=== PATIENT | male | born 1935 | race Caucasian/White ===

== ENCOUNTER 2018-06-12 12:19 | Inpatient (IN) | payer OTHER ==
--- NOTE | 2018-06-12 12:50 | PDOC ---
History of Present Illness - General Chief Complaint: Shortness of Breath Stated Complaint: SOB Time Seen by Provider: 06/12/18 12:35 History Source: Patient, Family Exam Limitations: Dementia - History of Present Illness Initial Comments: 06/12/18 14:09 Patient is a 83-year-old man with a history of COPD on 2L home O2, pulmonary HTN , right sided CHF, HTN, hyperlipidemia, hypothyroidism, dementia, depression, atrial flutter, and MICHAEL, presenting with 1 week of progressively worsening productive white cough and shortness of breath with minimal exertion. He states he has not been taking his torsemide 20mg x 2 days because he forgot. since then, also RLE swelling and pain. Notable for dementia, poor historian Allergies: NKA Past Medical History: COPD on 2L home O2, pulmonary HTN, right sided CHF, HTN, hyperlipidemia, hypothyroidism, dementia, depression, atrial flutter, and MICHAEL Social history: Lives with family. +current heavy smoker, No alcohol. No illicit drugs. Surgical history: noncontributory PMD: Dr Sandoval Cards: Dr Mallory Jacobs: Dr Olivo Review of systems Constitutional: no fevers or chills. HEENT: no headache or dizziness. No congestion. No visual/hearing disturbances. CVS: no cp or syncope. No palpitations. +peripheral edema Resp: +SOB, cough, wheezing. Gastrointestinal: no abdominal pain, nausea or vomiting. Genitourinary: no urinary sx, hematuria. MUSCULOSKELETAL: No joint pain and swelling. No neck or back pain. +leg swelling and pain. SKIN: no redness or skin changes, no discharge, no rash. No wounds. +cyanosis Hematologic: no easy bruising/bleeding. NEUROLOGIC: No headache, dizziness, LOC or altered mental status. No weakness, numbness or tingling. Allergic/Immunologic: no allergies All other systems reviewed and negative, or as documented in HPI. Physical exam: General: mild respiratory distress 2/2 tachypnea, increased WOB, speaking full short sentences. HEENT: NCAT, PERRL, EOMI, clear conjunctiva, anicteric, dry mucus membranes, clear oropharynx, no oral lesions.. Neck: neck supple, FROM Resp: Moderate respiratory distress, tachypneic, on 2L supp O2 via NC, + bilateral faint expiratory wheezing and diminished breath sounds/poor air movement with inspiration and expiration. +lip pursing, faint lip cyanosis on arrival CVS: RRR, no murmurs, 2+ peripheral pulses throughout, +RLE peripheral edema, 1 + PT pulses bilaterally Abdomen: soft, NTND, no peritoneal signs. Back: nontender, normal inspection and ROM MSK: +RLE 4+ pitting edema in ankle and pretibial region. MURPHY x4, ROM intact. No clubbing or cyanosis. normal bulk and tone. Neuro: alert, no focal neuro deficits. wiggles toes, sensation grossly intact to light touch in all extremities including BLE Skin: warm and well perfused, cap refill <2 sec 06/12/18 14:12 06/12/18 14:55 06/12/18 14:56 06/12/18 16:07 06/12/18 21:19 Past History - Past Medical History Allergies/Adverse Reactions: Allergies Allergy/AdvReac Type Severity Reaction Status Date / Time No Known Drug Allergies Allergy Verified 06/12/18 12:19 Home Medications: Ambulatory Orders RX: Ziprasidone [Geodon -] 80 mg PO HS 10/28/11 RX: Levalbuterol HCl [Xopenex] 1.25 mg IH Q4H PRN 02/14/15 RX: Potassium Chloride 20 meq PO DAILY tablet 08/30/15 RX: Metoprolol Succinate 25 mg PO 1 and 1/2 DAILY 11/30/15 RX: Torsemide 20 mg PO DAILY tablet 02/29/16 Ascorbic Acid [Vitamin C] 500 mg PO DAILY capsule 06/05/16 Cholecalciferol (Vitamin D3) [Vitamin D3] 2,000 unit PO DAILY capsule 06/05/16 RX: Carbamazepine 200 mg PO HS 06/12/18 Anemia: No Asthma: No Cancer: No 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) CVA: No COPD: Yes CHF: No Dementia: No Diabetes: No GI Disorders: No Disorders: Yes (BLADDER TUMOR) HTN: Yes Hypercholesterolemia: Yes Liver Disease: No Seizures: No Thyroid Disease: Yes - Surgical History Abdominal Surgery: No Appendectomy: No Cardiac Surgery: No Cholecystectomy: No Lung Surgery: No Neurologic Surgery: No Orthopedic Surgery: Yes (REPAIR RIGHT ANKLE FX 1999) - Suicide/Smoking/Psychosocial Hx Smoking History: Current every day smoker Have you smoked in the past 12 months: Yes Number of Cigarettes Smoked Daily: 8 'Breaking Loose' booklet given: 05/14/15 Hx Alcohol Use: Yes Drug/Substance Use Hx: No Substance Use Type: Alcohol Hx Substance Use Treatment: No Heart Score/ECG Review #1 ECG reviewed & interpreted by me at: 13:15 General ECG Interpretation: Sinus Rhythm, Normal Rate, Normal Intervals Compared to previous ECG there are: No significant change 06/12/18 14:12 EKG normal sinus rhythm at 95 bpm, no interval abnormalities, narrow QRS, ST and T wave segments and morphology normal. Nonspecific T wave abnormalities similar to prior EKGs ED Treatment Course - LABORATORY CBC & Chemistry Diagram: 06/12/18 13:20 06/12/18 13:20 - RADIOLOGY Radiology Studies Ordered: Category Date Time Status CHEST X-RAY PORTABLE* [RAD] Stat Radiology 06/12/18 12:49 Ordered Chest X-Ray Result: CHF Medical Decision Making - Critical Care Time Total Critical Care Time (minutes): 60 (acute respiratory failure, COPD and CHF exacerbation) Critical Care Statement: The care of this patient involved high complexity decision making to prevent further life threatening deterioration of the patient 's condition and/or to evaluate & treat vital organ system(s) failure or risk of failure. - Medical Decision Making 06/12/18 14:09 See HPI for details DDx SOB: ACS, PE, PTX, CHF, COPD exac, pulmonary edema, pleurisy, pneumonia, viral syndrome. effusion. anemia, electrolyte/metabolic derangements. Vital signs reviewed, +borderline hypoxia with COPD at baseline, on 2L NC O2 supplementally, 93% appropriate. mild tachypnea, normotensive. afebrile, Prior notes reviewed, including admissions, discharges and consultations. laboratory results and imaging reviewed, basic labs and lytes wnl, notable for baseline Cr 1.4, mild K elevation to 5.5, w/o EKG abnormalities such as interval derangements, QRS widening, T wave tenting. ABG_acute respiratory acidosis/hypercarbic and hypoxemic. CXR_cardiomegaly, increased bibasilar interstitial markings, no effusion or focal infiltrate. Cardiac panel_neg trop, reassuring, less likely cardiac bnp_elevated, similar to prior results as a result of his known CHF. EKG normal sinus rhythm at 95 bpm, no interval abnormalities, narrow QRS, ST and T wave segments and morphology normal. Nonspecific T wave abnormalities similar to prior EKGs ED course - duonebs x3, IV solumedrol, Mg given severe COPD exacerbation - diuresis with lasix, missed several days of torsemide, so also likely CHF flare. -remains hypoxic here, allowed for 88-92% given COPD history. did have to uptitrate his O2 to maintain sats >88%. wheezing improved, still working to breathe and purse lips on expiration; uptitrated his O2 to 4L O2 via nasal cannula, now sats on multiple reassessments >90% which is appropriate in setting of COPD. however continues to have WOB, ABG with acute respiratory hypercarbic/hypoxemic acidosis, put on bipap, arranging with respiratory to [facility]. comfortable on bipap, maintain to blow off Co2, recheck blood gas after several hours. bipap initiated ~7pm - abx for coverage, as he is high risk with his comorbities and respiratory complications. cef/doxy appropriate coverage for CAP. - blood cultures pending. - flu swab negative - duplex neg for DVT, however, +rt popliteal artery aneurysm with thrombus. NVI , with 1+ PT pulses bilaterally, no pain, only 4+ peripheral edema in RLE. not acute ischemic limb, likely chronic in nature - Vascular cs, spoke with Dr Diaz application tester, discussed the case and will need medical optimization prior to operative management. - ICU cs, accepted for higher level of care given his acute hypoxic respiratory failure requiring closer monitoring. - cards cs with Dr Abdi, for his right CHF exacerbation, diuresed and close monitoring of I/Os, urinal at bedside. admit ICU [facility] for acute respiratory failure 2/2 COPD/CHF exacerbation at time of admission order. incidentally found to have rt popliteal artery aneurysm, with thrombus. s/o to hospitalist team as well, admitting under Dr Mei. had discussed care several times via phone regarding status and bed placement. 440pm - no ICU bed, changed to tele. on reexam, pt has improved oxygenation status. remains on supp O2 via NC at 4L, stable. updated to telemetry bed at [facility] 06/12/18 17:31 06/12/18 19:53 06/12/18 21:21 06/12/18 21:21 *DC/Admit/Observation/Transfer Diagnosis at time of Disposition: COPD with acute exacerbation, Leg edema, right, Aneurysm of right popliteal artery, Right ventricular systolic dysfunction, Acute respiratory failure with hypoxia and hypercarbia CHF exacerbation Qualifiers: Heart failure type: right-sided Qualified Code(s): I50.813 - Acute on chronic right heart failure - Discharge Dispostion Condition at time of disposition: Guarded Decision to Admit order: Yes Decision to Admit order Date/Time: 06/12/18 15:02 Decision to Admit Order Category Date Time Status Decision to Admit to Hospital Routine Admission 06/12/18 15:01 Ordered - Referrals - Patient Instructions - Post Discharge Activity
[2018-06-12] MEDS ORDERED: MAGNESIUM SULF 50% (8.12 MEQ/2 ML-1 GM VIAL) IVPB ONE (12:58)
[2018-06-12] MEDS ORDERED: FUROSEMIDE 40 MG/4 ML INJECTABLE VIAL IVPUSH ONE (12:58)
[2018-06-12] MEDS ORDERED: methylPREDNISolone NA SUCC 125 MG/2 ML VIAL IVPB ONE (12:58)
[2018-06-12] MEDS ORDERED: FUROSEMIDE 40 MG/4 ML INJECTABLE VIAL ONE (13:25)
[2018-06-12] MEDS ORDERED: methylPREDNISolone NA SUCC 125 MG/2 ML VIAL ONE (13:25)
[2018-06-12] MEDS ORDERED: MAGNESIUM SULF 50% (8.12 MEQ/2 ML-1 GM VIAL) ONE (13:25)
[2018-06-12] MEDS ORDERED: ALBUTEROL SO4 0.083% IH SOL 2.5 MG/3 ML VIAL.NEB. NEB ONE (13:25)
[2018-06-12] MEDS: ALBUTEROL SO4 0.083% IH SOL 2.5 MG/3 ML VIAL.NEB. NEB SCH ×2 (13:39→13:59)
[2018-06-12 13:44] LABS: BASO % 3.4 % (0-2.0); EOS % 0.5 % (0-4.5); HEMATOCRIT 48.2 % (35.4-49); HEMOGLOBIN 15.2 GM/dl (11.7-16.9); LYMPH % 8.3 % (8-40); MCH 33.6 pg (25.7-33.7); MCHC 31.6 g/dl (32.0-35.9); MEAN CELL VOLUME 106.3 fl (80-96); MEAN PLT VOLUME 7.5 fl (7.5-11.1); MONO % 7.9 % (3.8-10.2); NEUT % 79.9 % (42.8-82.8); PLATELET COUNT 119 K/MM3 (134-434); RBC 4.53 M/mm3 (4.00-5.60)
[2018-06-12 13:55] LABS: ALBUMIN 3.2 g/dl (3.4-5.0); ALK PHOS 58 U/L (45-117); ANION GAP 6 MMOL/L (8-16); BILIRUBIN,TOTAL 1.3 mg/dl (0.2-1); BLOOD UREA NITROGEN 30 mg/dl (7-18); CHLORIDE 100 mmol/L (98-107); CO2 31 mmol/L (21-32); CREATININE 1.4 mg/dl (0.55-1.3); GLUCOSE,RANDOM 177 mg/dl (74-106); POTASSIUM 5.5 mmol/L (3.5-5.1); SGOT/AST 21 U/L (15-37); SGPT/ALT 10 U/L (13-61); SODIUM 137 mmol/L (136-145); TOT PROT 6.4 g/dl (6.4-8.2)
[2018-06-12 13:56] LABS: INR 1.28 (0.82-1.09); PROTHROMBIN TIME (PATIENT) 14.3 SEC (10.2-13.0)
[2018-06-12] MEDS ORDERED: CEFTRIAXONE 1,000 MG in DEXTROSE 5%-WATER - 50 ML IVPB ONE (14:58)
[2018-06-12] MEDS ORDERED: DOXYCYCLINE INJECTION 100 MG in DEXTROSE 5%-WATER - 100 ML IVPB ONE (14:58)
[2018-06-12] MEDS ORDERED: DOXYCYCLINE HYCLATE 100 MG VIAL ONE (15:53)
[2018-06-12] MEDS ORDERED: cefTRIAXone SODIUM 1 GM VIAL ONE (15:53)
[2018-06-12 16:52] LABS: ARTERIAL BLD GAS O2 SATURATION 57.7 % (95-98); ARTERIAL BLOOD GAS BASE EXCESS 4.5 meq/l (-2-2)
[2018-06-12 17:07] LABS: ARTERIAL BLOOD GAS PCO2 71.3 mmHg (35-45)
[2018-06-12 19:04] LABS: CARBOXYHEMOGLOBIN 1.9 % (0-2)
--- NOTE | 2018-06-12 21:39 | HP ---
Admitting History and Physical - Primary Care Physician PCP: Reji Sandoval - Admission Chief Complaint: SOB, Leg Swelling History of Present Illness: This is a 83 y/o man with a PMHx of: COPD 2LNC, Pulm HTN, HLD, Right Sided CHF, Atrial Flutter (on Eliquis) Hypothyroidism, Dementia, Depression, MICHAEL. Who presents to the ED with worsening SOB, productive cough- white phlegm x 1 week. Per ED records patient has been non-complaint with taking his Torsemide x 2 days. Patient reports pain and swelling to his RLE. Patient reports quitting smoking 5 days ago. Patient denies fever, chills, dizziness, CP, palpitations, AP, N/V/D, constipation, dysuria History Source: Patient Limitations to Obtaining History: Dementia, Poor Historian - Past Medical History TRAINING MANAGER: Yes: Dementia Cardiovascular: Yes: AFIB, Aneurysm (thoracic), HTN, Hyperlipdemia, Pulmonary Hypertension Pulmonary: Yes: COPD, O2 Dependent, Sleep Apnea Psych: Yes: Depression Endocrine: Yes: Hypothyroidism - Past Surgical History Past Surgical History: Yes: Cataract Removal (bilateral) - Smoking History Smoking history: Current every day smoker Have you smoked in the past 12 months: Yes Aproximately how many cigarettes per day: 8 (hx 1 PPD x 50+ yrs) If you are a former smoker, when did you quit?: 5 DAYS AGO - Alcohol/Substance Use Hx Alcohol Use: Yes History of Substance Use: reports: None - Social History ADL: Independent History of Recent Travel: No Home Medications - Allergies Allergies/Adverse Reactions: Allergies Allergy/AdvReac Type Severity Reaction Status Date / Time No Known Drug Allergies Allergy Verified 06/12/18 12:19 - Home Medications Home Medications: Ambulatory Orders Ziprasidone [Geodon -] 80 mg PO HS 10/28/11 Levalbuterol HCl [Xopenex] 1.25 mg IH Q4H PRN 02/14/15 Potassium Chloride 20 meq PO DAILY tablet 08/30/15 Metoprolol Succinate 25 mg PO 1 and 1/2 DAILY 11/30/15 Torsemide 20 mg PO DAILY tablet 02/29/16 Ascorbic Acid [Vitamin C] 500 mg PO DAILY capsule 06/05/16 Cholecalciferol (Vitamin D3) [Vitamin D3] 2,000 unit PO DAILY capsule 06/05/16 Carbamazepine 200 mg PO HS 06/12/18 Family Disease History - Family Disease History Family History: Unable to Obtain Review of Systems - Review of Systems Constitutional: reports: No Symptoms Eyes: reports: No Symptoms HENT: reports: No Symptoms Neck: reports: No Symptoms Cardiovascular: reports: Shortness of Breath Respiratory: reports: Cough, SOB, SOB on Exertion Gastrointestinal: reports: No Symptoms Genitourinary: reports: No Symptoms Breasts: reports: No Symptoms Reported Musculoskeletal: reports: Extremity Pain, Joint Swelling Integumentary: reports: No Symptoms Neurological: reports: No Symptoms Endocrine: reports: No Symptoms Hematology/Lymphatic: reports: No Symptoms Psychiatric: reports: No Symptoms Physical Examination Vital Signs: Vital Signs Temperature 98 F 06/12/18 18:41 Pulse Rate 62 06/12/18 19:23 Respiratory Rate 18 06/12/18 19:23 Blood Pressure 122/75 06/12/18 19:23 O2 Sat by Pulse Oximetry (%) 93 L 06/12/18 21:15 Constitutional: Yes: Mild Distress Eyes: Yes: Conjunctiva Clear, EOM Intact, PERRL HENT: Yes: WNL, Atraumatic, Normocephalic Neck: Yes: WNL, Supple, Trachea Midline Cardiovascular: Yes: Pulse Irregular, S1, S2 Respiratory: Yes: Diminished, On BiPap, Rhonchi, SOB, SOB on Exertion, Tachypnea , Wheezes Gastrointestinal: Yes: Normal Bowel Sounds, Soft Edema: Yes Edema: LLE: Trace, RLE: 2+ Peripheral Pulses WNL: Yes Neurological: Yes: Alert, Confusion, Cran Nerves II-XII Intact ...Motor Strength: WNL Psychiatric: Yes: Alert Labs: CBC, BMP 06/12/18 13:20 06/12/18 13:20 Imaging - Results Chest X-ray: Report Reviewed Ultrasound: Report Reviewed, Image Reviewed EKG: Image Reviewed Problem List - Problems (1) Acute respiratory failure with hypoxia and hypercarbia Code(s): J96.01 - ACUTE RESPIRATORY FAILURE WITH HYPOXIA; J96.02 - ACUTE RESPIRATORY FAILURE WITH HYPERCAPNIA (2) COPD with acute exacerbation Code(s): J44.1 - CHRONIC OBSTRUCTIVE PULMONARY DISEASE W (ACUTE) EXACERBATION (3) CHF exacerbation Code(s): I50.9 - HEART FAILURE, UNSPECIFIED Qualifiers: Heart failure type: right-sided Qualified Code(s): I50.813 - Acute on chronic right heart failure (4) Aneurysm of right popliteal artery Code(s): I72.4 - ANEURYSM OF ARTERY OF LOWER EXTREMITY (5) Leg edema, right Code(s): R60.0 - LOCALIZED EDEMA (6) Hyperlipidemia Code(s): E78.5 - HYPERLIPIDEMIA, UNSPECIFIED Qualifiers: Hyperlipidemia type: unspecified Qualified Code(s): E78.5 - Hyperlipidemia , unspecified (7) Hypertension Code(s): I10 - ESSENTIAL (PRIMARY) HYPERTENSION Qualifiers: Hypertension type: essential hypertension Qualified Code(s): I10 - Essential (primary) hypertension (8) Pulmonary hypertension Code(s): I27.2 - OTHER SECONDARY PULMONARY HYPERTENSION * DO NOT USE * (9) Obstructive sleep apnea Code(s): G47.33 - OBSTRUCTIVE SLEEP APNEA (ADULT) (PEDIATRIC) (10) Hypothyroidism Code(s): E03.9 - HYPOTHYROIDISM, UNSPECIFIED Qualifiers: Hypothyroidism type: unspecified Qualified Code(s): E03.9 - Hypothyroidism , unspecified (11) Dementia Code(s): F03.90 - UNSPECIFIED DEMENTIA WITHOUT BEHAVIORAL DISTURBANCE Qualifiers: Dementia type: unspecified type Dementia behavioral disturbance: without behavioral disturbance Qualified Code(s): F03.90 - Unspecified dementia without behavioral disturbance (12) Depression Code(s): F32.9 - MAJOR DEPRESSIVE DISORDER, SINGLE EPISODE, UNSPECIFIED Qualifiers: Depression Type: unspecified Qualified Code(s): F32.9 - Major depressive disorder, single episode, unspecified Assessment/Plan This is a 83 y/o man with a PMHx of: COPD (2LNC), Pulm HTN, Dementia, HLD, R- sided CHF, Aflutter (on Eliquis), Hypothyroid, Depression, MICHAEL. Admitted to Telemetry for Acute Respiratory Failure with Hypoxia and Hypercapnia, Acute COPD Exacerbation, Pneumonia for further evaluation of their emergent condition. Plan: 1. Pulm: Acute Respiratory Failure with Hypoxia and Hypercapnia Likely secondary to COPD flare vs CHF vs PNA Continue cardiac monitoring Chest Xray report- ?RLL infiltrate, increased bibasilar markings [id number] Ceftriaxone, and Doxycycline given in ED, will continue ABG- 7.31/71/35/33/57 BIPAP settings: 40/16/12/5 Repeat ABG, titrate BIPAP accordingly Appreciate Pulm Consult Continue home meds Monitor CBC, BMP 2. Cardiovascular: HTN CHF Aflutter R- Popliteal Artery Aneurysm EKG- SR with PVCs, ST & T wave abnormality Duplex LE- no DVT, +right popliteal artery aneurysm measuring 4.0cm x 2.3cm Lasix, Solumederol, Magnesium Sulfate given in ED Appreciate Cardiology consult Appreciate Vascular consult Neurovascular checks Continue home meds Continue Lasix, Solumederol with taper Daily weights Strict INOs 3. Endocrinology: Hypothyroid Continue Levothyroxine 4. Psych: Dementia Depression Continue home meds FEN Fluid Restriction 1L Replete lytes prn Low Na Diet DVT ppx OOB SCD- L- leg Continue Eliquis Dispo: Requires Inpatient Care Visit type - Emergency Visit Emergency Visit: Yes ED Registration Date: 06/12/18 Care time: The patient presented to the Emergency Department on the above date and was hospitalized for further evaluation of their emergent condition. - New Patient This patient is new to me today: Yes Date on this admission: 06/12/18 - Critical Care Critical Care patient: No
[2018-06-12] MEDS ORDERED: HEPARIN NA (PORCINE) 5,000 UNITS/ML 1ML VIAL SQ SCH (22:00)
[2018-06-13 00:23] LABS: ARTERIAL BLD GAS O2 SATURATION 94.9 % (95-98); ARTERIAL BLOOD GAS BASE EXCESS 5.4 meq/l (-2-2); ARTERIAL BLOOD GAS PCO2 55.7 mmHg (35-45); ARTERIAL BLOOD GAS PO2 77.4 mmHg (80-105); ARTERIAL BLOOD GAS pH 7.37 (7.35-7.45)
[2018-06-13 00:24] LABS: ALLENS TEST POSITIVE
[2018-06-13] MEDS: LEVOTHYROXINE NA 50 MCG TABLET (FP) PO SCH (06:04)
[2018-06-13] MEDS ORDERED: PATIENT'S OWN MEDICATION (NON-FORMULARY) (Memantine Hcl [Namenda Xr] 14 MG) PO SCH (07:00)
[2018-06-13 07:14] LABS: ARTERIAL BLD GAS O2 SATURATION 92.4 % (95-98); ARTERIAL BLOOD GAS BASE EXCESS 5.6 meq/l (-2-2); ARTERIAL BLOOD GAS PCO2 56.8 mmHg (35-45); ARTERIAL BLOOD GAS PO2 65.9 mmHg (80-105); ARTERIAL BLOOD GAS pH 7.37 (7.35-7.45)
[2018-06-13 07:23] LABS: ALLENS TEST POSITIVE
[2018-06-13 07:46] LABS: BASO % 0.2 % (0-2.0); EOS % 0.2 % (0-4.5); HEMATOCRIT 45.1 % (35.4-49); HEMOGLOBIN 14.4 GM/dL (11.7-16.9); LYMPH % 10.5 % (8-40); MCH 33.5 pg (25.7-33.7); MEAN CELL VOLUME 104.8 fl (80-96); MEAN PLT VOLUME 7.8 fl (7.5-11.1); MONO % 7.8 % (3.8-10.2); NEUT % 81.3 % (42.8-82.8); PLATELET COUNT 94 K/MM3 (134-434); RBC 4.31 M/mm3 (4.00-5.60); WHITE BLOOD COUNT 4.1 K/mm3 (4.0-10.0)
[2018-06-13 08:36] LABS: ANION GAP 4 MMOL/L (8-16); BLOOD UREA NITROGEN 26 mg/dL (7-18); CALCIUM 7.8 mg/dL (8.5-10.1); CHLORIDE 102 mmol/L (98-107); CHOLESTEROL 112 mg/dL (50-200); CO2 31 mmol/L (21-32); CREATININE 1.3 mg/dL (0.55-1.3); GLUCOSE,RANDOM 78 mg/dL (74-106); HDL CHOLESTEROL 53 mg/dL (40-60); POTASSIUM 4.5 mmol/L (3.5-5.1); SODIUM 136 mmol/L (136-145); TRIGLYCERIDES 55 mg/dL (0-150)
[2018-06-13] MEDS ORDERED: PT OWN MED DRAWER 7, Y5N ONE (09:52)
[2018-06-13] MEDS ORDERED: methylPREDNISolone NA SUCC 40 MG/1 ML VIAL IVPUSH SCH (10:00)
[2018-06-13] MEDS ORDERED: CEFTRIAXONE 0.5 GM in DEXTROSE 5%-WATER - 50 ML IVPB SCH (10:00)
[2018-06-13] MEDS ORDERED: FUROSEMIDE 40 MG/4 ML INJECTABLE VIAL IVPUSH SCH (10:00)
--- NOTE | 2018-06-13 10:58 | PN ---
Progress Note, Physician - Current Medication List Current Medications: Active Medications Albuterol Sulfate (Ventolin 0.083% Nebulizer Soln -) 1 amp NEB Q6H PRN PRN Reason: SHORT OF BREATH/WHEEZING Apixaban (Eliquis -) 5 mg PO BID [facility] Ascorbic Acid (Vitamin C -) 500 mg PO DAILY [facility] Atorvastatin Calcium (Lipitor -) 10 mg PO HS [facility] Carbamazepine (Tegretol -) 200 mg PO HS [facility] Digoxin (Lanoxin -) 0.125 mg PO DAILY [facility] Donepezil HCl (Aricept -) 10 mg PO HS [facility] Furosemide (Lasix Injection -) 40 mg IVPUSH DAILY [facility] Doxycycline Hyclate 100 mg/ (Dextrose) 100 mls @ 50 mls/hr IVPB BID [facility] Ceftriaxone Sodium 0.5 gm/ (Dextrose) 50 mls @ 100 mls/hr IVPB DAILY [facility]; Protocol Levothyroxine Sodium (Synthroid -) 50 mcg PO DAILY@0700 [facility] Last Admin: 06/13/18 06:04 Dose: 50 mcg Methylprednisolone Sodium Succinate (Solu-Medrol -) 40 mg IVPUSH Q8H-IV RAMANA Non-Formulary Medication (Memantine Hcl [Namenda Xr]) 14 mg PO AM RAMANA [id number] Ethyl Esters (Lovaza -) 1 gm PO BID [facility] - Objective Vital Signs: Vital Signs Temperature 97.4 F L 06/13/18 06:00 Pulse Rate 53 L 06/13/18 06:00 Respiratory Rate 20 06/13/18 06:00 Blood Pressure 138/80 06/13/18 06:00 O2 Sat by Pulse Oximetry (%) 93 L 06/12/18 21:15 Constitutional: Yes: Well Nourished, No Distress, Calm Eyes: Yes: WNL, Conjunctiva Clear, EOM Intact HENT: Yes: WNL, Atraumatic, Normocephalic Neck: Yes: WNL, Supple, Trachea Midline Cardiovascular: Yes: WNL, Pulse Irregular, S1, S2 Respiratory: Yes: WNL, Regular, On BiPap, Rales, Rhonchi, SOB, SOB on Exertion Gastrointestinal: Yes: WNL, Normal Bowel Sounds, Soft Musculoskeletal: Yes: WNL Extremities: Yes: WNL Edema: Yes Edema: LLE: 3+, RLE: 2+ Peripheral Pulses WNL: Yes Integumentary: Yes: WNL Neurological: Yes: WNL, Alert, Oriented ...Motor Strength: WNL Psychiatric: Yes: WNL, Alert, Oriented Labs: CBC, BMP 06/13/18 07:00 06/13/18 07:00 INR, PTT INR 1.28 (0.82-1.09) H D 06/12/18 13:20 Problem List - Problems (1) Acute respiratory failure with hypoxia and hypercarbia Assessment/Plan: 2/2 elly COPD exacerbation patient is responding to BiPAP his CO2 level has decreased c/w BiPAP trend the ABG pulmonary evaluation Code(s): J96.01 - ACUTE RESPIRATORY FAILURE WITH HYPOXIA; J96.02 - ACUTE RESPIRATORY FAILURE WITH HYPERCAPNIA (2) Aneurysm of right popliteal artery Assessment/Plan: seen on US of the lower ext vascular surgery is following up on the patient Code(s): I72.4 - ANEURYSM OF ARTERY OF LOWER EXTREMITY (3) CHF exacerbation Assessment/Plan: HFrEF obtain echocardiogram cardiology consultation admit to tele monitor IV 80mg furosemide twice a day then switch to 40mg IV x twice day from tmorrow Code(s): I50.9 - HEART FAILURE, UNSPECIFIED Qualifiers: Heart failure type: right-sided Qualified Code(s): I50.813 - Acute on chronic right heart failure (4) COPD with acute exacerbation Assessment/Plan: c/w nebulizing treatment PO prednisone 40mg daily pulmonary evaluation Code(s): J44.1 - CHRONIC OBSTRUCTIVE PULMONARY DISEASE W (ACUTE) EXACERBATION (5) Atrial flutter Assessment/Plan: possible 2/2 to the pulmonary HTN and COPD stable c/w digoxin c/w tele monitor Cardiology evaluation c/w apixiban 5mg twice a day - based on weight and kidney function Code(s): I48.92 - UNSPECIFIED ATRIAL FLUTTER Qualifiers: Atrial flutter type: unspecified Qualified Code(s): I48.92 - Unspecified atrial flutter (6) Chronic cor pulmonale Assessment/Plan: stable c/w nebs pulmonary consultation Code(s): I27.81 - COR PULMONALE (CHRONIC) (7) Hyperlipidemia Assessment/Plan: c/w atrovastatin Code(s): E78.5 - HYPERLIPIDEMIA, UNSPECIFIED Qualifiers: Hyperlipidemia type: unspecified Qualified Code(s): E78.5 - Hyperlipidemia , unspecified (8) Hypertension Assessment/Plan: stable c/w home medication Code(s): I10 - ESSENTIAL (PRIMARY) HYPERTENSION Qualifiers: Hypertension type: essential hypertension Qualified Code(s): I10 - Essential (primary) hypertension (9) Hypothyroidism Assessment/Plan: stable c/w levothyroxine Code(s): E03.9 - HYPOTHYROIDISM, UNSPECIFIED Qualifiers: Hypothyroidism type: unspecified Qualified Code(s): E03.9 - Hypothyroidism , unspecified (10) Acute respiratory acidosis Assessment/Plan: acute on chronic CO2 retention 2/2 to chronic COPD exacacerbation respondinf to BiPAP Code(s): E87.2 - ACIDOSIS (11) Chronic respiratory acidosis Assessment/Plan: 2/2 to chronic COPD and CO2 retention Code(s): E87.2 - ACIDOSIS
[2018-06-13] MEDS: APIXABAN 5 MG TABLET PO SCH ×2 (10:59→21:09)
[2018-06-13] MEDS: DIGOXIN 0.125 MG TABLET (FP) PO SCH (11:00)
[2018-06-13] MEDS: OMEGA-3 ACID ETHYL ESTERS (FATTY-ACIDS) 1 GM CAPSULE (FP) PO SCH ×2 (11:01→21:09)
[2018-06-13] MEDS: ASCORBIC ACID 500 MG TABLET (FP) PO SCH (11:03)
[2018-06-13] MEDS: DOXYCYCLINE INJECTION 100 MG in DEXTROSE 5%-WATER - 100 ML IVPB SCH ×2 (11:14→21:13)
--- NOTE | 2018-06-13 12:06 | PN ---
Progress Note (short form) - Note Progress Note: Vascular Surgery Vascular Study reviewed. Right popliteal artery with 2.3cm aneurysm. Reccommend CTA of Aorta and bl lower extremities runoff. With a popliteal artery aneurysm there is a 20-30 percent chance that the pt might have a abdominal aortic aneurysm. PLease order CTA when pt is stable. Devon Diaz DO
--- NOTE | 2018-06-13 12:48 | CON.PULM ---
Consult Consult Specialty:: PULM/CCM Referred by:: MARCO ANTONIO Reason for Consultation:: SOB - History of Present Illness Chief Complaint: SOB History of Present Illness: 83 M, home O2 dependent COPD, Pulmonary HTN, HLD, Diastolic CHF, Atrial Flutter on Eliquis, Hypothyroidism, Dementia, Depression, and Moderate MICHAEL (RDI: 16.3) titrated to CPAP @ 12 cm H2O (not using). Admitted via the ER due to progressive SOB and cough with white phlegm x 1 week. He was noted to be in acute on chronic hypercpaneic respiratory failure requiring NIPPV support. No travel history or sick contacts. No hemoptysis or night sweats. Apparently he has been noncompliant with his Torsemide. 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 No: Previously Intubated, Pulmonary Embolus, Pulmonary Fibrosis Psych: Yes: Depression Endocrine: Yes: Hypothyroidism - Past Surgical History Past Surgical History: Yes: Cataract Removal (bilateral) - Alcohol/Substance Use Hx Alcohol Use: Yes History of Substance Use: reports: None - Smoking History Smoking history: Current every day smoker Have you smoked in the past 12 months: Yes Aproximately how many cigarettes per day: 8 (hx 1 PPD x 50+ yrs) If you are a former smoker, when did you quit?: 5 DAYS AGO - Social History ADL: Independent History of Recent Travel: No Home Medications - Allergies Allergies/Adverse Reactions: Allergies Allergy/AdvReac Type Severity Reaction Status Date / Time No Known Drug Allergies Allergy Verified 06/12/18 12:19 - Home Medications Home Medications: Ambulatory Orders Ziprasidone [Geodon -] 80 mg PO HS 10/28/11 Levalbuterol HCl [Xopenex] 1.25 mg IH Q4H PRN 02/14/15 Potassium Chloride 20 meq PO DAILY tablet 08/30/15 Metoprolol Succinate 25 mg PO 1 and 1/2 DAILY 11/30/15 Torsemide 20 mg PO DAILY tablet 02/29/16 Ascorbic Acid [Vitamin C] 500 mg PO DAILY capsule 06/05/16 Cholecalciferol (Vitamin D3) [Vitamin D3] 2,000 unit PO DAILY capsule 06/05/16 Carbamazepine 200 mg PO HS 06/12/18 Review of Systems - Review of Systems Constitutional: reports: Malaise, Weakness. denies: Chills, Diaphoresis, Lethargy, Night Sweats, Unintentional Wgt. Loss Eyes: reports: No Symptoms HENT: reports: No Symptoms Neck: reports: No Symptoms Cardiovascular: reports: Edema, Shortness of Breath. denies: Chest Pain, Palpitations Respiratory: reports: Cough, Snoring, SOB, SOB on Exertion, Wheezing. denies: Hemoptysis Gastrointestinal: reports: No Symptoms Genitourinary: reports: No Symptoms Breasts: reports: No Symptoms Reported Musculoskeletal: reports: No Symptoms Integumentary: reports: No Symptoms Neurological: reports: No Symptoms Endocrine: reports: No Symptoms Hematology/Lymphatic: reports: No Symptoms Psychiatric: reports: No Symptoms Physical Exam Vital Sings: Vital Signs Temperature 97.4 F L 06/13/18 06:00 Pulse Rate 69 06/13/18 11:00 Respiratory Rate 20 06/13/18 06:00 Blood Pressure 138/80 06/13/18 06:00 O2 Sat by Pulse Oximetry (%) 93 L 06/12/18 21:15 Constitutional: Yes: Mild Distress Eyes: Yes: Conjunctiva Clear, EOM Intact HENT: Yes: Atraumatic, Normocephalic Neck: Yes: Supple, Trachea Midline Cardiovascular: Yes: Pulse Irregular Respiratory: Yes: Cough, Diminished, Rhonchi, SOB, SOB on Exertion, Tachypnea, Wheezes. No: Accessory Muscle Use, Stridor ...Inspection: Yes: WNL ...Clubbing: No Gastrointestinal: Yes: Normal Bowel Sounds, Soft Renal/: Yes: WNL Musculoskeletal: Yes: WNL Extremities: Yes: WNL Edema: Yes Peripheral Pulses WNL: Yes Integumentary: Yes: WNL Neurological: Yes: WNL, Alert, Oriented ...Motor Strength: WNL Psychiatric: Yes: WNL, Alert, Oriented Labs: CBC, BMP 06/13/18 07:00 06/13/18 07:00 ABG Results ABG pH 7.37 (7.35-7.45) 06/13/18 07:00 ABG pCO2 at Pt Temp 56.8 mmHg (35-45) H 06/13/18 07:00 ABG pO2 at Pt Temp 65.9 mmHg (80-105) L 06/13/18 07:00 ABG HCO3 32.2 mmol/L (22-27) H 06/13/18 07:00 ABG O2 Sat (Measured) 92.4 % (95-98) L 06/13/18 07:00 ABG O2 Content 18.3 % vol (15-22) 06/13/18 07:00 ABG Base Excess 5.6 meq/l (-2-2) H 06/13/18 07:00 Imaging - Results Chest X-ray: Report Reviewed, Image Reviewed Problem List - Problems (1) Community acquired pneumonia Code(s): J18.9 - PNEUMONIA, UNSPECIFIED ORGANISM (2) Acute respiratory acidosis Code(s): E87.2 - ACIDOSIS (3) Acute respiratory failure with hypoxia and hypercarbia Code(s): J96.01 - ACUTE RESPIRATORY FAILURE WITH HYPOXIA; J96.02 - ACUTE RESPIRATORY FAILURE WITH HYPERCAPNIA (4) Aneurysm of right popliteal artery Code(s): I72.4 - ANEURYSM OF ARTERY OF LOWER EXTREMITY (5) COPD with acute exacerbation Code(s): J44.1 - CHRONIC OBSTRUCTIVE PULMONARY DISEASE W (ACUTE) EXACERBATION (6) Chronic respiratory acidosis Code(s): E87.2 - ACIDOSIS (7) Leg edema, right Code(s): R60.0 - LOCALIZED EDEMA (8) Right ventricular systolic dysfunction Code(s): I51.9 - HEART DISEASE, UNSPECIFIED (9) Atrial flutter Code(s): I48.92 - UNSPECIFIED ATRIAL FLUTTER Qualifiers: Atrial flutter type: unspecified Qualified Code(s): I48.92 - Unspecified atrial flutter (10) COPD (chronic obstructive pulmonary disease) Code(s): J44.9 - CHRONIC OBSTRUCTIVE PULMONARY DISEASE, UNSPECIFIED Qualifiers: COPD type: COPD with acute exacerbation Qualified Code(s): J44.1 - Chronic obstructive pulmonary disease with (acute) exacerbation (11) Chronic cor pulmonale Code(s): I27.81 - COR PULMONALE (CHRONIC) (12) Dementia Code(s): F03.90 - UNSPECIFIED DEMENTIA WITHOUT BEHAVIORAL DISTURBANCE Qualifiers: Dementia type: unspecified type Dementia behavioral disturbance: without behavioral disturbance Qualified Code(s): F03.90 - Unspecified dementia without behavioral disturbance (13) Hyperlipidemia Code(s): E78.5 - HYPERLIPIDEMIA, UNSPECIFIED Qualifiers: Hyperlipidemia type: unspecified Qualified Code(s): E78.5 - Hyperlipidemia , unspecified (14) Hypertension Code(s): I10 - ESSENTIAL (PRIMARY) HYPERTENSION Qualifiers: Hypertension type: essential hypertension Qualified Code(s): I10 - Essential (primary) hypertension (15) Hypothyroidism Code(s): E03.9 - HYPOTHYROIDISM, UNSPECIFIED Qualifiers: Hypothyroidism type: unspecified Qualified Code(s): E03.9 - Hypothyroidism , unspecified (16) Obstructive sleep apnea Code(s): G47.33 - OBSTRUCTIVE SLEEP APNEA (ADULT) (PEDIATRIC) (17) Pulmonary hypertension Code(s): I27.2 - OTHER SECONDARY PULMONARY HYPERTENSION * DO NOT USE * Assessment/Plan Agree with ABX coverage Check urine antigen Check sputum NC O2 as tolerated NIPPV QHS and PRN Repeat CT chest for follow up of mass No smoking discussed AC BD TX standing and PRN Continuous oxymetry monitoring Will follow Thank you. Dr Cortes
--- NOTE | 2018-06-13 13:36 | CON.CARD ---
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 Cough for 1 week, also dyspnea. Has been noncompliant with torsemide for the last two days, pain and swelling of RLE noted. Hx smoking, says he quit 5 days ago. On nebs, steroids here, received IV lasix. Has had some abd distension which he had in the past with volume overload. Sees Dr. Tejada for cardio. Allergies Allergy/AdvReac Type Severity Reaction Status Date / Time No Known Drug Allergies Allergy Verified 06/12/18 12:19 PMHx: Per HPI. Hypothyroid. PSH: Cataract Social: Current smoker, rare Alcohol use. Family: No family history of heart disease. ROS: Per HPI Ambulatory Orders Ziprasidone [Geodon -] 80 mg PO HS 10/28/11 Levalbuterol HCl [Xopenex] 1.25 mg IH Q4H PRN 02/14/15 Potassium Chloride 20 meq PO DAILY tablet 08/30/15 Metoprolol Succinate 25 mg PO 1 and 1/2 DAILY 11/30/15 Torsemide 20 mg PO DAILY tablet 02/29/16 Ascorbic Acid [Vitamin C] 500 mg PO DAILY capsule 06/05/16 Cholecalciferol (Vitamin D3) [Vitamin D3] 2,000 unit PO DAILY capsule 06/05/16 Carbamazepine 200 mg PO HS 06/12/18 PE: Vital Signs Period Temp Pulse Resp BP Sys/Raya Pulse Ox Last 24 Hr 97.2 F-98 F 53-93 18-22 108-155/63-87 86-96 NAD, JVD elevated to mandible, -hepatojugular reflux Irregular rate and rhythm. Nl S1, S2. 2/6 murmur at LSB Good respiratory effort. Prolonged exp phase with exp wheezes bilaterally aaox 3 RLE 3+ pitting edema to knee +BS, soft, NT, distended. Pos dp/PT No jaundice, diaphoresis. Laboratory Last Values WBC 4.1 K/mm3 (4.0-10.0) 06/13/18 07:00 RBC 4.31 M/mm3 (4.00-5.60) 06/13/18 07:00 Hgb 14.4 GM/dL (11.7-16.9) 06/13/18 07:00 Hct 45.1 % (35.4-49) 06/13/18 07:00 MCV 104.8 fl (80-96) H 06/13/18 07:00 MCH 33.5 pg (25.7-33.7) 06/13/18 07:00 MCHC 32.0 g/dl (32.0-35.9) 06/13/18 07:00 RDW 17.0 % (11.9-15.9) H 06/13/18 07:00 Plt Count 94 K/MM3 (134-434) L D 06/13/18 07:00 MPV 7.8 fl (7.5-11.1) D 06/13/18 07:00 Absolute Neuts (auto) 3.3 K/mm3 (1.5-8.0) 06/13/18 07:00 Neutrophils % 81.3 % (42.8-82.8) 06/13/18 07:00 Lymphocytes % 10.5 % (8-40) D 06/13/18 07:00 Monocytes % 7.8 % (3.8-10.2) D 06/13/18 07:00 Eosinophils % 0.2 % (0-4.5) D 06/13/18 07:00 Basophils % 0.2 % (0-2.0) 06/13/18 07:00 Nucleated RBC % 0 % (0-0) 06/13/18 07:00 PT with INR 14.3 SEC (10.2-13.0) H 06/12/18 13:20 INR 1.28 (0.82-1.09) H D 06/12/18 13:20 Anticoagulation Therapy No Result Required. 06/13/18 07:00 Puncture Site Right brachial 06/13/18 07:00 ABG pH 7.37 (7.35-7.45) 06/13/18 07:00 ABG pCO2 at Pt Temp 56.8 mmHg (35-45) H 06/13/18 07:00 ABG pO2 at Pt Temp 65.9 mmHg (80-105) L 06/13/18 07:00 ABG HCO3 32.2 mmol/L (22-27) H 06/13/18 07:00 ABG O2 Sat (Measured) 92.4 % (95-98) L 06/13/18 07:00 ABG O2 Content 18.3 % vol (15-22) 06/13/18 07:00 ABG Base Excess 5.6 meq/l (-2-2) H 06/13/18 07:00 Surya Test Positive 06/13/18 07:00 Carboxyhemoglobin 1.9 % (0-2) 06/12/18 14:48 Methemoglobin 0.2 % (0-2) 06/12/18 14:48 O2 Delivery Device Nasal 06/13/18 07:00 Oxygen Flow Rate 3l 06/13/18 07:00 Vent Mode No Result Required. 06/13/18 07:00 Vent Rate No Result Required. 06/13/18 07:00 Mechanical Rate No Result Required. 06/13/18 07:00 PEEP 0.0 cmH2O 06/13/18 00:10 Pressure Support Vent No Result Required. 06/13/18 07:00 Sodium 136 mmol/L (136-145) 06/13/18 07:00 Potassium 4.5 mmol/L (3.5-5.1) 06/13/18 07:00 Chloride 102 mmol/L (98-107) 06/13/18 07:00 Carbon Dioxide 31 mmol/L (21-32) 06/13/18 07:00 Anion Gap 4 MMOL/L (8-16) L 06/13/18 07:00 BUN 26 mg/dL (7-18) H 06/13/18 07:00 Creatinine 1.3 mg/dL (0.55-1.3) 06/13/18 07:00 Creat Clearance w eGFR 52.72 (>60) 06/13/18 07:00 Random Glucose 78 mg/dL (74-106) 06/13/18 07:00 Hemoglobin A1c % 5.8 % (4.2-6.3) 06/13/18 07:00 Calcium 7.8 mg/dL (8.5-10.1) L 06/13/18 07:00 Magnesium 2.0 mg/dL (1.8-2.4) 06/12/18 13:20 Total Bilirubin 1.3 mg/dl (0.2-1) H 06/12/18 13:20 AST 21 U/L (15-37) 06/12/18 13:20 ALT 10 U/L (13-61) L 06/12/18 13:20 Alkaline Phosphatase 58 U/L (45-117) 06/12/18 13:20 Troponin I 0.03 ng/ml (0.00-0.05) 06/13/18 07:00 B-Natriuretic Peptide 18225.0 pg/ml (5-450) H 06/12/18 13:20 Total Protein 6.4 g/dl (6.4-8.2) 06/12/18 13:20 Albumin 3.2 g/dl (3.4-5.0) L 06/12/18 13:20 Triglycerides 55 mg/dL (0-150) 06/13/18 07:00 Cholesterol 112 mg/dL (50-200) 06/13/18 07:00 Total LDL Cholesterol 57 mg/dL (5-100) 06/13/18 07:00 HDL Cholesterol 53 mg/dL (40-60) 06/13/18 07:00 Urine Color Rubi 06/12/18 14:18 Urine Appearance Clear 06/12/18 14:18 Urine pH 6.0 (4.5-8) 06/12/18 14:18 Urine Protein 2+ (NEGATIVE) H 06/12/18 14:18 Urine Glucose (UA) Negative (NEGATIVE) 06/12/18 14:18 Urine Ketones Negative (NEGATIVE) 06/12/18 14:18 Urine Blood Negative (NEGATIVE) 06/12/18 14:18 Urine Nitrite Negative (NEGATIVE) 06/12/18 14:18 Urine Bilirubin Negative (NEGATIVE) 06/12/18 14:18 Urine Urobilinogen 2.0 (0.2-1.0) 06/12/18 14:18 Ur Leukocyte Esterase Negative (NEGATIVE) 06/12/18 14:18 Urine WBC 0-2 (NEGATIVE) 06/12/18 14:18 Digoxin 0.43 ng/ml (0.8-2.0) L 06/13/18 07:00 Influenza A (Rapid) Negative 06/12/18 15:00 Influenza B (Rapid) Negative 06/12/18 15:00 Echo 05/03/15: Nl LV. RV mild-mod dilation with mild-mod systolic dysfunction. Severe pHTN (RVSP 62), mild TR. Mild Ao dilation. Pharm nuc stress 05/03/15: Afib with RVR. Asx. No ischemic changes. Nl perf. Nl EF. 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 SOB, cough, COPD - CT with significant findings for COPD, receiving nebs and steroids per primary - also received IV lasix for CHF, missed torsemide doses hx R heart failure, pulm HTN - BNP >11,000 - echo pending - received lasix 40 mg IV x 1, now on 80 mg IV BID - has abd distension, which he has had in the past with volume overload - cont IV lasix, monitor Cr,lytes, daily standing weights Atrial fibrillation. - cont eliquis, digoxin popliteal artery aneurysm - vascular consulted, Dr. Diaz HL: - cont statin
[2018-06-13] MEDS: FUROSEMIDE 40 MG/4 ML INJECTABLE VIAL IVPUSH SCH (14:50)
[2018-06-13] MEDS: CEFTRIAXONE 0.5 GM in DEXTROSE 5%-WATER - 50 ML IVPB SCH (16:24)
[2018-06-13] MEDS: ALBUTEROL SO4 2.5/IPRATROPIUM 0.5 INH SOL 3 ML VIAL.NEB. NEB SCH ×2 (17:36→20:22)
[2018-06-13] MEDS: ATORVASTATIN CA 10 MG TABLET (FP) PO SCH (21:08)
[2018-06-13] MEDS: carBAMazepine 200 MG TABLET PO SCH (21:08)
[2018-06-13] MEDS: DONEPEZIL HCL 10 MG TABLET (FP) PO SCH (21:09)
[2018-06-14] MEDS: LEVOTHYROXINE NA 50 MCG TABLET (FP) PO SCH (06:11)
[2018-06-14] MEDS: FUROSEMIDE 40 MG/4 ML INJECTABLE VIAL IVPUSH SCH ×2 (06:11→15:19)
[2018-06-14] MEDS: ALBUTEROL SO4 2.5/IPRATROPIUM 0.5 INH SOL 3 ML VIAL.NEB. NEB SCH ×4 (07:36→20:10)
[2018-06-14 09:55] LABS: ARTERIAL BLOOD GAS BASE EXCESS 10.5 meq/l (-2-2); ARTERIAL BLOOD GAS PCO2 60.1 mmHg (35-45); ARTERIAL BLOOD GAS PO2 57.5 mmHg (80-105); ARTERIAL BLOOD GAS pH 7.41 (7.35-7.45)
[2018-06-14 09:57] LABS: ALLENS TEST POSITIVE
[2018-06-14] MEDS: DIGOXIN 0.125 MG TABLET (FP) PO SCH (11:17)
[2018-06-14] MEDS: ASCORBIC ACID 500 MG TABLET (FP) PO SCH (11:17)
[2018-06-14] MEDS: OMEGA-3 ACID ETHYL ESTERS (FATTY-ACIDS) 1 GM CAPSULE (FP) PO SCH ×2 (11:17→21:41)
[2018-06-14] MEDS: predniSONE 20 MG TABLET (UD) PO SCH (11:17)
[2018-06-14] MEDS: APIXABAN 5 MG TABLET PO SCH ×2 (11:17→21:41)
[2018-06-14] MEDS: CEFTRIAXONE 0.5 GM in DEXTROSE 5%-WATER - 50 ML IVPB SCH (11:20)
[2018-06-14] MEDS: DOXYCYCLINE INJECTION 100 MG in DEXTROSE 5%-WATER - 100 ML IVPB SCH ×2 (11:21→22:39)
--- NOTE | 2018-06-14 11:25 | EKG ---
Test Reason : Blood Pressure : / mmHG Vent. Rate : 095 BPM Atrial Rate : 095 BPM P-R Int : 156 ms QRS Dur : 080 ms QT Int : 338 ms P-R-T Axes : 000 102 -82 degrees QTc Int : 424 ms UNDETERMINE RHYTHM, ?ATRIAL FIBRILLATION POSSIBLE RIGHT VENTRICULAR HYPERTROPHY ABNORMAL ECG WHEN COMPARED WITH ECG OF 16-MAY-2015 19:51, PROBABLY UNCHANGED Confirmed by DEANDRE PATEL MD ([id number]) on 06/14/2018 11:25:04 AM Referred By: ANDIE Confirmed By:DEANDRE PATEL MD
--- NOTE | 2018-06-14 12:46 | PN ---
Progress Note (short form) - Note Progress Note: Feels better today. Less cough and SOB. CT chest: significant resolution of left lingular consolidation/mass with some minimal fibrotic changes. New RLL consolidation / effusion Intake & Output 06/11/18 06/12/18 06/13/18 06/14/18 23:59 23:59 23:59 23:59 Intake Total 20 1650 60 Output Total 1275 4750 3120 Balance -1255 -1040 -3060 Weight 177 lb 6.4 oz 177 lb 3.2 oz 164 lb 12.8 oz Last Vital Signs Temp Pulse Resp BP Pulse Ox 98 F 70 20 120/76 90 L 06/14/18 09:00 06/14/18 11:17 06/14/18 09:00 06/14/18 09:00 06/14/18 07:35 Active Medications Albuterol Sulfate (Ventolin 0.083% Nebulizer Soln -) 1 amp NEB Q6H PRN PRN Reason: SHORT OF BREATH/WHEEZING Albuterol/Ipratropium (Duoneb -) 1 amp NEB RQID [facility] Last Admin: 06/14/18 11:19 Dose: 1 amp Apixaban (Eliquis -) 5 mg PO BID [facility] Last Admin: 06/14/18 11:17 Dose: 5 mg Ascorbic Acid (Vitamin C -) 500 mg PO DAILY [facility] Last Admin: 06/14/18 11:17 Dose: 500 mg Atorvastatin Calcium (Lipitor -) 10 mg PO HS [facility] Last Admin: 06/13/18 21:08 Dose: 10 mg Carbamazepine (Tegretol -) 200 mg PO HS [facility] Last Admin: 06/13/18 21:08 Dose: 200 mg Digoxin (Lanoxin -) 0.125 mg PO DAILY [facility] Last Admin: 06/14/18 11:17 Dose: 0.125 mg Donepezil HCl (Aricept -) 10 mg PO HS [facility] Last Admin: 06/13/18 21:09 Dose: 10 mg Furosemide (Lasix Injection -) 80 mg IVPUSH BIDLASIX [facility] Last Admin: 06/14/18 06:11 Dose: 80 mg Doxycycline Hyclate 100 mg/ (Dextrose) 100 mls @ 50 mls/hr IVPB BID [facility] Last Admin: 06/14/18 11:21 Dose: 50 mls/hr Ceftriaxone Sodium 0.5 gm/ (Dextrose) 50 mls @ 100 mls/hr IVPB DAILY [facility]; Protocol Last Admin: 06/14/18 11:20 Dose: 100 mls/hr Levothyroxine Sodium (Synthroid -) 50 mcg PO DAILY@0700 [facility] Last Admin: 06/14/18 06:11 Dose: 50 mcg Non-Formulary Medication (Memantine Hcl [Namenda Xr]) 14 mg PO AM [facility] Khusb-3-Wusr Ethyl Esters (Lovaza -) 1 gm PO BID [facility] Last Admin: 06/14/18 11:17 Dose: 1 gm Prednisone (Deltasone -) 40 mg PO DAILY [facility] Last Admin: 06/14/18 11:17 Dose: 40 mg Constitutional: Yes: NAD Eyes: Yes: Conjunctiva Clear, EOM Intact HENT: Yes: Atraumatic, Normocephalic Neck: Yes: Supple, Trachea Midline Cardiovascular: Yes: Pulse Irregular Respiratory: Yes: Cough, Diminished, Rhonchi, SOB, SOB on Exertion, Tachypnea, Wheezes. No: Accessory Muscle Use, Stridor ...Inspection: Yes: WNL ...Clubbing: No Gastrointestinal: Yes: Normal Bowel Sounds, Soft Renal/: Yes: WNL Musculoskeletal: Yes: WNL Extremities: Yes: WNL Edema: Yes Peripheral Pulses WNL: Yes Integumentary: Yes: WNL Neurological: Yes: WNL, Alert, Oriented ...Motor Strength: WNL Psychiatric: Yes: WNL, Alert, Oriented Labs: Laboratory Results - last 24 hr 06/14/18 09:28 Anticoagulation Therapy No Result Required. Puncture Site Right radial ABG pH 7.41 ABG pCO2 at Pt Temp 60.1 H ABG pO2 at Pt Temp 57.5 L ABG HCO3 37.6 H ABG O2 Sat (Measured) 89.0 L ABG O2 Content 19.1 ABG Base Excess 10.5 H Surya Test Positive O2 Delivery Device No Result Required. Oxygen Flow Rate 3l Vent Mode No Result Required. Vent Rate No Result Required. Mechanical Rate No Result Required. Pressure Support Vent No Result Required. Problem List - Problems (1) Community acquired pneumonia Code(s): J18.9 - PNEUMONIA, UNSPECIFIED ORGANISM (2) Acute respiratory acidosis Code(s): E87.2 - ACIDOSIS (3) Acute respiratory failure with hypoxia and hypercarbia Code(s): J96.01 - ACUTE RESPIRATORY FAILURE WITH HYPOXIA; J96.02 - ACUTE RESPIRATORY FAILURE WITH HYPERCAPNIA (4) Aneurysm of right popliteal artery Code(s): I72.4 - ANEURYSM OF ARTERY OF LOWER EXTREMITY (5) COPD with acute exacerbation Code(s): J44.1 - CHRONIC OBSTRUCTIVE PULMONARY DISEASE W (ACUTE) EXACERBATION (6) Chronic respiratory acidosis Code(s): E87.2 - ACIDOSIS (7) Leg edema, right Code(s): R60.0 - LOCALIZED EDEMA (8) Right ventricular systolic dysfunction Code(s): I51.9 - HEART DISEASE, UNSPECIFIED (9) Atrial flutter Code(s): I48.92 - UNSPECIFIED ATRIAL FLUTTER Qualifiers: Atrial flutter type: unspecified Qualified Code(s): I48.92 - Unspecified atrial flutter (10) COPD (chronic obstructive pulmonary disease) Code(s): J44.9 - CHRONIC OBSTRUCTIVE PULMONARY DISEASE, UNSPECIFIED Qualifiers: COPD type: COPD with acute exacerbation Qualified Code(s): J44.1 - Chronic obstructive pulmonary disease with (acute) exacerbation (11) Chronic cor pulmonale Code(s): I27.81 - COR PULMONALE (CHRONIC) (12) Dementia Code(s): F03.90 - UNSPECIFIED DEMENTIA WITHOUT BEHAVIORAL DISTURBANCE Qualifiers: Dementia type: unspecified type Dementia behavioral disturbance: without behavioral disturbance Qualified Code(s): F03.90 - Unspecified dementia without behavioral disturbance (13) Hyperlipidemia Code(s): E78.5 - HYPERLIPIDEMIA, UNSPECIFIED Qualifiers: Hyperlipidemia type: unspecified Qualified Code(s): E78.5 - Hyperlipidemia , unspecified (14) Hypertension Code(s): I10 - ESSENTIAL (PRIMARY) HYPERTENSION Qualifiers: Hypertension type: essential hypertension Qualified Code(s): I10 - Essential (primary) hypertension (15) Hypothyroidism Code(s): E03.9 - HYPOTHYROIDISM, UNSPECIFIED Qualifiers: Hypothyroidism type: unspecified Qualified Code(s): E03.9 - Hypothyroidism , unspecified (16) Obstructive sleep apnea Code(s): G47.33 - OBSTRUCTIVE SLEEP APNEA (ADULT) (PEDIATRIC) (17) Pulmonary hypertension Code(s): I27.2 - OTHER SECONDARY PULMONARY HYPERTENSION * DO NOT USE * Assessment/Plan RLL PNA Continue ABX Check sputum NC O2 as tolerated NIPPV QHS and PRN No smoking discussed AC BD TX standing and PRN Continuous oxymetry monitoring Dr Cortes Problem List - Problems (1) Community acquired pneumonia Code(s): J18.9 - PNEUMONIA, UNSPECIFIED ORGANISM (2) Acute respiratory acidosis Code(s): E87.2 - ACIDOSIS (3) Acute respiratory failure with hypoxia and hypercarbia Code(s): J96.01 - ACUTE RESPIRATORY FAILURE WITH HYPOXIA; J96.02 - ACUTE RESPIRATORY FAILURE WITH HYPERCAPNIA (4) Aneurysm of right popliteal artery Code(s): I72.4 - ANEURYSM OF ARTERY OF LOWER EXTREMITY (5) COPD with acute exacerbation Code(s): J44.1 - CHRONIC OBSTRUCTIVE PULMONARY DISEASE W (ACUTE) EXACERBATION (6) Chronic respiratory acidosis Code(s): E87.2 - ACIDOSIS (7) Leg edema, right Code(s): R60.0 - LOCALIZED EDEMA (8) Right ventricular systolic dysfunction Code(s): I51.9 - HEART DISEASE, UNSPECIFIED (9) Atrial flutter Code(s): I48.92 - UNSPECIFIED ATRIAL FLUTTER Qualifiers: Atrial flutter type: unspecified Qualified Code(s): I48.92 - Unspecified atrial flutter (10) COPD (chronic obstructive pulmonary disease) Code(s): J44.9 - CHRONIC OBSTRUCTIVE PULMONARY DISEASE, UNSPECIFIED Qualifiers: COPD type: COPD with acute exacerbation Qualified Code(s): J44.1 - Chronic obstructive pulmonary disease with (acute) exacerbation (11) Chronic cor pulmonale Code(s): I27.81 - COR PULMONALE (CHRONIC) (12) Dementia Code(s): F03.90 - UNSPECIFIED DEMENTIA WITHOUT BEHAVIORAL DISTURBANCE Qualifiers: Dementia type: unspecified type Dementia behavioral disturbance: without behavioral disturbance Qualified Code(s): F03.90 - Unspecified dementia without behavioral disturbance (13) Hyperlipidemia Code(s): E78.5 - HYPERLIPIDEMIA, UNSPECIFIED Qualifiers: Hyperlipidemia type: unspecified Qualified Code(s): E78.5 - Hyperlipidemia , unspecified (14) Hypertension Code(s): I10 - ESSENTIAL (PRIMARY) HYPERTENSION Qualifiers: Hypertension type: essential hypertension Qualified Code(s): I10 - Essential (primary) hypertension (15) Hypothyroidism Code(s): E03.9 - HYPOTHYROIDISM, UNSPECIFIED Qualifiers: Hypothyroidism type: unspecified Qualified Code(s): E03.9 - Hypothyroidism , unspecified (16) Obstructive sleep apnea Code(s): G47.33 - OBSTRUCTIVE SLEEP APNEA (ADULT) (PEDIATRIC) (17) Pulmonary hypertension Code(s): I27.2 - OTHER SECONDARY PULMONARY HYPERTENSION * DO NOT USE *
--- NOTE | 2018-06-14 15:26 | ECHO ---
Name: JOSE GUADALUPE MEI Exam:Adult Echocardiogram Study Date: 06/14/2018 02:12 PM Age: 83 yrs Reason For Study: CHF Height: 70 in Weight: 177 lb BSA: 2.0 m2 MMode/2D Measurements & Calculations IVSd: 0.81 cm Ao root diam: 3.9 cm LVIDd: 4.9 cm LA dimension: 3.2 cm LVIDs: 3.6 cm LVPWd: 0.76 cm EDV(Teich): 112.7 ml LVOT diam: 2.2 cm ESV(Teich): 53.6 ml Doppler Measurements & Calculations MV E max ernesto: 70.6 cm/sec Ao V2 max: 107.2 cm/sec MV A max ernesto: 51.8 cm/sec Ao max P.6 mmHg MV E/A: 1.4 Ao V2 mean: 74.5 cm/sec MV dec time: 0.16 sec Ao mean P.5 mmHg Ao V2 VTI: 20.2 cm TERESA(I,D): 2.6 cm2 AI P1/2t: 469.1 msec TERESA(V,D): 2.8 cm2 AI max ernesto: 423.5 cm/sec LV V1 max P.2 mmHg AI max P.8 mmHg LV V1 mean P.2 mmHg AI dec slope: 264.4 cm/sec2 LV V1 max: 74.4 cm/sec LV V1 mean: 48.7 cm/sec LV V1 VTI: 13.2 cm SV(LVOT): 52.5 ml TR max ernesto: 365.9 cm/sec TR max P.6 mmHg Med Peak E' Ernesto: 6.4 cm/sec Med E/e': 11.0 Lat Peak E' Ernesto: 8.5 cm/sec Lat E/e': 8.3 Procedure A complete two-dimensional transthoracic echocardiogram was performed (2D, M-mode, Doppler and color flow Doppler). Left Ventricle The left ventricle is normal in size. Left ventricular systolic function is low normal. Ejection Frac tion = 50-55%. No regional wall motion abnormalities noted. Right Ventricle The right ventricle is normal size. The right ventricular systolic function is mildly reduced. RV sys tolic TDI is 8 cm/s. Atria The left atrial size is normal. The right atrium is mildly dilated. Mitral Valve There is mild mitral annular calcification. There is no mitral regurgitation noted. Tricuspid Valve The tricuspid valve is normal in structure and function. There is moderate tricuspid regurgitation. P ulmonary artery systolic pressure is at least 70 mmHg assuming RA pressure of 8 mmHg (dilated IVC with >50% co llapse). Aortic Valve There is mild aortic sclerosis.;. Mild aortic regurgitation. Pulmonic Valve The pulmonic valve is not well visualized. Great Vessels Borderline aortic root dilatation. Pericardium/Pleura There is no pericardial effusion. Interpretation Summary The left ventricle is normal in size. Left ventricular systolic function is low normal. No regional wall motion abnormalities noted. Ejection Fraction = 50-55%. The right ventricular systolic function is mildly reduced. The left atrial size is normal. The right atrium is mildly dilated. There is mild mitral annular calcification. There is moderate tricuspid regurgitation. Pulmonary artery systolic pressure is at least 70 mmHg assuming RA pressure of 8 mmHg (dilated IVC wi th >50% collapse) There is mild aortic sclerosis.; Mild aortic regurgitation. Borderline aortic root dilatation. There is no pericardial effusion. Previous study is not available for comparison Guy Espinal MD 06/14/2018 03:25 PM
--- NOTE | 2018-06-14 15:51 | PN ---
Progress Note (short form) - Note Progress Note: s: no chest pain, palps. stable sob, edema of RLE Current Medications Albuterol Sulfate (Ventolin 0.083% Nebulizer Soln -) 1 amp NEB Q6H PRN PRN Reason: SHORT OF BREATH/WHEEZING Albuterol/Ipratropium (Duoneb -) 1 amp NEB RQID [facility] Last Admin: 06/14/18 11:19 Dose: 1 amp Apixaban (Eliquis -) 5 mg PO BID [facility] Last Admin: 06/14/18 11:17 Dose: 5 mg Ascorbic Acid (Vitamin C -) 500 mg PO DAILY [facility] Last Admin: 06/14/18 11:17 Dose: 500 mg Atorvastatin Calcium (Lipitor -) 10 mg PO HS [facility] Last Admin: 06/13/18 21:08 Dose: 10 mg Carbamazepine (Tegretol -) 200 mg PO HS [facility] Last Admin: 06/13/18 21:08 Dose: 200 mg Digoxin (Lanoxin -) 0.125 mg PO DAILY [facility] Last Admin: 06/14/18 11:17 Dose: 0.125 mg Donepezil HCl (Aricept -) 10 mg PO HS [facility] Last Admin: 06/13/18 21:09 Dose: 10 mg Furosemide (Lasix Injection -) 80 mg IVPUSH BIDLASIX [facility] Last Admin: 06/14/18 15:19 Dose: 80 mg Doxycycline Hyclate 100 mg/ (Dextrose) 100 mls @ 50 mls/hr IVPB BID [facility] Last Admin: 06/14/18 11:21 Dose: 50 mls/hr Ceftriaxone Sodium 0.5 gm/ (Dextrose) 50 mls @ 100 mls/hr IVPB DAILY [facility]; Protocol Last Admin: 06/14/18 11:20 Dose: 100 mls/hr Levothyroxine Sodium (Synthroid -) 50 mcg PO DAILY@0700 [facility] Last Admin: 06/14/18 06:11 Dose: 50 mcg Non-Formulary Medication (Memantine Hcl [Namenda Xr]) 14 mg PO AM [facility] Dvpvl-0-Roai Ethyl Esters (Lovaza -) 1 gm PO BID [facility] Last Admin: 06/14/18 11:17 Dose: 1 gm Prednisone (Deltasone -) 40 mg PO DAILY [facility] Last Admin: 06/14/18 11:17 Dose: 40 mg PE: Vital Signs Period Temp Pulse Resp BP Sys/Raya Pulse Ox Last 24 Hr 97 F-98 F 53-87 20-23 120-149/73-86 90-97 NAD, +JVD Irregular rate and rhythm. Nl S1, S2. 2/6 murmur at LSB exp wheezes scattered aaox 3 RLE 3+ pitting edema to knee +BS, soft, NT, distended. Pos dp/PT No jaundice, diaphoresis. Echo 05/03/15: Nl LV. RV mild-mod dilation with mild-mod systolic dysfunction. Severe pHTN (RVSP 62), mild TR. Mild Ao dilation. Pharm nuc stress 05/03/15: Afib with RVR. Asx. No ischemic changes. Nl perf. Nl EF. 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 SOB, cough, COPD - CT with significant findings for COPD, receiving nebs and steroids per primary - also received IV lasix for CHF, missed torsemide doses hx R heart failure, pulm HTN - BNP >11,000 - echo shows severe pulm HTN, low normal RV function - received lasix 40 mg IV x 1, now on 80 mg IV BID - has abd distension, which he has had in the past with volume overload - weight downtrending - cont IV lasix, monitor Cr, lytes, daily standing weights Atrial fibrillation. - cont eliquis, digoxin popliteal artery aneurysm - vascular consulted, Dr. Diaz HL: - cont statin
--- NOTE | 2018-06-14 18:02 | PN ---
Physical Exam: SUBJECTIVE: Patient seen and examined 24HR events: -pt remains hypoxic on routine ABG but reports improved dyspnea -CTA aorta with b/l LE runoff ordered for today -Chest CT with resolution of left lingular mass OBJECTIVE: Vital Signs Period Temp Pulse Resp BP Sys/Raya Pulse Ox Last 24 Hr 97 F-98 F 53-87 20-23 120-149/73-86 90-97 GENERAL: The patient is awake, alert, and fully oriented, in no acute distress. HEAD: Normal with no signs of trauma. EYES: PERRL, sclera anicteric, conjunctiva clear. ENT: Ears normal, nares patent, oropharynx clear without exudates, moist mucous membranes. NECK: Trachea midline, full range of motion, supple. LUNGS: coarse BS diminished at the bases. no accessory muscle use. HEART: Regular rate and rhythm, S1, S2 ABDOMEN: Soft, nontender, nondistended, normoactive bowel sounds, no guarding, no rebound, no hepatosplenomegaly, no masses. EXTREMITIES: 2+ pulses, warm, well-perfused, RLE calf edema, venous stasis changes NEUROLOGICAL: AAOX3 Normal speech, gait not observed. PSYCH: Normal mood, normal affect. SKIN: Warm, dry, normal turgor, no rashes or lesions noted Laboratory Results - last 24 hr 06/14/18 09:28 Anticoagulation Therapy No Result Required. Puncture Site Right radial ABG pH 7.41 ABG pCO2 at Pt Temp 60.1 H ABG pO2 at Pt Temp 57.5 L ABG HCO3 37.6 H ABG O2 Sat (Measured) 89.0 L ABG O2 Content 19.1 ABG Base Excess 10.5 H Surya Test Positive O2 Delivery Device No Result Required. Oxygen Flow Rate 3l Vent Mode No Result Required. Vent Rate No Result Required. Mechanical Rate No Result Required. Pressure Support Vent No Result Required. Active Medications Generic Name Dose Route Start Last Admin Trade Name Freq PRN Reason Stop Dose Admin Albuterol Sulfate 1 amp 06/13/18 03:41 Ventolin 0.083% Nebulizer Soln - NEB Q6H PRN SHORT OF BREATH/WHEEZING Albuterol/Ipratropium 1 amp 06/13/18 16:00 06/14/18 15:50 Duoneb - NEB 1 amp RQID [facility] Administration Apixaban 5 mg 06/13/18 10:00 06/14/18 11:17 Eliquis - PO 5 mg BID [facility] Administration Ascorbic Acid 500 mg 06/13/18 10:00 06/14/18 11:17 Vitamin C - PO 500 mg DAILY [facility] Administration Atorvastatin Calcium 10 mg 06/13/18 22:00 06/13/18 21:08 Lipitor - PO 10 mg HS [facility] Administration Carbamazepine 200 mg 06/13/18 22:00 06/13/18 21:08 Tegretol - PO 200 mg HS [facility] Administration Digoxin 0.125 mg 06/13/18 10:00 06/14/18 11:17 Lanoxin - PO 0.125 mg DAILY [facility] Administration Donepezil HCl 10 mg 06/13/18 22:00 06/13/18 21:09 Aricept - PO 10 mg HS [facility] Administration Furosemide 80 mg 06/13/18 14:00 06/14/18 15:19 Lasix Injection - IVPUSH 80 mg BIDLASIX [facility] Administration Doxycycline Hyclate 100 mg/ 100 mls @ 50 mls/hr 06/13/18 10:00 06/14/18 11:21 Dextrose IVPB 50 mls/hr BID [facility] Administration Ceftriaxone Sodium 0.5 gm/ 50 mls @ 100 mls/hr 06/13/18 16:00 06/14/18 11:20 Dextrose IVPB 100 mls/hr DAILY [facility] Administration Protocol Levothyroxine Sodium 50 mcg 06/13/18 07:00 06/14/18 06:11 Synthroid - PO 50 mcg DAILY@0700 [facility] Administration Non-Formulary Medication 14 mg 06/13/18 07:00 Memantine Hcl [Namenda Xr] PO AM [facility] Osflq-4-Lfwn Ethyl Esters 1 gm 06/13/18 10:00 06/14/18 11:17 Lovaza - PO 1 gm BID [facility] Administration Prednisone 40 mg 06/14/18 10:00 06/14/18 11:17 Deltasone - PO 40 mg DAILY [facility] Administration ASSESSMENT/PLAN: COPD -c/w BiPAP -trend the ABG -pulmonary following, recs appreciated -PRN nebs -Prednisone 40mg daily Aneurysm of right popliteal artery -vasc surg following, CTA aorta with runoff pending CHF -lasix 80mg IVP BID -Echo done 06/14: mod TR, EF 50-55%, no pericardial effusion Afib -digoxin 0.125mg daily -eliquis BID HLD -lipitor 10mg qhs Dementia -aricept 10mg qhs Hypothyroidism -synthroid 50mcg daily Problem List - Problems (1) Aneurysm of right popliteal artery Code(s): I72.4 - ANEURYSM OF ARTERY OF LOWER EXTREMITY (2) COPD with acute exacerbation Code(s): J44.1 - CHRONIC OBSTRUCTIVE PULMONARY DISEASE W (ACUTE) EXACERBATION (3) Dementia Code(s): F03.90 - UNSPECIFIED DEMENTIA WITHOUT BEHAVIORAL DISTURBANCE Qualifiers: Dementia type: unspecified type Dementia behavioral disturbance: without behavioral disturbance Qualified Code(s): F03.90 - Unspecified dementia without behavioral disturbance (4) Hyperlipidemia Code(s): E78.5 - HYPERLIPIDEMIA, UNSPECIFIED Qualifiers: Hyperlipidemia type: unspecified Qualified Code(s): E78.5 - Hyperlipidemia , unspecified (5) Hypertension Code(s): I10 - ESSENTIAL (PRIMARY) HYPERTENSION Qualifiers: Hypertension type: essential hypertension Qualified Code(s): I10 - Essential (primary) hypertension (6) Hypothyroidism Code(s): E03.9 - HYPOTHYROIDISM, UNSPECIFIED Qualifiers: Hypothyroidism type: unspecified Qualified Code(s): E03.9 - Hypothyroidism , unspecified (7) Obstructive sleep apnea Code(s): G47.33 - OBSTRUCTIVE SLEEP APNEA (ADULT) (PEDIATRIC) Visit type - Emergency Visit Emergency Visit: Yes ED Registration Date: 06/12/18 Care time: The patient presented to the Emergency Department on the above date and was hospitalized for further evaluation of their emergent condition. - New Patient This patient is new to me today: Yes Date on this admission: 06/14/18 - Critical Care Critical Care patient: No - Discharge Referral Referred to [facility] Med P.C.: No
[2018-06-14] MEDS ORDERED: DOCUSATE SODIUM 100 MG CAPSULE (FP) PO PRN (19:55)
[2018-06-14] MEDS ORDERED: PT OWN MED DRAWER 7, Y5N ONE (21:28)
[2018-06-14] MEDS: ATORVASTATIN CA 10 MG TABLET (FP) PO SCH (21:41)
[2018-06-14] MEDS: DONEPEZIL HCL 10 MG TABLET (FP) PO SCH (21:42)
[2018-06-14] MEDS: carBAMazepine 200 MG TABLET PO SCH (22:39)
[2018-06-15] MEDS: LEVOTHYROXINE NA 50 MCG TABLET (FP) PO SCH (06:53)
[2018-06-15] MEDS: FUROSEMIDE 40 MG/4 ML INJECTABLE VIAL IVPUSH SCH ×2 (06:53→14:09)
[2018-06-15 06:55] LABS: HEMATOCRIT 45.4 % (35.4-49); MCH 33.6 pg (25.7-33.7); MCHC 32.9 g/dl (32.0-35.9); MEAN CELL VOLUME 102.1 fl (80-96); MEAN PLT VOLUME 7.3 fl (7.5-11.1); PLATELET COUNT 118 K/MM3 (134-434); RBC 4.45 M/mm3 (4.00-5.60); RDW 16.1 % (11.9-15.9); WHITE BLOOD COUNT 5.7 K/mm3 (4.0-10.0)
--- NOTE | 2018-06-15 07:01 | PN ---
Progress Note (short form) - Note Progress Note: 83 yo male with right popliteal artery aneurysm (2.3 cm) There is a 20-30% chance that there could be an associated AAA Patient had CTA Aortogram w/ amisha LE runoff but hasn't been read yet. Vascular Surgery to cont following.
[2018-06-15 07:35] LABS: ALK PHOS 59 U/L (45-117); ANION GAP 7 MMOL/L (8-16); BILIRUBIN,TOTAL 0.7 mg/dL (0.2-1); BLOOD UREA NITROGEN 29 mg/dL (7-18); CALCIUM 8.3 mg/dL (8.5-10.1); CHLORIDE 91 mmol/L (98-107); CO2 38 mmol/L (21-32); CREATININE 1.4 mg/dL (0.55-1.3); GLUCOSE,RANDOM 75 mg/dL (74-106); POTASSIUM 3.4 mmol/L (3.5-5.1); SGOT/AST 17 U/L (15-37); SGPT/ALT 12 U/L (13-61); SODIUM 135 mmol/L (136-145); TOT PROT 6.6 g/dl (6.4-8.2)
[2018-06-15] MEDS ORDERED: POTASSIUM CHLORIDE TABS 10 MEQ TABLET.ER (FP) PO ONE (09:15)
[2018-06-15] MEDS: ALBUTEROL SO4 2.5/IPRATROPIUM 0.5 INH SOL 3 ML VIAL.NEB. NEB SCH ×4 (09:21→20:00)
--- NOTE | 2018-06-15 09:47 | PN ---
Progress Note (short form) - Note Progress Note: s: no chest pain, palps. sob and edema of RLE stable Current Medications Albuterol Sulfate (Ventolin 0.083% Nebulizer Soln -) 1 amp NEB Q6H PRN PRN Reason: SHORT OF BREATH/WHEEZING Albuterol/Ipratropium (Duoneb -) 1 amp NEB RQID [facility] Last Admin: 06/15/18 09:21 Dose: 1 amp Apixaban (Eliquis -) 5 mg PO BID [facility] Last Admin: 06/14/18 21:41 Dose: 5 mg Ascorbic Acid (Vitamin C -) 500 mg PO DAILY [facility] Last Admin: 06/14/18 11:17 Dose: 500 mg Atorvastatin Calcium (Lipitor -) 10 mg PO HS [facility] Last Admin: 06/14/18 21:41 Dose: 10 mg Carbamazepine (Tegretol -) 200 mg PO HS [facility] Last Admin: 06/14/18 22:39 Dose: 200 mg Digoxin (Lanoxin -) 0.125 mg PO DAILY [facility] Last Admin: 06/14/18 11:17 Dose: 0.125 mg Docusate Sodium (Colace -) 100 mg PO Q12H PRN PRN Reason: CONSTIPATION Donepezil HCl (Aricept -) 10 mg PO HS [facility] Last Admin: 06/14/18 21:42 Dose: 10 mg Furosemide (Lasix Injection -) 80 mg IVPUSH BIDLASIX [facility] Last Admin: 06/15/18 06:53 Dose: 80 mg Doxycycline Hyclate 100 mg/ (Dextrose) 100 mls @ 50 mls/hr IVPB BID [facility] Last Admin: 06/14/18 22:39 Dose: 50 mls/hr Ceftriaxone Sodium 0.5 gm/ (Dextrose) 50 mls @ 100 mls/hr IVPB DAILY [facility]; Protocol Last Admin: 06/14/18 11:20 Dose: 100 mls/hr Levothyroxine Sodium (Synthroid -) 50 mcg PO DAILY@0700 [facility] Last Admin: 06/15/18 06:53 Dose: 50 mcg Non-Formulary Medication (Memantine Hcl [Namenda Xr]) 14 mg PO AM [facility] Dfdrd-7-Ekhv Ethyl Esters (Lovaza -) 1 gm PO BID [facility] Last Admin: 06/14/18 21:41 Dose: 1 gm Potassium Chloride (K-Dur -) 20 meq PO ONCE ONE Stop: 06/15/18 13:59 Prednisone (Deltasone -) 40 mg PO DAILY [facility] Last Admin: 06/14/18 11:17 Dose: 40 mg Senna (Senna -) 2 tab PO HS PRN PRN Reason: CONSTIPATION PE: Vital Signs Period Temp Pulse Resp BP Sys/Raya Pulse Ox Last 24 Hr 97.6 F-98.0 F 70-107 18-20 104-149/58-97 89-94 NAD, +JVD Irregular rate and rhythm. Nl S1, S2. 2/6 murmur at LSB exp wheezes scattered aaox 3 RLE 3+ pitting edema to knee +BS, soft, NT, distended. Pos dp/PT No jaundice, diaphoresis. Echo 05/03/15: Nl LV. RV mild-mod dilation with mild-mod systolic dysfunction. Severe pHTN (RVSP 62), mild TR. Mild Ao dilation. Pharm nuc stress 05/03/15: Afib with RVR. Asx. No ischemic changes. Nl perf. Nl EF. 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 SOB, cough, COPD - CT with significant findings for COPD, receiving nebs and steroids per primary , pulm - also received IV lasix for CHF, missed torsemide doses hx R heart failure, pulm HTN - BNP >11,000 - echo shows severe pulm HTN, low normal RV function - received lasix 40 mg IV x 1, now on 80 mg IV BID - has abd distension, which he has had in the past with volume overload - weight downtrending - cont IV lasix, monitor Cr, lytes, daily standing weights Atrial fibrillation. - cont eliquis, digoxin popliteal artery aneurysm - vascular consulted, Dr. Diaz - planned endovascular covered stent placement of R popliteal artery aneurysm, will optimize volume status prior HL: - cont statin
--- NOTE | 2018-06-15 09:58 | PN ---
Progress Note, Physician History of Present Illness: pulmonary alert,on vm,dyspneic,mildly tachypneic - Current Medication List Current Medications: Active Medications Albuterol Sulfate (Ventolin 0.083% Nebulizer Soln -) 1 amp NEB Q6H PRN PRN Reason: SHORT OF BREATH/WHEEZING Albuterol/Ipratropium (Duoneb -) 1 amp NEB RQID [facility] Last Admin: 06/15/18 09:21 Dose: 1 amp Apixaban (Eliquis -) 5 mg PO BID [facility] Last Admin: 06/14/18 21:41 Dose: 5 mg Ascorbic Acid (Vitamin C -) 500 mg PO DAILY [facility] Last Admin: 06/14/18 11:17 Dose: 500 mg Atorvastatin Calcium (Lipitor -) 10 mg PO HS [facility] Last Admin: 06/14/18 21:41 Dose: 10 mg Carbamazepine (Tegretol -) 200 mg PO HS [facility] Last Admin: 06/14/18 22:39 Dose: 200 mg Digoxin (Lanoxin -) 0.125 mg PO DAILY [facility] Last Admin: 06/14/18 11:17 Dose: 0.125 mg Docusate Sodium (Colace -) 100 mg PO Q12H PRN PRN Reason: CONSTIPATION Donepezil HCl (Aricept -) 10 mg PO HS [facility] Last Admin: 06/14/18 21:42 Dose: 10 mg Furosemide (Lasix Injection -) 80 mg IVPUSH BIDLASIX [facility] Last Admin: 06/15/18 06:53 Dose: 80 mg Doxycycline Hyclate 100 mg/ (Dextrose) 100 mls @ 50 mls/hr IVPB BID [facility] Last Admin: 06/14/18 22:39 Dose: 50 mls/hr Ceftriaxone Sodium 0.5 gm/ (Dextrose) 50 mls @ 100 mls/hr IVPB DAILY [facility]; Protocol Last Admin: 06/14/18 11:20 Dose: 100 mls/hr Levothyroxine Sodium (Synthroid -) 50 mcg PO DAILY@0700 [facility] Last Admin: 06/15/18 06:53 Dose: 50 mcg Non-Formulary Medication (Memantine Hcl [Namenda Xr]) 14 mg PO AM [facility] Ohluj-0-Ysga Ethyl Esters (Lovaza -) 1 gm PO BID [facility] Last Admin: 06/14/18 21:41 Dose: 1 gm Potassium Chloride (K-Dur -) 20 meq PO ONCE ONE Stop: 06/15/18 13:59 Prednisone (Deltasone -) 40 mg PO DAILY [facility] Last Admin: 06/14/18 11:17 Dose: 40 mg Senna (Senna -) 2 tab PO HS PRN PRN Reason: CONSTIPATION - Objective Vital Signs: Vital Signs Temperature 97.8 F 06/15/18 08:51 Pulse Rate 98 H 06/15/18 08:51 Respiratory Rate 18 06/15/18 08:51 Blood Pressure 104/58 L 06/15/18 08:51 O2 Sat by Pulse Oximetry (%) 89 L 06/15/18 09:20 Constitutional: Yes: Well Nourished, Mild Distress Eyes: Yes: WNL HENT: Yes: WNL Neck: Yes: WNL Cardiovascular: Yes: Pulse Irregular, S1, S2 Respiratory: Yes: Rhonchi (scattered leonidas rhonchi) Gastrointestinal: Yes: Normal Bowel Sounds, Soft Extremities: Yes: WNL Edema: No Labs: CBC, BMP 06/15/18 05:30 06/15/18 05:30 INR, PTT INR 1.28 (0.82-1.09) H D 06/12/18 13:20 Assessment/Plan Problem List - Problems (1) Community acquired pneumonia Code(s): J18.9 - PNEUMONIA, UNSPECIFIED ORGANISM (2) Acute respiratory acidosis Code(s): E87.2 - ACIDOSIS (3) Acute respiratory failure with hypoxia and hypercarbia Code(s): J96.01 - ACUTE RESPIRATORY FAILURE WITH HYPOXIA; J96.02 - ACUTE RESPIRATORY FAILURE WITH HYPERCAPNIA (4) Aneurysm of right popliteal artery Code(s): I72.4 - ANEURYSM OF ARTERY OF LOWER EXTREMITY (5) COPD with acute exacerbation Code(s): J44.1 - CHRONIC OBSTRUCTIVE PULMONARY DISEASE W (ACUTE) EXACERBATION (6) Chronic respiratory acidosis Code(s): E87.2 - ACIDOSIS (7) Leg edema, right Code(s): R60.0 - LOCALIZED EDEMA (8) Right ventricular systolic dysfunction Code(s): I51.9 - HEART DISEASE, UNSPECIFIED (9) Atrial flutter Code(s): I48.92 - UNSPECIFIED ATRIAL FLUTTER Qualifiers: Atrial flutter type: unspecified Qualified Code(s): I48.92 - Unspecified atrial flutter (10) COPD (chronic obstructive pulmonary disease) Code(s): J44.9 - CHRONIC OBSTRUCTIVE PULMONARY DISEASE, UNSPECIFIED Qualifiers: COPD type: COPD with acute exacerbation Qualified Code(s): J44.1 - Chronic obstructive pulmonary disease with (acute) exacerbation (11) Chronic cor pulmonale Code(s): I27.81 - COR PULMONALE (CHRONIC) (12) Dementia Code(s): F03.90 - UNSPECIFIED DEMENTIA WITHOUT BEHAVIORAL DISTURBANCE Qualifiers: Dementia type: unspecified type Dementia behavioral disturbance: without behavioral disturbance Qualified Code(s): F03.90 - Unspecified dementia without behavioral disturbance (13) Hyperlipidemia Code(s): E78.5 - HYPERLIPIDEMIA, UNSPECIFIED Qualifiers: Hyperlipidemia type: unspecified Qualified Code(s): E78.5 - Hyperlipidemia , unspecified (14) Hypertension Code(s): I10 - ESSENTIAL (PRIMARY) HYPERTENSION Qualifiers: Hypertension type: essential hypertension Qualified Code(s): I10 - Essential (primary) hypertension (15) Hypothyroidism Code(s): E03.9 - HYPOTHYROIDISM, UNSPECIFIED Qualifiers: Hypothyroidism type: unspecified Qualified Code(s): E03.9 - Hypothyroidism , unspecified (16) Obstructive sleep apnea Code(s): G47.33 - OBSTRUCTIVE SLEEP APNEA (ADULT) (PEDIATRIC) (17) Pulmonary hypertension Code(s): I27.2 - OTHER SECONDARY PULMONARY HYPERTENSION * DO NOT USE * Assessment/Plan RLL PNA SEVERE PULMONARY HTN AFIB COPD CHRONIC HYPOXEMIC RESPIRATORY FAILURE OSAS ABX Steroids NC O2 as tolerated NIPPV QHS and PRN No smoking discussed AC BD TX standing and PRN oximetry monitoring DR SOLO Problem List - Problems (1) Community acquired pneumonia Code(s): J18.9 - PNEUMONIA, UNSPECIFIED ORGANISM (2) Acute respiratory acidosis Code(s): E87.2 - ACIDOSIS (3) Acute respiratory failure with hypoxia and hypercarbia Code(s): J96.01 - ACUTE RESPIRATORY FAILURE WITH HYPOXIA; J96.02 - ACUTE RESPIRATORY FAILURE WITH HYPERCAPNIA (4) Aneurysm of right popliteal artery Code(s): I72.4 - ANEURYSM OF ARTERY OF LOWER EXTREMITY (5) COPD with acute exacerbation Code(s): J44.1 - CHRONIC OBSTRUCTIVE PULMONARY DISEASE W (ACUTE) EXACERBATION (6) Chronic respiratory acidosis Code(s): E87.2 - ACIDOSIS (7) Leg edema, right Code(s): R60.0 - LOCALIZED EDEMA (8) Right ventricular systolic dysfunction Code(s): I51.9 - HEART DISEASE, UNSPECIFIED (9) Atrial flutter Code(s): I48.92 - UNSPECIFIED ATRIAL FLUTTER Qualifiers: Atrial flutter type: unspecified Qualified Code(s): I48.92 - Unspecified atrial flutter (10) COPD (chronic obstructive pulmonary disease) Code(s): J44.9 - CHRONIC OBSTRUCTIVE PULMONARY DISEASE, UNSPECIFIED Qualifiers: COPD type: COPD with acute exacerbation Qualified Code(s): J44.1 - Chronic obstructive pulmonary disease with (acute) exacerbation (11) Chronic cor pulmonale Code(s): I27.81 - COR PULMONALE (CHRONIC) (12) Dementia Code(s): F03.90 - UNSPECIFIED DEMENTIA WITHOUT BEHAVIORAL DISTURBANCE Qualifiers: Dementia type: unspecified type Dementia behavioral disturbance: without behavioral disturbance Qualified Code(s): F03.90 - Unspecified dementia without behavioral disturbance (13) Hyperlipidemia Code(s): E78.5 - HYPERLIPIDEMIA, UNSPECIFIED Qualifiers: Hyperlipidemia type: unspecified Qualified Code(s): E78.5 - Hyperlipidemia , unspecified (14) Hypertension Code(s): I10 - ESSENTIAL (PRIMARY) HYPERTENSION Qualifiers: Hypertension type: essential hypertension Qualified Code(s): I10 - Essential (primary) hypertension (15) Hypothyroidism Code(s): E03.9 - HYPOTHYROIDISM, UNSPECIFIED Qualifiers: Hypothyroidism type: unspecified Qualified Code(s): E03.9 - Hypothyroidism , unspecified (16) Obstructive sleep apnea Code(s): G47.33 - OBSTRUCTIVE SLEEP APNEA (ADULT) (PEDIATRIC) (17) Pulmonary hypertension Code(s): I27.2 - OTHER SECONDARY PULMONARY HYPERTENSION * DO NOT USE *
[2018-06-15] MEDS: DOXYCYCLINE INJECTION 100 MG in DEXTROSE 5%-WATER - 100 ML IVPB SCH ×2 (10:08→23:17)
[2018-06-15] MEDS: CEFTRIAXONE 0.5 GM in DEXTROSE 5%-WATER - 50 ML IVPB SCH (10:08)
[2018-06-15] MEDS: predniSONE 20 MG TABLET (UD) PO SCH (10:09)
[2018-06-15] MEDS: APIXABAN 5 MG TABLET PO SCH ×2 (10:09→23:17)
[2018-06-15] MEDS: OMEGA-3 ACID ETHYL ESTERS (FATTY-ACIDS) 1 GM CAPSULE (FP) PO SCH ×2 (10:10→23:17)
[2018-06-15] MEDS: DIGOXIN 0.125 MG TABLET (FP) PO SCH (10:10)
[2018-06-15] MEDS: ASCORBIC ACID 500 MG TABLET (FP) PO SCH (10:10)
--- NOTE | 2018-06-15 10:38 | PN ---
Progress Note (short form) - Note Progress Note: Vascular Surgery CTA reviewed. Pt with 3cm right popliteal artery aneurysm. Left poplteal artery aneurysm is 1.5cm. Pt will need endovascular covered stent placement of right popliteal artery aneurysm. Once cleared from a pulmonary and cardiology perspective, will proceed. Devon Diaz DO
[2018-06-15] MEDS ORDERED: POTASSIUM CHLORIDE TABS 20 MEQ TABLET.ER (FP) PO ONE (13:58)
--- NOTE | 2018-06-15 17:49 | PN ---
Physical Exam: SUBJECTIVE: Patient seen and examined -CTA completed: 3cm right popliteal artery aneurysm and Left poplteal artery aneurysm is 1.5cm. -Planned covered stent of right popliteal artery aneurysm -pulm status stabilized OBJECTIVE: Vital Signs Period Temp Pulse Resp BP Sys/Raya Pulse Ox Last 24 Hr 97.6 F-98.0 F 75-107 18-20 104-149/58-97 89-94 GENERAL: The patient is awake, alert, in no acute distress. HEAD: Normal with no signs of trauma. EYES: PERRL, sclera anicteric, conjunctiva clear. ORAL: large dry tongue, dry mucous membranes ENT: nares patent NECK: Trachea midline, no JVD LUNGS: coarse BS diminished at the bases. no accessory muscle use. HEART: Regular rate and rhythm, S1, S2 ABDOMEN: Soft, nontender, nondistended, normoactive bowel sounds, no guarding EXTREMITIES: 2+ pulses, warm, well-perfused, RLE calf edema, venous stasis changes NEUROLOGICAL: AAOX2 Normal speech PSYCH: Normal mood, normal affect. SKIN: Warm, dry, normal turgor Laboratory Results - last 24 hr 06/15/18 06/15/18 05:30 05:30 WBC 5.7 RBC 4.45 Hgb 15.0 Hct 45.4 MCV 102.1 H MCH 33.6 MCHC 32.9 RDW 16.1 H Plt Count 118 L D MPV 7.3 L Sodium 135 L Potassium 3.4 L Chloride 91 L Carbon Dioxide 38 H Anion Gap 7 L BUN 29 H Creatinine 1.4 H Creat Clearance w eGFR 48.40 Random Glucose 75 Calcium 8.3 L Total Bilirubin 0.7 AST 17 ALT 12 L Alkaline Phosphatase 59 Total Protein 6.6 Albumin 3.0 L Active Medications Generic Name Dose Route Start Last Admin Trade Name Freq PRN Reason Stop Dose Admin Albuterol Sulfate 1 amp 06/13/18 03:41 Ventolin 0.083% Nebulizer Soln - NEB Q6H PRN SHORT OF BREATH/WHEEZING Albuterol/Ipratropium 1 amp 06/13/18 16:00 06/15/18 15:57 Duoneb - NEB 1 amp RQID RAMANA Administration Apixaban 5 mg 06/13/18 10:00 06/15/18 10:09 Eliquis - PO 5 mg BID RAMANA Administration Ascorbic Acid 500 mg 06/13/18 10:00 06/15/18 10:10 Vitamin C - PO 500 mg DAILY RAMANA Administration Atorvastatin Calcium 10 mg 06/13/18 22:00 06/14/18 21:41 Lipitor - PO 10 mg HS RAMANA Administration Carbamazepine 200 mg 06/13/18 22:00 06/14/18 22:39 Tegretol - PO 200 mg HS RAMANA Administration Digoxin 0.125 mg 06/13/18 10:00 06/15/18 10:10 Lanoxin - PO 0.125 mg DAILY RAMANA Administration Docusate Sodium 100 mg 06/14/18 19:55 Colace - PO Q12H PRN CONSTIPATION Donepezil HCl 10 mg 06/13/18 22:00 06/14/18 21:42 Aricept - PO 10 mg HS RAMANA Administration Furosemide 80 mg 06/13/18 14:00 06/15/18 14:09 Lasix Injection - IVPUSH 80 mg BIDLASIX RAMANA Administration Doxycycline Hyclate 100 mg/ 100 mls @ 50 mls/hr 06/13/18 10:00 06/15/18 10:08 Dextrose IVPB 50 mls/hr BID RAMANA Administration Ceftriaxone Sodium 0.5 gm/ 50 mls @ 100 mls/hr 06/13/18 16:00 06/15/18 10:08 Dextrose IVPB 100 mls/hr DAILY RAMANA Administration Protocol Levothyroxine Sodium 50 mcg 06/13/18 07:00 06/15/18 06:53 Synthroid - PO 50 mcg DAILY@0700 RAMANA Administration Non-Formulary Medication 14 mg 06/13/18 07:00 Memantine Hcl [Namenda Xr] PO AM RAMANA Vfncw-2-Cicw Ethyl Esters 1 gm 06/13/18 10:00 06/15/18 10:10 Lovaza - PO 1 gm BID RAMANA Administration Prednisone 40 mg 06/14/18 10:00 06/15/18 10:09 Deltasone - PO 40 mg DAILY RAMANA Administration Senna 2 tab 06/14/18 19:55 Senna - PO HS PRN CONSTIPATION ASSESSMENT/PLAN: 83 y/o man with a PMHx of: COPD 2LNC, Pulm HTN, HLD, Right Sided CHF, Atrial Flutter (on Eliquis) Hypothyroidism, Dementia, Depression, MICHAEL admitted with resp insufficiency which has now stabilized. However, he was found to have b/l popliteal artery aneursym R> L, with planned stenting by vac surgery. COPD -c/w BiPAP -pulmonary following, recs appreciated -PRN nebs -Prednisone 40mg daily -continue with IVSS doxycycline and ceftriaxone Aneurysm of right popliteal artery -vasc surg following, planned covered stent for right popliteal artery aneurysm CHF -lasix 80mg IVP BID -Echo done 06/14: mod TR, EF 50-55%, no pericardial effusion Afib -digoxin 0.125mg daily -eliquis 5mg BID HLD -lipitor 10mg qhs -Lovaza 1gm BID Dementia -aricept 10mg qhs -Namenda XR 14mg daily -Tegretol 200mg qhs Hypothyroidism -synthroid 50mcg daily PPX: bowel regimen with senna and colace DISPO -Full code -pts plan of care reviewed with son (HCP) Nixon [phone] Problem List - Problems (1) Aneurysm of right popliteal artery Code(s): I72.4 - ANEURYSM OF ARTERY OF LOWER EXTREMITY (2) COPD with acute exacerbation Code(s): J44.1 - CHRONIC OBSTRUCTIVE PULMONARY DISEASE W (ACUTE) EXACERBATION (3) Dementia Code(s): F03.90 - UNSPECIFIED DEMENTIA WITHOUT BEHAVIORAL DISTURBANCE Qualifiers: Dementia type: unspecified type Dementia behavioral disturbance: without behavioral disturbance Qualified Code(s): F03.90 - Unspecified dementia without behavioral disturbance (4) Hyperlipidemia Code(s): E78.5 - HYPERLIPIDEMIA, UNSPECIFIED Qualifiers: Hyperlipidemia type: unspecified Qualified Code(s): E78.5 - Hyperlipidemia , unspecified (5) Hypertension Code(s): I10 - ESSENTIAL (PRIMARY) HYPERTENSION Qualifiers: Hypertension type: essential hypertension Qualified Code(s): I10 - Essential (primary) hypertension (6) Hypothyroidism Code(s): E03.9 - HYPOTHYROIDISM, UNSPECIFIED Qualifiers: Hypothyroidism type: unspecified Qualified Code(s): E03.9 - Hypothyroidism , unspecified (7) Obstructive sleep apnea Code(s): G47.33 - OBSTRUCTIVE SLEEP APNEA (ADULT) (PEDIATRIC) Visit type - Emergency Visit Emergency Visit: Yes ED Registration Date: 06/12/18 Care time: The patient presented to the Emergency Department on the above date and was hospitalized for further evaluation of their emergent condition. - New Patient This patient is new to me today: No - Critical Care Critical Care patient: No - Discharge Referral Referred to [facility] Med P.C.: No
[2018-06-15] MEDS ORDERED: PT OWN MED DRAWER 7, Y5N ONE (23:14)
[2018-06-15] MEDS: carBAMazepine 200 MG TABLET PO SCH (23:17)
[2018-06-15] MEDS: ATORVASTATIN CA 10 MG TABLET (FP) PO SCH (23:17)
[2018-06-15] MEDS: DONEPEZIL HCL 10 MG TABLET (FP) PO SCH (23:18)
[2018-06-16] MEDS: FUROSEMIDE 40 MG/4 ML INJECTABLE VIAL IVPUSH SCH ×2 (06:17→14:28)
[2018-06-16] MEDS: LEVOTHYROXINE NA 50 MCG TABLET (FP) PO SCH (06:17)
[2018-06-16 08:00] LABS: HEMATOCRIT 49.5 % (35.4-49); HEMOGLOBIN 16.2 GM/dL (11.7-16.9); MCH 33.7 pg (25.7-33.7); MCHC 32.8 g/dl (32.0-35.9); MEAN PLT VOLUME 7.5 fl (7.5-11.1); PLATELET COUNT 146 K/MM3 (134-434); RDW 15.8 % (11.9-15.9); WHITE BLOOD COUNT 6.6 K/mm3 (4.0-10.0)
[2018-06-16 08:19] LABS: INR 1.28 (0.83-1.09); PROTHROMBIN TIME (PATIENT) 15.1 SEC (9.7-13.0)
[2018-06-16 08:24] LABS: ANION GAP 6 MMOL/L (8-16); BLOOD UREA NITROGEN 36 mg/dL (7-18); CALCIUM 8.9 mg/dL (8.5-10.1); CHLORIDE 89 mmol/L (98-107); CO2 40 mmol/L (21-32); CREATININE 1.5 mg/dL (0.55-1.3); GLUCOSE,RANDOM 87 mg/dL (74-106); POTASSIUM 3.8 mmol/L (3.5-5.1); SODIUM 134 mmol/L (136-145)
[2018-06-16] MEDS: ALBUTEROL SO4 2.5/IPRATROPIUM 0.5 INH SOL 3 ML VIAL.NEB. NEB SCH ×4 (08:40→21:00)
--- NOTE | 2018-06-16 10:18 | PN ---
Progress Note (short form) - Note Progress Note: s: no chest pain, palps. stable sob, on bipap Current Medications Albuterol Sulfate (Ventolin 0.083% Nebulizer Soln -) 1 amp NEB Q6H PRN PRN Reason: SHORT OF BREATH/WHEEZING Albuterol/Ipratropium (Duoneb -) 1 amp NEB RQID [facility] Last Admin: 06/16/18 08:40 Dose: 1 amp Apixaban (Eliquis -) 5 mg PO BID [facility] Last Admin: 06/15/18 23:17 Dose: 5 mg Ascorbic Acid (Vitamin C -) 500 mg PO DAILY [facility] Last Admin: 06/15/18 10:10 Dose: 500 mg Atorvastatin Calcium (Lipitor -) 10 mg PO HS [facility] Last Admin: 06/15/18 23:17 Dose: 10 mg Carbamazepine (Tegretol -) 200 mg PO HS [facility] Last Admin: 06/15/18 23:17 Dose: 200 mg Digoxin (Lanoxin -) 0.125 mg PO DAILY [facility] Last Admin: 06/15/18 10:10 Dose: 0.125 mg Docusate Sodium (Colace -) 100 mg PO Q12H PRN PRN Reason: CONSTIPATION Donepezil HCl (Aricept -) 10 mg PO HS [facility] Last Admin: 06/15/18 23:18 Dose: 10 mg Furosemide (Lasix Injection -) 80 mg IVPUSH BIDLASIX [facility] Last Admin: 06/16/18 06:17 Dose: 80 mg Doxycycline Hyclate 100 mg/ (Dextrose) 100 mls @ 50 mls/hr IVPB BID [facility] Last Admin: 06/15/18 23:17 Dose: 50 mls/hr Ceftriaxone Sodium 0.5 gm/ (Dextrose) 50 mls @ 100 mls/hr IVPB DAILY [facility]; Protocol Last Admin: 06/15/18 10:08 Dose: 100 mls/hr Levothyroxine Sodium (Synthroid -) 50 mcg PO DAILY@0700 [facility] Last Admin: 06/16/18 06:17 Dose: 50 mcg Non-Formulary Medication (Memantine Hcl [Namenda Xr]) 14 mg PO AM [facility] Dzbpl-2-Lnui Ethyl Esters (Lovaza -) 1 gm PO BID [facility] Last Admin: 06/15/18 23:17 Dose: 1 gm Prednisone (Deltasone -) 40 mg PO DAILY [facility] Last Admin: 06/15/18 10:09 Dose: 40 mg Senna (Senna -) 2 tab PO HS PRN PRN Reason: CONSTIPATION PE: Vital Signs Period Temp Pulse Resp BP Sys/Raya Pulse Ox Last 24 Hr 97.7 F-98.3 F 79-99 18-20 111-124/64-76 90-97 NAD, +JVD Irregular rate and rhythm. Nl S1, S2. 2/6 murmur at LSB exp wheezes scattered aaox 3 RLE 3+ pitting edema to knee +BS, soft, NT, distended. Pos dp/PT No jaundice, diaphoresis. Echo 05/03/15: Nl LV. RV mild-mod dilation with mild-mod systolic dysfunction. Severe pHTN (RVSP 62), mild TR. Mild Ao dilation. Pharm nuc stress 05/03/15: Afib with RVR. Asx. No ischemic changes. Nl perf. Nl EF. 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 SOB, cough, COPD - CT with significant findings for COPD, receiving nebs and steroids per primary , pulm - also received IV lasix for CHF, missed torsemide doses hx R heart failure, pulm HTN - BNP >11,000 - echo shows severe pulm HTN, low normal RV function - received lasix 40 mg IV x 1, now on 80 mg IV BID - has abd distension, which he has had in the past with volume overload - weight downtrending, Cr uptrending - cont IV lasix, monitor Cr, lytes, daily standing weights Atrial fibrillation. - cont eliquis, digoxin popliteal artery aneurysm - vascular consulted, Dr. Diaz - planned endovascular covered stent placement of R popliteal artery aneurysm, will optimize volume status prior HL: - cont statin
[2018-06-16] MEDS: DOXYCYCLINE INJECTION 100 MG in DEXTROSE 5%-WATER - 100 ML IVPB SCH ×2 (10:19→23:01)
[2018-06-16] MEDS: CEFTRIAXONE 0.5 GM in DEXTROSE 5%-WATER - 50 ML IVPB SCH (10:19)
[2018-06-16] MEDS: APIXABAN 5 MG TABLET PO SCH ×2 (10:20→23:00)
[2018-06-16] MEDS: OMEGA-3 ACID ETHYL ESTERS (FATTY-ACIDS) 1 GM CAPSULE (FP) PO SCH ×2 (10:20→23:01)
[2018-06-16] MEDS: DIGOXIN 0.125 MG TABLET (FP) PO SCH (10:20)
[2018-06-16] MEDS: predniSONE 20 MG TABLET (UD) PO SCH (10:20)
[2018-06-16] MEDS: ASCORBIC ACID 500 MG TABLET (FP) PO SCH (10:20)
--- NOTE | 2018-06-16 10:45 | PN ---
Progress Note, Physician History of Present Illness: pulmonary alert less dyspneic on nasal cannula,o2 sat 86% - Current Medication List Current Medications: Active Medications Albuterol Sulfate (Ventolin 0.083% Nebulizer Soln -) 1 amp NEB Q6H PRN PRN Reason: SHORT OF BREATH/WHEEZING Albuterol/Ipratropium (Duoneb -) 1 amp NEB RQID [facility] Last Admin: 06/16/18 08:40 Dose: 1 amp Apixaban (Eliquis -) 5 mg PO BID [facility] Last Admin: 06/16/18 10:20 Dose: 5 mg Ascorbic Acid (Vitamin C -) 500 mg PO DAILY [facility] Last Admin: 06/16/18 10:20 Dose: 500 mg Atorvastatin Calcium (Lipitor -) 10 mg PO HS [facility] Last Admin: 06/15/18 23:17 Dose: 10 mg Carbamazepine (Tegretol -) 200 mg PO HS [facility] Last Admin: 06/15/18 23:17 Dose: 200 mg Digoxin (Lanoxin -) 0.125 mg PO DAILY [facility] Last Admin: 06/16/18 10:20 Dose: 0.125 mg Docusate Sodium (Colace -) 100 mg PO Q12H PRN PRN Reason: CONSTIPATION Donepezil HCl (Aricept -) 10 mg PO HS [facility] Last Admin: 06/15/18 23:18 Dose: 10 mg Furosemide (Lasix Injection -) 80 mg IVPUSH BIDLASIX [facility] Last Admin: 06/16/18 06:17 Dose: 80 mg Doxycycline Hyclate 100 mg/ (Dextrose) 100 mls @ 50 mls/hr IVPB BID [facility] Last Admin: 06/16/18 10:19 Dose: 50 mls/hr Ceftriaxone Sodium 0.5 gm/ (Dextrose) 50 mls @ 100 mls/hr IVPB DAILY [facility]; Protocol Last Admin: 06/16/18 10:19 Dose: 100 mls/hr Levothyroxine Sodium (Synthroid -) 50 mcg PO DAILY@0700 [facility] Last Admin: 06/16/18 06:17 Dose: 50 mcg Non-Formulary Medication (Memantine Hcl [Namenda Xr]) 14 mg PO AM [facility] Naoaf-2-Tmrn Ethyl Esters (Lovaza -) 1 gm PO BID [facility] Last Admin: 06/16/18 10:20 Dose: 1 gm Prednisone (Deltasone -) 40 mg PO DAILY [facility] Last Admin: 06/16/18 10:20 Dose: 40 mg Senna (Senna -) 2 tab PO HS PRN PRN Reason: CONSTIPATION - Objective Vital Signs: Vital Signs Temperature 97.9 F 06/16/18 05:45 Pulse Rate 84 06/16/18 10:20 Respiratory Rate 18 06/16/18 05:45 Blood Pressure 120/75 06/16/18 05:45 O2 Sat by Pulse Oximetry (%) 94 L 06/16/18 08:40 Constitutional: Yes: Well Nourished, Calm Eyes: Yes: WNL HENT: Yes: WNL Neck: Yes: WNL Cardiovascular: Yes: Pulse Irregular, S1, S2 Respiratory: Yes: Diminished, Rhonchi (few rhonchi) Gastrointestinal: Yes: Normal Bowel Sounds, Soft Extremities: Yes: WNL Edema: No Labs: CBC, BMP 06/16/18 07:15 06/16/18 07:15 INR, PTT INR 1.28 (0.83-1.09) H 06/16/18 07:15 Assessment/Plan Problem List - Problems (1) Community acquired pneumonia Code(s): J18.9 - PNEUMONIA, UNSPECIFIED ORGANISM (2) Acute respiratory acidosis Code(s): E87.2 - ACIDOSIS (3) Acute respiratory failure with hypoxia and hypercarbia Code(s): J96.01 - ACUTE RESPIRATORY FAILURE WITH HYPOXIA; J96.02 - ACUTE RESPIRATORY FAILURE WITH HYPERCAPNIA (4) Aneurysm of right popliteal artery Code(s): I72.4 - ANEURYSM OF ARTERY OF LOWER EXTREMITY (5) COPD with acute exacerbation Code(s): J44.1 - CHRONIC OBSTRUCTIVE PULMONARY DISEASE W (ACUTE) EXACERBATION (6) Chronic respiratory acidosis Code(s): E87.2 - ACIDOSIS (7) Leg edema, right Code(s): R60.0 - LOCALIZED EDEMA (8) Right ventricular systolic dysfunction Code(s): I51.9 - HEART DISEASE, UNSPECIFIED (9) Atrial flutter Code(s): I48.92 - UNSPECIFIED ATRIAL FLUTTER Qualifiers: Atrial flutter type: unspecified Qualified Code(s): I48.92 - Unspecified atrial flutter (10) COPD (chronic obstructive pulmonary disease) Code(s): J44.9 - CHRONIC OBSTRUCTIVE PULMONARY DISEASE, UNSPECIFIED Qualifiers: COPD type: COPD with acute exacerbation Qualified Code(s): J44.1 - Chronic obstructive pulmonary disease with (acute) exacerbation (11) Chronic cor pulmonale Code(s): I27.81 - COR PULMONALE (CHRONIC) (12) Dementia Code(s): F03.90 - UNSPECIFIED DEMENTIA WITHOUT BEHAVIORAL DISTURBANCE Qualifiers: Dementia type: unspecified type Dementia behavioral disturbance: without behavioral disturbance Qualified Code(s): F03.90 - Unspecified dementia without behavioral disturbance (13) Hyperlipidemia Code(s): E78.5 - HYPERLIPIDEMIA, UNSPECIFIED Qualifiers: Hyperlipidemia type: unspecified Qualified Code(s): E78.5 - Hyperlipidemia , unspecified (14) Hypertension Code(s): I10 - ESSENTIAL (PRIMARY) HYPERTENSION Qualifiers: Hypertension type: essential hypertension Qualified Code(s): I10 - Essential (primary) hypertension (15) Hypothyroidism Code(s): E03.9 - HYPOTHYROIDISM, UNSPECIFIED Qualifiers: Hypothyroidism type: unspecified Qualified Code(s): E03.9 - Hypothyroidism , unspecified (16) Obstructive sleep apnea Code(s): G47.33 - OBSTRUCTIVE SLEEP APNEA (ADULT) (PEDIATRIC) (17) Pulmonary hypertension Code(s): I27.2 - OTHER SECONDARY PULMONARY HYPERTENSION * DO NOT USE * Assessment/Plan RLL PNA SEVERE PULMONARY HTN AFIB COPD CHRONIC HYPOXEMIC RESPIRATORY FAILURE OSAS ABX Steroids same dose NC O2 as tolerated NIPPV QHS and PRN No smoking discussed AC BD TX standing and PRN monitor pulse ox DR SOLO Problem List - Problems (1) Community acquired pneumonia Code(s): J18.9 - PNEUMONIA, UNSPECIFIED ORGANISM (2) Acute respiratory acidosis Code(s): E87.2 - ACIDOSIS (3) Acute respiratory failure with hypoxia and hypercarbia Code(s): J96.01 - ACUTE RESPIRATORY FAILURE WITH HYPOXIA; J96.02 - ACUTE RESPIRATORY FAILURE WITH HYPERCAPNIA (4) Aneurysm of right popliteal artery Code(s): I72.4 - ANEURYSM OF ARTERY OF LOWER EXTREMITY (5) COPD with acute exacerbation Code(s): J44.1 - CHRONIC OBSTRUCTIVE PULMONARY DISEASE W (ACUTE) EXACERBATION (6) Chronic respiratory acidosis Code(s): E87.2 - ACIDOSIS (7) Leg edema, right Code(s): R60.0 - LOCALIZED EDEMA (8) Right ventricular systolic dysfunction Code(s): I51.9 - HEART DISEASE, UNSPECIFIED (9) Atrial flutter Code(s): I48.92 - UNSPECIFIED ATRIAL FLUTTER Qualifiers: Atrial flutter type: unspecified Qualified Code(s): I48.92 - Unspecified atrial flutter (10) COPD (chronic obstructive pulmonary disease) Code(s): J44.9 - CHRONIC OBSTRUCTIVE PULMONARY DISEASE, UNSPECIFIED Qualifiers: COPD type: COPD with acute exacerbation Qualified Code(s): J44.1 - Chronic obstructive pulmonary disease with (acute) exacerbation (11) Chronic cor pulmonale Code(s): I27.81 - COR PULMONALE (CHRONIC) (12) Dementia Code(s): F03.90 - UNSPECIFIED DEMENTIA WITHOUT BEHAVIORAL DISTURBANCE Qualifiers: Dementia type: unspecified type Dementia behavioral disturbance: without behavioral disturbance Qualified Code(s): F03.90 - Unspecified dementia without behavioral disturbance (13) Hyperlipidemia Code(s): E78.5 - HYPERLIPIDEMIA, UNSPECIFIED Qualifiers: Hyperlipidemia type: unspecified Qualified Code(s): E78.5 - Hyperlipidemia , unspecified (14) Hypertension Code(s): I10 - ESSENTIAL (PRIMARY) HYPERTENSION Qualifiers: Hypertension type: essential hypertension Qualified Code(s): I10 - Essential (primary) hypertension (15) Hypothyroidism Code(s): E03.9 - HYPOTHYROIDISM, UNSPECIFIED Qualifiers: Hypothyroidism type: unspecified Qualified Code(s): E03.9 - Hypothyroidism , unspecified (16) Obstructive sleep apnea Code(s): G47.33 - OBSTRUCTIVE SLEEP APNEA (ADULT) (PEDIATRIC) (17) Pulmonary hypertension Code(s): I27.2 - OTHER SECONDARY PULMONARY HYPERTENSION * DO NOT USE *
--- NOTE | 2018-06-16 11:42 | PN ---
Progress Note (short form) - Note Progress Note: Vascular Surgery Pt being optimized. Will plan on doing angio on thursday if pt is stable and cleared. Will cont to follow. Devon Diaz DO
[2018-06-16] MEDS: methylPREDNISolone NA SUCC 40 MG/1 ML VIAL IVPUSH SCH ×2 (15:39→23:00)
--- NOTE | 2018-06-16 18:42 | PN ---
Physical Exam: SUBJECTIVE: Patient seen and examined at the bedside. on bipap. desats with nasal cannula. OBJECTIVE: CTA shows 3cm right popliteal artery aneurysm and Left poplteal artery aneurysm is 1.5cm. more short of breath this morning, stop prednisone po and started on solumedrol , discussed with pulm. add protonix Vital Signs Period Temp Pulse Resp BP Sys/Raya Pulse Ox Last 24 Hr 97.9 F-98.3 F 74-90 18-24 111-120/66-75 90-97 GENERAL: The patient is awake, alert, in mild respiratory distress acute distress. HEAD: Normal with no signs of trauma. EYES: PERRL, sclera anicteric, conjunctiva clear. ORAL: large dry tongue, dry mucous membranes ENT: nares patent NECK: Trachea midline, no JVD LUNGS: coarse BS diminished at the bases. no accessory muscle use. HEART: Regular rate and rhythm ABDOMEN: Soft, nontender, nondistended, normoactive bowel sounds, no guarding EXTREMITIES: 2+ pulses, warm, well-perfused, RLE calf edema, venous stasis changes NEUROLOGICAL: AAOX2 Normal speech PSYCH: Normal mood, normal affect. SKIN: Warm, dry, normal turgor Laboratory Results - last 24 hr 06/16/18 06/16/18 06/16/18 07:15 07:15 07:15 WBC 6.6 RBC 4.80 Hgb 16.2 Hct 49.5 H MCV 103.0 H MCH 33.7 MCHC 32.8 RDW 15.8 Plt Count 146 D MPV 7.5 PT with INR 15.10 H INR 1.28 H PTT (Actin FS) 31.0 Sodium 134 L Potassium 3.8 Chloride 89 L Carbon Dioxide 40 H Anion Gap 6 L BUN 36 H Creatinine 1.5 H Creat Clearance w eGFR 44.69 Random Glucose 87 Calcium 8.9 Active Medications Generic Name Dose Route Start Last Admin Trade Name Freq PRN Reason Stop Dose Admin Albuterol Sulfate 1 amp 06/13/18 03:41 Ventolin 0.083% Nebulizer Soln - NEB Q6H PRN SHORT OF BREATH/WHEEZING Albuterol/Ipratropium 1 amp 06/13/18 16:00 06/16/18 16:34 Duoneb - NEB 1 amp RQID RAMANA Administration Apixaban 5 mg 06/13/18 10:00 06/16/18 10:20 Eliquis - PO 5 mg BID RAMANA Administration Ascorbic Acid 500 mg 06/13/18 10:00 06/16/18 10:20 Vitamin C - PO 500 mg DAILY RAMANA Administration Atorvastatin Calcium 10 mg 06/13/18 22:00 06/15/18 23:17 Lipitor - PO 10 mg HS RAMANA Administration Carbamazepine 200 mg 06/13/18 22:00 06/15/18 23:17 Tegretol - PO 200 mg HS RAMANA Administration Digoxin 0.125 mg 06/13/18 10:00 06/16/18 10:20 Lanoxin - PO 0.125 mg DAILY RAMANA Administration Docusate Sodium 100 mg 06/14/18 19:55 Colace - PO Q12H PRN CONSTIPATION Donepezil HCl 10 mg 06/13/18 22:00 06/15/18 23:18 Aricept - PO 10 mg HS RAMANA Administration Furosemide 80 mg 06/13/18 14:00 06/16/18 14:28 Lasix Injection - IVPUSH 80 mg BIDLASIX RAMANA Administration Doxycycline Hyclate 100 mg/ 100 mls @ 50 mls/hr 06/13/18 10:00 06/16/18 10:19 Dextrose IVPB 50 mls/hr BID RAMANA Administration Ceftriaxone Sodium 0.5 gm/ 50 mls @ 100 mls/hr 06/13/18 16:00 06/16/18 10:19 Dextrose IVPB 100 mls/hr DAILY RAMANA Administration Protocol Levothyroxine Sodium 50 mcg 06/13/18 07:00 06/16/18 06:17 Synthroid - PO 50 mcg DAILY@0700 RAMANA Administration Methylprednisolone Sodium Succinate 40 mg 06/16/18 15:00 06/16/18 15:39 Solu-Medrol - IVPUSH 40 mg Q6H-IV RAMANA Administration Non-Formulary Medication 14 mg 06/13/18 07:00 Memantine Hcl [Namenda Xr] PO AM RAMANA Pwskt-3-Wtrc Ethyl Esters 1 gm 06/13/18 10:00 06/16/18 10:20 Lovaza - PO 1 gm BID RAMANA Administration Senna 2 tab 06/14/18 19:55 Senna - PO HS PRN CONSTIPATION ASSESSMENT/PLAN: Patient is a 83 year old male with a significant past medical history of COPD ( home oxygen dependent @ 2 liters), current daily smoker (quit 1 week ago) pulmonary hypertension, HLD, right sided CHF, atrial Flutter (on Eliquis) hypothyroidism, dementia, depression, MICHAEL admitted with resp insufficiency and was found to have 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 Pulmonary COPD excacerbation, having increased shortness of breath today, desats with nasal cannula. improved on bipap Started on solumedrol 40mg q6 for shortness of breath, d/c prednisone 40mg daily on bipap therapy prn and overnight Duonebs prn continue with doxycycline and ceftriaxone Monitor airway Vascular: Aneurysm of right popliteal artery Vascular surgery following Planning for stent for right popliteal artery aneurysm Card: CHF On Lasix 80mg IV BID. monitor daily weights Echo done 06/14: mod TR, EF 50-55%, no pericardial effusion Afib On digoxin 0.125mg daily, eliquis 5mg bid HLD On lipitor 10mg qhs, lovaza Psyche: Dementia On aricept, namenda, tegretol Hypothyroidism On synthroid 50mcg daily prophy: bowel regimen with senna and colace full code Visit type - Emergency Visit Emergency Visit: Yes ED Registration Date: 06/12/18 Care time: The patient presented to the Emergency Department on the above date and was hospitalized for further evaluation of their emergent condition. - New Patient This patient is new to me today: Yes Date on this admission: 06/16/18 - Critical Care Critical Care patient: No - Discharge Referral Referred to [facility] Med P.C.: No
[2018-06-16] MEDS ORDERED: PT OWN MED DRAWER 7, Y5N ONE (22:25)
[2018-06-16] MEDS: DONEPEZIL HCL 10 MG TABLET (FP) PO SCH (23:00)
[2018-06-16] MEDS: carBAMazepine 200 MG TABLET PO SCH (23:00)
[2018-06-16] MEDS: ATORVASTATIN CA 10 MG TABLET (FP) PO SCH (23:00)
[2018-06-17] MEDS: methylPREDNISolone NA SUCC 40 MG/1 ML VIAL IVPUSH SCH ×4 (04:02→21:41)
[2018-06-17] MEDS: LEVOTHYROXINE NA 50 MCG TABLET (FP) PO SCH (06:25)
[2018-06-17] MEDS: FUROSEMIDE 40 MG/4 ML INJECTABLE VIAL IVPUSH SCH ×2 (06:25→14:35)
[2018-06-17] MEDS: ALBUTEROL SO4 2.5/IPRATROPIUM 0.5 INH SOL 3 ML VIAL.NEB. NEB SCH ×4 (08:30→20:20)
--- NOTE | 2018-06-17 09:05 | PN ---
Physical Exam: SUBJECTIVE: Patient seen and examined at the bedside. tells me he feels better than he did yesterday. denies any chest pain. OBJECTIVE: breathing improved compared to yesterday, now on nasal cannula 2 liters with oxygen saturations between 88%-90%. breathing not yet at baseline. on solumedrol 40q6 Vital Signs Period Temp Pulse Resp BP Sys/Raya Pulse Ox Last 24 Hr 97.2 F-98.8 F 74-102 18-24 111-126/54-76 89-98 GENERAL: The patient is awake, alert and in no acute distress. HEAD: Normal with no signs of trauma. EYES: PERRL, sclera anicteric, conjunctiva clear. ORAL: large dry tongue, dry mucous membranes ENT: nares patent NECK: Trachea midline, no JVD LUNGS: coarse BS diminished at the bases. but improved from yesterday, no accessory muscle use. HEART: Regular rate and rhythm ABDOMEN: Soft, nontender, nondistended, normoactive bowel sounds, no guarding EXTREMITIES: 2+ pulses, warm, well-perfused, RLE calf edema, venous stasis changes NEUROLOGICAL: AAOX2 Normal speech PSYCH: Normal mood, normal affect. SKIN: Warm, dry, normal turgor Active Medications Generic Name Dose Route Start Last Admin Trade Name Freq PRN Reason Stop Dose Admin Albuterol Sulfate 1 amp 06/13/18 03:41 Ventolin 0.083% Nebulizer Soln - NEB Q6H PRN SHORT OF BREATH/WHEEZING Albuterol/Ipratropium 1 amp 06/13/18 16:00 06/17/18 08:30 Duoneb - NEB 1 amp RQID RAMANA Administration Apixaban 5 mg 06/13/18 10:00 06/16/18 23:00 Eliquis - PO 5 mg BID RAMANA Administration Ascorbic Acid 500 mg 06/13/18 10:00 06/16/18 10:20 Vitamin C - PO 500 mg DAILY RAMANA Administration Atorvastatin Calcium 10 mg 06/13/18 22:00 06/16/18 23:00 Lipitor - PO 10 mg HS RAMANA Administration Carbamazepine 200 mg 06/13/18 22:00 06/16/18 23:00 Tegretol - PO 200 mg HS RAMANA Administration Digoxin 0.125 mg 06/13/18 10:00 06/16/18 10:20 Lanoxin - PO 0.125 mg DAILY RAMANA Administration Docusate Sodium 100 mg 06/14/18 19:55 Colace - PO Q12H PRN CONSTIPATION Donepezil HCl 10 mg 06/13/18 22:00 06/16/18 23:00 Aricept - PO 10 mg HS RAMANA Administration Furosemide 80 mg 06/13/18 14:00 06/17/18 06:25 Lasix Injection - IVPUSH 80 mg BIDLASIX RAMANA Administration Doxycycline Hyclate 100 mg/ 100 mls @ 50 mls/hr 06/13/18 10:00 06/16/18 23:01 Dextrose IVPB 50 mls/hr BID RAMANA Administration Ceftriaxone Sodium 0.5 gm/ 50 mls @ 100 mls/hr 06/13/18 16:00 06/16/18 10:19 Dextrose IVPB 100 mls/hr DAILY RAMANA Administration Protocol Levothyroxine Sodium 50 mcg 06/13/18 07:00 06/17/18 06:25 Synthroid - PO 50 mcg DAILY@0700 RAMANA Administration Methylprednisolone Sodium Succinate 40 mg 06/16/18 15:00 06/17/18 04:02 Solu-Medrol - IVPUSH 40 mg Q6H-IV RAMANA Administration Non-Formulary Medication 14 mg 06/13/18 07:00 Memantine Hcl [Namenda Xr] PO AM RAMANA Unvvv-3-Wrbs Ethyl Esters 1 gm 06/13/18 10:00 06/16/18 23:01 Lovaza - PO 1 gm BID RAMANA Administration Pantoprazole Sodium 40 mg 06/17/18 10:00 Protonix - PO DAILY RAMANA Senna 2 tab 06/14/18 19:55 Senna - PO HS PRN CONSTIPATION ASSESSMENT/PLAN: Patient is a 83 year old male with a significant past medical history of COPD ( home oxygen dependent @ 2 liters), current daily smoker (quit 1 week ago) pulmonary hypertension, HLD, right sided CHF, atrial Flutter (on Eliquis) hypothyroidism, dementia, depression, MICHAEL admitted with resp insufficiency and was found to have 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 Pulmonary COPD exacerbation, overall his breathing has improved since yesterday. Now back on nasal cannula at 2-3 liters (his home baseline) with stable saturations between 88-92%. On solumedrol 40mg q6 for shortness of breath. Duonebs prn continue with doxycycline and ceftriaxone Monitor airway on nocturnal bipap Vascular: Aneurysm of right popliteal artery Vascular surgery following Planning for stent for right popliteal artery aneurysm Card: CHF On Lasix 80mg IV BID. monitor daily weights Echo done 06/14: mod TR, EF 50-55%, no pericardial effusion Afib On digoxin 0.125mg daily, eliquis 5mg bid HLD On lipitor 10mg qhs, lovaza Psyche: Dementia On aricept, namenda, tegretol Hypothyroidism On synthroid 50mcg daily prophy: bowel regimen with senna and colace full code Visit type - Emergency Visit Emergency Visit: Yes ED Registration Date: 06/12/18 Care time: The patient presented to the Emergency Department on the above date and was hospitalized for further evaluation of their emergent condition. - New Patient This patient is new to me today: No - Critical Care Critical Care patient: No - Discharge Referral Referred to [facility] Med P.C.: No
[2018-06-17] MEDS: DOXYCYCLINE INJECTION 100 MG in DEXTROSE 5%-WATER - 100 ML IVPB SCH ×2 (10:20→21:41)
[2018-06-17 10:30] LABS: BASO % 0.2 % (0-2.0); EOS % 0.1 % (0-4.5); HEMATOCRIT 49.1 % (35.4-49); HEMOGLOBIN 16.2 GM/dL (11.7-16.9); LYMPH % 2.7 % (8-40); MEAN PLT VOLUME 7.6 fl (7.5-11.1); PLATELET COUNT 147 K/MM3 (134-434); RBC 4.77 M/mm3 (4.00-5.60); RDW 15.6 % (11.9-15.9); WHITE BLOOD COUNT 8.1 K/mm3 (4.0-10.0)
[2018-06-17] MEDS: APIXABAN 5 MG TABLET PO SCH ×2 (10:48→21:41)
[2018-06-17] MEDS: OMEGA-3 ACID ETHYL ESTERS (FATTY-ACIDS) 1 GM CAPSULE (FP) PO SCH ×2 (10:48→21:41)
[2018-06-17] MEDS: DIGOXIN 0.125 MG TABLET (FP) PO SCH (10:48)
[2018-06-17] MEDS: PANTOPRAZOLE 40 MG TABLET (FP) PO SCH (10:48)
[2018-06-17] MEDS: ASCORBIC ACID 500 MG TABLET (FP) PO SCH (10:50)
[2018-06-17] MEDS: CEFTRIAXONE 0.5 GM in DEXTROSE 5%-WATER - 50 ML IVPB SCH (10:54)
[2018-06-17 11:07] LABS: ALBUMIN 3.2 g/dl (3.4-5.0); ALK PHOS 68 U/L (45-117); ANION GAP 11 MMOL/L (8-16); BILIRUBIN,TOTAL 1.2 mg/dL (0.2-1); BLOOD UREA NITROGEN 48 mg/dL (7-18); CALCIUM 8.7 mg/dL (8.5-10.1); CHLORIDE 87 mmol/L (98-107); CO2 36 mmol/L (21-32); CREATININE 1.6 mg/dL (0.55-1.3); GLUCOSE,RANDOM 170 mg/dL (74-106); MAGNESIUM 2.1 mg/dL (1.8-2.4); POTASSIUM 3.9 mmol/L (3.5-5.1); SGOT/AST 16 U/L (15-37); SGPT/ALT 16 U/L (13-61); SODIUM 134 mmol/L (136-145); TOT PROT 7.2 g/dl (6.4-8.2)
--- NOTE | 2018-06-17 11:14 | PN ---
Progress Note (short form) - Note Progress Note: s: no chest pain, palps dizzy. stable sob Current Medications Generic Name Dose Route Start Last Admin Trade Name Freq PRN Reason Stop Dose Admin Albuterol Sulfate 1 amp 06/13/18 03:41 Ventolin 0.083% Nebulizer Soln - NEB Q6H PRN SHORT OF BREATH/WHEEZING Albuterol/Ipratropium 1 amp 06/13/18 16:00 06/17/18 08:30 Duoneb - NEB 1 amp RQID RAMANA Administration Apixaban 5 mg 06/13/18 10:00 06/17/18 10:48 Eliquis - PO 5 mg BID RAMANA Administration Ascorbic Acid 500 mg 06/13/18 10:00 06/17/18 10:50 Vitamin C - PO 500 mg DAILY RAMANA Administration Atorvastatin Calcium 10 mg 06/13/18 22:00 06/16/18 23:00 Lipitor - PO 10 mg HS RAMANA Administration Carbamazepine 200 mg 06/13/18 22:00 06/16/18 23:00 Tegretol - PO 200 mg HS RAMANA Administration Digoxin 0.125 mg 06/13/18 10:00 06/17/18 10:48 Lanoxin - PO 0.125 mg DAILY RAMANA Administration Docusate Sodium 100 mg 06/14/18 19:55 Colace - PO Q12H PRN CONSTIPATION Donepezil HCl 10 mg 06/13/18 22:00 06/16/18 23:00 Aricept - PO 10 mg HS RAMANA Administration Furosemide 80 mg 06/13/18 14:00 06/17/18 06:25 Lasix Injection - IVPUSH 80 mg BIDLASIX RAMANA Administration Doxycycline Hyclate 100 mg/ 100 mls @ 50 mls/hr 06/13/18 10:00 06/16/18 23:01 Dextrose IVPB 50 mls/hr BID RAMANA Administration Ceftriaxone Sodium 0.5 gm/ 50 mls @ 100 mls/hr 06/13/18 16:00 06/17/18 10:54 Dextrose IVPB 100 mls/hr DAILY RAMANA Administration Protocol Levothyroxine Sodium 50 mcg 06/13/18 07:00 06/17/18 06:25 Synthroid - PO 50 mcg DAILY@0700 RAMANA Administration Methylprednisolone Sodium Succinate 40 mg 06/16/18 15:00 06/17/18 09:40 Solu-Medrol - IVPUSH 40 mg Q6H-IV RAMANA Administration Non-Formulary Medication 14 mg 06/13/18 07:00 Memantine Hcl [Namenda Xr] PO AM RAMANA [id number]-[id number] Ethyl Esters 1 gm 06/13/18 10:00 06/17/18 10:48 Lovaza - PO 1 gm BID RAMANA Administration Pantoprazole Sodium 40 mg 06/17/18 10:00 06/17/18 10:48 Protonix - PO 40 mg DAILY RAMANA Administration Senna 2 tab 06/14/18 19:55 Senna - PO HS PRN CONSTIPATION Vital Signs Period Temp Pulse Resp BP Sys/Raya Pulse Ox Last 24 Hr 97.2 F-98.8 F 74-102 18-20 113-126/54-76 89-98 NAD, +JVD Irregular rate and rhythm. Nl S1, S2. 2/6 murmur at LSB exp wheezes scattered aaox 3 trace le edema +BS, soft, NT, distended. Pos dp/PT No jaundice, diaphoresis. CBC, BMP 06/17/18 10:14 06/17/18 10:14 Echo 05/03/15: Nl LV. RV mild-mod dilation with mild-mod systolic dysfunction. Severe pHTN (RVSP 62), mild TR. Mild Ao dilation. Pharm nuc stress 05/03/15: Afib with RVR. Asx. No ischemic changes. Nl perf. Nl EF. 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 SOB, cough, COPD - CT with significant findings for COPD, receiving nebs and steroids per primary , pulm - also receiving IV lasix for CHF acute Right heart failure, pulm HTN - BNP >11,000 - echo shows severe pulm HTN, low normal RV function - received lasix 40 mg IV x 1, now on 80 mg IV BID - has abd distension, which he has had in the past with volume overload - weight downtrending - cont IV lasix, monitor Cr, lytes, daily standing weights. cr up but near his prior baseline. Atrial fibrillation. - cont eliquis, digoxin popliteal artery aneurysm - vascular consulted, Dr. Diaz - planned endovascular covered stent placement of R popliteal artery aneurysm, will optimize volume status prior HL: - cont statin
[2018-06-17 12:14] LABS: ANISOCYTOSIS 1+; MACROCYTOSIS 1+; PLATELET ESTIMATE DECREASED
--- NOTE | 2018-06-17 12:31 | PN ---
Progress Note (short form) - Note Progress Note: Feels a little better today. Less cough and SOB. Remains mildly tachypneic at rest. Intake & Output 06/14/18 06/15/18 06/16/18 06/17/18 23:59 23:59 23:59 23:59 Intake Total 420 830 740 100 Output Total 5020 1850 2100 Balance -4600 -1020 -1360 100 Weight 164 lb 12.8 oz 162 lb 9.6 oz 159 lb 12.8 oz 144 lb Last Vital Signs Temp Pulse Resp BP Pulse Ox 97.8 F 76 20 119/69 94 L 06/17/18 08:17 06/17/18 10:48 06/17/18 08:17 06/17/18 08:17 06/17/18 12:09 Active Medications Albuterol Sulfate (Ventolin 0.083% Nebulizer Soln -) 1 amp NEB Q6H PRN PRN Reason: SHORT OF BREATH/WHEEZING Albuterol/Ipratropium (Duoneb -) 1 amp NEB RQID [facility] Last Admin: 06/17/18 12:10 Dose: 1 amp Apixaban (Eliquis -) 5 mg PO BID [facility] Last Admin: 06/17/18 10:48 Dose: 5 mg Ascorbic Acid (Vitamin C -) 500 mg PO DAILY [facility] Last Admin: 06/17/18 10:50 Dose: 500 mg Atorvastatin Calcium (Lipitor -) 10 mg PO HS [facility] Last Admin: 06/16/18 23:00 Dose: 10 mg Carbamazepine (Tegretol -) 200 mg PO HS [facility] Last Admin: 06/16/18 23:00 Dose: 200 mg Digoxin (Lanoxin -) 0.125 mg PO DAILY [facility] Last Admin: 06/17/18 10:48 Dose: 0.125 mg Docusate Sodium (Colace -) 100 mg PO Q12H PRN PRN Reason: CONSTIPATION Donepezil HCl (Aricept -) 10 mg PO HS [facility] Last Admin: 06/16/18 23:00 Dose: 10 mg Furosemide (Lasix Injection -) 80 mg IVPUSH BIDLASIX [facility] Last Admin: 06/17/18 06:25 Dose: 80 mg Doxycycline Hyclate 100 mg/ (Dextrose) 100 mls @ 50 mls/hr IVPB BID [facility] Last Admin: 06/17/18 10:20 Dose: 50 mls/hr Ceftriaxone Sodium 0.5 gm/ (Dextrose) 50 mls @ 100 mls/hr IVPB DAILY [facility]; Protocol Last Admin: 06/17/18 10:54 Dose: 100 mls/hr Levothyroxine Sodium (Synthroid -) 50 mcg PO DAILY@0700 [facility] Last Admin: 06/17/18 06:25 Dose: 50 mcg Methylprednisolone Sodium Succinate (Solu-Medrol -) 40 mg IVPUSH Q6H-IV [facility] Last Admin: 06/17/18 09:40 Dose: 40 mg Non-Formulary Medication (Memantine Hcl [Namenda Xr]) 14 mg PO AM [facility] Ufxuc-0-Wean Ethyl Esters (Lovaza -) 1 gm PO BID [facility] Last Admin: 06/17/18 10:48 Dose: 1 gm Pantoprazole Sodium (Protonix -) 40 mg PO DAILY [facility] Last Admin: 06/17/18 10:48 Dose: 40 mg Senna (Senna -) 2 tab PO HS PRN PRN Reason: CONSTIPATION Constitutional: Yes: NAD Eyes: Yes: Conjunctiva Clear, EOM Intact HENT: Yes: Atraumatic, Normocephalic Neck: Yes: Supple, Trachea Midline Cardiovascular: Yes: Pulse Irregular Respiratory: Yes: Cough, Diminished, Rhonchi, Tachypnea, Few scattered wheezes. No: Accessory Muscle Use, Stridor ...Inspection: Yes: WNL ...Clubbing: No Gastrointestinal: Yes: Normal Bowel Sounds, Soft Renal/: Yes: WNL Musculoskeletal: Yes: WNL Extremities: Yes: WNL Edema: Yes Peripheral Pulses WNL: Yes Integumentary: Yes: WNL Neurological: Yes: WNL, Alert, Oriented ...Motor Strength: WNL Psychiatric: Yes: WNL, Alert, Oriented Labs: Laboratory Results - last 24 hr 06/17/18 06/17/18 10:14 10:14 WBC 8.1 RBC 4.77 Hgb 16.2 Hct 49.1 H MCV 103.0 H MCH 34.0 H MCHC 33.0 RDW 15.6 Plt Count 147 MPV 7.6 Absolute Neuts (auto) 7.6 Neutrophils % 94.0 H Neutrophils % (Manual) 95.0 H Band Neutrophils % 0.0 Lymphocytes % 2.7 L D Lymphocytes % (Manual) 4.0 L Monocytes % 3.0 L Monocytes % (Manual) 1 L Eosinophils % 0.1 Eosinophils % (Manual) 0.0 Basophils % 0.2 Basophils % (Manual) 0.0 Myelocytes % (Man) 0 Promyelocytes % (Man) 0 Blast Cells % (Manual) 0 Nucleated RBC % 0 Metamyelocytes 0 Hypochromia 0 Platelet Estimate Decreased Polychromasia 0 Poikilocytosis 0 Anisocytosis 1+ Microcytosis 0 Macrocytosis 1+ Sodium 134 L Potassium 3.9 Chloride 87 L Carbon Dioxide 36 H Anion Gap 11 BUN 48 H Creatinine 1.6 H Creat Clearance w eGFR 41.49 Random Glucose 170 H Calcium 8.7 Magnesium 2.1 Total Bilirubin 1.2 H AST 16 ALT 16 Alkaline Phosphatase 68 Total Protein 7.2 Albumin 3.2 L Problem List - Problems (1) Community acquired pneumonia Code(s): J18.9 - PNEUMONIA, UNSPECIFIED ORGANISM (2) Acute respiratory acidosis Code(s): E87.2 - ACIDOSIS (3) Acute respiratory failure with hypoxia and hypercarbia Code(s): J96.01 - ACUTE RESPIRATORY FAILURE WITH HYPOXIA; J96.02 - ACUTE RESPIRATORY FAILURE WITH HYPERCAPNIA (4) Aneurysm of right popliteal artery Code(s): I72.4 - ANEURYSM OF ARTERY OF LOWER EXTREMITY (5) COPD with acute exacerbation Code(s): J44.1 - CHRONIC OBSTRUCTIVE PULMONARY DISEASE W (ACUTE) EXACERBATION (6) Chronic respiratory acidosis Code(s): E87.2 - ACIDOSIS (7) Leg edema, right Code(s): R60.0 - LOCALIZED EDEMA (8) Right ventricular systolic dysfunction Code(s): I51.9 - HEART DISEASE, UNSPECIFIED (9) Atrial flutter Code(s): I48.92 - UNSPECIFIED ATRIAL FLUTTER Qualifiers: Atrial flutter type: unspecified Qualified Code(s): I48.92 - Unspecified atrial flutter (10) COPD (chronic obstructive pulmonary disease) Code(s): J44.9 - CHRONIC OBSTRUCTIVE PULMONARY DISEASE, UNSPECIFIED Qualifiers: COPD type: COPD with acute exacerbation Qualified Code(s): J44.1 - Chronic obstructive pulmonary disease with (acute) exacerbation (11) Chronic cor pulmonale Code(s): I27.81 - COR PULMONALE (CHRONIC) (12) Dementia Code(s): F03.90 - UNSPECIFIED DEMENTIA WITHOUT BEHAVIORAL DISTURBANCE Qualifiers: Dementia type: unspecified type Dementia behavioral disturbance: without behavioral disturbance Qualified Code(s): F03.90 - Unspecified dementia without behavioral disturbance (13) Hyperlipidemia Code(s): E78.5 - HYPERLIPIDEMIA, UNSPECIFIED Qualifiers: Hyperlipidemia type: unspecified Qualified Code(s): E78.5 - Hyperlipidemia , unspecified (14) Hypertension Code(s): I10 - ESSENTIAL (PRIMARY) HYPERTENSION Qualifiers: Hypertension type: essential hypertension Qualified Code(s): I10 - Essential (primary) hypertension (15) Hypothyroidism Code(s): E03.9 - HYPOTHYROIDISM, UNSPECIFIED Qualifiers: Hypothyroidism type: unspecified Qualified Code(s): E03.9 - Hypothyroidism , unspecified (16) Obstructive sleep apnea Code(s): G47.33 - OBSTRUCTIVE SLEEP APNEA (ADULT) (PEDIATRIC) (17) Pulmonary hypertension Code(s): I27.2 - OTHER SECONDARY PULMONARY HYPERTENSION * DO NOT USE * Assessment/Plan RLL PNA ABX NC O2: maintain saturation 88% to 92% NIPPV QHS and PRN No smoking discussed AC BD TX standing and PRN Continuous oxymetry monitoring Would defer Angiography until Thursday. Patient still has a component of bronchospasm and not at his baseline Dr Cortes Problem List - Problems (1) Community acquired pneumonia Code(s): J18.9 - PNEUMONIA, UNSPECIFIED ORGANISM (2) Acute respiratory acidosis Code(s): E87.2 - ACIDOSIS (3) Acute respiratory failure with hypoxia and hypercarbia Code(s): J96.01 - ACUTE RESPIRATORY FAILURE WITH HYPOXIA; J96.02 - ACUTE RESPIRATORY FAILURE WITH HYPERCAPNIA (4) Aneurysm of right popliteal artery Code(s): I72.4 - ANEURYSM OF ARTERY OF LOWER EXTREMITY (5) COPD with acute exacerbation Code(s): J44.1 - CHRONIC OBSTRUCTIVE PULMONARY DISEASE W (ACUTE) EXACERBATION (6) Chronic respiratory acidosis Code(s): E87.2 - ACIDOSIS (7) Leg edema, right Code(s): R60.0 - LOCALIZED EDEMA (8) Right ventricular systolic dysfunction Code(s): I51.9 - HEART DISEASE, UNSPECIFIED (9) Atrial flutter Code(s): I48.92 - UNSPECIFIED ATRIAL FLUTTER Qualifiers: Atrial flutter type: unspecified Qualified Code(s): I48.92 - Unspecified atrial flutter (10) COPD (chronic obstructive pulmonary disease) Code(s): J44.9 - CHRONIC OBSTRUCTIVE PULMONARY DISEASE, UNSPECIFIED Qualifiers: COPD type: COPD with acute exacerbation Qualified Code(s): J44.1 - Chronic obstructive pulmonary disease with (acute) exacerbation (11) Chronic cor pulmonale Code(s): I27.81 - COR PULMONALE (CHRONIC) (12) Dementia Code(s): F03.90 - UNSPECIFIED DEMENTIA WITHOUT BEHAVIORAL DISTURBANCE Qualifiers: Dementia type: unspecified type Dementia behavioral disturbance: without behavioral disturbance Qualified Code(s): F03.90 - Unspecified dementia without behavioral disturbance (13) Hyperlipidemia Code(s): E78.5 - HYPERLIPIDEMIA, UNSPECIFIED Qualifiers: Hyperlipidemia type: unspecified Qualified Code(s): E78.5 - Hyperlipidemia , unspecified (14) Hypertension Code(s): I10 - ESSENTIAL (PRIMARY) HYPERTENSION Qualifiers: Hypertension type: essential hypertension Qualified Code(s): I10 - Essential (primary) hypertension (15) Hypothyroidism Code(s): E03.9 - HYPOTHYROIDISM, UNSPECIFIED Qualifiers: Hypothyroidism type: unspecified Qualified Code(s): E03.9 - Hypothyroidism , unspecified (16) Obstructive sleep apnea Code(s): G47.33 - OBSTRUCTIVE SLEEP APNEA (ADULT) (PEDIATRIC) (17) Pulmonary hypertension Code(s): I27.2 - OTHER SECONDARY PULMONARY HYPERTENSION * DO NOT USE *
[2018-06-17] MEDS: carBAMazepine 200 MG TABLET PO SCH (21:41)
[2018-06-17] MEDS: ATORVASTATIN CA 10 MG TABLET (FP) PO SCH (21:41)
[2018-06-17] MEDS: SENNOSIDES 8.6MG TABLET (FP) PO PRN (21:46)
[2018-06-17] MEDS: DONEPEZIL HCL 10 MG TABLET (FP) PO SCH (21:47)
[2018-06-17] MEDS ORDERED: MELATONIN 5 MG TABLETS PO PRN (23:40)
[2018-06-18] MEDS: methylPREDNISolone NA SUCC 40 MG/1 ML VIAL IVPUSH SCH ×4 (02:20→21:54)
[2018-06-18] MEDS: FUROSEMIDE 40 MG/4 ML INJECTABLE VIAL IVPUSH SCH ×2 (06:01→15:04)
[2018-06-18] MEDS: LEVOTHYROXINE NA 50 MCG TABLET (FP) PO SCH (06:01)
[2018-06-18 07:27] LABS: BASO % 0.2 % (0-2.0); HEMOGLOBIN 16.5 GM/dL (11.7-16.9); LYMPH % 2.6 % (8-40); MCH 34.2 pg (25.7-33.7); MEAN CELL VOLUME 103.5 fl (80-96); MEAN PLT VOLUME 7.7 fl (7.5-11.1); MONO % 2.2 % (3.8-10.2); PLATELET COUNT 168 K/MM3 (134-434); RBC 4.83 M/mm3 (4.00-5.60); RDW 15.6 % (11.9-15.9); WHITE BLOOD COUNT 9.1 K/mm3 (4.0-10.0)
[2018-06-18] MEDS: ALBUTEROL SO4 2.5/IPRATROPIUM 0.5 INH SOL 3 ML VIAL.NEB. NEB SCH ×2 (07:36→11:18)
[2018-06-18 08:08] LABS: ALBUMIN 3.2 g/dl (3.4-5.0); ALK PHOS 68 U/L (45-117); ANION GAP 9 MMOL/L (8-16); BILIRUBIN,TOTAL 0.8 mg/dL (0.2-1); BLOOD UREA NITROGEN 63 mg/dL (7-18); CHLORIDE 89 mmol/L (98-107); CO2 37 mmol/L (21-32); CREATININE 1.6 mg/dL (0.55-1.3); GLUCOSE,RANDOM 127 mg/dL (74-106); MAGNESIUM 2.2 mg/dL (1.8-2.4); POTASSIUM 4.1 mmol/L (3.5-5.1); SGOT/AST 16 U/L (15-37); SGPT/ALT 16 U/L (13-61); SODIUM 135 mmol/L (136-145); TOT PROT 7.2 g/dl (6.4-8.2)
[2018-06-18] MEDS ORDERED: PT OWN MED DRAWER 7, Y5N ONE (08:45)
[2018-06-18] MEDS: DIGOXIN 0.125 MG TABLET (FP) PO SCH (09:47)
[2018-06-18] MEDS: APIXABAN 5 MG TABLET PO SCH ×2 (09:47→21:54)
[2018-06-18] MEDS: OMEGA-3 ACID ETHYL ESTERS (FATTY-ACIDS) 1 GM CAPSULE (FP) PO SCH ×2 (09:47→21:54)
[2018-06-18] MEDS: ASCORBIC ACID 500 MG TABLET (FP) PO SCH (09:47)
[2018-06-18] MEDS: PANTOPRAZOLE 40 MG TABLET (FP) PO SCH (09:48)
[2018-06-18] MEDS: CEFTRIAXONE 0.5 GM in DEXTROSE 5%-WATER - 50 ML IVPB SCH (09:48)
[2018-06-18] MEDS: DOXYCYCLINE INJECTION 100 MG in DEXTROSE 5%-WATER - 100 ML IVPB SCH (09:49)
--- NOTE | 2018-06-18 10:08 | PN ---
Progress Note, Physician History of Present Illness: pulmonary weak,comfortable,-resp distress O2 sat 97% on nasal cannula - Current Medication List Current Medications: Active Medications Albuterol Sulfate (Ventolin 0.083% Nebulizer Soln -) 1 amp NEB Q6H PRN PRN Reason: SHORT OF BREATH/WHEEZING Albuterol/Ipratropium (Duoneb -) 1 amp NEB RQID [facility] Last Admin: 06/18/18 07:36 Dose: 1 amp Apixaban (Eliquis -) 5 mg PO BID [facility] Last Admin: 06/18/18 09:47 Dose: 5 mg Ascorbic Acid (Vitamin C -) 500 mg PO DAILY [facility] Last Admin: 06/18/18 09:47 Dose: 500 mg Atorvastatin Calcium (Lipitor -) 10 mg PO HS [facility] Last Admin: 06/17/18 21:41 Dose: 10 mg Carbamazepine (Tegretol -) 200 mg PO HS [facility] Last Admin: 06/17/18 21:41 Dose: 200 mg Digoxin (Lanoxin -) 0.125 mg PO DAILY [facility] Last Admin: 06/18/18 09:47 Dose: 0.125 mg Docusate Sodium (Colace -) 100 mg PO Q12H PRN PRN Reason: CONSTIPATION Last Admin: 06/17/18 21:46 Dose: 100 mg Donepezil HCl (Aricept -) 10 mg PO HS [facility] Last Admin: 06/17/18 21:47 Dose: 10 mg Furosemide (Lasix Injection -) 80 mg IVPUSH BIDLASIX [facility] Last Admin: 06/18/18 06:01 Dose: 80 mg Doxycycline Hyclate 100 mg/ (Dextrose) 100 mls @ 50 mls/hr IVPB BID [facility] Last Admin: 06/18/18 09:49 Dose: 50 mls/hr Ceftriaxone Sodium 0.5 gm/ (Dextrose) 50 mls @ 100 mls/hr IVPB DAILY [facility]; Protocol Last Admin: 06/18/18 09:48 Dose: 100 mls/hr Levothyroxine Sodium (Synthroid -) 50 mcg PO DAILY@0700 [facility] Last Admin: 06/18/18 06:01 Dose: 50 mcg Melatonin (Melatonin) 5 mg PO HS PRN PRN Reason: INSOMNIA Last Admin: 06/18/18 00:02 Dose: 5 mg Methylprednisolone Sodium Succinate (Solu-Medrol -) 40 mg IVPUSH Q6H-IV [facility] Last Admin: 06/18/18 09:47 Dose: 40 mg Non-Formulary Medication (Memantine Hcl [Namenda Xr]) 14 mg PO AM [facility] Mafrq-2-Amkb Ethyl Esters (Lovaza -) 1 gm PO BID [facility] Last Admin: 06/18/18 09:47 Dose: 1 gm Pantoprazole Sodium (Protonix -) 40 mg PO DAILY [facility] Last Admin: 06/18/18 09:48 Dose: 40 mg Senna (Senna -) 2 tab PO HS PRN PRN Reason: CONSTIPATION Last Admin: 06/17/18 21:46 Dose: 2 tab - Objective Vital Signs: Vital Signs Temperature 97.6 F 06/18/18 09:45 Pulse Rate 78 06/18/18 09:47 Respiratory Rate 22 H 06/18/18 09:45 Blood Pressure 119/71 06/18/18 09:45 O2 Sat by Pulse Oximetry (%) 97 06/18/18 07:37 Constitutional: Yes: Calm, Thin Eyes: Yes: WNL HENT: Yes: WNL Neck: Yes: WNL Cardiovascular: Yes: Pulse Irregular, S1, S2 Respiratory: Yes: Rhonchi (FEW RHONCHI) Gastrointestinal: Yes: Normal Bowel Sounds, Soft Extremities: Yes: WNL Edema: Yes Labs: CBC, BMP 06/18/18 06:38 06/18/18 06:38 INR, PTT INR 1.28 (0.83-1.09) H 06/16/18 07:15 Assessment/Plan Problem List - Problems (1) Community acquired pneumonia Code(s): J18.9 - PNEUMONIA, UNSPECIFIED ORGANISM (2) Acute respiratory acidosis Code(s): E87.2 - ACIDOSIS (3) Acute respiratory failure with hypoxia and hypercarbia Code(s): J96.01 - ACUTE RESPIRATORY FAILURE WITH HYPOXIA; J96.02 - ACUTE RESPIRATORY FAILURE WITH HYPERCAPNIA (4) Aneurysm of right popliteal artery Code(s): I72.4 - ANEURYSM OF ARTERY OF LOWER EXTREMITY (5) COPD with acute exacerbation Code(s): J44.1 - CHRONIC OBSTRUCTIVE PULMONARY DISEASE W (ACUTE) EXACERBATION (6) Chronic respiratory acidosis Code(s): E87.2 - ACIDOSIS (7) Leg edema, right Code(s): R60.0 - LOCALIZED EDEMA (8) Right ventricular systolic dysfunction Code(s): I51.9 - HEART DISEASE, UNSPECIFIED (9) Atrial flutter Code(s): I48.92 - UNSPECIFIED ATRIAL FLUTTER Qualifiers: Atrial flutter type: unspecified Qualified Code(s): I48.92 - Unspecified atrial flutter (10) COPD (chronic obstructive pulmonary disease) Code(s): J44.9 - CHRONIC OBSTRUCTIVE PULMONARY DISEASE, UNSPECIFIED Qualifiers: COPD type: COPD with acute exacerbation Qualified Code(s): J44.1 - Chronic obstructive pulmonary disease with (acute) exacerbation (11) Chronic cor pulmonale Code(s): I27.81 - COR PULMONALE (CHRONIC) (12) Dementia Code(s): F03.90 - UNSPECIFIED DEMENTIA WITHOUT BEHAVIORAL DISTURBANCE Qualifiers: Dementia type: unspecified type Dementia behavioral disturbance: without behavioral disturbance Qualified Code(s): F03.90 - Unspecified dementia without behavioral disturbance (13) Hyperlipidemia Code(s): E78.5 - HYPERLIPIDEMIA, UNSPECIFIED Qualifiers: Hyperlipidemia type: unspecified Qualified Code(s): E78.5 - Hyperlipidemia , unspecified (14) Hypertension Code(s): I10 - ESSENTIAL (PRIMARY) HYPERTENSION Qualifiers: Hypertension type: essential hypertension Qualified Code(s): I10 - Essential (primary) hypertension (15) Hypothyroidism Code(s): E03.9 - HYPOTHYROIDISM, UNSPECIFIED Qualifiers: Hypothyroidism type: unspecified Qualified Code(s): E03.9 - Hypothyroidism , unspecified (16) Obstructive sleep apnea Code(s): G47.33 - OBSTRUCTIVE SLEEP APNEA (ADULT) (PEDIATRIC) (17) Pulmonary hypertension Code(s): I27.2 - OTHER SECONDARY PULMONARY HYPERTENSION * DO NOT USE * Assessment/Plan RLL PNA SEVERE PULMONARY HTN AFIB COPD CHRONIC HYPOXEMIC RESPIRATORY FAILURE OSAS ABX Steroids NC O2 as tolerated lasix NIPPV QHS and PRN No smoking discussed AC BD TX standing and PRN monitor pulse ox DR SOLO Problem List - Problems (1) Community acquired pneumonia Code(s): J18.9 - PNEUMONIA, UNSPECIFIED ORGANISM (2) Acute respiratory acidosis Code(s): E87.2 - ACIDOSIS (3) Acute respiratory failure with hypoxia and hypercarbia Code(s): J96.01 - ACUTE RESPIRATORY FAILURE WITH HYPOXIA; J96.02 - ACUTE RESPIRATORY FAILURE WITH HYPERCAPNIA (4) Aneurysm of right popliteal artery Code(s): I72.4 - ANEURYSM OF ARTERY OF LOWER EXTREMITY (5) COPD with acute exacerbation Code(s): J44.1 - CHRONIC OBSTRUCTIVE PULMONARY DISEASE W (ACUTE) EXACERBATION (6) Chronic respiratory acidosis Code(s): E87.2 - ACIDOSIS (7) Leg edema, right Code(s): R60.0 - LOCALIZED EDEMA (8) Right ventricular systolic dysfunction Code(s): I51.9 - HEART DISEASE, UNSPECIFIED (9) Atrial flutter Code(s): I48.92 - UNSPECIFIED ATRIAL FLUTTER Qualifiers: Atrial flutter type: unspecified Qualified Code(s): I48.92 - Unspecified atrial flutter (10) COPD (chronic obstructive pulmonary disease) Code(s): J44.9 - CHRONIC OBSTRUCTIVE PULMONARY DISEASE, UNSPECIFIED Qualifiers: COPD type: COPD with acute exacerbation Qualified Code(s): J44.1 - Chronic obstructive pulmonary disease with (acute) exacerbation (11) Chronic cor pulmonale Code(s): I27.81 - COR PULMONALE (CHRONIC) (12) Dementia Code(s): F03.90 - UNSPECIFIED DEMENTIA WITHOUT BEHAVIORAL DISTURBANCE Qualifiers: Dementia type: unspecified type Dementia behavioral disturbance: without behavioral disturbance Qualified Code(s): F03.90 - Unspecified dementia without behavioral disturbance (13) Hyperlipidemia Code(s): E78.5 - HYPERLIPIDEMIA, UNSPECIFIED Qualifiers: Hyperlipidemia type: unspecified Qualified Code(s): E78.5 - Hyperlipidemia , unspecified (14) Hypertension Code(s): I10 - ESSENTIAL (PRIMARY) HYPERTENSION Qualifiers: Hypertension type: essential hypertension Qualified Code(s): I10 - Essential (primary) hypertension (15) Hypothyroidism Code(s): E03.9 - HYPOTHYROIDISM, UNSPECIFIED Qualifiers: Hypothyroidism type: unspecified Qualified Code(s): E03.9 - Hypothyroidism , unspecified (16) Obstructive sleep apnea Code(s): G47.33 - OBSTRUCTIVE SLEEP APNEA (ADULT) (PEDIATRIC) (17) Pulmonary hypertension Code(s): I27.2 - OTHER SECONDARY PULMONARY HYPERTENSION * DO NOT USE *
--- NOTE | 2018-06-18 10:41 | PN ---
Progress Note (short form) - Note Progress Note: s: no chest pain, palps dizzy. stable sob Current Medications Generic Name Dose Route Start Last Admin Trade Name Freq PRN Reason Stop Dose Admin Albuterol Sulfate 1 amp 06/13/18 03:41 Ventolin 0.083% Nebulizer Soln - NEB Q6H PRN SHORT OF BREATH/WHEEZING Albuterol/Ipratropium 1 amp 06/13/18 16:00 06/18/18 07:36 Duoneb - NEB 1 amp RQID [facility] Administration Apixaban 5 mg 06/13/18 10:00 06/18/18 09:47 Eliquis - PO 5 mg BID [facility] Administration Ascorbic Acid 500 mg 06/13/18 10:00 06/18/18 09:47 Vitamin C - PO 500 mg DAILY [facility] Administration Atorvastatin Calcium 10 mg 06/13/18 22:00 06/17/18 21:41 Lipitor - PO 10 mg HS [facility] Administration Carbamazepine 200 mg 06/13/18 22:00 06/17/18 21:41 Tegretol - PO 200 mg HS [facility] Administration Digoxin 0.125 mg 06/13/18 10:00 06/18/18 09:47 Lanoxin - PO 0.125 mg DAILY [facility] Administration Docusate Sodium 100 mg 06/14/18 19:55 06/17/18 21:46 Colace - PO 100 mg Q12H PRN Administration CONSTIPATION Donepezil HCl 10 mg 06/13/18 22:00 06/17/18 21:47 Aricept - PO 10 mg HS [facility] Administration Furosemide 80 mg 06/13/18 14:00 06/18/18 06:01 Lasix Injection - IVPUSH 80 mg BIDLASIX [facility] Administration Doxycycline Hyclate 100 mg/ 100 mls @ 50 mls/hr 06/13/18 10:00 06/18/18 09:49 Dextrose IVPB 50 mls/hr BID [facility] Administration Ceftriaxone Sodium 0.5 gm/ 50 mls @ 100 mls/hr 06/13/18 16:00 06/18/18 09:48 Dextrose IVPB 100 mls/hr DAILY [facility] Administration Protocol Levothyroxine Sodium 50 mcg 06/13/18 07:00 06/18/18 06:01 Synthroid - PO 50 mcg DAILY@0700 [facility] Administration Melatonin 5 mg 06/17/18 23:40 06/18/18 00:02 Melatonin PO 5 mg HS PRN Administration INSOMNIA Methylprednisolone Sodium Succinate 40 mg 06/16/18 15:00 06/18/18 09:47 Solu-Medrol - IVPUSH 40 mg Q6H-IV [facility] Administration Non-Formulary Medication 14 mg 06/13/18 07:00 Memantine Hcl [Namenda Xr] PO AM [facility] Abjhu-6-[id number] Ethyl Esters 1 gm 06/13/18 10:00 06/18/18 09:47 Lovaza - PO 1 gm BID [facility] Administration Pantoprazole Sodium 40 mg 06/17/18 10:00 06/18/18 09:48 Protonix - PO 40 mg DAILY [facility] Administration Senna 2 tab 06/14/18 19:55 06/17/18 21:46 Senna - PO 2 tab HS PRN Administration CONSTIPATION Vital Signs Period Temp Pulse Resp BP Sys/Raya Pulse Ox Last 24 Hr 97.5 F-98.6 F 69-86 16-22 108-142/65-75 93-97 NAD, +JVD Irregular rate and rhythm. Nl S1, S2. 2/6 murmur at LSB exp wheezes scattered aaox 3 trace le edema +BS, soft, NT, distended. Pos dp/PT No jaundice, diaphoresis. CBC, BMP 06/18/18 06:38 06/18/18 06:38 Echo 05/03/15: Nl LV. RV mild-mod dilation with mild-mod systolic dysfunction. Severe pHTN (RVSP 62), mild TR. Mild Ao dilation. Pharm nuc stress 05/03/15: Afib with RVR. Asx. No ischemic changes. Nl perf. Nl EF. 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 SOB, cough, COPD - CT with significant findings for COPD, receiving nebs and steroids per primary , pulm - also receiving IV lasix for CHF acute Right heart failure, pulm HTN - BNP >11,000 - echo shows severe pulm HTN, low normal RV function - received lasix 40 mg IV x 1, now on 80 mg IV BID - has abd distension, which he has had in the past with volume overload - weight downtrending - cont IV lasix, monitor Cr, lytes, daily standing weights. cr up but near his prior baseline. Atrial fibrillation. - cont eliquis, digoxin popliteal artery aneurysm - vascular consulted, Dr. Diaz - planned endovascular covered stent placement of R popliteal artery aneurysm, will optimize volume status prior HL: - cont statin
--- NOTE | 2018-06-18 11:40 | PN ---
Physical Exam: SUBJECTIVE: Patient seen and examined at the bedside. Appears slightly more confused today. Awake and alert, answering questions appropriately but now more forgetful. OBJECTIVE: slight confusion this morning, probably secondary to melatonin side effects and/ or solumedrol. monitor and hold any further night sleep aides Vital Signs Period Temp Pulse Resp BP Sys/Raya Pulse Ox Last 24 Hr 97.5 F-98.6 F 69-86 16-22 108-142/65-75 93-97 GENERAL: The patient is awake, alert and in no acute distress. slight confusion this am. HEAD: Normal with no signs of trauma. EYES: PERRL, sclera anicteric, conjunctiva clear. ORAL: large dry tongue, dry mucous membranes ENT: nares patent NECK: Trachea midline, no JVD LUNGS: lung sounds diminished at the bases. but improved from yesterday, no accessory muscle use. HEART: Regular rate and rhythm ABDOMEN: Soft, nontender, nondistended, normoactive bowel sounds, no guarding EXTREMITIES: 2+ pulses, warm, well-perfused, RLE calf edema, venous stasis changes NEUROLOGICAL: AAOX2 Normal speech PSYCH: Normal mood, normal affect. SKIN: Warm, dry, normal turgor Laboratory Results - last 24 hr 06/17/18 06/18/18 06/18/18 10:14 06:38 06:38 WBC 9.1 RBC 4.83 Hgb 16.5 Hct 50.0 H MCV 103.5 H MCH 34.2 H MCHC 33.0 RDW 15.6 Plt Count 168 MPV 7.7 Absolute Neuts (auto) 8.7 H Neutrophils % 95.0 H Neutrophils % (Manual) 95.0 H Band Neutrophils % 0.0 Lymphocytes % 2.6 L Lymphocytes % (Manual) 4.0 L Monocytes % 2.2 L Monocytes % (Manual) 1 L Eosinophils % 0.0 D Eosinophils % (Manual) 0.0 Basophils % 0.2 Basophils % (Manual) 0.0 Myelocytes % (Man) 0 Promyelocytes % (Man) 0 Blast Cells % (Manual) 0 Nucleated RBC % 0 Metamyelocytes 0 Hypochromia 0 Platelet Estimate Decreased Polychromasia 0 Poikilocytosis 0 Anisocytosis 1+ Microcytosis 0 Macrocytosis 1+ Sodium 135 L Potassium 4.1 Chloride 89 L Carbon Dioxide 37 H Anion Gap 9 BUN 63 H Creatinine 1.6 H Creat Clearance w eGFR 41.49 Random Glucose 127 H Calcium 9.0 Magnesium 2.2 Total Bilirubin 0.8 AST 16 ALT 16 Alkaline Phosphatase 68 Total Protein 7.2 Albumin 3.2 L Active Medications Generic Name Dose Route Start Last Admin Trade Name Freq PRN Reason Stop Dose Admin Albuterol Sulfate 1 amp 06/13/18 03:41 Ventolin 0.083% Nebulizer Soln - NEB Q6H PRN SHORT OF BREATH/WHEEZING Albuterol/Ipratropium 1 amp 06/13/18 16:00 06/18/18 11:18 Duoneb - NEB 1 amp RQID [facility] Administration Apixaban 5 mg 06/13/18 10:00 06/18/18 09:47 Eliquis - PO 5 mg BID [facility] Administration Ascorbic Acid 500 mg 06/13/18 10:00 06/18/18 09:47 Vitamin C - PO 500 mg DAILY [facility] Administration Atorvastatin Calcium 10 mg 06/13/18 22:00 06/17/18 21:41 Lipitor - PO 10 mg HS [facility] Administration Carbamazepine 200 mg 06/13/18 22:00 06/17/18 21:41 Tegretol - PO 200 mg HS [facility] Administration Digoxin 0.125 mg 06/13/18 10:00 06/18/18 09:47 Lanoxin - PO 0.125 mg DAILY [facility] Administration Docusate Sodium 100 mg 06/14/18 19:55 06/17/18 21:46 Colace - PO 100 mg Q12H PRN Administration CONSTIPATION Donepezil HCl 10 mg 06/13/18 22:00 06/17/18 21:47 Aricept - PO 10 mg HS [facility] Administration Furosemide 80 mg 06/13/18 14:00 06/18/18 06:01 Lasix Injection - IVPUSH 80 mg BIDLASIX [facility] Administration Doxycycline Hyclate 100 mg/ 100 mls @ 50 mls/hr 06/13/18 10:00 06/18/18 09:49 Dextrose IVPB 50 mls/hr BID [facility] Administration Ceftriaxone Sodium 0.5 gm/ 50 mls @ 100 mls/hr 06/13/18 16:00 06/18/18 09:48 Dextrose IVPB 100 mls/hr DAILY [facility] Administration Protocol Levothyroxine Sodium 50 mcg 06/13/18 07:00 06/18/18 06:01 Synthroid - PO 50 mcg DAILY@0700 [facility] Administration Melatonin 5 mg 06/17/18 23:40 06/18/18 00:02 Melatonin PO 5 mg HS PRN Administration INSOMNIA Methylprednisolone Sodium Succinate 40 mg 06/16/18 15:00 06/18/18 09:47 Solu-Medrol - IVPUSH 40 mg Q6H-IV [facility] Administration Non-Formulary Medication 14 mg 06/13/18 07:00 Memantine Hcl [Namenda Xr] PO AM [facility] Avjzb-0-Uwsv Ethyl Esters 1 gm 06/13/18 10:00 06/18/18 09:47 Lovaza - PO 1 gm BID [facility] Administration Pantoprazole Sodium 40 mg 06/17/18 10:00 06/18/18 09:48 Protonix - PO 40 mg DAILY [facility] Administration Senna 2 tab 06/14/18 19:55 06/17/18 21:46 Senna - PO 2 tab HS PRN Administration CONSTIPATION ASSESSMENT/PLAN: Patient is a 83 year old male with a significant past medical history of COPD ( home oxygen dependent @ 2 liters), current daily smoker (quit 1 week ago) pulmonary hypertension, HLD, right sided CHF, atrial Flutter (on Eliquis) hypothyroidism, dementia, depression, MICHAEL admitted with resp insufficiency and was found to have 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 Pulmonary COPD exacerbation, overall his breathing has improved. Now back on nasal cannula at 2-3 liters (his home baseline) with stable saturations between 88-92% . On solumedrol 40mg q6 for shortness of breath. Duonebs prn continue with doxycycline and ceftriaxone Monitor airway on nocturnal bipap Vascular: Aneurysm of right popliteal artery Vascular surgery following Planning for stent for right popliteal artery aneurysm once medically cleared. Card: CHF On Lasix 80mg IV BID. monitor daily weights Echo done 06/14: mod TR, EF 50-55%, no pericardial effusion Afib On digoxin 0.125mg daily, eliquis 5mg bid HLD On lipitor 10mg qhs, lovaza Renal: STEVAN creat 1.6, has been higher on previous admission on lasix bid dosing. monitor renal function. if up-trending, consider renal consult Psyche: Dementia On aricept, namenda, tegretol Hypothyroidism On synthroid 50mcg daily prophy: bowel regimen with senna and colace on eliquis for afib fen tolerating po monitor electrolytes low salt Visit type - Emergency Visit Emergency Visit: Yes ED Registration Date: 06/12/18 Care time: The patient presented to the Emergency Department on the above date and was hospitalized for further evaluation of their emergent condition. - New Patient This patient is new to me today: No - Critical Care Critical Care patient: No - Discharge Referral Referred to [facility] No
[2018-06-18] MEDS ORDERED: SODIUM CHLORIDE 1,000 ML IV SCH (11:45)
[2018-06-18 11:46] LABS: ANISOCYTOSIS 1+; MACROCYTOSIS 1+; OVALOCYTE 1+; PLATELET ESTIMATE NORMAL
--- NOTE | 2018-06-18 17:18 | PN ---
Progress Note (short form) - Note Progress Note: Vascular Surgery Pt seen and examined. On O2. Right popliteal fossa with aneurysm. 3cm on cta. Once stable, will cover aneurysm with stent graft. Will be on standby Devon Diaz DO
[2018-06-18] MEDS: ATORVASTATIN CA 10 MG TABLET (FP) PO SCH (21:54)
[2018-06-18] MEDS: SENNOSIDES 8.6MG TABLET (FP) PO PRN (21:54)
[2018-06-18] MEDS: DONEPEZIL HCL 10 MG TABLET (FP) PO SCH (21:55)
[2018-06-18] MEDS: carBAMazepine 200 MG TABLET PO SCH (22:00)
[2018-06-19] MEDS: methylPREDNISolone NA SUCC 40 MG/1 ML VIAL IVPUSH SCH ×4 (02:04→17:23)
[2018-06-19] MEDS: FUROSEMIDE 40 MG/4 ML INJECTABLE VIAL IVPUSH SCH (05:57)
[2018-06-19] MEDS: LEVOTHYROXINE NA 50 MCG TABLET (FP) PO SCH (06:02)
[2018-06-19 07:31] LABS: BASO % 0.1 % (0-2.0); HEMATOCRIT 49.8 % (35.4-49); HEMOGLOBIN 16.3 GM/dL (11.7-16.9); LYMPH % 3.3 % (8-40); MCH 33.7 pg (25.7-33.7); MCHC 32.7 g/dl (32.0-35.9); MEAN CELL VOLUME 103.1 fl (80-96); MEAN PLT VOLUME 7.8 fl (7.5-11.1); MONO % 2.6 % (3.8-10.2); PLATELET COUNT 182 K/MM3 (134-434); RBC 4.83 M/mm3 (4.00-5.60); RDW 15.4 % (11.9-15.9); WHITE BLOOD COUNT 8.5 K/mm3 (4.0-10.0)
[2018-06-19 07:38] LABS: ALBUMIN 3.2 g/dl (3.4-5.0); ALK PHOS 64 U/L (45-117); ANION GAP 11 MMOL/L (8-16); BILIRUBIN,TOTAL 0.9 mg/dL (0.2-1); BLOOD UREA NITROGEN 71 mg/dL (7-18); CALCIUM 9.3 mg/dL (8.5-10.1); CHLORIDE 87 mmol/L (98-107); CO2 37 mmol/L (21-32); CREATININE 1.7 mg/dL (0.55-1.3); GLUCOSE,RANDOM 124 mg/dL (74-106); POTASSIUM 4.2 mmol/L (3.5-5.1); SGOT/AST 19 U/L (15-37); SGPT/ALT 20 U/L (13-61); SODIUM 135 mmol/L (136-145); TOT PROT 7.1 g/dl (6.4-8.2)
[2018-06-19] MEDS: PANTOPRAZOLE 40 MG TABLET (FP) PO SCH (09:47)
[2018-06-19] MEDS: DIGOXIN 0.125 MG TABLET (FP) PO SCH (09:47)
[2018-06-19] MEDS: OMEGA-3 ACID ETHYL ESTERS (FATTY-ACIDS) 1 GM CAPSULE (FP) PO SCH ×2 (09:47→22:49)
[2018-06-19] MEDS: APIXABAN 5 MG TABLET PO SCH ×2 (09:47→22:50)
[2018-06-19] MEDS: ASCORBIC ACID 500 MG TABLET (FP) PO SCH (09:48)
[2018-06-19] MEDS: CEFTRIAXONE 0.5 GM in DEXTROSE 5%-WATER - 50 ML IVPB SCH (09:48)
--- NOTE | 2018-06-19 09:56 | PN ---
Progress Note, Physician History of Present Illness: pulmonary alert,feeling better,less dyspneic on nasal cannula o2 sat 95% - Current Medication List Current Medications: Active Medications Albuterol Sulfate (Ventolin 0.083% Nebulizer Soln -) 1 amp NEB Q6H PRN PRN Reason: SHORT OF BREATH/WHEEZING Apixaban (Eliquis -) 5 mg PO BID [facility] Last Admin: 06/19/18 09:47 Dose: 5 mg Ascorbic Acid (Vitamin C -) 500 mg PO DAILY [facility] Last Admin: 06/19/18 09:48 Dose: 500 mg Atorvastatin Calcium (Lipitor -) 10 mg PO HS [facility] Last Admin: 06/18/18 21:54 Dose: 10 mg Carbamazepine (Tegretol -) 200 mg PO HS [facility] Last Admin: 06/18/18 22:00 Dose: 200 mg Digoxin (Lanoxin -) 0.125 mg PO DAILY [facility] Last Admin: 06/19/18 09:47 Dose: 0.125 mg Docusate Sodium (Colace -) 100 mg PO Q12H PRN PRN Reason: CONSTIPATION Last Admin: 06/17/18 21:46 Dose: 100 mg Donepezil HCl (Aricept -) 10 mg PO HS [facility] Last Admin: 06/18/18 21:55 Dose: 10 mg Furosemide (Lasix Injection -) 80 mg IVPUSH BIDLASIX [facility] Last Admin: 06/19/18 05:57 Dose: 80 mg Ceftriaxone Sodium 0.5 gm/ (Dextrose) 50 mls @ 100 mls/hr IVPB DAILY [facility]; Protocol Last Admin: 06/19/18 09:48 Dose: 100 mls/hr Levothyroxine Sodium (Synthroid -) 50 mcg PO DAILY@0700 [facility] Last Admin: 06/19/18 06:02 Dose: 50 mcg Methylprednisolone Sodium Succinate (Solu-Medrol -) 40 mg IVPUSH Q6H-IV [facility] Last Admin: 06/19/18 09:47 Dose: 40 mg Non-Formulary Medication (Memantine Hcl [Namenda Xr]) 14 mg PO AM [facility] [id number] Ethyl Esters (Lovaza -) 1 gm PO BID [facility] Last Admin: 06/19/18 09:47 Dose: 1 gm Pantoprazole Sodium (Protonix -) 40 mg PO DAILY [facility] Last Admin: 06/19/18 09:47 Dose: 40 mg Senna (Senna -) 2 tab PO HS PRN PRN Reason: CONSTIPATION Last Admin: 06/18/18 21:54 Dose: 2 tab - Objective Vital Signs: Vital Signs Temperature 98 F 06/19/18 06:47 Pulse Rate 71 06/19/18 09:47 Respiratory Rate 24 H 06/19/18 07:42 Blood Pressure 137/71 06/19/18 06:47 O2 Sat by Pulse Oximetry (%) 92 L 06/19/18 08:40 Constitutional: Yes: Well Nourished, Calm Eyes: Yes: WNL HENT: Yes: WNL Neck: Yes: WNL Cardiovascular: Yes: Pulse Irregular, S1, S2 Respiratory: Yes: Rhonchi (few scattered rhonchi and wheezes), Wheezes Gastrointestinal: Yes: Normal Bowel Sounds, Soft Extremities: Yes: WNL Edema: No Labs: CBC, BMP 06/19/18 05:30 06/19/18 05:30 INR, PTT INR 1.28 (0.83-1.09) H 06/16/18 07:15 Assessment/Plan Problem List - Problems (1) Community acquired pneumonia Code(s): J18.9 - PNEUMONIA, UNSPECIFIED ORGANISM (2) Acute respiratory acidosis Code(s): E87.2 - ACIDOSIS (3) Acute respiratory failure with hypoxia and hypercarbia Code(s): J96.01 - ACUTE RESPIRATORY FAILURE WITH HYPOXIA; J96.02 - ACUTE RESPIRATORY FAILURE WITH HYPERCAPNIA (4) Aneurysm of right popliteal artery Code(s): I72.4 - ANEURYSM OF ARTERY OF LOWER EXTREMITY (5) COPD with acute exacerbation Code(s): J44.1 - CHRONIC OBSTRUCTIVE PULMONARY DISEASE W (ACUTE) EXACERBATION (6) Chronic respiratory acidosis Code(s): E87.2 - ACIDOSIS (7) Leg edema, right Code(s): R60.0 - LOCALIZED EDEMA (8) Right ventricular systolic dysfunction Code(s): I51.9 - HEART DISEASE, UNSPECIFIED (9) Atrial flutter Code(s): I48.92 - UNSPECIFIED ATRIAL FLUTTER Qualifiers: Atrial flutter type: unspecified Qualified Code(s): I48.92 - Unspecified atrial flutter (10) COPD (chronic obstructive pulmonary disease) Code(s): J44.9 - CHRONIC OBSTRUCTIVE PULMONARY DISEASE, UNSPECIFIED Qualifiers: COPD type: COPD with acute exacerbation Qualified Code(s): J44.1 - Chronic obstructive pulmonary disease with (acute) exacerbation (11) Chronic cor pulmonale Code(s): I27.81 - COR PULMONALE (CHRONIC) (12) Dementia Code(s): F03.90 - UNSPECIFIED DEMENTIA WITHOUT BEHAVIORAL DISTURBANCE Qualifiers: Dementia type: unspecified type Dementia behavioral disturbance: without behavioral disturbance Qualified Code(s): F03.90 - Unspecified dementia without behavioral disturbance (13) Hyperlipidemia Code(s): E78.5 - HYPERLIPIDEMIA, UNSPECIFIED Qualifiers: Hyperlipidemia type: unspecified Qualified Code(s): E78.5 - Hyperlipidemia , unspecified (14) Hypertension Code(s): I10 - ESSENTIAL (PRIMARY) HYPERTENSION Qualifiers: Hypertension type: essential hypertension Qualified Code(s): I10 - Essential (primary) hypertension (15) Hypothyroidism Code(s): E03.9 - HYPOTHYROIDISM, UNSPECIFIED Qualifiers: Hypothyroidism type: unspecified Qualified Code(s): E03.9 - Hypothyroidism , unspecified (16) Obstructive sleep apnea Code(s): G47.33 - OBSTRUCTIVE SLEEP APNEA (ADULT) (PEDIATRIC) (17) Pulmonary hypertension Code(s): I27.2 - OTHER SECONDARY PULMONARY HYPERTENSION * DO NOT USE * Assessment/Plan RLL PNA SEVERE PULMONARY HTN AFIB COPD CHRONIC HYPOXEMIC RESPIRATORY FAILURE OSAS ABX Steroid taper NC O2 as tolerated lasix NIPPV QHS and PRN No smoking discussed AC BD TX standing and PRN monitor pulse ox DR SOLO Problem List - Problems (1) Community acquired pneumonia Code(s): J18.9 - PNEUMONIA, UNSPECIFIED ORGANISM (2) Acute respiratory acidosis Code(s): E87.2 - ACIDOSIS (3) Acute respiratory failure with hypoxia and hypercarbia Code(s): J96.01 - ACUTE RESPIRATORY FAILURE WITH HYPOXIA; J96.02 - ACUTE RESPIRATORY FAILURE WITH HYPERCAPNIA (4) Aneurysm of right popliteal artery Code(s): I72.4 - ANEURYSM OF ARTERY OF LOWER EXTREMITY (5) COPD with acute exacerbation Code(s): J44.1 - CHRONIC OBSTRUCTIVE PULMONARY DISEASE W (ACUTE) EXACERBATION (6) Chronic respiratory acidosis Code(s): E87.2 - ACIDOSIS (7) Leg edema, right Code(s): R60.0 - LOCALIZED EDEMA (8) Right ventricular systolic dysfunction Code(s): I51.9 - HEART DISEASE, UNSPECIFIED (9) Atrial flutter Code(s): I48.92 - UNSPECIFIED ATRIAL FLUTTER Qualifiers: Atrial flutter type: unspecified Qualified Code(s): I48.92 - Unspecified atrial flutter (10) COPD (chronic obstructive pulmonary disease) Code(s): J44.9 - CHRONIC OBSTRUCTIVE PULMONARY DISEASE, UNSPECIFIED Qualifiers: COPD type: COPD with acute exacerbation Qualified Code(s): J44.1 - Chronic obstructive pulmonary disease with (acute) exacerbation (11) Chronic cor pulmonale Code(s): I27.81 - COR PULMONALE (CHRONIC) (12) Dementia Code(s): F03.90 - UNSPECIFIED DEMENTIA WITHOUT BEHAVIORAL DISTURBANCE Qualifiers: Dementia type: unspecified type Dementia behavioral disturbance: without behavioral disturbance Qualified Code(s): F03.90 - Unspecified dementia without behavioral disturbance (13) Hyperlipidemia Code(s): E78.5 - HYPERLIPIDEMIA, UNSPECIFIED Qualifiers: Hyperlipidemia type: unspecified Qualified Code(s): E78.5 - Hyperlipidemia , unspecified (14) Hypertension Code(s): I10 - ESSENTIAL (PRIMARY) HYPERTENSION Qualifiers: Hypertension type: essential hypertension Qualified Code(s): I10 - Essential (primary) hypertension (15) Hypothyroidism Code(s): E03.9 - HYPOTHYROIDISM, UNSPECIFIED Qualifiers: Hypothyroidism type: unspecified Qualified Code(s): E03.9 - Hypothyroidism , unspecified (16) Obstructive sleep apnea Code(s): G47.33 - OBSTRUCTIVE SLEEP APNEA (ADULT) (PEDIATRIC) (17) Pulmonary hypertension Code(s): I27.2 - OTHER SECONDARY PULMONARY HYPERTENSION * DO NOT USE *
--- NOTE | 2018-06-19 10:40 | PN ---
Progress Note (short form) - Note Progress Note: s: no chest pain, palps dizzy. sob less Current Medications Generic Name Dose Route Start Last Admin Trade Name Freq PRN Reason Stop Dose Admin Albuterol Sulfate 1 amp 06/13/18 03:41 Ventolin 0.083% Nebulizer Soln - NEB Q6H PRN SHORT OF BREATH/WHEEZING Apixaban 5 mg 06/13/18 10:00 06/19/18 09:47 Eliquis - PO 5 mg BID [facility] Administration Ascorbic Acid 500 mg 06/13/18 10:00 06/19/18 09:48 Vitamin C - PO 500 mg DAILY [facility] Administration Atorvastatin Calcium 10 mg 06/13/18 22:00 06/18/18 21:54 Lipitor - PO 10 mg HS [facility] Administration Carbamazepine 200 mg 06/13/18 22:00 06/18/18 22:00 Tegretol - PO 200 mg HS [facility] Administration Digoxin 0.125 mg 06/13/18 10:00 06/19/18 09:47 Lanoxin - PO 0.125 mg DAILY [facility] Administration Docusate Sodium 100 mg 06/14/18 19:55 06/17/18 21:46 Colace - PO 100 mg Q12H PRN Administration CONSTIPATION Donepezil HCl 10 mg 06/13/18 22:00 06/18/18 21:55 Aricept - PO 10 mg HS [facility] Administration Ceftriaxone Sodium 0.5 gm/ 50 mls @ 100 mls/hr 06/13/18 16:00 06/19/18 09:48 Dextrose IVPB 100 mls/hr DAILY [facility] Administration Protocol Levothyroxine Sodium 50 mcg 06/13/18 07:00 06/19/18 06:02 Synthroid - PO 50 mcg DAILY@0700 [facility] Administration Methylprednisolone Sodium Succinate 40 mg 06/19/18 10:00 06/19/18 10:31 Solu-Medrol - IVPUSH Not Given Q8H-IV [facility] Non-Formulary Medication 14 mg 06/13/18 07:00 Memantine Hcl [Namenda Xr] PO AM [facility] Hzjen-2-Hleh Ethyl Esters 1 gm 06/13/18 10:00 06/19/18 09:47 Lovaza - PO 1 gm BID [facility] Administration Pantoprazole Sodium 40 mg 06/17/18 10:00 06/19/18 09:47 Protonix - PO 40 mg DAILY [facility] Administration Senna 2 tab 06/14/18 19:55 06/18/18 21:54 Senna - PO 2 tab HS PRN Administration CONSTIPATION Torsemide 40 mg 06/19/18 14:00 Demadex - PO BIDLASIX [facility] Vital Signs Period Temp Pulse Resp BP Sys/Raya Pulse Ox Last 24 Hr 96.8 F-98.0 F 51-74 20-24 121-137/62-89 92-97 NAD, +JVD Irregular rate and rhythm. Nl S1, S2. 04/21 murmur at LSB exp wheezes scattered aaox 3 no le edema +BS, soft, NT, distended. Pos dp/PT No jaundice, diaphoresis. CBC, BMP 06/19/18 05:30 06/19/18 05:30 Echo 05/03/15: Nl LV. RV mild-mod dilation with mild-mod systolic dysfunction. Severe pHTN (RVSP 62), mild TR. Mild Ao dilation. Pharm nuc stress 05/03/15: Afib with RVR. Asx. No ischemic changes. Nl perf. Nl EF. 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 SOB, cough, COPD - CT with significant findings for COPD, receiving nebs and steroids per primary , pulm - also receiving IV lasix for CHF acute Right heart failure, pulm HTN - BNP >11,000 - echo shows severe pulm HTN, low normal RV function - received lasix 40 mg IV x 1, now on 80 mg IV BID - has abd distension, which he has had in the past with volume overload 06/19: vol stastus improved, cr rising, will change to oral torsemide now. monitor Cr, lytes, daily standing weights. Atrial fibrillation. - cont eliquis, digoxin popliteal artery aneurysm - vascular consulted, Dr. Diaz - planned endovascular covered stent placement of R popliteal artery aneurysm, will optimize volume status prior HL: - cont statin
[2018-06-19 11:01] LABS: ANISOCYTOSIS 1+; MACROCYTOSIS 1+; OVALOCYTE 1+; PLATELET ESTIMATE NORMAL
[2018-06-19] MEDS: POLYETHYLENE GLYCOL 3350 119 GM BTL PO SCH (13:16)
[2018-06-19] MEDS: TORSEMIDE 20 MG TABLET (FP) PO SCH (13:16)
[2018-06-19] MEDS: DOCUSATE SODIUM 100 MG CAPSULE (FP) PO SCH ×2 (13:16→22:50)
--- NOTE | 2018-06-19 14:45 | PN ---
Physical Exam: SUBJECTIVE: Patient seen and examined at the bedside. more awake and alert today. sitting in chair. OBJECTIVE: Vital Signs Period Temp Pulse Resp BP Sys/Raya Pulse Ox Last 24 Hr 96.8 F-98.0 F 51-76 18-24 120-137/62-89 92-97 GENERAL: The patient is awake, alert and in no acute distress. HEAD: small open area on anterior head, fresh blood. pt reports scratching his head. no falls. EYES: PERRL, sclera anicteric, conjunctiva clear. ORAL: dry mucous membranes ENT: nares patent NECK: Trachea midline, no JVD LUNGS: lung sounds diminished at the bases. no accessory muscle use. HEART: Regular rate and rhythm ABDOMEN: Soft, nontender, nondistended, normoactive bowel sounds, no guarding EXTREMITIES: 2+ pulses, warm, well-perfused, RLE calf edema, venous stasis changes NEUROLOGICAL: AAOX2 Normal speech PSYCH: Normal mood, normal affect. SKIN: Warm, dry, normal turgor Laboratory Results - last 24 hr 06/19/18 06/19/18 05:30 05:30 WBC 8.5 RBC 4.83 Hgb 16.3 Hct 49.8 H MCV 103.1 H MCH 33.7 MCHC 32.7 RDW 15.4 Plt Count 182 MPV 7.8 Absolute Neuts (auto) 8.0 Neutrophils % 94.0 H Neutrophils % (Manual) 92.9 H Band Neutrophils % 0.0 Lymphocytes % 3.3 L D Lymphocytes % (Manual) 2.0 L D Monocytes % 2.6 L Monocytes % (Manual) 5 D Eosinophils % 0.0 Eosinophils % (Manual) 0.0 Basophils % 0.1 Basophils % (Manual) 0.0 Myelocytes % (Man) 0 Promyelocytes % (Man) 0 Blast Cells % (Manual) 0 Nucleated RBC % 0 Metamyelocytes 0 Hypochromia 0 Platelet Estimate Normal Polychromasia 0 Poikilocytosis 1+ Anisocytosis 1+ Microcytosis 0 Macrocytosis 1+ Ovalocytes 1+ Sodium 135 L Potassium 4.2 Chloride 87 L Carbon Dioxide 37 H Anion Gap 11 BUN 71 H Creatinine 1.7 H Creat Clearance w eGFR 38.68 Random Glucose 124 H Calcium 9.3 Total Bilirubin 0.9 AST 19 ALT 20 Alkaline Phosphatase 64 Total Protein 7.1 Albumin 3.2 L Active Medications Generic Name Dose Route Start Last Admin Trade Name Nela PRN Reason Stop Dose Admin Albuterol Sulfate 1 amp 06/13/18 03:41 Ventolin 0.083% Nebulizer Soln - NEB Q6H PRN SHORT OF BREATH/WHEEZING Apixaban 5 mg 06/13/18 10:00 06/19/18 09:47 Eliquis - PO 5 mg BID [facility] Administration Ascorbic Acid 500 mg 06/13/18 10:00 06/19/18 09:48 Vitamin C - PO 500 mg DAILY [facility] Administration Atorvastatin Calcium 10 mg 06/13/18 22:00 06/18/18 21:54 Lipitor - PO 10 mg HS [facility] Administration Carbamazepine 200 mg 06/13/18 22:00 06/18/18 22:00 Tegretol - PO 200 mg HS [facility] Administration Digoxin 0.125 mg 06/13/18 10:00 06/19/18 09:47 Lanoxin - PO 0.125 mg DAILY [facility] Administration Docusate Sodium 100 mg 06/19/18 14:00 06/19/18 13:16 Colace - PO 100 mg TID [facility] Administration Donepezil HCl 10 mg 06/13/18 22:00 06/18/18 21:55 Aricept - PO 10 mg HS [facility] Administration Ceftriaxone Sodium 0.5 gm/ 50 mls @ 100 mls/hr 06/13/18 16:00 06/19/18 09:48 Dextrose IVPB 100 mls/hr DAILY [facility] Administration Protocol Levothyroxine Sodium 50 mcg 06/13/18 07:00 06/19/18 06:02 Synthroid - PO 50 mcg DAILY@0700 [facility] Administration Methylprednisolone Sodium Succinate 40 mg 06/19/18 10:00 06/19/18 10:31 Solu-Medrol - IVPUSH Not Given Q8H-IV [facility] Non-Formulary Medication 14 mg 06/13/18 07:00 Memantine Hcl [Namenda Xr] PO AM [facility] Kiszr-2-Mehu Ethyl Esters 1 gm 06/13/18 10:00 06/19/18 09:47 Lovaza - PO 1 gm BID [facility] Administration Pantoprazole Sodium 40 mg 06/17/18 10:00 06/19/18 09:47 Protonix - PO 40 mg DAILY [facility] Administration Polyethylene Glycol 17 gm 06/19/18 13:15 06/19/18 13:16 Miralax (For Daily Use) - PO 17 grams DAILY [facility] Administration Senna 2 tab 06/14/18 19:55 06/18/18 21:54 Senna - PO 2 tab HS PRN Administration CONSTIPATION Torsemide 40 mg 06/19/18 14:00 06/19/18 13:16 Demadex - PO 40 mg BIDLASIX [facility] Administration ASSESSMENT/PLAN: Patient is a 83 year old male with a significant past medical history of COPD ( home oxygen dependent @ 2 liters), current daily smoker (quit 1 week ago) pulmonary hypertension, HLD, right sided CHF, atrial Flutter (on Eliquis) hypothyroidism, dementia, depression, MICHAEL admitted with resp insufficiency and was found to have 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 Pulmonary COPD exacerbation, overall his breathing has improved. Now back on nasal cannula at 2-3 liters (his home baseline) with stable saturations between 88-92% . On solumedrol 40mg q6 for shortness of breath. Duonebs prn continue with doxycycline and ceftriaxone Monitor airway on nocturnal bipap Vascular: Aneurysm of right popliteal artery Vascular surgery following Planning for stent for right popliteal artery aneurysm once medically cleared. Card: CHF On Lasix 80mg IV BID. monitor daily weights Echo done 06/14: mod TR, EF 50-55%, no pericardial effusion Afib On digoxin 0.125mg daily, eliquis 5mg bid HLD On lipitor 10mg qhs, lovaza Renal: STEVAN creat 1.7, has been higher on previous admission on lasix bid dosing. monitor renal function. if up-trending, consider renal consult Psyche: Dementia On aricept, namenda, tegretol Hypothyroidism On synthroid 50mcg daily prophy: bowel regimen with senna and colace on eliquis for afib fen tolerating po monitor electrolytes low salt Visit type - Emergency Visit Emergency Visit: Yes ED Registration Date: 06/12/18 Care time: The patient presented to the Emergency Department on the above date and was hospitalized for further evaluation of their emergent condition. - New Patient This patient is new to me today: No - Critical Care Critical Care patient: No - Discharge Referral Referred to [facility] Med P.C.: No
[2018-06-19] MEDS: ALBUTEROL SO4 0.083% IH SOL 2.5 MG/3 ML VIAL.NEB. NEB PRN (19:45)
[2018-06-19] MEDS: SENNOSIDES 8.6MG TABLET (FP) PO PRN (22:50)
[2018-06-19] MEDS: ATORVASTATIN CA 10 MG TABLET (FP) PO SCH (22:50)
[2018-06-19] MEDS ORDERED: PT OWN MED DRAWER 7, Y5N ONE (22:52)
[2018-06-19] MEDS: carBAMazepine 200 MG TABLET PO SCH (22:53)
[2018-06-19] MEDS: DONEPEZIL HCL 10 MG TABLET (FP) PO SCH (23:00)
[2018-06-20] MEDS: methylPREDNISolone NA SUCC 40 MG/1 ML VIAL IVPUSH SCH ×3 (03:11→17:49)
[2018-06-20] MEDS: DOCUSATE SODIUM 100 MG CAPSULE (FP) PO SCH ×3 (07:08→23:27)
[2018-06-20] MEDS: TORSEMIDE 20 MG TABLET (FP) PO SCH ×2 (07:08→14:26)
[2018-06-20] MEDS: LEVOTHYROXINE NA 50 MCG TABLET (FP) PO SCH (07:08)
--- NOTE | 2018-06-20 09:56 | PN ---
Progress Note, Physician History of Present Illness: pulmonary drowsy,on nasal cannula,o2 sat 96% - Current Medication List Current Medications: Active Medications Albuterol Sulfate (Ventolin 0.083% Nebulizer Soln -) 1 amp NEB Q6H PRN PRN Reason: SHORT OF BREATH/WHEEZING Last Admin: 06/19/18 19:45 Dose: 1 amp Apixaban (Eliquis -) 5 mg PO BID [facility] Last Admin: 06/19/18 22:50 Dose: 5 mg Ascorbic Acid (Vitamin C -) 500 mg PO DAILY [facility] Last Admin: 06/19/18 09:48 Dose: 500 mg Atorvastatin Calcium (Lipitor -) 10 mg PO HS [facility] Last Admin: 06/19/18 22:50 Dose: 10 mg Carbamazepine (Tegretol -) 200 mg PO HS [facility] Last Admin: 06/19/18 22:53 Dose: 200 mg Digoxin (Lanoxin -) 0.125 mg PO DAILY [facility] Last Admin: 06/19/18 09:47 Dose: 0.125 mg Docusate Sodium (Colace -) 100 mg PO TID [facility] Last Admin: 06/20/18 07:08 Dose: 100 mg Donepezil HCl (Aricept -) 10 mg PO HS [facility] Last Admin: 06/19/18 23:00 Dose: 10 mg Ceftriaxone Sodium 0.5 gm/ (Dextrose) 50 mls @ 100 mls/hr IVPB DAILY [facility]; Protocol Last Admin: 06/19/18 09:48 Dose: 100 mls/hr Levothyroxine Sodium (Synthroid -) 50 mcg PO DAILY@0700 [facility] Last Admin: 06/20/18 07:08 Dose: 50 mcg Methylprednisolone Sodium Succinate (Solu-Medrol -) 40 mg IVPUSH Q8H-IV [facility] Last Admin: 06/20/18 03:11 Dose: 40 mg [id number] Ethyl Esters (Lovaza -) 1 gm PO BID [facility] Last Admin: 06/19/18 22:49 Dose: 1 gm Pantoprazole Sodium (Protonix -) 40 mg PO DAILY [facility] Last Admin: 06/19/18 09:47 Dose: 40 mg Polyethylene Glycol (Miralax (For Daily Use) -) 17 gm PO DAILY [facility] Last Admin: 06/19/18 13:16 Dose: 17 grams Senna (Senna -) 2 tab PO HS PRN PRN Reason: CONSTIPATION Last Admin: 06/19/18 22:50 Dose: 2 tab Torsemide (Demadex -) 40 mg PO BIDLASIX [facility] Last Admin: 06/20/18 07:08 Dose: 40 mg - Objective Vital Signs: Vital Signs Temperature 96.2 F L 06/20/18 02:00 Pulse Rate 55 L 06/20/18 06:00 Respiratory Rate 20 06/20/18 06:00 Blood Pressure 131/87 06/20/18 06:00 O2 Sat by Pulse Oximetry (%) 97 06/20/18 04:27 Constitutional: Yes: Calm, Thin Eyes: Yes: WNL HENT: Yes: WNL Neck: Yes: WNL Cardiovascular: Yes: Pulse Irregular, S1, S2 Respiratory: Yes: Diminished, Rhonchi (few scattered rhonchi) Gastrointestinal: Yes: Normal Bowel Sounds, Soft Extremities: Yes: WNL Edema: No Labs: Assessment/Plan Problem List - Problems (1) Community acquired pneumonia Code(s): J18.9 - PNEUMONIA, UNSPECIFIED ORGANISM (2) Acute respiratory acidosis Code(s): E87.2 - ACIDOSIS (3) Acute respiratory failure with hypoxia and hypercarbia Code(s): J96.01 - ACUTE RESPIRATORY FAILURE WITH HYPOXIA; J96.02 - ACUTE RESPIRATORY FAILURE WITH HYPERCAPNIA (4) Aneurysm of right popliteal artery Code(s): I72.4 - ANEURYSM OF ARTERY OF LOWER EXTREMITY (5) COPD with acute exacerbation Code(s): J44.1 - CHRONIC OBSTRUCTIVE PULMONARY DISEASE W (ACUTE) EXACERBATION (6) Chronic respiratory acidosis Code(s): E87.2 - ACIDOSIS (7) Leg edema, right Code(s): R60.0 - LOCALIZED EDEMA (8) Right ventricular systolic dysfunction Code(s): I51.9 - HEART DISEASE, UNSPECIFIED (9) Atrial flutter Code(s): I48.92 - UNSPECIFIED ATRIAL FLUTTER Qualifiers: Atrial flutter type: unspecified Qualified Code(s): I48.92 - Unspecified atrial flutter (10) COPD (chronic obstructive pulmonary disease) Code(s): J44.9 - CHRONIC OBSTRUCTIVE PULMONARY DISEASE, UNSPECIFIED Qualifiers: COPD type: COPD with acute exacerbation Qualified Code(s): J44.1 - Chronic obstructive pulmonary disease with (acute) exacerbation (11) Chronic cor pulmonale Code(s): I27.81 - COR PULMONALE (CHRONIC) (12) Dementia Code(s): F03.90 - UNSPECIFIED DEMENTIA WITHOUT BEHAVIORAL DISTURBANCE Qualifiers: Dementia type: unspecified type Dementia behavioral disturbance: without behavioral disturbance Qualified Code(s): F03.90 - Unspecified dementia without behavioral disturbance (13) Hyperlipidemia Code(s): E78.5 - HYPERLIPIDEMIA, UNSPECIFIED Qualifiers: Hyperlipidemia type: unspecified Qualified Code(s): E78.5 - Hyperlipidemia , unspecified (14) Hypertension Code(s): I10 - ESSENTIAL (PRIMARY) HYPERTENSION Qualifiers: Hypertension type: essential hypertension Qualified Code(s): I10 - Essential (primary) hypertension (15) Hypothyroidism Code(s): E03.9 - HYPOTHYROIDISM, UNSPECIFIED Qualifiers: Hypothyroidism type: unspecified Qualified Code(s): E03.9 - Hypothyroidism , unspecified (16) Obstructive sleep apnea Code(s): G47.33 - OBSTRUCTIVE SLEEP APNEA (ADULT) (PEDIATRIC) (17) Pulmonary hypertension Code(s): I27.2 - OTHER SECONDARY PULMONARY HYPERTENSION * DO NOT USE * Assessment/Plan RLL PNA SEVERE PULMONARY HTN AFIB COPD CHRONIC HYPOXEMIC RESPIRATORY FAILURE OSAS ABX Steroids NC O2 as tolerated lasix NIPPV QHS and PRN No smoking discussed AC BD TX standing and PRN monitor pulse ox abg DR SOLO Problem List - Problems (1) Community acquired pneumonia Code(s): J18.9 - PNEUMONIA, UNSPECIFIED ORGANISM (2) Acute respiratory acidosis Code(s): E87.2 - ACIDOSIS (3) Acute respiratory failure with hypoxia and hypercarbia Code(s): J96.01 - ACUTE RESPIRATORY FAILURE WITH HYPOXIA; J96.02 - ACUTE RESPIRATORY FAILURE WITH HYPERCAPNIA (4) Aneurysm of right popliteal artery Code(s): I72.4 - ANEURYSM OF ARTERY OF LOWER EXTREMITY (5) COPD with acute exacerbation Code(s): J44.1 - CHRONIC OBSTRUCTIVE PULMONARY DISEASE W (ACUTE) EXACERBATION (6) Chronic respiratory acidosis Code(s): E87.2 - ACIDOSIS (7) Leg edema, right Code(s): R60.0 - LOCALIZED EDEMA (8) Right ventricular systolic dysfunction Code(s): I51.9 - HEART DISEASE, UNSPECIFIED (9) Atrial flutter Code(s): I48.92 - UNSPECIFIED ATRIAL FLUTTER Qualifiers: Atrial flutter type: unspecified Qualified Code(s): I48.92 - Unspecified atrial flutter (10) COPD (chronic obstructive pulmonary disease) Code(s): J44.9 - CHRONIC OBSTRUCTIVE PULMONARY DISEASE, UNSPECIFIED Qualifiers: COPD type: COPD with acute exacerbation Qualified Code(s): J44.1 - Chronic obstructive pulmonary disease with (acute) exacerbation (11) Chronic cor pulmonale Code(s): I27.81 - COR PULMONALE (CHRONIC) (12) Dementia Code(s): F03.90 - UNSPECIFIED DEMENTIA WITHOUT BEHAVIORAL DISTURBANCE Qualifiers: Dementia type: unspecified type Dementia behavioral disturbance: without behavioral disturbance Qualified Code(s): F03.90 - Unspecified dementia without behavioral disturbance (13) Hyperlipidemia Code(s): E78.5 - HYPERLIPIDEMIA, UNSPECIFIED Qualifiers: Hyperlipidemia type: unspecified Qualified Code(s): E78.5 - Hyperlipidemia , unspecified (14) Hypertension Code(s): I10 - ESSENTIAL (PRIMARY) HYPERTENSION Qualifiers: Hypertension type: essential hypertension Qualified Code(s): I10 - Essential (primary) hypertension (15) Hypothyroidism Code(s): E03.9 - HYPOTHYROIDISM, UNSPECIFIED Qualifiers: Hypothyroidism type: unspecified Qualified Code(s): E03.9 - Hypothyroidism , unspecified (16) Obstructive sleep apnea Code(s): G47.33 - OBSTRUCTIVE SLEEP APNEA (ADULT) (PEDIATRIC) (17) Pulmonary hypertension Code(s): I27.2 - OTHER SECONDARY PULMONARY HYPERTENSION * DO NOT USE *
[2018-06-20 10:29] LABS: BASO % 0.2 % (0-2.0); HEMATOCRIT 50.2 % (35.4-49); HEMOGLOBIN 16.7 GM/dL (11.7-16.9); LYMPH % 3.3 % (8-40); MCH 34.5 pg (25.7-33.7); MCHC 33.2 g/dl (32.0-35.9); MEAN CELL VOLUME 103.9 fl (80-96); MEAN PLT VOLUME 7.7 fl (7.5-11.1); MONO % 5.2 % (3.8-10.2); NEUT % 91.3 % (42.8-82.8); PLATELET COUNT 166 K/MM3 (134-434); RBC 4.84 M/mm3 (4.00-5.60); WHITE BLOOD COUNT 7.8 K/mm3 (4.0-10.0)
[2018-06-20 10:31] LABS: ALBUMIN 3.2 g/dl (3.4-5.0); ALK PHOS 69 U/L (45-117); ANION GAP 9 MMOL/L (8-16); BLOOD UREA NITROGEN 80 mg/dL (7-18); CALCIUM 8.9 mg/dL (8.5-10.1); CHLORIDE 89 mmol/L (98-107); CO2 39 mmol/L (21-32); CREATININE 1.8 mg/dL (0.55-1.3); GLUCOSE,RANDOM 221 mg/dL (74-106); SGOT/AST 23 U/L (15-37); SGPT/ALT 24 U/L (13-61); SODIUM 137 mmol/L (136-145); TOT PROT 6.9 g/dl (6.4-8.2)
--- NOTE | 2018-06-20 10:58 | PN ---
Progress Note (short form) - Note Progress Note: s: no chest pain, palps dizzy. sob resolved Current Medications Generic Name Dose Route Start Last Admin Trade Name Freq PRN Reason Stop Dose Admin Albuterol Sulfate 1 amp 06/13/18 03:41 06/19/18 19:45 Ventolin 0.083% Nebulizer Soln - NEB 1 amp Q6H PRN Administration SHORT OF BREATH/WHEEZING Apixaban 5 mg 06/13/18 10:00 06/19/18 22:50 Eliquis - PO 5 mg BID RAMANA Administration Ascorbic Acid 500 mg 06/13/18 10:00 06/19/18 09:48 Vitamin C - PO 500 mg DAILY RAMANA Administration Atorvastatin Calcium 10 mg 06/13/18 22:00 06/19/18 22:50 Lipitor - PO 10 mg HS ARMANA Administration Carbamazepine 200 mg 06/13/18 22:00 06/19/18 22:53 Tegretol - PO 200 mg HS RAMANA Administration Digoxin 0.125 mg 06/13/18 10:00 06/19/18 09:47 Lanoxin - PO 0.125 mg DAILY RAMANA Administration Docusate Sodium 100 mg 06/19/18 14:00 06/20/18 07:08 Colace - PO 100 mg TID RAMANA Administration Donepezil HCl 10 mg 06/13/18 22:00 06/19/18 23:00 Aricept - PO 10 mg HS RAMANA Administration Ceftriaxone Sodium 0.5 gm/ 50 mls @ 100 mls/hr 06/13/18 16:00 06/19/18 09:48 Dextrose IVPB 100 mls/hr DAILY RAMANA Administration Protocol Levothyroxine Sodium 50 mcg 06/13/18 07:00 06/20/18 07:08 Synthroid - PO 50 mcg DAILY@0700 RAMANA Administration Methylprednisolone Sodium Succinate 40 mg 06/19/18 10:00 06/20/18 03:11 Solu-Medrol - IVPUSH 40 mg Q8H-IV RAMANA Administration Fxioa-6-Lwah Ethyl Esters 1 gm 06/13/18 10:00 06/19/18 22:49 Lovaza - PO 1 gm BID RAMANA Administration Pantoprazole Sodium 40 mg 06/17/18 10:00 06/19/18 09:47 Protonix - PO 40 mg DAILY RAMANA Administration Polyethylene Glycol 17 gm 06/19/18 13:15 06/19/18 13:16 Miralax (For Daily Use) - PO 17 grams DAILY RAMANA Administration Senna 2 tab 06/14/18 19:55 06/19/18 22:50 Senna - PO 2 tab HS PRN Administration CONSTIPATION Torsemide 40 mg 06/19/18 14:00 06/20/18 07:08 Demadex - PO 40 mg BIDLASIX RAMANA Administration Vital Signs Period Temp Pulse Resp BP Sys/Raya Pulse Ox Last 24 Hr 96.2 F-98.5 F 55-80 18-22 118-131/65-87 91-97 NAD Irregular rate and rhythm. Nl S1, S2. 04/21 murmur at LSB mild exp wheezes scattered aaox 3 no le edema +BS, soft, NT, distended. Pos dp/PT No jaundice, diaphoresis. CBC, BMP 06/20/18 09:30 06/20/18 09:47 Echo 05/03/15: Nl LV. RV mild-mod dilation with mild-mod systolic dysfunction. Severe pHTN (RVSP 62), mild TR. Mild Ao dilation. Pharm nuc stress 05/03/15: Afib with RVR. Asx. No ischemic changes. Nl perf. Nl EF. 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 SOB, cough, COPD - CT with significant findings for COPD, receiving nebs and steroids per primary , pulm acute Right heart failure, pulm HTN - BNP >11,000 - echo shows severe pulm HTN, low normal RV function - received lasix 40 mg IV x 1, now on 80 mg IV BID - has abd distension, which he has had in the past with volume overload 4/6: vol status improved, cr rising, will change to oral torsemide now. 06/20: cont torsemide, monitor Cr, lytes, daily standing weights. Atrial fibrillation. -rate ok - cont eliquis, digoxin popliteal artery aneurysm - vascular consulted, Dr. Diaz - no cardiac contraindications to planned endovascular covered stent placement for R popliteal artery aneurysm HL: - cont statin dc tele
[2018-06-20] MEDS: POLYETHYLENE GLYCOL 3350 119 GM BTL PO SCH (11:00)
[2018-06-20] MEDS: DIGOXIN 0.125 MG TABLET (FP) PO SCH (11:07)
[2018-06-20] MEDS: OMEGA-3 ACID ETHYL ESTERS (FATTY-ACIDS) 1 GM CAPSULE (FP) PO SCH ×2 (11:08→23:27)
[2018-06-20] MEDS: APIXABAN 5 MG TABLET PO SCH ×2 (11:08→23:27)
[2018-06-20] MEDS: CEFTRIAXONE 0.5 GM in DEXTROSE 5%-WATER - 50 ML IVPB SCH (11:08)
[2018-06-20] MEDS: PANTOPRAZOLE 40 MG TABLET (FP) PO SCH (11:08)
[2018-06-20] MEDS: ASCORBIC ACID 500 MG TABLET (FP) PO SCH (11:08)
[2018-06-20] MEDS ORDERED: BISACODYL 10 MG SUPP.RECT RC ONE (13:16)
[2018-06-20 13:18] LABS: ANISOCYTOSIS 0; MACROCYTOSIS 1+; OVALOCYTE 1+; PLATELET ESTIMATE NORMAL
[2018-06-20] MEDS ORDERED: BISACODYL 5 MG TABLET.DR (FP) PO ONE (13:30)
--- NOTE | 2018-06-20 18:25 | PN ---
Physical Exam: SUBJECTIVE: Patient seen and examined at the bedside. sitting in chair in no acute distress. OBJECTIVE: Vital Signs Period Temp Pulse Resp BP Sys/Raya Pulse Ox Last 24 Hr 96.2 F-98.5 F 55-76 20-22 113-131/65-87 91-97 GENERAL: The patient is awake, alert and in no acute distress. HEAD: small open area on anterior head. pt reports scratching his head. no falls. EYES: PERRL, sclera anicteric, conjunctiva clear. ORAL: moist mucous membranes ENT: nares patent NECK: Trachea midline, no JVD LUNGS: lung sounds diminished at the bases. no accessory muscle use. HEART: Regular rate and rhythm ABDOMEN: Soft, nontender, nondistended, normoactive bowel sounds, no guarding EXTREMITIES: 2+ pulses, warm, well-perfused, RLE calf edema, venous stasis changes NEUROLOGICAL: AAOX2 Normal speech PSYCH: Normal mood, normal affect. SKIN: Warm, dry, normal turgor Laboratory Results - last 24 hr 06/20/18 06/20/18 09:30 09:47 WBC 7.8 RBC 4.84 Hgb 16.7 Hct 50.2 H MCV 103.9 H MCH 34.5 H MCHC 33.2 RDW 15.0 Plt Count 166 MPV 7.7 Absolute Neuts (auto) 7.2 Neutrophils % 91.3 H Neutrophils % (Manual) 91.9 H Band Neutrophils % 1.0 Lymphocytes % 3.3 L Lymphocytes % (Manual) 3.0 L D Monocytes % 5.2 D Monocytes % (Manual) 4 Eosinophils % 0.0 Eosinophils % (Manual) 0.0 Basophils % 0.2 Basophils % (Manual) 0.0 Myelocytes % (Man) 0 Promyelocytes % (Man) 0 Blast Cells % (Manual) 0 Nucleated RBC % 0 Metamyelocytes 0 Hypochromia 0 Platelet Estimate Normal Polychromasia 0 Poikilocytosis 1+ Anisocytosis 0 Microcytosis 0 Macrocytosis 1+ Ovalocytes 1+ Sodium 137 Potassium 4.0 Chloride 89 L Carbon Dioxide 39 H Anion Gap 9 BUN 80 H Creatinine 1.8 H Creat Clearance w eGFR 36.21 Random Glucose 221 H Calcium 8.9 Total Bilirubin 1.0 AST 23 ALT 24 Alkaline Phosphatase 69 Total Protein 6.9 Albumin 3.2 L Active Medications Generic Name Dose Route Start Last Admin Trade Name Freq PRN Reason Stop Dose Admin Albuterol Sulfate 1 amp 06/13/18 03:41 06/19/18 19:45 Ventolin 0.083% Nebulizer Soln - NEB 1 amp Q6H PRN Administration SHORT OF BREATH/WHEEZING Apixaban 5 mg 06/13/18 10:00 06/20/18 11:08 Eliquis - PO 5 mg BID RAMANA Administration Ascorbic Acid 500 mg 06/13/18 10:00 06/20/18 11:08 Vitamin C - PO 500 mg DAILY RAMANA Administration Atorvastatin Calcium 10 mg 06/13/18 22:00 06/19/18 22:50 Lipitor - PO 10 mg HS RAMANA Administration Carbamazepine 200 mg 06/13/18 22:00 06/19/18 22:53 Tegretol - PO 200 mg HS RAMANA Administration Digoxin 0.125 mg 06/13/18 10:00 06/20/18 11:07 Lanoxin - PO 0.125 mg DAILY RAMANA Administration Docusate Sodium 100 mg 06/19/18 14:00 06/20/18 14:26 Colace - PO 100 mg TID RAMANA Administration Donepezil HCl 10 mg 06/13/18 22:00 06/19/18 23:00 Aricept - PO 10 mg HS RAMANA Administration Levothyroxine Sodium 50 mcg 06/13/18 07:00 06/20/18 07:08 Synthroid - PO 50 mcg DAILY@0700 RAMANA Administration Methylprednisolone Sodium Succinate 40 mg 06/19/18 10:00 06/20/18 17:49 Solu-Medrol - IVPUSH 40 mg Q8H-IV RAMANA Administration Skaik-6-Qsge Ethyl Esters 1 gm 06/13/18 10:00 06/20/18 11:08 Lovaza - PO 1 gm BID RAMANA Administration Pantoprazole Sodium 40 mg 06/17/18 10:00 06/20/18 11:08 Protonix - PO 40 mg DAILY RAMANA Administration Polyethylene Glycol 17 gm 06/19/18 13:15 06/20/18 11:00 Miralax (For Daily Use) - PO 17 grams DAILY RAMANA Administration Senna 2 tab 06/14/18 19:55 06/19/18 22:50 Senna - PO 2 tab HS PRN Administration CONSTIPATION Torsemide 40 mg 06/19/18 14:00 06/20/18 14:26 Demadex - PO 40 mg BIDLASIX RAMANA Administration ASSESSMENT/PLAN: Patient is a 83 year old male with a significant past medical history of COPD ( home oxygen dependent @ 2 liters), current daily smoker (quit 1 week ago) pulmonary hypertension, HLD, right sided CHF, atrial Flutter (on eliquis) hypothyroidism, dementia, depression, MICHAEL admitted with resp insufficiency and was found to have 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 Pulmonary COPD exacerbation, overall his breathing has improved. Now back on nasal cannula at 2-3 liters (his home baseline) with stable saturations between 88-92% . On solumedrol 40mg q6 for shortness of breath. pulmonary following. -Duonebs prn -continue with doxycycline and ceftriaxone -Monitor airway -on nocturnal bipap Vascular: Aneurysm of right popliteal artery Vascular surgery following. Planning for stent for right popliteal artery aneurysm once medically cleared. Card: CHF On Lasix 80mg IV BID. monitor daily weights Echo done 06/14: mod TR, EF 50-55%, no pericardial effusion Afib On digoxin 0.125mg daily, eliquis 5mg bid HLD On lipitor 10mg qhs, lovaza Renal: STEVAN creat 1.7, has been higher on previous admission on lasix bid dosing. monitor renal function. Psyche: Dementia On aricept, namenda, tegretol Hypothyroidism On synthroid 50mcg daily prophy: bowel regimen with senna and colace on eliquis for afib fen tolerating po monitor electrolytes low salt Visit type - Emergency Visit Emergency Visit: Yes ED Registration Date: 06/12/18 Care time: The patient presented to the Emergency Department on the above date and was hospitalized for further evaluation of their emergent condition. - New Patient This patient is new to me today: No - Critical Care Critical Care patient: No - Discharge Referral Referred to [facility] Med [facility].C[facility] No
[2018-06-20] MEDS: ALBUTEROL SO4 0.083% IH SOL 2.5 MG/3 ML VIAL.NEB. NEB PRN (19:35)
[2018-06-20] MEDS: carBAMazepine 200 MG TABLET PO SCH (23:27)
[2018-06-20] MEDS: SENNOSIDES 8.6MG TABLET (FP) PO PRN (23:27)
[2018-06-20] MEDS: ATORVASTATIN CA 10 MG TABLET (FP) PO SCH (23:28)
[2018-06-20] MEDS: DONEPEZIL HCL 10 MG TABLET (FP) PO SCH (23:28)
[2018-06-21] MEDS: methylPREDNISolone NA SUCC 40 MG/1 ML VIAL IVPUSH SCH ×3 (01:46→17:46)
[2018-06-21] MEDS: TORSEMIDE 20 MG TABLET (FP) PO SCH ×2 (06:28→15:23)
[2018-06-21] MEDS: LEVOTHYROXINE NA 50 MCG TABLET (FP) PO SCH (06:28)
[2018-06-21] MEDS: DOCUSATE SODIUM 100 MG CAPSULE (FP) PO SCH ×3 (06:29→21:59)
--- NOTE | 2018-06-21 10:55 | PN ---
Progress Note, Physician History of Present Illness: pulmonary no change,drowsy,-resp distress - Current Medication List Current Medications: Active Medications Albuterol Sulfate (Ventolin 0.083% Nebulizer Soln -) 1 amp NEB Q6H PRN PRN Reason: SHORT OF BREATH/WHEEZING Last Admin: 06/20/18 19:35 Dose: 1 amp Apixaban (Eliquis -) 5 mg PO BID [facility] Last Admin: 06/20/18 23:27 Dose: 5 mg Ascorbic Acid (Vitamin C -) 500 mg PO DAILY [facility] Last Admin: 06/20/18 11:08 Dose: 500 mg Atorvastatin Calcium (Lipitor -) 10 mg PO HS [facility] Last Admin: 06/20/18 23:28 Dose: 10 mg Carbamazepine (Tegretol -) 200 mg PO HS [facility] Last Admin: 06/20/18 23:27 Dose: 200 mg Digoxin (Lanoxin -) 0.125 mg PO DAILY [facility] Last Admin: 06/20/18 11:07 Dose: 0.125 mg Docusate Sodium (Colace -) 100 mg PO TID [facility] Last Admin: 06/21/18 06:29 Dose: 100 mg Donepezil HCl (Aricept -) 10 mg PO HS [facility] Last Admin: 06/20/18 23:28 Dose: 10 mg Levothyroxine Sodium (Synthroid -) 50 mcg PO DAILY@0700 [facility] Last Admin: 06/21/18 06:28 Dose: 50 mcg Methylprednisolone Sodium Succinate (Solu-Medrol -) 40 mg IVPUSH Q8H-IV [facility] Last Admin: 06/21/18 01:46 Dose: 40 mg Bqgwd-5-Xpcz Ethyl Esters (Lovaza -) 1 gm PO BID [facility] Last Admin: 06/20/18 23:27 Dose: 1 gm Pantoprazole Sodium (Protonix -) 40 mg PO DAILY [facility] Last Admin: 06/20/18 11:08 Dose: 40 mg Polyethylene Glycol (Miralax (For Daily Use) -) 17 gm PO DAILY [facility] Last Admin: 06/20/18 11:00 Dose: 17 grams Senna (Senna -) 2 tab PO HS PRN PRN Reason: CONSTIPATION Last Admin: 06/20/18 23:27 Dose: 2 tab Torsemide (Demadex -) 40 mg PO BIDLASIX [facility] Last Admin: 06/21/18 06:28 Dose: 40 mg - Objective Vital Signs: Vital Signs Temperature 98 F 06/21/18 10:00 Pulse Rate 72 06/21/18 10:00 Respiratory Rate 20 06/21/18 10:00 Blood Pressure 130/78 06/21/18 10:00 O2 Sat by Pulse Oximetry (%) 95 06/21/18 09:00 Constitutional: Yes: Calm, Thin Eyes: Yes: WNL HENT: Yes: WNL Neck: Yes: WNL Cardiovascular: Yes: Pulse Irregular, S1, S2 Respiratory: Yes: Rhonchi (few scattered rhonchi) Gastrointestinal: Yes: Normal Bowel Sounds, Soft Extremities: Yes: WNL Edema: Yes Labs: CBC, BMP Assessment/Plan Problem List - Problems (1) Community acquired pneumonia Code(s): J18.9 - PNEUMONIA, UNSPECIFIED ORGANISM (2) Acute respiratory acidosis Code(s): E87.2 - ACIDOSIS (3) Acute respiratory failure with hypoxia and hypercarbia Code(s): J96.01 - ACUTE RESPIRATORY FAILURE WITH HYPOXIA; J96.02 - ACUTE RESPIRATORY FAILURE WITH HYPERCAPNIA (4) Aneurysm of right popliteal artery Code(s): I72.4 - ANEURYSM OF ARTERY OF LOWER EXTREMITY (5) COPD with acute exacerbation Code(s): J44.1 - CHRONIC OBSTRUCTIVE PULMONARY DISEASE W (ACUTE) EXACERBATION (6) Chronic respiratory acidosis Code(s): E87.2 - ACIDOSIS (7) Leg edema, right Code(s): R60.0 - LOCALIZED EDEMA (8) Right ventricular systolic dysfunction Code(s): I51.9 - HEART DISEASE, UNSPECIFIED (9) Atrial flutter Code(s): I48.92 - UNSPECIFIED ATRIAL FLUTTER Qualifiers: Atrial flutter type: unspecified Qualified Code(s): I48.92 - Unspecified atrial flutter (10) COPD (chronic obstructive pulmonary disease) Code(s): J44.9 - CHRONIC OBSTRUCTIVE PULMONARY DISEASE, UNSPECIFIED Qualifiers: COPD type: COPD with acute exacerbation Qualified Code(s): J44.1 - Chronic obstructive pulmonary disease with (acute) exacerbation (11) Chronic cor pulmonale Code(s): I27.81 - COR PULMONALE (CHRONIC) (12) Dementia Code(s): F03.90 - UNSPECIFIED DEMENTIA WITHOUT BEHAVIORAL DISTURBANCE Qualifiers: Dementia type: unspecified type Dementia behavioral disturbance: without behavioral disturbance Qualified Code(s): F03.90 - Unspecified dementia without behavioral disturbance (13) Hyperlipidemia Code(s): E78.5 - HYPERLIPIDEMIA, UNSPECIFIED Qualifiers: Hyperlipidemia type: unspecified Qualified Code(s): E78.5 - Hyperlipidemia , unspecified (14) Hypertension Code(s): I10 - ESSENTIAL (PRIMARY) HYPERTENSION Qualifiers: Hypertension type: essential hypertension Qualified Code(s): I10 - Essential (primary) hypertension (15) Hypothyroidism Code(s): E03.9 - HYPOTHYROIDISM, UNSPECIFIED Qualifiers: Hypothyroidism type: unspecified Qualified Code(s): E03.9 - Hypothyroidism , unspecified (16) Obstructive sleep apnea Code(s): G47.33 - OBSTRUCTIVE SLEEP APNEA (ADULT) (PEDIATRIC) (17) Pulmonary hypertension Code(s): I27.2 - OTHER SECONDARY PULMONARY HYPERTENSION * DO NOT USE * Assessment/Plan RLL PNA SEVERE PULMONARY HTN AFIB COPD CHRONIC HYPOXEMIC RESPIRATORY FAILURE OSAS Steroids NC O2 as tolerated lasix NIPPV QHS and PRN No smoking discussed AC BD TX standing and PRN monitor pulse ox abg DR SOLO Problem List - Problems (1) Community acquired pneumonia Code(s): J18.9 - PNEUMONIA, UNSPECIFIED ORGANISM (2) Acute respiratory acidosis Code(s): E87.2 - ACIDOSIS (3) Acute respiratory failure with hypoxia and hypercarbia Code(s): J96.01 - ACUTE RESPIRATORY FAILURE WITH HYPOXIA; J96.02 - ACUTE RESPIRATORY FAILURE WITH HYPERCAPNIA (4) Aneurysm of right popliteal artery Code(s): I72.4 - ANEURYSM OF ARTERY OF LOWER EXTREMITY (5) COPD with acute exacerbation Code(s): J44.1 - CHRONIC OBSTRUCTIVE PULMONARY DISEASE W (ACUTE) EXACERBATION (6) Chronic respiratory acidosis Code(s): E87.2 - ACIDOSIS (7) Leg edema, right Code(s): R60.0 - LOCALIZED EDEMA (8) Right ventricular systolic dysfunction Code(s): I51.9 - HEART DISEASE, UNSPECIFIED (9) Atrial flutter Code(s): I48.92 - UNSPECIFIED ATRIAL FLUTTER Qualifiers: Atrial flutter type: unspecified Qualified Code(s): I48.92 - Unspecified atrial flutter (10) COPD (chronic obstructive pulmonary disease) Code(s): J44.9 - CHRONIC OBSTRUCTIVE PULMONARY DISEASE, UNSPECIFIED Qualifiers: COPD type: COPD with acute exacerbation Qualified Code(s): J44.1 - Chronic obstructive pulmonary disease with (acute) exacerbation (11) Chronic cor pulmonale Code(s): I27.81 - COR PULMONALE (CHRONIC) (12) Dementia Code(s): F03.90 - UNSPECIFIED DEMENTIA WITHOUT BEHAVIORAL DISTURBANCE Qualifiers: Dementia type: unspecified type Dementia behavioral disturbance: without behavioral disturbance Qualified Code(s): F03.90 - Unspecified dementia without behavioral disturbance (13) Hyperlipidemia Code(s): E78.5 - HYPERLIPIDEMIA, UNSPECIFIED Qualifiers: Hyperlipidemia type: unspecified Qualified Code(s): E78.5 - Hyperlipidemia , unspecified (14) Hypertension Code(s): I10 - ESSENTIAL (PRIMARY) HYPERTENSION Qualifiers: Hypertension type: essential hypertension Qualified Code(s): I10 - Essential (primary) hypertension (15) Hypothyroidism Code(s): E03.9 - HYPOTHYROIDISM, UNSPECIFIED Qualifiers: Hypothyroidism type: unspecified Qualified Code(s): E03.9 - Hypothyroidism , unspecified (16) Obstructive sleep apnea Code(s): G47.33 - OBSTRUCTIVE SLEEP APNEA (ADULT) (PEDIATRIC) (17) Pulmonary hypertension Code(s): I27.2 - OTHER SECONDARY PULMONARY HYPERTENSION * DO NOT USE *
--- NOTE | 2018-06-21 11:08 | PN ---
Progress Note, Physician Chief Complaint: sob History of Present Illness: sob improving no leg swelling no cp, palpit he admits to feeling tired - Current Medication List Current Medications: Active Medications Albuterol Sulfate (Ventolin 0.083% Nebulizer Soln -) 1 amp NEB Q6H PRN PRN Reason: SHORT OF BREATH/WHEEZING Last Admin: 06/20/18 19:35 Dose: 1 amp Apixaban (Eliquis -) 5 mg PO BID [facility] Last Admin: 06/20/18 23:27 Dose: 5 mg Ascorbic Acid (Vitamin C -) 500 mg PO DAILY [facility] Last Admin: 06/20/18 11:08 Dose: 500 mg Atorvastatin Calcium (Lipitor -) 10 mg PO HS [facility] Last Admin: 06/20/18 23:28 Dose: 10 mg Carbamazepine (Tegretol -) 200 mg PO HS [facility] Last Admin: 06/20/18 23:27 Dose: 200 mg Digoxin (Lanoxin -) 0.125 mg PO DAILY [facility] Last Admin: 06/20/18 11:07 Dose: 0.125 mg Docusate Sodium (Colace -) 100 mg PO TID [facility] Last Admin: 06/21/18 06:29 Dose: 100 mg Donepezil HCl (Aricept -) 10 mg PO HS [facility] Last Admin: 06/20/18 23:28 Dose: 10 mg Levothyroxine Sodium (Synthroid -) 50 mcg PO DAILY@0700 [facility] Last Admin: 06/21/18 06:28 Dose: 50 mcg Methylprednisolone Sodium Succinate (Solu-Medrol -) 40 mg IVPUSH Q8H-IV [facility] Last Admin: 06/21/18 01:46 Dose: 40 mg Mfvpy-9-Qetl Ethyl Esters (Lovaza -) 1 gm PO BID [facility] Last Admin: 06/20/18 23:27 Dose: 1 gm Pantoprazole Sodium (Protonix -) 40 mg PO DAILY [facility] Last Admin: 06/20/18 11:08 Dose: 40 mg Polyethylene Glycol (Miralax (For Daily Use) -) 17 gm PO DAILY [facility] Last Admin: 06/20/18 11:00 Dose: 17 grams Senna (Senna -) 2 tab PO HS PRN PRN Reason: CONSTIPATION Last Admin: 06/20/18 23:27 Dose: 2 tab Torsemide (Demadex -) 40 mg PO BIDLASIX [facility] Last Admin: 06/21/18 06:28 Dose: 40 mg - Objective Vital Signs: Vital Signs Temperature 98 F 06/21/18 10:00 Pulse Rate 72 06/21/18 10:00 Respiratory Rate 20 06/21/18 10:00 Blood Pressure 130/78 06/21/18 10:00 O2 Sat by Pulse Oximetry (%) 95 06/21/18 09:00 Constitutional: Yes: No Distress, Calm Eyes: No: Sclera Icterus HENT: No: Nasal Congestion Cardiovascular: Yes: Pulse Irregular, S1, S2, Other (PMI non diplaced). No: JVD , Gallop, Murmur Respiratory: Yes: CTA Bilaterally (very decr diffusely). No: Accessory Muscle Use, Rales, Wheezes Gastrointestinal: Yes: Normal Bowel Sounds, Soft. No: Tenderness Musculoskeletal: Yes: Other (No kyphosis) Extremities: No: Cold, Cyanosis Edema: No Integumentary: No: Jaundice Neurological: Yes: Alert. No: Seizure Psychiatric: No: Agitated Labs: CBC, BMP 06/20/18 09:30 06/20/18 09:47 INR, PTT INR 1.28 (0.83-1.09) H 06/16/18 07:15 Assessment/Plan Pharm nuc stress 05/03/15: Afib with RVR. Asx. No ischemic changes. Nl perf. Nl EF. 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 06/20: cont torsemide 40 bid, monitor Cr, lytes, daily standing weights. -06/21: bun/creat trending up, weights very variable, neck veins flat--pt likely overdiuresed/hypovolemic. change torsemide 40 bid to 20 qd, observe for LE edema (reliably his HF sx). Atrial fibrillation. -rate ok, cont digoxin as doing (level good) -on metoprolol at home as well, which he has tolerated well--held here and HR good, observe. defer CCB to avoid exacerbating RV contractility issues -hold eliquis in anticipation of vascular surgery aneurysm endovascular repair. would start UFH gtt in 48 hrs if surgery not imminent (not sooner, given pt's reduced GFR and usual half-life of eliquis) popliteal artery aneurysm, preop CV eval: - vascular consulted, Dr. Diaz - no cardiac contraindications to planned endovascular covered stent placement for R popliteal artery aneurysm. HF is resolved and well-controlled/optimized medically HL: - cont statin
[2018-06-21] MEDS: ASCORBIC ACID 500 MG TABLET (FP) PO SCH (11:31)
[2018-06-21] MEDS: DIGOXIN 0.125 MG TABLET (FP) PO SCH (11:32)
[2018-06-21] MEDS: OMEGA-3 ACID ETHYL ESTERS (FATTY-ACIDS) 1 GM CAPSULE (FP) PO SCH ×2 (11:32→21:59)
[2018-06-21] MEDS: PANTOPRAZOLE 40 MG TABLET (FP) PO SCH (11:34)
[2018-06-21] MEDS: APIXABAN 5 MG TABLET PO SCH (11:35)
[2018-06-21 12:15] LABS: BASO % 0.1 % (0-2.0); EOS % 0.1 % (0-4.5); HEMATOCRIT 51.6 % (35.4-49); HEMOGLOBIN 17.1 GM/dL (11.7-16.9); LYMPH % 5.8 % (8-40); MCH 34.2 pg (25.7-33.7); MEAN CELL VOLUME 103.5 fl (80-96); MEAN PLT VOLUME 7.6 fl (7.5-11.1); MONO % 8.6 % (3.8-10.2); NEUT % 85.4 % (42.8-82.8); PLATELET COUNT 165 K/MM3 (134-434); RBC 4.99 M/mm3 (4.00-5.60); RDW 15.3 % (11.9-15.9); WHITE BLOOD COUNT 7.9 K/mm3 (4.0-10.0)
[2018-06-21 12:44] LABS: ALBUMIN 3.2 g/dl (3.4-5.0); ALK PHOS 68 U/L (45-117); ANION GAP 7 MMOL/L (8-16); BLOOD UREA NITROGEN 81 mg/dL (7-18); CALCIUM 8.8 mg/dL (8.5-10.1); CHLORIDE 88 mmol/L (98-107); CO2 43 mmol/L (21-32); CREATININE 1.7 mg/dL (0.55-1.3); GLUCOSE,RANDOM 152 mg/dL (74-106); POTASSIUM 3.6 mmol/L (3.5-5.1); SGOT/AST 21 U/L (15-37); SGPT/ALT 24 U/L (13-61); SODIUM 137 mmol/L (136-145); TOT PROT 6.8 g/dl (6.4-8.2)
--- NOTE | 2018-06-21 13:15 | PN ---
Physical Exam: SUBJECTIVE: Patient seen and examined at the bedside. ate breakfast. OBJECTIVE: Vital Signs Period Temp Pulse Resp BP Sys/Raya Pulse Ox Last 24 Hr 97.8 F-98.6 F 72-81 20-20 113-136/73-81 93-97 GENERAL: The patient is awake, alert and in no acute distress. HEAD: small open area on anterior head. pt reports scratching his head. no falls. EYES: PERRL, sclera anicteric, conjunctiva clear. ORAL: moist mucous membranes ENT: nares patent NECK: Trachea midline, no JVD LUNGS: lung sounds diminished at the bases. no wheezing or rhonchi. no accessory muscle use. HEART: Regular rate and rhythm ABDOMEN: Soft, nontender, nondistended, normoactive bowel sounds, no guarding EXTREMITIES: 2+ pulses, warm, well-perfused, RLE calf edema, venous stasis changes NEUROLOGICAL: AAOX2 Normal speech PSYCH: Normal mood, normal affect. SKIN: Warm, dry, normal turgor Laboratory Results - last 24 hr 06/20/18 06/21/18 06/21/18 09:30 11:40 11:40 WBC 7.9 RBC 4.99 Hgb 17.1 H Hct 51.6 H MCV 103.5 H MCH 34.2 H MCHC 33.0 RDW 15.3 Plt Count 165 MPV 7.6 Absolute Neuts (auto) 6.7 Neutrophils % 85.4 H Neutrophils % (Manual) 91.9 H Band Neutrophils % 1.0 Lymphocytes % 5.8 L D Lymphocytes % (Manual) 3.0 L D Monocytes % 8.6 Monocytes % (Manual) 4 Eosinophils % 0.1 D Eosinophils % (Manual) 0.0 Basophils % 0.1 Basophils % (Manual) 0.0 Myelocytes % (Man) 0 Promyelocytes % (Man) 0 Blast Cells % (Manual) 0 Nucleated RBC % 0 Metamyelocytes 0 Hypochromia 0 Platelet Estimate Normal Polychromasia 0 Poikilocytosis 1+ Anisocytosis 0 Microcytosis 0 Macrocytosis 1+ Ovalocytes 1+ Sodium 137 Potassium 3.6 Chloride 88 L Carbon Dioxide 43 H Anion Gap 7 L BUN 81 H Creatinine 1.7 H Creat Clearance w eGFR 38.68 Random Glucose 152 H Calcium 8.8 Total Bilirubin 1.0 AST 21 ALT 24 Alkaline Phosphatase 68 Total Protein 6.8 Albumin 3.2 L Active Medications Generic Name Dose Route Start Last Admin Trade Name Freq PRN Reason Stop Dose Admin Albuterol Sulfate 1 amp 06/13/18 03:41 06/20/18 19:35 Ventolin 0.083% Nebulizer Soln - NEB 1 amp Q6H PRN Administration SHORT OF BREATH/WHEEZING Ascorbic Acid 500 mg 06/13/18 10:00 06/21/18 11:31 Vitamin C - PO 500 mg DAILY RAMANA Administration Atorvastatin Calcium 10 mg 06/13/18 22:00 06/20/18 23:28 Lipitor - PO 10 mg HS RAMANA Administration Carbamazepine 200 mg 06/13/18 22:00 06/20/18 23:27 Tegretol - PO 200 mg HS RAMANA Administration Digoxin 0.125 mg 06/13/18 10:00 06/21/18 11:32 Lanoxin - PO 0.125 mg DAILY RAMANA Administration Docusate Sodium 100 mg 06/19/18 14:00 06/21/18 06:29 Colace - PO 100 mg TID RAMANA Administration Donepezil HCl 10 mg 06/13/18 22:00 06/20/18 23:28 Aricept - PO 10 mg HS RAMANA Administration Levothyroxine Sodium 50 mcg 06/13/18 07:00 06/21/18 06:28 Synthroid - PO 50 mcg DAILY@0700 RAMANA Administration Methylprednisolone Sodium Succinate 40 mg 06/19/18 10:00 06/21/18 11:31 Solu-Medrol - IVPUSH 40 mg Q8H-IV RAMANA Administration Kmowi-1-Tmis Ethyl Esters 1 gm 06/13/18 10:00 06/21/18 11:32 Lovaza - PO 1 gm BID RAMANA Administration Pantoprazole Sodium 40 mg 06/17/18 10:00 06/21/18 11:34 Protonix - PO 40 mg DAILY RAMANA Administration Polyethylene Glycol 17 gm 06/19/18 13:15 06/20/18 11:00 Miralax (For Daily Use) - PO 17 grams DAILY RAMANA Administration Senna 2 tab 06/14/18 19:55 06/20/18 23:27 Senna - PO 2 tab HS PRN Administration CONSTIPATION Torsemide 20 mg 06/21/18 12:00 Demadex - PO DAILY RAMANA ASSESSMENT/PLAN: Patient is a 83 year old male with a significant past medical history of COPD ( home oxygen dependent @ 2 liters), current daily smoker (quit 1 week ago) pulmonary hypertension, HLD, right sided CHF, atrial Flutter (on eliquis) hypothyroidism, dementia, depression, MICHAEL admitted with resp insufficiency and was found to have 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 Pulmonary COPD exacerbation, overall his breathing has improved. Now back on nasal cannula at 2-3 liters (his home baseline) with stable saturations between 88-92%. On solumedrol taper for shortness of breath. pulmonary following. -Duonebs prn -continue with doxycycline and ceftriaxone -Monitor airway -on nocturnal bipap Vascular: Aneurysm of right popliteal artery Vascular surgery following. Planning for stent for right popliteal artery aneurysm. per cardiology, hold eliquis in anticipation of vascular surgery. start heparin drip in 48 hours if surgery not imminent. Card: CHF on demadex. monitor daily weights Echo done 06/14: mod TR, EF 50-55%, no pericardial effusion Afib On digoxin 0.125mg daily, eliquis 5mg bid HLD On lipitor 10mg qhs, lovaza Renal: STEVAN creat 1.7, has been higher on previous admission on lasix bid dosing. monitor renal function. Psyche: Dementia On aricept, namenda, tegretol Hypothyroidism On synthroid 50mcg daily prophy: bowel regimen with senna and colace on eliquis for afib fen tolerating po monitor electrolytes low salt Visit type - Emergency Visit Emergency Visit: Yes ED Registration Date: 06/12/18 Care time: The patient presented to the Emergency Department on the above date and was hospitalized for further evaluation of their emergent condition. - New Patient This patient is new to me today: No - Critical Care Critical Care patient: No - Discharge Referral Referred to [facility] Med P.C.: No
[2018-06-21] MEDS: POLYETHYLENE GLYCOL 3350 119 GM BTL PO SCH (15:23)
[2018-06-21] MEDS ORDERED: PT OWN MED DRAWER 7, Y5N ONE (21:50)
[2018-06-21] MEDS: ATORVASTATIN CA 10 MG TABLET (FP) PO SCH (21:59)
[2018-06-21] MEDS: carBAMazepine 200 MG TABLET PO SCH (21:59)
[2018-06-21] MEDS: DONEPEZIL HCL 10 MG TABLET (FP) PO SCH (21:59)
[2018-06-22] VITALS: BMI 20.6
[2018-06-22] MEDS: methylPREDNISolone NA SUCC 40 MG/1 ML VIAL IVPUSH SCH ×3 (01:24→17:15)
[2018-06-22] MEDS: LEVOTHYROXINE NA 50 MCG TABLET (FP) PO SCH (06:26)
[2018-06-22] MEDS: DOCUSATE SODIUM 100 MG CAPSULE (FP) PO SCH ×3 (06:26→21:13)
[2018-06-22 07:42] LABS: BASO % 0.1 % (0-2.0); EOS % 0.1 % (0-4.5); HEMATOCRIT 51.5 % (35.4-49); HEMOGLOBIN 17.1 GM/dL (11.7-16.9); LYMPH % 5.4 % (8-40); MCH 34.4 pg (25.7-33.7); MCHC 33.3 g/dl (32.0-35.9); MEAN CELL VOLUME 103.3 fl (80-96); MEAN PLT VOLUME 7.9 fl (7.5-11.1); NEUT % 88.4 % (42.8-82.8); PLATELET COUNT 168 K/MM3 (134-434); RBC 4.99 M/mm3 (4.00-5.60); RDW 14.8 % (11.9-15.9); WHITE BLOOD COUNT 8.1 K/mm3 (4.0-10.0)
[2018-06-22 07:56] LABS: INR 1.05 (0.83-1.09); PROTHROMBIN TIME (PATIENT) 12.4 SEC (9.7-13.0)
[2018-06-22 08:13] LABS: ALBUMIN 3.2 g/dl (3.4-5.0); ALK PHOS 64 U/L (45-117); ANION GAP 6 MMOL/L (8-16); BILIRUBIN,TOTAL 1.1 mg/dL (0.2-1); BLOOD UREA NITROGEN 85 mg/dL (7-18); CALCIUM 9.1 mg/dL (8.5-10.1); CHLORIDE 86 mmol/L (98-107); CO2 44 mmol/L (21-32); CREATININE 1.6 mg/dL (0.55-1.3); GLUCOSE,RANDOM 110 mg/dL (74-106); MAGNESIUM 2.5 mg/dL (1.8-2.4); POTASSIUM 3.7 mmol/L (3.5-5.1); SGOT/AST 21 U/L (15-37); SGPT/ALT 25 U/L (13-61); SODIUM 136 mmol/L (136-145); TOT PROT 7.1 g/dl (6.4-8.2)
--- NOTE | 2018-06-22 08:51 | SPA.PREOP ---
- PRE-OP NOTE Dx: 3cm Rt popliteal artery aneurysm. 1.5cm Lt poplteal artery aneurysm is 1.5cm. Planned Procedure: Angio, endovascular covered stent(s) Surgeon: Devon Diaz Last Vital Signs Temp Pulse Resp BP Pulse Ox 97.7 F 70 20 131/64 96 06/22/18 05:40 06/22/18 05:40 06/22/18 05:40 06/22/18 05:40 06/21/18 20:15 Lab Results WBC 8.1 K/mm3 (4.0-10.0) 06/22/18 05:15 RBC 4.99 M/mm3 (4.00-5.60) 06/22/18 05:15 Hgb 17.1 GM/dL (11.7-16.9) H 06/22/18 05:15 Hct 51.5 % (35.4-49) H 06/22/18 05:15 MCV 103.3 fl (80-96) H 06/22/18 05:15 MCHC 33.3 g/dl (32.0-35.9) 06/22/18 05:15 RDW 14.8 % (11.9-15.9) 06/22/18 05:15 Plt Count 168 K/MM3 (134-434) 06/22/18 05:15 Sodium 136 mmol/L (136-145) 06/22/18 05:15 Potassium 3.7 mmol/L (3.5-5.1) 06/22/18 05:15 Chloride 86 mmol/L (98-107) L 06/22/18 05:15 Carbon Dioxide 44 mmol/L (21-32) H 06/22/18 05:15 Anion Gap 6 MMOL/L (8-16) L 06/22/18 05:15 BUN 85 mg/dL (7-18) H 06/22/18 05:15 Creatinine 1.6 mg/dL (0.55-1.3) H 06/22/18 05:15 Random Glucose 110 mg/dL (74-106) H 06/22/18 05:15 Calcium 9.1 mg/dL (8.5-10.1) 06/22/18 05:15 INR 1.05 (0.83-1.09) 06/22/18 05:15 - IMAGING Chest X-ray: Report Reviewed - ASSESSMENT/PLAN Problem List - Problems (1) Aneurysm of right popliteal artery Assessment/Plan: 1. NPO after midnight except po meds 2. GI/DVT PPX 3. Medical optimization 4. Pulmonary optimization / clearance 5. Cardio cleared --> no cardiac contraindications to planned procedure. HF is resolved and well-controlled/optimized medically 5. Consent to be obtained by surgeon after risks, benefits and alternatives discussed with patient and or Health Care Proxy. Code(s): I72.4 - ANEURYSM OF ARTERY OF LOWER EXTREMITY (2) COPD (chronic obstructive pulmonary disease) Code(s): J44.9 - CHRONIC OBSTRUCTIVE PULMONARY DISEASE, UNSPECIFIED Qualifiers: COPD type: COPD with acute exacerbation Qualified Code(s): J44.1 - Chronic obstructive pulmonary disease with (acute) exacerbation (3) Obstructive sleep apnea Code(s): G47.33 - OBSTRUCTIVE SLEEP APNEA (ADULT) (PEDIATRIC) (4) Pulmonary hypertension Code(s): I27.2 - OTHER SECONDARY PULMONARY HYPERTENSION * DO NOT USE * Visit type - Case Type Case Type: ED Admission
--- NOTE | 2018-06-22 09:26 | PN ---
Physical Exam: SUBJECTIVE: Patient seen and examined. He denies SOB. OBJECTIVE: Vital Signs Period Temp Pulse Resp BP Sys/Raya Pulse Ox Last 24 Hr 97.3 F-98 F 63-87 20-20 130-137/64-88 92-96 GENERAL: The patient is awake, alert, on BiPAP. LUNGS: Breath sounds diminished, few rhonchi. HEART: Irregularly irregular without murmur, rub or gallop. ABDOMEN: Soft, nontender, nondistended, normoactive bowel sounds, no guarding, no rebound, no hepatosplenomegaly, no masses. EXTREMITIES: 2+ pulses, warm, well-perfused, no edema. Laboratory Results - last 24 hr 06/21/18 06/21/18 06/22/18 11:40 11:40 05:15 WBC 7.9 8.1 RBC 4.99 4.99 Hgb 17.1 H 17.1 H Hct 51.6 H 51.5 H MCV 103.5 H 103.3 H MCH 34.2 H 34.4 H MCHC 33.0 33.3 RDW 15.3 14.8 Plt Count 165 168 MPV 7.6 7.9 Absolute Neuts (auto) 6.7 7.2 Neutrophils % 85.4 H 88.4 H Lymphocytes % 5.8 L D 5.4 L Monocytes % 8.6 6.0 Eosinophils % 0.1 D 0.1 Basophils % 0.1 0.1 Nucleated RBC % 0 0 PT with INR INR Sodium 137 Potassium 3.6 Chloride 88 L Carbon Dioxide 43 H Anion Gap 7 L BUN 81 H Creatinine 1.7 H Creat Clearance w eGFR 38.68 Random Glucose 152 H Calcium 8.8 Magnesium Total Bilirubin 1.0 AST 21 ALT 24 Alkaline Phosphatase 68 Total Protein 6.8 Albumin 3.2 L 06/22/18 06/22/18 05:15 05:15 WBC RBC Hgb Hct MCV MCH MCHC RDW Plt Count MPV Absolute Neuts (auto) Neutrophils % Lymphocytes % Monocytes % Eosinophils % Basophils % Nucleated RBC % PT with INR 12.40 INR 1.05 Sodium 136 Potassium 3.7 Chloride 86 L Carbon Dioxide 44 H Anion Gap 6 L BUN 85 H Creatinine 1.6 H Creat Clearance w eGFR 41.49 Random Glucose 110 H Calcium 9.1 Magnesium 2.5 H Total Bilirubin 1.1 H AST 21 ALT 25 Alkaline Phosphatase 64 Total Protein 7.1 Albumin 3.2 L Active Medications Generic Name Dose Route Start Last Admin Trade Name Freq PRN Reason Stop Dose Admin Ascorbic Acid 500 mg 06/13/18 10:00 06/21/18 11:31 Vitamin C - PO 500 mg DAILY RAMANA Administration Atorvastatin Calcium 10 mg 06/13/18 22:00 06/21/18 21:59 Lipitor - PO 10 mg HS RAMANA Administration Carbamazepine 200 mg 06/13/18 22:00 06/21/18 21:59 Tegretol - PO 200 mg HS RAMANA Administration Digoxin 0.125 mg 06/13/18 10:00 06/21/18 11:32 Lanoxin - PO 0.125 mg DAILY RAMANA Administration Docusate Sodium 100 mg 06/19/18 14:00 06/22/18 06:26 Colace - PO 100 mg TID RAMANA Administration Donepezil HCl 10 mg 06/13/18 22:00 06/21/18 21:59 Aricept - PO 10 mg HS RAMANA Administration Levothyroxine Sodium 50 mcg 06/13/18 07:00 06/22/18 06:26 Synthroid - PO 50 mcg DAILY@0700 RAMANA Administration Methylprednisolone Sodium Succinate 40 mg 06/19/18 10:00 06/22/18 01:24 Solu-Medrol - IVPUSH 40 mg Q8H-IV RAMANA Administration Jppyw-7-Wqhs Ethyl Esters 1 gm 06/13/18 10:00 06/21/18 21:59 Lovaza - PO 1 gm BID RAMANA Administration Pantoprazole Sodium 40 mg 06/17/18 10:00 06/21/18 11:34 Protonix - PO 40 mg DAILY RAMANA Administration Polyethylene Glycol 17 gm 06/19/18 13:15 06/21/18 15:23 Miralax (For Daily Use) - PO 17 grams DAILY RAMANA Administration Senna 2 tab 06/14/18 19:55 06/20/18 23:27 Senna - PO 2 tab HS PRN Administration CONSTIPATION Torsemide 20 mg 06/21/18 12:00 06/21/18 15:23 Demadex - PO 20 mg DAILY RAMANA Administration ASSESSMENT/PLAN: This is an 83 year old man with a history of COPD, chronic hypoxic respiratory failure, pulmonary HTN, hyperlipidemia, right-sided heart failure, atrial fib/ flutter, hypothyroidism, dementia, depression, MICHAEL who presented to the ED with SOB and leg swelling. 1. Acute exacerbation of COPD secondary to pneumonia with chronic hypoxic respiratory failure, MICHAEL, and severe pulm HTN - Continue SoluMedrol, DuoNeb, albuterol as needed - Continue oxygen to maintain saturation >90% - Continue BiPAP overnight and as needed - Completed course of ceftriaxone 2. Right popliteal artery aneurysm - Plan for endovascular stent placement tomorrow - Eliquis held for surgery 3. Acute on chronic right-sided heart failure - Improved with Lasix IV - Continue Torsemide 4. Permanent atrial fib - Continue Digoxin - Eliquis on hold for surgery 5. Hyperlipidemia - Continue Lipitor, Lovaza 6. Hypothyroidism - Continue Synthroid 7. Depression - Continue Tegretol 8. Dementia - Continue Aricept 9. Stage 3 CKD - Stable Visit type - Emergency Visit Emergency Visit: Yes ED Registration Date: 06/12/18 Care time: The patient presented to the Emergency Department on the above date and was hospitalized for further evaluation of their emergent condition. - New Patient This patient is new to me today: Yes Date on this admission: 06/22/18 - Critical Care Critical Care patient: No - Discharge Referral Referred to [facility] Med P.C.: No
--- NOTE | 2018-06-22 10:07 | PN ---
Progress Note, Physician History of Present Illness: pulmonary drowsy on bipap,-resp distress - Current Medication List Current Medications: Active Medications Ascorbic Acid (Vitamin C -) 500 mg PO DAILY [facility] Last Admin: 06/21/18 11:31 Dose: 500 mg Atorvastatin Calcium (Lipitor -) 10 mg PO HS [facility] Last Admin: 06/21/18 21:59 Dose: 10 mg Carbamazepine (Tegretol -) 200 mg PO HS [facility] Last Admin: 06/21/18 21:59 Dose: 200 mg Digoxin (Lanoxin -) 0.125 mg PO DAILY [facility] Last Admin: 06/21/18 11:32 Dose: 0.125 mg Docusate Sodium (Colace -) 100 mg PO TID [facility] Last Admin: 06/22/18 06:26 Dose: 100 mg Donepezil HCl (Aricept -) 10 mg PO [facility] Last Admin: 06/21/18 21:59 Dose: 10 mg Levothyroxine Sodium (Synthroid -) 50 mcg PO DAILY@0700 [facility] Last Admin: 06/22/18 06:26 Dose: 50 mcg Methylprednisolone Sodium Succinate (Solu-Medrol -) 40 mg IVPUSH Q8H-IV [facility] Last Admin: 06/22/18 01:24 Dose: 40 mg Eeuxp-1-Flbj Ethyl Esters (Lovaza -) 1 gm PO BID [facility] Last Admin: 06/21/18 21:59 Dose: 1 gm Pantoprazole Sodium (Protonix -) 40 mg PO DAILY [facility] Last Admin: 06/21/18 11:34 Dose: 40 mg Polyethylene Glycol (Miralax (For Daily Use) -) 17 gm PO DAILY [facility] Last Admin: 06/21/18 15:23 Dose: 17 grams Senna (Senna -) 2 tab PO HS PRN PRN Reason: CONSTIPATION Last Admin: 06/20/18 23:27 Dose: 2 tab Torsemide (Demadex -) 20 mg PO DAILY [facility] Last Admin: 06/21/18 15:23 Dose: 20 mg - Objective Vital Signs: Vital Signs Temperature 98.5 F 06/22/18 09:00 Pulse Rate 65 06/22/18 09:00 Respiratory Rate 21 H 06/22/18 09:00 Blood Pressure 132/78 06/22/18 09:00 O2 Sat by Pulse Oximetry (%) 96 06/22/18 09:00 Constitutional: Yes: Calm, Thin Eyes: Yes: WNL HENT: Yes: WNL Neck: Yes: WNL Cardiovascular: Yes: Pulse Irregular, S1, S2 Respiratory: Yes: Rhonchi (few rhonchi) Gastrointestinal: Yes: Normal Bowel Sounds, Soft Extremities: Yes: WNL Edema: No Labs: CBC, BMP 06/22/18 05:15 06/22/18 05:15 INR, PTT INR 1.05 (0.83-1.09) 06/22/18 05:15 Assessment/Plan Problem List - Problems (1) Community acquired pneumonia Code(s): J18.9 - PNEUMONIA, UNSPECIFIED ORGANISM (2) Acute respiratory acidosis Code(s): E87.2 - ACIDOSIS (3) Acute respiratory failure with hypoxia and hypercarbia Code(s): J96.01 - ACUTE RESPIRATORY FAILURE WITH HYPOXIA; J96.02 - ACUTE RESPIRATORY FAILURE WITH HYPERCAPNIA (4) Aneurysm of right popliteal artery Code(s): I72.4 - ANEURYSM OF ARTERY OF LOWER EXTREMITY (5) COPD with acute exacerbation Code(s): J44.1 - CHRONIC OBSTRUCTIVE PULMONARY DISEASE W (ACUTE) EXACERBATION (6) Chronic respiratory acidosis Code(s): E87.2 - ACIDOSIS (7) Leg edema, right Code(s): R60.0 - LOCALIZED EDEMA (8) Right ventricular systolic dysfunction Code(s): I51.9 - HEART DISEASE, UNSPECIFIED (9) Atrial flutter Code(s): I48.92 - UNSPECIFIED ATRIAL FLUTTER Qualifiers: Atrial flutter type: unspecified Qualified Code(s): I48.92 - Unspecified atrial flutter (10) COPD (chronic obstructive pulmonary disease) Code(s): J44.9 - CHRONIC OBSTRUCTIVE PULMONARY DISEASE, UNSPECIFIED Qualifiers: COPD type: COPD with acute exacerbation Qualified Code(s): J44.1 - Chronic obstructive pulmonary disease with (acute) exacerbation (11) Chronic cor pulmonale Code(s): I27.81 - COR PULMONALE (CHRONIC) (12) Dementia Code(s): F03.90 - UNSPECIFIED DEMENTIA WITHOUT BEHAVIORAL DISTURBANCE Qualifiers: Dementia type: unspecified type Dementia behavioral disturbance: without behavioral disturbance Qualified Code(s): F03.90 - Unspecified dementia without behavioral disturbance (13) Hyperlipidemia Code(s): E78.5 - HYPERLIPIDEMIA, UNSPECIFIED Qualifiers: Hyperlipidemia type: unspecified Qualified Code(s): E78.5 - Hyperlipidemia , unspecified (14) Hypertension Code(s): I10 - ESSENTIAL (PRIMARY) HYPERTENSION Qualifiers: Hypertension type: essential hypertension Qualified Code(s): I10 - Essential (primary) hypertension (15) Hypothyroidism Code(s): E03.9 - HYPOTHYROIDISM, UNSPECIFIED Qualifiers: Hypothyroidism type: unspecified Qualified Code(s): E03.9 - Hypothyroidism , unspecified (16) Obstructive sleep apnea Code(s): G47.33 - OBSTRUCTIVE SLEEP APNEA (ADULT) (PEDIATRIC) (17) Pulmonary hypertension Code(s): I27.2 - OTHER SECONDARY PULMONARY HYPERTENSION * DO NOT USE * Assessment/Plan RLL PNA SEVERE PULMONARY HTN AFIB COPD CHRONIC HYPOXEMIC RESPIRATORY FAILURE OSAS POPLITEAL ANEURYSM Steroids NC O2 as tolerated lasix NIPPV QHS and PRN No smoking discussed AC BD TX standing and PRN monitor pulse ox endovascular repair as per vascular DR SOLO Problem List - Problems (1) Community acquired pneumonia Code(s): J18.9 - PNEUMONIA, UNSPECIFIED ORGANISM (2) Acute respiratory acidosis Code(s): E87.2 - ACIDOSIS (3) Acute respiratory failure with hypoxia and hypercarbia Code(s): J96.01 - ACUTE RESPIRATORY FAILURE WITH HYPOXIA; J96.02 - ACUTE RESPIRATORY FAILURE WITH HYPERCAPNIA (4) Aneurysm of right popliteal artery Code(s): I72.4 - ANEURYSM OF ARTERY OF LOWER EXTREMITY (5) COPD with acute exacerbation Code(s): J44.1 - CHRONIC OBSTRUCTIVE PULMONARY DISEASE W (ACUTE) EXACERBATION (6) Chronic respiratory acidosis Code(s): E87.2 - ACIDOSIS (7) Leg edema, right Code(s): R60.0 - LOCALIZED EDEMA (8) Right ventricular systolic dysfunction Code(s): I51.9 - HEART DISEASE, UNSPECIFIED (9) Atrial flutter Code(s): I48.92 - UNSPECIFIED ATRIAL FLUTTER Qualifiers: Atrial flutter type: unspecified Qualified Code(s): I48.92 - Unspecified atrial flutter (10) COPD (chronic obstructive pulmonary disease) Code(s): J44.9 - CHRONIC OBSTRUCTIVE PULMONARY DISEASE, UNSPECIFIED Qualifiers: COPD type: COPD with acute exacerbation Qualified Code(s): J44.1 - Chronic obstructive pulmonary disease with (acute) exacerbation (11) Chronic cor pulmonale Code(s): I27.81 - COR PULMONALE (CHRONIC) (12) Dementia Code(s): F03.90 - UNSPECIFIED DEMENTIA WITHOUT BEHAVIORAL DISTURBANCE Qualifiers: Dementia type: unspecified type Dementia behavioral disturbance: without behavioral disturbance Qualified Code(s): F03.90 - Unspecified dementia without behavioral disturbance (13) Hyperlipidemia Code(s): E78.5 - HYPERLIPIDEMIA, UNSPECIFIED Qualifiers: Hyperlipidemia type: unspecified Qualified Code(s): E78.5 - Hyperlipidemia , unspecified (14) Hypertension Code(s): I10 - ESSENTIAL (PRIMARY) HYPERTENSION Qualifiers: Hypertension type: essential hypertension Qualified Code(s): I10 - Essential (primary) hypertension (15) Hypothyroidism Code(s): E03.9 - HYPOTHYROIDISM, UNSPECIFIED Qualifiers: Hypothyroidism type: unspecified Qualified Code(s): E03.9 - Hypothyroidism , unspecified (16) Obstructive sleep apnea Code(s): G47.33 - OBSTRUCTIVE SLEEP APNEA (ADULT) (PEDIATRIC) (17) Pulmonary hypertension Code(s): I27.2 - OTHER SECONDARY PULMONARY HYPERTENSION * DO NOT USE *
[2018-06-22] MEDS: ASCORBIC ACID 500 MG TABLET (FP) PO SCH (10:46)
[2018-06-22] MEDS: PANTOPRAZOLE 40 MG TABLET (FP) PO SCH (10:46)
[2018-06-22] MEDS: OMEGA-3 ACID ETHYL ESTERS (FATTY-ACIDS) 1 GM CAPSULE (FP) PO SCH ×2 (10:46→21:13)
[2018-06-22] MEDS: DIGOXIN 0.125 MG TABLET (FP) PO SCH (10:46)
[2018-06-22] MEDS: TORSEMIDE 20 MG TABLET (FP) PO SCH (10:46)
--- NOTE | 2018-06-22 11:20 | PN ---
Progress Note (short form) - Note Progress Note: s: sob improving, no cp, palps, dizziness Current Medications Ascorbic Acid (Vitamin C -) 500 mg PO DAILY [facility] Last Admin: 06/22/18 10:46 Dose: 500 mg Atorvastatin Calcium (Lipitor -) 10 mg PO HS [facility] Last Admin: 06/21/18 21:59 Dose: 10 mg Carbamazepine (Tegretol -) 200 mg PO HS [facility] Last Admin: 06/21/18 21:59 Dose: 200 mg Digoxin (Lanoxin -) 0.125 mg PO DAILY [facility] Last Admin: 06/22/18 10:46 Dose: 0.125 mg Docusate Sodium (Colace -) 100 mg PO TID [facility] Last Admin: 06/22/18 06:26 Dose: 100 mg Donepezil HCl (Aricept -) 10 mg PO [facility] Last Admin: 06/21/18 21:59 Dose: 10 mg Levothyroxine Sodium (Synthroid -) 50 mcg PO DAILY@0700 [facility] Last Admin: 06/22/18 06:26 Dose: 50 mcg Methylprednisolone Sodium Succinate (Solu-Medrol -) 40 mg IVPUSH Q8H-IV [facility] Last Admin: 06/22/18 10:46 Dose: 40 mg Zkrrr-3-Syxd Ethyl Esters (Lovaza -) 1 gm PO BID [facility] Last Admin: 06/22/18 10:46 Dose: 1 gm Pantoprazole Sodium (Protonix -) 40 mg PO DAILY [facility] Last Admin: 06/22/18 10:46 Dose: 40 mg Polyethylene Glycol (Miralax (For Daily Use) -) 17 gm PO DAILY [facility] Last Admin: 06/21/18 15:23 Dose: 17 grams Senna (Senna -) 2 tab PO HS PRN PRN Reason: CONSTIPATION Last Admin: 06/20/18 23:27 Dose: 2 tab Torsemide (Demadex -) 20 mg PO DAILY [facility] Last Admin: 06/22/18 10:46 Dose: 20 mg Vital Signs Period Temp Pulse Resp BP Sys/Raya Pulse Ox Last 24 Hr 97.3 F-98.5 F 63-87 20-21 131-137/64-88 92-96 Constitutional: Yes: No Distress, Calm Eyes: No: Sclera Icterus HENT: No: Nasal Congestion Cardiovascular: Yes: Pulse Irregular, S1, S2, Other (PMI non diplaced). No: JVD , Gallop, Murmur Respiratory: Yes: CTA Bilaterally (very decr diffusely). No: Accessory Muscle Use, Rales, Wheezes Gastrointestinal: Yes: Normal Bowel Sounds, Soft. No: Tenderness Musculoskeletal: Yes: Other (No kyphosis) Extremities: No: Cold, Cyanosis Edema: No Integumentary: No: Jaundice Neurological: Yes: Alert. No: Seizure Psychiatric: No: Agitated Assessment/Plan Pharm nuc stress 05/03/15: Afib with RVR. Asx. No ischemic changes. Nl perf. Nl EF. 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 06/20: cont torsemide 40 bid, monitor Cr, lytes, daily standing weights. -06/21: bun/creat trending up, weights very variable, neck veins flat--pt likely overdiuresed/hypovolemic. change torsemide 40 bid to 20 qd, observe for LE edema (reliably his HF sx). -06/22: BUN/Cr improving, continue torsemide 20 mg daliy Atrial fibrillation. -rate ok, cont digoxin as doing (level good) -on metoprolol at home as well, which he has tolerated well--held here and HR good, observe. defer CCB to avoid exacerbating RV contractility issues -hold eliquis in anticipation of vascular surgery aneurysm endovascular repair. would start UFH gtt in 48 hrs if surgery not imminent (not sooner, given pt's reduced GFR and usual half-life of eliquis) - last dose 4/7 PM - dc tele popliteal artery aneurysm, preop CV eval: - vascular consulted, Dr. Diaz - no cardiac contraindications to planned endovascular covered stent placement for R popliteal artery aneurysm. HF is resolved and well-controlled/optimized medically HL: - cont statin
[2018-06-22] MEDS: POLYETHYLENE GLYCOL 3350 119 GM BTL PO SCH (13:15)
[2018-06-22] MEDS ORDERED: ALBUTEROL SO4 0.083% IH SOL 2.5 MG/3 ML VIAL.NEB. NEB PRN (15:04)
[2018-06-22] MEDS: ALBUTEROL SO4 2.5/IPRATROPIUM 0.5 INH SOL 3 ML VIAL.NEB. NEB SCH ×2 (16:17→19:45)
[2018-06-22] MEDS ORDERED: ACETAMINOPHEN 325 MG TABLET (FP) PO ONE (20:30)
[2018-06-22] MEDS ORDERED: PT OWN MED DRAWER 7, Y5N ONE (20:53)
[2018-06-22] MEDS: ATORVASTATIN CA 10 MG TABLET (FP) PO SCH (21:02)
[2018-06-22] MEDS: DONEPEZIL HCL 10 MG TABLET (FP) PO SCH (21:02)
[2018-06-22] MEDS: carBAMazepine 200 MG TABLET PO SCH (21:03)
[2018-06-23] MEDS: methylPREDNISolone NA SUCC 40 MG/1 ML VIAL IVPUSH SCH ×3 (02:20→18:11)
[2018-06-23] MEDS ORDERED: PT OWN MED DRAWER 7, Y5N ONE ×3 (06:20→22:09)
[2018-06-23] MEDS: DOCUSATE SODIUM 100 MG CAPSULE (FP) PO SCH ×3 (06:29→22:11)
[2018-06-23] MEDS: LEVOTHYROXINE NA 50 MCG TABLET (FP) PO SCH (06:29)
[2018-06-23 06:32] LABS: HEMATOCRIT 51.7 % (35.4-49); HEMOGLOBIN 17.4 GM/dL (11.7-16.9); MCH 34.3 pg (25.7-33.7); MCHC 33.6 g/dl (32.0-35.9); MEAN CELL VOLUME 102.2 fl (80-96); MEAN PLT VOLUME 7.5 fl (7.5-11.1); PLATELET COUNT 154 K/MM3 (134-434); RBC 5.06 M/mm3 (4.00-5.60); RDW 15.1 % (11.9-15.9); WHITE BLOOD COUNT 8.6 K/mm3 (4.0-10.0)
[2018-06-23 06:57] LABS: ANION GAP 6 MMOL/L (8-16); BLOOD UREA NITROGEN 82 mg/dL (7-18); CALCIUM 8.9 mg/dL (8.5-10.1); CHLORIDE 91 mmol/L (98-107); CO2 44 mmol/L (21-32); CREATININE 1.7 mg/dL (0.55-1.3); GLUCOSE,RANDOM 123 mg/dL (74-106); POTASSIUM 3.8 mmol/L (3.5-5.1); SODIUM 141 mmol/L (136-145)
--- NOTE | 2018-06-23 07:54 | PN ---
Physical Exam: SUBJECTIVE: Patient seen and examined 24 HR EVENTS: -Patient scheduled for peripheral Angio with endovascular covered stent(s) placement for 3cm Rt popliteal artery aneurysm- now rescheduled for 06/24 -cleared by cards for interventional procedure -eliquis on hold, heparin started -d/celia from telemetry OBJECTIVE: Vital Signs Period Temp Pulse Resp BP Sys/Raya Pulse Ox Last 24 Hr 97.5 F-98.5 F 65-77 20-21 112-133/67-85 95-98 GENERAL: asleep (awakened to perform exam), in no acute distress. HEAD: Normal with no signs of trauma. EYES: PERRL, sclera anicteric, conjunctiva clear. + ptosis. ENT: nares patent, oropharynx clear without exudates, moist mucous membranes. NECK: Trachea midline, full range of motion, supple. LUNGS: Breath sounds equal coarse BS, no wheezes, no crackles, no accessory muscle use. HEART: Regular rate and rhythm, S1, S2 without murmur, rub or gallop. ABDOMEN: Soft, nontender, nondistended, normoactive bowel sounds, no guarding, no rebound EXTREMITIES: 2+ pulses, warm, well-perfused, no edema. MSK: normal muscle strength, decreased tone NEUROLOGICAL: forgetful, slow speech, gait not observed. PSYCH: Normal mood, normal affect. SKIN: Warm, dry, normal turgor, no rashes or lesions noted Laboratory Results - last 24 hr 06/22/18 06/22/18 06/22/18 05:15 05:15 05:15 WBC 8.1 RBC 4.99 Hgb 17.1 H Hct 51.5 H MCV 103.3 H MCH 34.4 H MCHC 33.3 RDW 14.8 Plt Count 168 MPV 7.9 Absolute Neuts (auto) 7.2 Neutrophils % 88.4 H Lymphocytes % 5.4 L Monocytes % 6.0 Eosinophils % 0.1 Basophils % 0.1 Nucleated RBC % 0 PT with INR 12.40 INR 1.05 Sodium 136 Potassium 3.7 Chloride 86 L Carbon Dioxide 44 H Anion Gap 6 L BUN 85 H Creatinine 1.6 H Creat Clearance w eGFR 41.49 Random Glucose 110 H Calcium 9.1 Magnesium 2.5 H Total Bilirubin 1.1 H AST 21 ALT 25 Alkaline Phosphatase 64 Total Protein 7.1 Albumin 3.2 L 04/10/19 04/10/19 05:30 05:30 WBC 8.6 RBC 5.06 Hgb 17.4 H Hct 51.7 H MCV 102.2 H MCH 34.3 H MCHC 33.6 RDW 15.1 Plt Count 154 MPV 7.5 Absolute Neuts (auto) Neutrophils % Lymphocytes % Monocytes % Eosinophils % Basophils % Nucleated RBC % PT with INR INR Sodium 141 Potassium 3.8 Chloride 91 L Carbon Dioxide 44 H Anion Gap 6 L BUN 82 H Creatinine 1.7 H Creat Clearance w eGFR 38.68 Random Glucose 123 H Calcium 8.9 Magnesium Total Bilirubin AST ALT Alkaline Phosphatase Total Protein Albumin Active Medications: Generic Name Dose Route Start Last Admin Trade Name Freq PRN Reason Stop Dose Admin Albuterol Sulfate 1 amp 06/22/18 15:04 Ventolin 0.083% Nebulizer Soln - NEB Q4H PRN SHORT OF BREATH/WHEEZING Albuterol/Ipratropium 1 amp 06/22/18 16:00 06/22/18 19:45 Duoneb - NEB 1 amp RQID RAMANA Administration Ascorbic Acid 500 mg 06/13/18 10:00 06/22/18 10:46 Vitamin C - PO 500 mg DAILY RAMANA Administration Atorvastatin Calcium 10 mg 06/13/18 22:00 06/22/18 21:02 Lipitor - PO 10 mg HS RAMANA Administration Carbamazepine 200 mg 06/13/18 22:00 06/22/18 21:03 Tegretol - PO 200 mg HS RAMANA Administration Digoxin 0.125 mg 06/13/18 10:00 06/22/18 10:46 Lanoxin - PO 0.125 mg DAILY RAMANA Administration Docusate Sodium 100 mg 06/19/18 14:00 06/23/18 06:29 Colace - PO Not Given TID RAMANA Donepezil HCl 10 mg 06/13/18 22:00 06/22/18 21:02 Aricept - PO 10 mg HS RAMANA Administration Levothyroxine Sodium 50 mcg 06/13/18 07:00 06/23/18 06:29 Synthroid - PO Not Given DAILY@0700 RAMANA Methylprednisolone Sodium Succinate 40 mg 06/19/18 10:00 06/23/18 02:20 Solu-Medrol - IVPUSH 40 mg Q8H-IV RAMANA Administration Drkas-2-Vdnm Ethyl Esters 1 gm 06/13/18 10:00 06/22/18 21:13 Lovaza - PO Not Given BID RAMANA Pantoprazole Sodium 40 mg 06/17/18 10:00 06/22/18 10:46 Protonix - PO 40 mg DAILY RAMANA Administration Polyethylene Glycol 17 gm 06/19/18 13:15 06/22/18 13:15 Miralax (For Daily Use) - PO 17 grams DAILY RAMANA Administration Senna 2 tab 06/14/18 19:55 06/20/18 23:27 Senna - PO 2 tab HS PRN Administration CONSTIPATION Torsemide 20 mg 06/21/18 12:00 06/22/18 10:46 Demadex - PO 20 mg DAILY RAMANA Administration ASSESSMENT/PLAN: 83 year old man with a history of COPD, chronic hypoxic respiratory failure, pulmonary HTN, hyperlipidemia, right-sided heart failure, atrial fib/flutter, hypothyroidism, dementia, depression, MICHAEL who presented to the ED with SOB and leg swelling, and found to have bilateral popliteal artery aneurysm and COPD exacerbation. Problem List - Problems (1) Aneurysm of right popliteal artery Assessment/Plan: pt scheduled for OR today, now rescheduled for 06/24 NOAC on hold heparin started and titrated as per hospital protocol Code(s): I72.4 - ANEURYSM OF ARTERY OF LOWER EXTREMITY (2) COPD with acute exacerbation Assessment/Plan: -Continue SoluMedrol 40mg Q8hrs, - DuoNeb, albuterol as needed - Continue oxygen to maintain saturation >90% - Continue BiPAP overnight and as needed Code(s): J44.1 - CHRONIC OBSTRUCTIVE PULMONARY DISEASE W (ACUTE) EXACERBATION (3) Dementia Assessment/Plan: frequent reorientation Continue Aricept Code(s): F03.90 - UNSPECIFIED DEMENTIA WITHOUT BEHAVIORAL DISTURBANCE Qualifiers: Dementia type: unspecified type Dementia behavioral disturbance: without behavioral disturbance Qualified Code(s): F03.90 - Unspecified dementia without behavioral disturbance (4) Hyperlipidemia Assessment/Plan: - Continue Lipitor, Lovaza Code(s): E78.5 - HYPERLIPIDEMIA, UNSPECIFIED Qualifiers: Hyperlipidemia type: unspecified Qualified Code(s): E78.5 - Hyperlipidemia , unspecified (5) Hypothyroidism Assessment/Plan: -synthroid 50mcg daily Code(s): E03.9 - HYPOTHYROIDISM, UNSPECIFIED Qualifiers: Hypothyroidism type: unspecified Qualified Code(s): E03.9 - Hypothyroidism , unspecified (6) Obstructive sleep apnea Assessment/Plan: BIPAP qhs Code(s): G47.33 - OBSTRUCTIVE SLEEP APNEA (ADULT) (PEDIATRIC) (7) Systolic heart failure Assessment/Plan: torsemide 20mg daily Code(s): I50.20 - UNSPECIFIED SYSTOLIC (CONGESTIVE) HEART FAILURE (8) Atrial flutter Assessment/Plan: - Continue Digoxin 0.125mg -check dig level on 06/24 - Eliquis on hold for surgery Code(s): I48.92 - UNSPECIFIED ATRIAL FLUTTER Qualifiers: Atrial flutter type: unspecified Qualified Code(s): I48.92 - Unspecified atrial flutter (9) Depression Assessment/Plan: - Continue Tegretol Code(s): F32.9 - MAJOR DEPRESSIVE DISORDER, SINGLE EPISODE, UNSPECIFIED Qualifiers: Depression Type: unspecified Qualified Code(s): F32.9 - Major depressive disorder, single episode, unspecified Visit type - Emergency Visit Emergency Visit: Yes ED Registration Date: 06/12/18 Care time: The patient presented to the Emergency Department on the above date and was hospitalized for further evaluation of their emergent condition. - New Patient This patient is new to me today: No - Critical Care Critical Care patient: No - Discharge Referral Referred to [facility] No
[2018-06-23] MEDS ORDERED: KCL 10 MEQ IVPB 10 MEQ/100 ML INFUS.BAG IVPB SCH (08:00)
[2018-06-23] MEDS: ALBUTEROL SO4 2.5/IPRATROPIUM 0.5 INH SOL 3 ML VIAL.NEB. NEB SCH ×4 (08:15→21:01)
--- NOTE | 2018-06-23 10:05 | PN ---
Progress Note (short form) - Note Progress Note: s: sob stable, no cp, palps, dizziness Current Medications Albuterol Sulfate (Ventolin 0.083% Nebulizer Soln -) 1 amp NEB Q4H PRN PRN Reason: SHORT OF BREATH/WHEEZING Albuterol/Ipratropium (Duoneb -) 1 amp NEB RQID [facility] Last Admin: 06/23/18 08:15 Dose: 1 amp Ascorbic Acid (Vitamin C -) 500 mg PO DAILY [facility] Last Admin: 06/22/18 10:46 Dose: 500 mg Atorvastatin Calcium (Lipitor -) 10 mg PO HS [facility] Last Admin: 06/22/18 21:02 Dose: 10 mg Carbamazepine (Tegretol -) 200 mg PO HS [facility] Last Admin: 06/22/18 21:03 Dose: 200 mg Digoxin (Lanoxin -) 0.125 mg PO DAILY [facility] Last Admin: 06/22/18 10:46 Dose: 0.125 mg Docusate Sodium (Colace -) 100 mg PO TID [facility] Last Admin: 06/23/18 06:29 Dose: Not Given Donepezil HCl (Aricept -) 10 mg PO HS [facility] Last Admin: 06/22/18 21:02 Dose: 10 mg Levothyroxine Sodium (Synthroid -) 50 mcg PO DAILY@0700 [facility] Last Admin: 06/23/18 06:29 Dose: Not Given Methylprednisolone Sodium Succinate (Solu-Medrol -) 40 mg IVPUSH Q8H-IV [facility] Last Admin: 06/23/18 02:20 Dose: 40 mg [id number]-3-[id number] Ethyl Esters (Lovaza -) 1 gm PO BID [facility] Last Admin: 06/22/18 21:13 Dose: Not Given Pantoprazole Sodium (Protonix -) 40 mg PO DAILY [facility] Last Admin: 06/22/18 10:46 Dose: 40 mg Polyethylene Glycol (Miralax (For Daily Use) -) 17 gm PO DAILY [facility] Last Admin: 06/22/18 13:15 Dose: 17 grams Senna (Senna -) 2 tab PO HS PRN PRN Reason: CONSTIPATION Last Admin: 06/20/18 23:27 Dose: 2 tab Torsemide (Demadex -) 20 mg PO DAILY [facility] Last Admin: 06/22/18 10:46 Dose: 20 mg Vital Signs Period Temp Pulse Resp BP Sys/Raya Pulse Ox Last 24 Hr 97.3 F-98.1 F 69-77 18-20 112-133/67-85 95-98 Constitutional: Yes: No Distress, Calm Eyes: No: Sclera Icterus HENT: No: Nasal Congestion Cardiovascular: Yes: Pulse Irregular, S1, S2, Other (PMI non diplaced). No: JVD , Gallop, Murmur Respiratory: Yes: CTA Bilaterally (very decr diffusely). No: Accessory Muscle Use, Rales, Wheezes Gastrointestinal: Yes: Normal Bowel Sounds, Soft. No: Tenderness Musculoskeletal: Yes: Other (No kyphosis) Extremities: No: Cold, Cyanosis Edema: No Integumentary: No: Jaundice Neurological: Yes: Alert. No: Seizure Psychiatric: No: Agitated Assessment/Plan Pharm nuc stress 05/03/15: Afib with RVR. Asx. No ischemic changes. Nl perf. Nl EF. 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 06/20: cont torsemide 40 bid, monitor Cr, lytes, daily standing weights. -06/21: bun/creat trending up, weights very variable, neck veins flat--pt likely overdiuresed/hypovolemic. change torsemide 40 bid to 20 qd, observe for LE edema (reliably his HF sx). -06/22-: BUN/Cr stable continue torsemide 20 mg daliy Atrial fibrillation. -rate ok, cont digoxin as doing (level good) -on metoprolol at home as well, which he has tolerated well--held here and HR good, observe. defer CCB to avoid exacerbating RV contractility issues -hold eliquis in anticipation of vascular surgery aneurysm endovascular repair. would start UFH gtt in 48 hrs if surgery not imminent (not sooner, given pt's reduced GFR and usual half-life of eliquis) - last dose 4/ PM - OR planned for 06/24 now - will start heparin gtt - dc tele popliteal artery aneurysm, preop CV eval: - vascular consulted, Dr. Diaz - no cardiac contraindications to planned endovascular covered stent placement for R popliteal artery aneurysm. HF is resolved and well-controlled/optimized medically HL: - cont statin
[2018-06-23] MEDS ORDERED: HEPARIN NA (PORCINE) 5,000 UNITS/ML 1ML VIAL IVPUSH PRN ×2 (10:57→11:02)
[2018-06-23] MEDS ORDERED: HEPARIN - 25,000 UNIT in SODIUM CHLORIDE 495 ML IV SCH (11:00)
[2018-06-23] MEDS: TORSEMIDE 20 MG TABLET (FP) PO SCH ×2 (11:48→11:50)
[2018-06-23] MEDS: ASCORBIC ACID 500 MG TABLET (FP) PO SCH (11:48)
[2018-06-23] MEDS: PANTOPRAZOLE 40 MG TABLET (FP) PO SCH (11:48)
[2018-06-23] MEDS: OMEGA-3 ACID ETHYL ESTERS (FATTY-ACIDS) 1 GM CAPSULE (FP) PO SCH ×2 (11:48→22:12)
[2018-06-23] MEDS: DIGOXIN 0.125 MG TABLET (FP) PO SCH (11:48)
[2018-06-23] MEDS: POLYETHYLENE GLYCOL 3350 119 GM BTL PO SCH (11:49)
--- NOTE | 2018-06-23 11:53 | PN ---
Progress Note, Physician History of Present Illness: PULMONARY AWAKE, ON BIPAP,COMFORTABLE - Current Medication List Current Medications: Active Medications Albuterol Sulfate (Ventolin 0.083% Nebulizer Soln -) 1 amp NEB Q4H PRN PRN Reason: SHORT OF BREATH/WHEEZING Albuterol/Ipratropium (Duoneb -) 1 amp NEB RQID [facility] Last Admin: 06/23/18 08:15 Dose: 1 amp Ascorbic Acid (Vitamin C -) 500 mg PO DAILY [facility] Last Admin: 06/22/18 10:46 Dose: 500 mg Atorvastatin Calcium (Lipitor -) 10 mg PO HS [facility] Last Admin: 06/22/18 21:02 Dose: 10 mg Carbamazepine (Tegretol -) 200 mg PO HS [facility] Last Admin: 06/22/18 21:03 Dose: 200 mg Digoxin (Lanoxin -) 0.125 mg PO DAILY [facility] Last Admin: 06/22/18 10:46 Dose: 0.125 mg Docusate Sodium (Colace -) 100 mg PO TID [facility] Last Admin: 06/23/18 06:29 Dose: Not Given Donepezil HCl (Aricept -) 10 mg PO HS [facility] Last Admin: 06/22/18 21:02 Dose: 10 mg Heparin Sodium (Porcine) (Heparin -) 1,000 unit IVPUSH PRN PRN PRN Reason: Heparin Heparin Sodium (Porcine) (Heparin -) 5,000 unit IVPUSH PRN PRN PRN Reason: Heparin Heparin Sodium (Porcine) 25, (000 unit/ Sodium Chloride) 500 mls @ 20 mls/hr IV TITR RAMANA; Protocol Levothyroxine Sodium (Synthroid -) 50 mcg PO DAILY@0700 [facility] Last Admin: 06/23/18 06:29 Dose: Not Given Methylprednisolone Sodium Succinate (Solu-Medrol -) 40 mg IVPUSH Q8H-IV [facility] Last Admin: 06/23/18 02:20 Dose: 40 mg Wtrgd-9-Gxms Ethyl Esters (Lovaza -) 1 gm PO BID [facility] Last Admin: 06/22/18 21:13 Dose: Not Given Pantoprazole Sodium (Protonix -) 40 mg PO DAILY [facility] Last Admin: 06/22/18 10:46 Dose: 40 mg Polyethylene Glycol (Miralax (For Daily Use) -) 17 gm PO DAILY [facility] Last Admin: 06/22/18 13:15 Dose: 17 grams Senna (Senna -) 2 tab PO HS PRN PRN Reason: CONSTIPATION Last Admin: 06/20/18 23:27 Dose: 2 tab Torsemide (Demadex -) 20 mg PO DAILY [facility] Last Admin: 06/22/18 10:46 Dose: 20 mg - Objective Vital Signs: Vital Signs Temperature 97.3 F L 06/23/18 08:24 Pulse Rate 72 06/23/18 08:24 Respiratory Rate 18 06/23/18 08:24 Blood Pressure 113/71 06/23/18 08:24 O2 Sat by Pulse Oximetry (%) 96 06/23/18 08:14 Constitutional: Yes: Well Nourished, Calm Eyes: Yes: WNL HENT: Yes: WNL Neck: Yes: WNL Cardiovascular: Yes: Pulse Irregular, S1, S2 Respiratory: Yes: On BiPap, Rhonchi (few rhonchi) Gastrointestinal: Yes: Normal Bowel Sounds, Soft Extremities: Yes: WNL Edema: No Labs: CBC, BMP 06/23/18 05:30 06/23/18 05:30 INR, PTT INR 1.05 (0.83-1.09) 06/22/18 05:15 Assessment/Plan Problem List - Problems (1) Community acquired pneumonia Code(s): J18.9 - PNEUMONIA, UNSPECIFIED ORGANISM (2) Acute respiratory acidosis Code(s): E87.2 - ACIDOSIS (3) Acute respiratory failure with hypoxia and hypercarbia Code(s): J96.01 - ACUTE RESPIRATORY FAILURE WITH HYPOXIA; J96.02 - ACUTE RESPIRATORY FAILURE WITH HYPERCAPNIA (4) Aneurysm of right popliteal artery Code(s): I72.4 - ANEURYSM OF ARTERY OF LOWER EXTREMITY (5) COPD with acute exacerbation Code(s): J44.1 - CHRONIC OBSTRUCTIVE PULMONARY DISEASE W (ACUTE) EXACERBATION (6) Chronic respiratory acidosis Code(s): E87.2 - ACIDOSIS (7) Leg edema, right Code(s): R60.0 - LOCALIZED EDEMA (8) Right ventricular systolic dysfunction Code(s): I51.9 - HEART DISEASE, UNSPECIFIED (9) Atrial flutter Code(s): I48.92 - UNSPECIFIED ATRIAL FLUTTER Qualifiers: Atrial flutter type: unspecified Qualified Code(s): I48.92 - Unspecified atrial flutter (10) COPD (chronic obstructive pulmonary disease) Code(s): J44.9 - CHRONIC OBSTRUCTIVE PULMONARY DISEASE, UNSPECIFIED Qualifiers: COPD type: COPD with acute exacerbation Qualified Code(s): J44.1 - Chronic obstructive pulmonary disease with (acute) exacerbation (11) Chronic cor pulmonale Code(s): I27.81 - COR PULMONALE (CHRONIC) (12) Dementia Code(s): F03.90 - UNSPECIFIED DEMENTIA WITHOUT BEHAVIORAL DISTURBANCE Qualifiers: Dementia type: unspecified type Dementia behavioral disturbance: without behavioral disturbance Qualified Code(s): F03.90 - Unspecified dementia without behavioral disturbance (13) Hyperlipidemia Code(s): E78.5 - HYPERLIPIDEMIA, UNSPECIFIED Qualifiers: Hyperlipidemia type: unspecified Qualified Code(s): E78.5 - Hyperlipidemia , unspecified (14) Hypertension Code(s): I10 - ESSENTIAL (PRIMARY) HYPERTENSION Qualifiers: Hypertension type: essential hypertension Qualified Code(s): I10 - Essential (primary) hypertension (15) Hypothyroidism Code(s): E03.9 - HYPOTHYROIDISM, UNSPECIFIED Qualifiers: Hypothyroidism type: unspecified Qualified Code(s): E03.9 - Hypothyroidism , unspecified (16) Obstructive sleep apnea Code(s): G47.33 - OBSTRUCTIVE SLEEP APNEA (ADULT) (PEDIATRIC) (17) Pulmonary hypertension Code(s): I27.2 - OTHER SECONDARY PULMONARY HYPERTENSION * DO NOT USE * Assessment/Plan RLL PNA SEVERE PULMONARY HTN AFIB COPD CHRONIC HYPOXEMIC RESPIRATORY FAILURE OSAS POPLITEAL ANEURYSM Steroids NC O2 as tolerated lasix NIPPV QHS and PRN No smoking discussed AC BD TX standing and PRN monitor pulse ox no pulmonary contraindications for endovascular repair endovascular repair DR SOLO Problem List - Problems (1) Community acquired pneumonia Code(s): J18.9 - PNEUMONIA, UNSPECIFIED ORGANISM (2) Acute respiratory acidosis Code(s): E87.2 - ACIDOSIS (3) Acute respiratory failure with hypoxia and hypercarbia Code(s): J96.01 - ACUTE RESPIRATORY FAILURE WITH HYPOXIA; J96.02 - ACUTE RESPIRATORY FAILURE WITH HYPERCAPNIA (4) Aneurysm of right popliteal artery Code(s): I72.4 - ANEURYSM OF ARTERY OF LOWER EXTREMITY (5) COPD with acute exacerbation Code(s): J44.1 - CHRONIC OBSTRUCTIVE PULMONARY DISEASE W (ACUTE) EXACERBATION (6) Chronic respiratory acidosis Code(s): E87.2 - ACIDOSIS (7) Leg edema, right Code(s): R60.0 - LOCALIZED EDEMA (8) Right ventricular systolic dysfunction Code(s): I51.9 - HEART DISEASE, UNSPECIFIED (9) Atrial flutter Code(s): I48.92 - UNSPECIFIED ATRIAL FLUTTER Qualifiers: Atrial flutter type: unspecified Qualified Code(s): I48.92 - Unspecified atrial flutter (10) COPD (chronic obstructive pulmonary disease) Code(s): J44.9 - CHRONIC OBSTRUCTIVE PULMONARY DISEASE, UNSPECIFIED Qualifiers: COPD type: COPD with acute exacerbation Qualified Code(s): J44.1 - Chronic obstructive pulmonary disease with (acute) exacerbation (11) Chronic cor pulmonale Code(s): I27.81 - COR PULMONALE (CHRONIC) (12) Dementia Code(s): F03.90 - UNSPECIFIED DEMENTIA WITHOUT BEHAVIORAL DISTURBANCE Qualifiers: Dementia type: unspecified type Dementia behavioral disturbance: without behavioral disturbance Qualified Code(s): F03.90 - Unspecified dementia without behavioral disturbance (13) Hyperlipidemia Code(s): E78.5 - HYPERLIPIDEMIA, UNSPECIFIED Qualifiers: Hyperlipidemia type: unspecified Qualified Code(s): E78.5 - Hyperlipidemia , unspecified (14) Hypertension Code(s): I10 - ESSENTIAL (PRIMARY) HYPERTENSION Qualifiers: Hypertension type: essential hypertension Qualified Code(s): I10 - Essential (primary) hypertension (15) Hypothyroidism Code(s): E03.9 - HYPOTHYROIDISM, UNSPECIFIED Qualifiers: Hypothyroidism type: unspecified Qualified Code(s): E03.9 - Hypothyroidism , unspecified (16) Obstructive sleep apnea Code(s): G47.33 - OBSTRUCTIVE SLEEP APNEA (ADULT) (PEDIATRIC) (17) Pulmonary hypertension Code(s): I27.2 - OTHER SECONDARY PULMONARY HYPERTENSION * DO NOT USE *
[2018-06-23] MEDS: DONEPEZIL HCL 10 MG TABLET (FP) PO SCH (22:11)
[2018-06-23] MEDS: ATORVASTATIN CA 10 MG TABLET (FP) PO SCH (22:11)
[2018-06-23] MEDS: carBAMazepine 200 MG TABLET PO SCH (22:12)
[2018-06-24] MEDS: methylPREDNISolone NA SUCC 40 MG/1 ML VIAL IVPUSH SCH ×3 (02:49→21:29)
[2018-06-24] MEDS: LEVOTHYROXINE NA 50 MCG TABLET (FP) PO SCH (06:52)
[2018-06-24] MEDS: DOCUSATE SODIUM 100 MG CAPSULE (FP) PO SCH ×4 (06:52→22:13)
[2018-06-24 07:03] LABS: HEMOGLOBIN 16.9 GM/dL (11.7-16.9); MCH 33.9 pg (25.7-33.7); MEAN CELL VOLUME 102.8 fl (80-96); MEAN PLT VOLUME 7.6 fl (7.5-11.1); PLATELET COUNT 146 K/MM3 (134-434); RBC 4.96 M/mm3 (4.00-5.60); RDW 14.4 % (11.9-15.9); WHITE BLOOD COUNT 8.4 K/mm3 (4.0-10.0)
[2018-06-24] MEDS: ALBUTEROL SO4 2.5/IPRATROPIUM 0.5 INH SOL 3 ML VIAL.NEB. NEB SCH ×4 (07:15→21:20)
--- NOTE | 2018-06-24 07:51 | PN ---
Physical Exam: SUBJECTIVE: Patient seen and examined 24 HR EVENTS -PT for peripheral angio of right popliteal artery aneurysm today -pt has no complaints post-op OBJECTIVE: Vital Signs Period Temp Pulse Resp BP Sys/Raya Pulse Ox Last 24 Hr 97.3 F-97.9 F 57-80 18-20 113-142/71-82 93-98 GENERAL: awake, somnolent, in no acute distress. HEAD: Normal with no signs of trauma. EYES: PERRL, sclera anicteric, conjunctiva clear. + ptosis. ENT: nares patent, oropharynx clear without exudates, moist mucous membranes. NECK: Trachea midline, full range of motion, supple. LUNGS: Breath sounds equal coarse BS, no wheezes, no crackles, no accessory muscle use. HEART: Regular rate and rhythm, S1, S2 without murmur, rub or gallop. ABDOMEN: Soft, nontender, nondistended, normoactive bowel sounds, no guarding, no rebound EXTREMITIES: Left groin with clean dry dressing, +2 femoral b/l, +1 Left DP/PT, +1 Right PT/non-palp DP. warm, well-perfused, no edema. MSK: normal muscle strength, decreased tone NEUROLOGICAL: forgetful, slow speech, PSYCH: Normal mood, normal affect. SKIN: Warm, dry, normal turgor, no rashes or lesions noted Laboratory Results - last 24 hr 06/23/18 20:10 PTT (Actin FS) 58.9 H Active Medications Generic Name Dose Route Start Last Admin Trade Name Freq PRN Reason Stop Dose Admin Albuterol Sulfate 1 amp 06/22/18 15:04 Ventolin 0.083% Nebulizer Soln - NEB Q4H PRN SHORT OF BREATH/WHEEZING Albuterol/Ipratropium 1 amp 06/22/18 16:00 06/23/18 21:01 Duoneb - NEB 1 amp RQID RAMANA Administration Ascorbic Acid 500 mg 06/13/18 10:00 06/23/18 11:48 Vitamin C - PO 500 mg DAILY RAMANA Administration Atorvastatin Calcium 10 mg 06/13/18 22:00 06/23/18 22:11 Lipitor - PO 10 mg HS RAMANA Administration Carbamazepine 200 mg 06/13/18 22:00 06/23/18 22:12 Tegretol - PO 200 mg HS RAMANA Administration Digoxin 0.125 mg 06/13/18 10:00 06/23/18 11:48 Lanoxin - PO 0.125 mg DAILY RAMANA Administration Docusate Sodium 100 mg 06/19/18 14:00 06/24/18 06:52 Colace - PO Not Given TID RAMANA Donepezil HCl 10 mg 06/13/18 22:00 06/23/18 22:11 Aricept - PO 10 mg HS RAMANA Administration Heparin Sodium (Porcine) 1,000 unit 06/23/18 11:02 Heparin - IVPUSH PRN PRN Heparin Heparin Sodium (Porcine) 5,000 unit 06/23/18 10:57 Heparin - IVPUSH PRN PRN Heparin Heparin Sodium (Porcine) 25, 500 mls @ 20 mls/hr 06/23/18 11:00 06/23/18 13: 39 000 unit/ Sodium Chloride IV 1,000 unit/hr TITR RAMANA 20 mls/hr Administration Protocol 1,000 UNIT/HR Levothyroxine Sodium 50 mcg 06/13/18 07:00 06/24/18 06:52 Synthroid - PO 50 mcg DAILY@0700 RAMANA Administration Methylprednisolone Sodium Succinate 40 mg 06/19/18 10:00 06/24/18 02:49 Solu-Medrol - IVPUSH 40 mg Q8H-IV RAMANA Administration [id number]-7-[id number] Ethyl Esters 1 gm 06/13/18 10:00 06/23/18 22:12 Lovaza - PO Not Given BID RAMANA Pantoprazole Sodium 40 mg 06/17/18 10:00 06/23/18 11:48 Protonix - PO 40 mg DAILY RAMANA Administration Polyethylene Glycol 17 gm 06/19/18 13:15 06/23/18 11:49 Miralax (For Daily Use) - PO 17 grams DAILY RAMANA Administration Senna 2 tab 06/14/18 19:55 06/20/18 23:27 Senna - PO 2 tab HS PRN Administration CONSTIPATION Torsemide 20 mg 06/21/18 12:00 06/23/18 11:50 Demadex - PO 20 mg DAILY RAMANA Administration ASSESSMENT/PLAN: 83 year old man with a history of COPD, chronic hypoxic respiratory failure, pulmonary HTN, hyperlipidemia, right-sided heart failure, atrial fib/flutter, hypothyroidism, dementia, depression, MICHAEL who presented to the ED with SOB and leg swelling, and found to have bilateral popliteal artery aneurysm and COPD exacerbation. COPD exacerbation has improved after intensive management and pt is now s/p Right popliteal artery stent graft with angioplasty. Problem List - Problems (1) Aneurysm of right popliteal artery Assessment/Plan: s/p Right popliteal artery stent graft with angioplasty franklyn restarted post-op Code(s): I72.4 - ANEURYSM OF ARTERY OF LOWER EXTREMITY (2) COPD with acute exacerbation Assessment/Plan: -SoluMedrol 40mg decreased to BID - DuoNeb, albuterol as needed - Continue oxygen to maintain saturation >90% - Continue BiPAP overnight and as needed Code(s): J44.1 - CHRONIC OBSTRUCTIVE PULMONARY DISEASE W (ACUTE) EXACERBATION (3) Dementia Assessment/Plan: frequent reorientation Continue Aricept Code(s): F03.90 - UNSPECIFIED DEMENTIA WITHOUT BEHAVIORAL DISTURBANCE Qualifiers: Dementia type: unspecified type Dementia behavioral disturbance: without behavioral disturbance Qualified Code(s): F03.90 - Unspecified dementia without behavioral disturbance (4) Hyperlipidemia Assessment/Plan: - Continue Lipitor, Lovaza Code(s): E78.5 - HYPERLIPIDEMIA, UNSPECIFIED Qualifiers: Hyperlipidemia type: unspecified Qualified Code(s): E78.5 - Hyperlipidemia , unspecified (5) Hypothyroidism Assessment/Plan: -synthroid 50mcg daily Code(s): E03.9 - HYPOTHYROIDISM, UNSPECIFIED Qualifiers: Hypothyroidism type: unspecified Qualified Code(s): E03.9 - Hypothyroidism , unspecified (6) Obstructive sleep apnea Assessment/Plan: BIPAP qhs Code(s): G47.33 - OBSTRUCTIVE SLEEP APNEA (ADULT) (PEDIATRIC) (7) Systolic heart failure Assessment/Plan: torsemide 20mg daily Code(s): I50.20 - UNSPECIFIED SYSTOLIC (CONGESTIVE) HEART FAILURE (8) Atrial flutter Assessment/Plan: -Continue Digoxin 0.125mg -therapeutic dig level on 06/24 Code(s): I48.92 - UNSPECIFIED ATRIAL FLUTTER Qualifiers: Atrial flutter type: unspecified Qualified Code(s): I48.92 - Unspecified atrial flutter (9) Depression Assessment/Plan: - Continue Tegretol Code(s): F32.9 - MAJOR DEPRESSIVE DISORDER, SINGLE EPISODE, UNSPECIFIED Qualifiers: Depression Type: unspecified Qualified Code(s): F32.9 - Major depressive disorder, single episode, unspecified Visit type - Emergency Visit Emergency Visit: Yes ED Registration Date: 06/12/18 Care time: The patient presented to the Emergency Department on the above date and was hospitalized for further evaluation of their emergent condition. - New Patient This patient is new to me today: No - Critical Care Critical Care patient: No - Discharge Referral Referred to [facility] No
[2018-06-24 08:46] LABS: ALBUMIN 3.1 g/dl (3.4-5.0); ALK PHOS 66 U/L (45-117); ANION GAP 9 MMOL/L (8-16); BILIRUBIN,TOTAL 1.2 mg/dL (0.2-1); BLOOD UREA NITROGEN 75 mg/dL (7-18); CALCIUM 9.1 mg/dL (8.5-10.1); CHLORIDE 88 mmol/L (98-107); CO2 42 mmol/L (21-32); CREATININE 1.7 mg/dL (0.55-1.3); GLUCOSE,RANDOM 126 mg/dL (74-106); POTASSIUM 3.5 mmol/L (3.5-5.1); SGOT/AST 26 U/L (15-37); SGPT/ALT 30 U/L (13-61); SODIUM 138 mmol/L (136-145)
[2018-06-24] MEDS: DIGOXIN 0.125 MG TABLET (FP) PO SCH (09:53)
[2018-06-24] MEDS: TORSEMIDE 20 MG TABLET (FP) PO SCH (09:54)
[2018-06-24] MEDS: OMEGA-3 ACID ETHYL ESTERS (FATTY-ACIDS) 1 GM CAPSULE (FP) PO SCH ×3 (09:55→22:13)
[2018-06-24] MEDS: PANTOPRAZOLE 40 MG TABLET (FP) PO SCH (09:55)
[2018-06-24] MEDS: POLYETHYLENE GLYCOL 3350 119 GM BTL PO SCH (09:55)
[2018-06-24] MEDS ORDERED: HEPARIN NA (PORCINE) 5,000 UNITS/ML 1ML VIAL ONE (10:47)
[2018-06-24] MEDS ORDERED: LIDOCAINE HCL 1%, 10 MG/ML (20ML VIAL) ONE (10:47)
[2018-06-24] MEDS ORDERED: fentaNYL CITRATE 250 MCG/5 ML VIAL ONE (11:30)
[2018-06-24] MEDS ORDERED: MIDAZOLAM HCL 2 MG/2 ML SINGLE DOSE VIAL ONE (11:30)
[2018-06-24] MEDS ORDERED: ceFAZolin SODIUM 1 GM VIAL IVPB ONE (11:35)
[2018-06-24] MEDS ORDERED: KETOROLAC TROMETHAMINE 30 MG/1 ML VIAL ONE (11:41)
[2018-06-24] MEDS ORDERED: DEXAMETHASONE SOD PHOSPHATE 4 MG/1 ML VIAL ONE (11:42)
[2018-06-24] MEDS ORDERED: ceFAZolin SODIUM 1 GM VIAL ONE (11:42)
[2018-06-24] MEDS ORDERED: LIDOCAINE HCL 1%, 10 MG/ML (50 mL VIAL) IJ ONE (11:53)
--- NOTE | 2018-06-24 12:51 | OP ---
Operative Note - Note: Operative Date: 06/24/18 Pre-Operative Diagnosis: right poplteal Artery Aneruysm Operation: Aortogram, RLE angiogram, Right popliteal artery stent graft with angioplasty Findings: 3.3 cm popliteal artery aneurysm Post-Operative Diagnosis: Same as Pre-op Anesthesia: Fractional Estimated Blood Loss (mls): 50 Operative Report Dictated: Yes
[2018-06-24] MEDS ORDERED: SENNOSIDES 8.6MG TABLET (FP) PO PRN (13:13)
[2018-06-24] MEDS ORDERED: ALBUTEROL SO4 0.083% IH SOL 2.5 MG/3 ML VIAL.NEB. NEB PRN (13:13)
[2018-06-24] MEDS: APIXABAN 2.5 MG TABLET PO SCH ×3 (14:22→22:13)
[2018-06-24] MEDS: LACTATED RINGERS SOLUTION 1000 ML INFUS.BAG IV SCH (14:22)
[2018-06-24] MEDS ORDERED: methylPREDNISolone NA SUCC 40 MG/1 ML VIAL IVPUSH SCH (18:00)
[2018-06-24] MEDS: DONEPEZIL HCL 10 MG TABLET (FP) PO SCH ×2 (21:29→22:13)
[2018-06-24] MEDS: carBAMazepine 200 MG TABLET PO SCH ×2 (21:30→22:13)
[2018-06-24] MEDS: ATORVASTATIN CA 10 MG TABLET (FP) PO SCH ×2 (21:30→22:13)
[2018-06-24] MEDS ORDERED: ACETAMINOPHEN 1000 MG/100 ML VIAL (NON FORMULARY) IVPB ONE (22:46)
[2018-06-25] MEDS: DOCUSATE SODIUM 100 MG CAPSULE (FP) PO SCH ×3 (06:14→22:24)
[2018-06-25] MEDS: LEVOTHYROXINE NA 50 MCG TABLET (FP) PO SCH (06:14)
[2018-06-25 07:52] LABS: HEMATOCRIT 48.6 % (35.4-49); MEAN CELL VOLUME 103.1 fl (80-96); MEAN PLT VOLUME 7.9 fl (7.5-11.1); PLATELET COUNT 143 K/MM3 (134-434); RBC 4.71 M/mm3 (4.00-5.60); RDW 14.7 % (11.9-15.9); WHITE BLOOD COUNT 8.8 K/mm3 (4.0-10.0)
--- NOTE | 2018-06-25 08:07 | PN ---
Progress Note (short form) - Note Progress Note: POD1 s/p angiogram and stent under MAC. Doing well, no anesthetic issues/ complications
[2018-06-25 08:15] LABS: ALBUMIN 2.9 g/dl (3.4-5.0); ALK PHOS 60 U/L (45-117); ANION GAP 4 MMOL/L (8-16); BILIRUBIN,TOTAL 1.3 mg/dL (0.2-1); BLOOD UREA NITROGEN 72 mg/dL (7-18); CALCIUM 8.8 mg/dL (8.5-10.1); CHLORIDE 93 mmol/L (98-107); CO2 41 mmol/L (21-32); CREATININE 1.6 mg/dL (0.55-1.3); GLUCOSE,RANDOM 107 mg/dL (74-106); POTASSIUM 4.5 mmol/L (3.5-5.1); SGOT/AST 28 U/L (15-37); SGPT/ALT 23 U/L (13-61); SODIUM 139 mmol/L (136-145); TOT PROT 6.1 g/dl (6.4-8.2)
[2018-06-25] MEDS: ALBUTEROL SO4 2.5/IPRATROPIUM 0.5 INH SOL 3 ML VIAL.NEB. NEB SCH ×4 (08:39→20:50)
--- NOTE | 2018-06-25 09:18 | PN ---
Progress Note (short form) - Note Progress Note: POD 1, s/p Aortogram, RLE angiogram, Right popliteal artery stent graft with angioplasty Pt seen and examined. States he is feeling "okay" this morning. Reports some pain in RLE and groin. Tolerating PO. No issues overnight. Denies cp/sob. Vital Signs Temp 97.5 F L 06/25/18 08:14 Pulse 48 L 06/25/18 08:14 Resp 20 06/25/18 08:14 BP 139/83 06/25/18 08:14 Pulse Ox 100 06/24/18 23:36 Intake & Output 06/24/18 06/24/18 06/25/18 11:59 23:59 11:59 Intake Total 1190 300 100 Output Total 30 Balance 1160 300 100 Intake: IV 1070 200 Heparin - 25,000 Unit In 240 Normal Saline - 495 ml @ 1,000 UNIT/HR 20 mls/hr IV TITR RAMANA Rx#: [id number] saline 30 IVPB 100 Oral 120 100 Output: Estimated Blood Loss 30 Other: Voiding Method Incontinent Diaper # Unmeasured Voids Void 2 Bowel Movement No Yes # Bowel Movements 1 CBC, BMP 06/25/18 07:00 06/25/18 07:00 Gen: awake, alert, nad Resp: Unlabored on 3.5L NC Groin: L groin with small hematoma. no ecchymosis. Vasc: 2+ fem b/l, 2+ pop R, 3+ pop L, palpable dp on L, 2+ pt b/l. SILT b.l le's , feet warm, wiggles toes, no visible ischemia to toes. A/P: 83 y/o M w/ PMHx COPD 2LNC at home, Pulm HTN, HLD, Right Sided CHF, Atrial Flutter (on Eliquis) Hypothyroidism, Dementia, Depression, MICHAEL admitted 06/12 with cough/sob, found to have b/l pop aneurysms (L 1.5cm, R 3.3cm) now POD 1, s/p Aortogram, RLE angiogram, Right popliteal artery stent graft with angioplasty. Stable post op. Creatinine stable. Vasc exam intact -Care per primary team -Pt should f/u with Dr Diaz upon d/c d/w attending Dr Diaz
[2018-06-25] MEDS ORDERED: PT OWN MED DRAWER 7, Y5N ONE (09:42)
--- NOTE | 2018-06-25 10:09 | OP ---
DATE OF OPERATION: 06/24/2018 PREOPERATIVE DIAGNOSIS: Right popliteal artery aneurysm. POSTOPERATIVE DIAGNOSIS: Right popliteal artery aneurysm. PROCEDURE: Aortogram, right lower extremity angiogram, right popliteal artery stent graft with angioplasty. SURGEON: Devon Cotto MD ANESTHESIA: Fractional. BLOOD LOSS: 50 mL. FINDINGS: Right popliteal artery 3.3 cm aneurysm. INDICATIONS: The patient is an 83-year-old male who has had a CTA done showing that he has a right popliteal artery aneurysm that is 3.3 cm with thrombus. It was decided that he would need to have it repaired. Patients family was consented for the procedure understanding all risks, benefits, and alternatives. . PROCEDURE IN DETAIL: Patient was then taken to the operating room, laid out on the operating table in the supine manner. The areas of the left and right groin were prepped and draped in the sterile surgical manner. We then went injected 10 mL of lidocaine 1% over the left common femoral artery. We then took our micropuncture needle and punctured the left common femoral artery. A micropuncture wire inserted. Micropuncture sheath was inserted, and a traditional 5-Amharic sheath was inserted. We then placed a 0.035 floppy guidewire up into the aorta followed by an Omni Flush catheter. We then shot an aortogram via hand injection showing that the aorta and the iliac arteries were without any disease. We then went up and over using a 0.035 floppy guidewire and placed our Omni Flush catheter followed to the right common femoral artery. We then shot an angiogram of the right lower extremity showing that the common femoral artery, the profunda, and the SFA were patent, but the popliteal artery above the knee had a 3.3-cm popliteal artery aneurysm. Patient had 1-vessel run-off in the form of PT. At this point, we placed a 7 x 45 crossover sheath, 5000 units of IV heparin were administered to the patient. We then placed a 0.035 floppy guidewire down to the aneurysm site and exchanged a wire for a 0.014 wire. We then used a 7 x 75 Viabahn Stent Graft, and we were able to cover our aneurysmal site in the popliteal artery. The stent was deployed. We then went ahead and used a 6 x 4 Ultraverse Balloon and ballooned the stent in place. The completion angiogram now showed that the stent graft was in place. There was no migration of the stent, and aneurysm site was excluded. At this point, we brought our sheath up and over, StarClose device was successfully deployed in the left common femoral artery. Pressure was held for 5 minutes. After there was no more bleeding, area was wet and dried, and Dermabond was placed. The patient tolerated the procedure with no complications. Patient transferred to PACU in stable condition. During the case, the contrast was diluted to a third due to patient having renal insufficiency. Patient did well. Patient has a palpable PT pulse in PACU, and patient will now be anticoagulated on Eliquis due to his atrial fibrillation. DEVON COTTO DO [id number]
[2018-06-25] MEDS: TORSEMIDE 20 MG TABLET (FP) PO SCH (10:30)
[2018-06-25] MEDS: DIGOXIN 0.125 MG TABLET (FP) PO SCH (10:30)
[2018-06-25] MEDS: ASCORBIC ACID 500 MG TABLET (FP) PO SCH (10:30)
[2018-06-25] MEDS: methylPREDNISolone NA SUCC 40 MG/1 ML VIAL IVPUSH SCH ×2 (10:31→22:24)
[2018-06-25] MEDS: OMEGA-3 ACID ETHYL ESTERS (FATTY-ACIDS) 1 GM CAPSULE (FP) PO SCH ×2 (10:31→22:24)
[2018-06-25] MEDS: APIXABAN 2.5 MG TABLET PO SCH ×2 (10:31→22:24)
[2018-06-25] MEDS: PANTOPRAZOLE 40 MG TABLET (FP) PO SCH (11:54)
--- NOTE | 2018-06-25 12:19 | PN ---
Progress Note (short form) - Note Progress Note: PULMONARY EATING LUNCH APPEARS STABLE VSS Constitutional: Yes: Well Nourished, Calm Eyes: Yes: WNL HENT: Yes: WNL Neck: Yes: WNL Cardiovascular: Yes: Pulse Irregular, S1, S2 Respiratory: Yes: On BiPap, Rhonchi (few rhonchi) Gastrointestinal: Yes: Normal Bowel Sounds, Soft Extremities: Yes: WNL Edema: No Labs: reviewed Problem List - Problems (1) Community acquired pneumonia Code(s): J18.9 - PNEUMONIA, UNSPECIFIED ORGANISM (2) Acute respiratory acidosis Code(s): E87.2 - ACIDOSIS (3) Acute respiratory failure with hypoxia and hypercarbia Code(s): J96.01 - ACUTE RESPIRATORY FAILURE WITH HYPOXIA; J96.02 - ACUTE RESPIRATORY FAILURE WITH HYPERCAPNIA (4) Aneurysm of right popliteal artery Code(s): I72.4 - ANEURYSM OF ARTERY OF LOWER EXTREMITY (5) COPD with acute exacerbation Code(s): J44.1 - CHRONIC OBSTRUCTIVE PULMONARY DISEASE W (ACUTE) EXACERBATION (6) Chronic respiratory acidosis Code(s): E87.2 - ACIDOSIS (7) Leg edema, right Code(s): R60.0 - LOCALIZED EDEMA (8) Right ventricular systolic dysfunction Code(s): I51.9 - HEART DISEASE, UNSPECIFIED (9) Atrial flutter Code(s): I48.92 - UNSPECIFIED ATRIAL FLUTTER Qualifiers: Atrial flutter type: unspecified Qualified Code(s): I48.92 - Unspecified atrial flutter (10) COPD (chronic obstructive pulmonary disease) Code(s): J44.9 - CHRONIC OBSTRUCTIVE PULMONARY DISEASE, UNSPECIFIED Qualifiers: COPD type: COPD with acute exacerbation Qualified Code(s): J44.1 - Chronic obstructive pulmonary disease with (acute) exacerbation (11) Chronic cor pulmonale Code(s): I27.81 - COR PULMONALE (CHRONIC) (12) Dementia Code(s): F03.90 - UNSPECIFIED DEMENTIA WITHOUT BEHAVIORAL DISTURBANCE Qualifiers: Dementia type: unspecified type Dementia behavioral disturbance: without behavioral disturbance Qualified Code(s): F03.90 - Unspecified dementia without behavioral disturbance (13) Hyperlipidemia Code(s): E78.5 - HYPERLIPIDEMIA, UNSPECIFIED Qualifiers: Hyperlipidemia type: unspecified Qualified Code(s): E78.5 - Hyperlipidemia , unspecified (14) Hypertension Code(s): I10 - ESSENTIAL (PRIMARY) HYPERTENSION Qualifiers: Hypertension type: essential hypertension Qualified Code(s): I10 - Essential (primary) hypertension (15) Hypothyroidism Code(s): E03.9 - HYPOTHYROIDISM, UNSPECIFIED Qualifiers: Hypothyroidism type: unspecified Qualified Code(s): E03.9 - Hypothyroidism , unspecified (16) Obstructive sleep apnea Code(s): G47.33 - OBSTRUCTIVE SLEEP APNEA (ADULT) (PEDIATRIC) (17) Pulmonary hypertension Code(s): I27.2 - OTHER SECONDARY PULMONARY HYPERTENSION * DO NOT USE * RLL PNA SEVERE PULMONARY HTN AFIB COPD CHRONIC HYPOXEMIC RESPIRATORY FAILURE OSAS POPLITEAL ANEURYSM Steroids NC O2 as tolerated lasix NIPPV QHS and PRN No smoking discussed AC BD TX standing and PRN monitor pulse ox Alexei CLAUDIO MD
[2018-06-25] MEDS: POLYETHYLENE GLYCOL 3350 119 GM BTL PO SCH (13:39)
--- NOTE | 2018-06-25 14:09 | DS ---
Physical Exam: SUBJECTIVE: Patient seen and examined OBJECTIVE: Vital Signs Period Temp Pulse Resp BP Sys/Raya Pulse Ox Last 24 Hr 97.5 F-98.3 F 48-69 20-20 129-174/71-95 98-100 PHYSICAL EXAM GENERAL: The patient is awake, alert, and fully oriented, in no acute distress. HEAD: Normal with no signs of trauma. EYES: PERRL, extraocular movements intact, sclera anicteric, conjunctiva clear. ENT: Ears normal, nares patent, oropharynx clear without exudates, moist mucous membranes. NECK: Trachea midline, full range of motion, supple. LUNGS: Breath sounds equal, clear to auscultation bilaterally, no wheezes, no crackles, no accessory muscle use. HEART: Regular rate and rhythm, S1, S2 without murmur, rub or gallop. ABDOMEN: Soft, nontender, nondistended, normoactive bowel sounds, no guarding, no rebound, no hepatosplenomegaly, no masses. EXTREMITIES: 2+ pulses, warm, well-perfused, no edema. NEUROLOGICAL: Cranial nerves II through XII grossly intact. Normal speech, gait not observed. PSYCH: Normal mood, normal affect. SKIN: Warm, dry, normal turgor, no rashes or lesions noted. LABS Laboratory Results - last 24 hr 06/25/18 06/25/18 06/25/18 07:00 07:00 07:00 WBC 8.8 RBC 4.71 Hgb 16.0 Hct 48.6 MCV 103.1 H MCH 34.0 H MCHC 33.0 RDW 14.7 Plt Count 143 MPV 7.9 PTT (Actin FS) 26.8 Sodium 139 Potassium 4.5 Chloride 93 L Carbon Dioxide 41 H Anion Gap 4 L BUN 72 H Creatinine 1.6 H Creat Clearance w eGFR 41.49 Random Glucose 107 H Calcium 8.8 Total Bilirubin 1.3 H AST 28 ALT 23 Alkaline Phosphatase 60 Total Protein 6.1 L Albumin 2.9 L HOSPITAL COURSE: Date of Admission:06/12/18 Date of Discharge: 06/25/18 Minutes to complete discharge: 40 Discharge Summary Reason For Visit: COPD EXACERBATION/CHF Current Active Problems Acute respiratory acidosis (Acute) Acute respiratory failure with hypoxia and hypercarbia (Acute) Aneurysm of right popliteal artery (Acute) CHF exacerbation (Acute) COPD with acute exacerbation (Acute) Chronic respiratory acidosis (Acute) Community acquired pneumonia (Acute) Leg edema, right (Acute) Right ventricular systolic dysfunction (Acute) Systolic heart failure (Acute) Condition: Guarded - Instructions Diet, Activity, Other Instructions: You were admitted due to exacerbation of your COPD and Right sided Pneumonia. You were treated with steroids and antibiotics and improved. You should have a repeat CXR in 4-6 weeks to ensure your pneumonia has cleared. You were also found to have a Right popliteal artery aneurysm and a stent was placed Continue to use Bipap at bedtime Your home medications were changed. refer to medication list Resume a low salt diet Follow up with your primary care doctor in 1 week follow up with pulmonary and vascular surgery in 2 weeks Return to the hospital if your breathing worsens or develop fever (temp >101). Referrals: Sarkis Campos MD [Staff Physician] - Devon Diaz DO [Staff Physician] - Wyatt Abdi MD [Staff Physician] - Disposition: ASSISTED FACILITY - Home Medications Comprehensive Discharge Medication List: Ambulatory Orders Ziprasidone [Geodon -] 80 mg PO HS 10/28/11 Levalbuterol HCl [Xopenex] 1.25 mg IH Q4H PRN 02/14/15 Metoprolol Succinate 25 mg PO 1 and 1/2 DAILY 11/30/15 Torsemide 20 mg PO DAILY tablet 02/29/16 Ascorbic Acid [Vitamin C] 500 mg PO DAILY capsule 06/05/16 Cholecalciferol (Vitamin D3) [Vitamin D3] 2,000 unit PO DAILY capsule 06/05/16 Carbamazepine 200 mg PO HS 06/12/18 Apixaban [Eliquis -] 2.5 mg PO BID tablet 06/25/18 Mcdowell-3 Acid Ethyl Esters [Lovaza -] 1 gm PO BID cap 06/25/18 Pantoprazole Sodium [Protonix -] 40 mg PO DAILY tablet.ec 06/25/18 Sennosides [Senna -] 2 tab PO HS PRN tablet 06/25/18 - Discharge Referral Referred to [facility] No
[2018-06-25] MEDS: LACTATED RINGERS SOLUTION 1000 ML INFUS.BAG IV SCH (15:25)
--- NOTE | 2018-06-25 16:28 | PN ---
Progress Note (short form) - Note Progress Note: s: sable dyspnea. no cp, palps, dizziness Current Medications Albuterol Sulfate (Ventolin 0.083% Nebulizer Soln -) 1 amp NEB Q4H PRN PRN Reason: SHORT OF BREATH/WHEEZING Albuterol/Ipratropium (Duoneb -) 1 amp NEB RQID [facility] Last Admin: 06/25/18 15:33 Dose: 1 amp Apixaban (Eliquis -) 2.5 mg PO BID [facility] Last Admin: 06/25/18 10:31 Dose: 2.5 mg Ascorbic Acid (Vitamin C -) 500 mg PO DAILY [facility] Last Admin: 06/25/18 10:30 Dose: 500 mg Atorvastatin Calcium (Lipitor -) 10 mg PO HS [facility] Last Admin: 06/24/18 22:13 Dose: Not Given Carbamazepine (Tegretol -) 200 mg PO HS [facility] Last Admin: 06/24/18 22:13 Dose: Not Given Digoxin (Lanoxin -) 0.125 mg PO DAILY [facility] Last Admin: 06/25/18 10:30 Dose: 0.125 mg Docusate Sodium (Colace -) 100 mg PO TID [facility] Last Admin: 06/25/18 13:41 Dose: 100 mg Donepezil HCl (Aricept -) 10 mg PO HS [facility] Last Admin: 06/24/18 22:13 Dose: Not Given Levothyroxine Sodium (Synthroid -) 50 mcg PO DAILY@0700 [facility] Last Admin: 06/25/18 06:14 Dose: 50 mcg Methylprednisolone Sodium Succinate (Solu-Medrol -) 40 mg IVPUSH BID [facility] Last Admin: 06/25/18 10:31 Dose: 40 mg [id number]-[id number] Ethyl Esters (Lovaza -) 1 gm PO BID [facility] Last Admin: 06/25/18 10:31 Dose: 1 gm Pantoprazole Sodium (Protonix -) 40 mg PO DAILY [facility] Polyethylene Glycol (Miralax (For Daily Use) -) 17 gm PO DAILY [facility] Last Admin: 06/25/18 13:39 Dose: 17 gm Senna (Senna -) 2 tab PO HS PRN PRN Reason: CONSTIPATION Torsemide (Demadex -) 20 mg PO DAILY [facility] Last Admin: 06/25/18 10:30 Dose: 20 mg Vital Signs Period Temp Pulse Resp BP Sys/Raya Pulse Ox Last 24 Hr 97.5 F-98.3 F 48-74 20-20 117-174/62-95 98-100 Constitutional: Yes: No Distress, Calm Eyes: No: Sclera Icterus HENT: No: Nasal Congestion Cardiovascular: Yes: Pulse Irregular, S1, S2, Other (PMI non diplaced). No: JVD , Gallop, Murmur Respiratory: Yes: CTA Bilaterally (very decr diffusely). No: Accessory Muscle Use, Rales, Wheezes Gastrointestinal: Yes: Normal Bowel Sounds, Soft. No: Tenderness Musculoskeletal: Yes: Other (No kyphosis) Extremities: No: Cold, Cyanosis Edema: No Integumentary: No: Jaundice Neurological: Yes: Alert. No: Seizure Psychiatric: No: Agitated Assessment/Plan Pharm nuc stress 05/03/15: Afib with RVR. Asx. No ischemic changes. Nl perf. Nl EF. 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 06/20: cont torsemide 40 bid, monitor Cr, lytes, daily standing weights. -06/21: bun/creat trending up, weights very variable, neck veins flat--pt likely overdiuresed/hypovolemic. change torsemide 40 bid to 20 qd, observe for LE edema (reliably his HF sx). -06/22-, 06/25: BUN/Cr stable continue torsemide 20 mg daliy Atrial fibrillation. -rate ok, cont digoxin as doing (level good) -on metoprolol at home as well, which he has tolerated well--held here and HR good, observe. defer CCB to avoid exacerbating RV contractility issues -was on heparin gtt preop, eliquis restarted popliteal artery aneurysm - s/p covered stent placement HL: - cont statin
--- NOTE | 2018-06-25 17:09 | PN ---
Progress Note (short form) - Note Progress Note: asymptomatic. denies CP, SOB, fever, chills, cough, N/V/C/D Current Medications Generic Name Dose Route Start Last Admin Trade Name Freq PRN Reason Stop Dose Admin Albuterol Sulfate 1 amp 06/24/18 13:13 Ventolin 0.083% Nebulizer Soln - NEB Q4H PRN SHORT OF BREATH/WHEEZING Albuterol/Ipratropium 1 amp 06/24/18 16:00 06/25/18 15:33 Duoneb - NEB 1 amp RQID RAMANA Administration Apixaban 2.5 mg 06/24/18 13:00 06/25/18 10:31 Eliquis - PO 2.5 mg BID RAMANA Administration Ascorbic Acid 500 mg 06/25/18 10:00 06/25/18 10:30 Vitamin C - PO 500 mg DAILY RAMANA Administration Atorvastatin Calcium 10 mg 06/24/18 22:00 06/24/18 22:13 Lipitor - PO Not Given HS RAMANA Carbamazepine 200 mg 06/24/18 22:00 06/24/18 22:13 Tegretol - PO Not Given HS RAMANA Digoxin 0.125 mg 06/25/18 10:00 06/25/18 10:30 Lanoxin - PO 0.125 mg DAILY RAMANA Administration Docusate Sodium 100 mg 06/24/18 14:00 06/25/18 13:41 Colace - PO 100 mg TID RAMANA Administration Donepezil HCl 10 mg 06/24/18 22:00 06/24/18 22:13 Aricept - PO Not Given HS RAMANA Levothyroxine Sodium 50 mcg 06/25/18 07:00 06/25/18 06:14 Synthroid - PO 50 mcg DAILY@0700 RAMANA Administration Methylprednisolone Sodium Succinate 40 mg 06/24/18 22:00 06/25/18 10:31 Solu-Medrol - IVPUSH 40 mg BID RAMANA Administration Mzucs-7-Hsql Ethyl Esters 1 gm 06/24/18 22:00 06/25/18 10:31 Lovaza - PO 1 gm BID RAMANA Administration Pantoprazole Sodium 40 mg 06/25/18 10:00 Protonix - PO DAILY RAMANA Polyethylene Glycol 17 gm 06/25/18 10:00 06/25/18 13:39 Miralax (For Daily Use) - PO 17 gm DAILY RAMANA Administration Senna 2 tab 06/24/18 13:13 Senna - PO HS PRN CONSTIPATION Torsemide 20 mg 06/25/18 10:00 06/25/18 10:30 Demadex - PO 20 mg DAILY RAMANA Administration Last Vital Signs Temp Pulse Resp BP Pulse Ox 98.2 F 74 20 117/62 100 06/25/18 14:35 06/25/18 14:35 06/25/18 14:35 06/25/18 14:35 06/25/18 09:00 General NAD CV S1 s2 + lungs coarse breath sounds. no wheezing Abdomen soft NT/nD CBCD WBC 8.8 K/mm3 (4.0-10.0) 06/25/18 07:00 RBC 4.71 M/mm3 (4.00-5.60) 06/25/18 07:00 Hgb 16.0 GM/dL (11.7-16.9) 06/25/18 07:00 Hct 48.6 % (35.4-49) 06/25/18 07:00 MCV 103.1 fl (80-96) H 06/25/18 07:00 MCHC 33.0 g/dl (32.0-35.9) 06/25/18 07:00 RDW 14.7 % (11.9-15.9) 06/25/18 07:00 Plt Count 143 K/MM3 (134-434) 06/25/18 07:00 MPV 7.9 fl (7.5-11.1) 06/25/18 07:00 CMP Sodium 139 mmol/L (136-145) 06/25/18 07:00 Potassium 4.5 mmol/L (3.5-5.1) 06/25/18 07:00 Chloride 93 mmol/L (98-107) L 06/25/18 07:00 Carbon Dioxide 41 mmol/L (21-32) H 06/25/18 07:00 Anion Gap 4 MMOL/L (8-16) L 06/25/18 07:00 BUN 72 mg/dL (7-18) H 06/25/18 07:00 Creatinine 1.6 mg/dL (0.55-1.3) H 06/25/18 07:00 Creat Clearance w eGFR 41.49 (>60) 06/25/18 07:00 Calcium 8.8 mg/dL (8.5-10.1) 06/25/18 07:00 Total Bilirubin 1.3 mg/dL (0.2-1) H 06/25/18 07:00 AST 28 U/L (15-37) 06/25/18 07:00 ALT 23 U/L (13-61) 06/25/18 07:00 Alkaline Phosphatase 60 U/L (45-117) 06/25/18 07:00 Total Protein 6.1 g/dl (6.4-8.2) L 06/25/18 07:00 Albumin 2.9 g/dl (3.4-5.0) L 06/25/18 07:00 Microbiology 06/12/18 16:05 Blood - Peripheral Venous Blood Culture - Final NO GROWTH AFTER 5 DAYS INCUBATION 06/12/18 15:50 Blood - Peripheral Venous Blood Culture - Final NO GROWTH AFTER 5 DAYS INCUBATION 06/13/18 14:50 Sputum - Expectorated Gram Stain - Final 06/13/18 14:50 Sputum - Expectorated Sputum Culture - Final NORMAL RESPIRATORY JOSE 06/13/18 13:30 Urine For Antigen Detection Legionella Antigen - Final 06/13/18 13:30 Urine For Antigen Detection Streptococcus pneumoniae Antigen (M - Final A/P 83 year old man with a history of COPD, chronic hypoxic respiratory failure, pulmonary HTN, hyperlipidemia, right-sided heart failure, atrial fib/flutter, hypothyroidism, dementia, depression, MICHAEL who presented to the ED with SOB and leg swelling. 1. Acute exacerbation of COPD secondary to pneumonia with chronic hypoxic respiratory failure, MICHAEL, and severe pulm HTN- clinically improved. on medrol BID. completed abx course. on bipap overnight. Continue DuoNeb, albuterol as needed. Continue oxygen to maintain saturation >90%. pulm on board 2. 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 eliquis re-started. will need vas outpatient follow up 3. Acute on chronic right-sided heart failure. now euovolemic. on home dose of toresemine. cardio on board 4. Permanent atrial fib- Continue Digoxin and eliquis 5. Hyperlipidemia- Continue Lipitor, Lovaza 6. Hypothyroidism- Continue Synthroid 7. Depression- Continue Tegretol 8. Dementia- Continue Aricept 9. Stage 3 CKD- Stable 10. medically optimized at this time. awaiting bed at SNF Visit type - Emergency Visit Emergency Visit: Yes ED Registration Date: 06/12/18 Care time: The patient presented to the Emergency Department on the above date and was hospitalized for further evaluation of their emergent condition. - New Patient This patient is new to me today: Yes Date on this admission: 06/25/18 - Critical Care Critical Care patient: No - Discharge Referral Referred to [facility] Med P.C.: No
[2018-06-25] MEDS: ATORVASTATIN CA 10 MG TABLET (FP) PO SCH (22:24)
[2018-06-25] MEDS: DONEPEZIL HCL 10 MG TABLET (FP) PO SCH (22:24)
[2018-06-25] MEDS: carBAMazepine 200 MG TABLET PO SCH (22:24)
[2018-06-26] MEDS: DOCUSATE SODIUM 100 MG CAPSULE (FP) PO SCH ×3 (06:07→22:01)
[2018-06-26] MEDS: LEVOTHYROXINE NA 50 MCG TABLET (FP) PO SCH (06:07)
[2018-06-26 07:27] LABS: HEMATOCRIT 47.5 % (35.4-49); HEMOGLOBIN 15.8 GM/dL (11.7-16.9); MCH 34.1 pg (25.7-33.7); MCHC 33.1 g/dl (32.0-35.9); MEAN CELL VOLUME 102.9 fl (80-96); MEAN PLT VOLUME 7.8 fl (7.5-11.1); PLATELET COUNT 138 K/MM3 (134-434); RBC 4.62 M/mm3 (4.00-5.60); RDW 14.5 % (11.9-15.9); WHITE BLOOD COUNT 8.3 K/mm3 (4.0-10.0)
[2018-06-26] MEDS: ALBUTEROL SO4 2.5/IPRATROPIUM 0.5 INH SOL 3 ML VIAL.NEB. NEB SCH ×4 (08:10→20:22)
--- NOTE | 2018-06-26 09:40 | RAPID ---
Physical Examination Vital Signs: Vital Signs Temperature 97.5 F L 06/26/18 06:00 Pulse Rate 85 06/26/18 06:00 Respiratory Rate 20 06/26/18 06:00 Blood Pressure 128/75 06/26/18 06:00 O2 Sat by Pulse Oximetry (%) 97 06/26/18 03:20 Rapid response called for Pt. having increased confusion, inability, refusing to eat and continuously closing eyes which was different from the baseline last night. Dr. Santoro notified. Vital signs: 118/71 71 90% on 2L NC BGM-98. Physical exam CTAB, S1,S2 RRR, BS+ and no abdominal tenderness. When we arrived , Pt. able to open eyes to command and follow simple commands however with repeated insistence. CT Head ordered Stat and ABG as it was unclear to us why there was an acute change in mental status at this time. Labs: CBC, BMP 06/26/18 06:30 06/25/18 07:00
[2018-06-26 09:57] LABS: ARTERIAL BLD GAS O2 SATURATION 85.9 % (95-98); ARTERIAL BLOOD GAS PCO2 50.9 mmHg (35-45); ARTERIAL BLOOD GAS PO2 49.8 mmHg (80-105); ARTERIAL BLOOD GAS pH 7.48 (7.35-7.45)
[2018-06-26 10:04] LABS: ALLENS TEST POSITIVE
--- NOTE | 2018-06-26 10:04 | PN ---
Physical Exam: SUBJECTIVE: Patient seen and examined OBJECTIVE: Vital Signs Period Temp Pulse Resp BP Sys/Raya Pulse Ox Last 24 Hr 97.3 F-98.2 F 69-86 20-20 104-128/61-75 96-97 He is somnolent, dose not respond to verbal commands, moans with painful stimulus, does not move the arms, retracts the legs in response to painful stimulus. his eyes are open, mid size pupils. Cardiac: s1s2, irregular Lungs: CTAB, no wheezing at this time is on O2 2 l nc. Abd:BS+ NT/ND cachectic. no GINGER edema Has a pressure bag to control the hematoma Laboratory Results - last 24 hr 06/26/18 06/26/18 06/26/18 06:30 06:30 09:36 WBC 8.3 RBC 4.62 Hgb 15.8 Hct 47.5 MCV 102.9 H MCH 34.1 H MCHC 33.1 RDW 14.5 Plt Count 138 MPV 7.8 PTT (Actin FS) 28.9 POC Glucometer 98 Active Medications Generic Name Dose Route Start Last Admin Trade Name Freq PRN Reason Stop Dose Admin Albuterol Sulfate 1 amp 06/24/18 13:13 Ventolin 0.083% Nebulizer Soln - NEB Q4H PRN SHORT OF BREATH/WHEEZING Albuterol/Ipratropium 1 amp 06/24/18 16:00 06/25/18 20:50 Duoneb - NEB 1 amp RQID RAMANA Administration Apixaban 2.5 mg 06/24/18 13:00 06/25/18 22:24 Eliquis - PO 2.5 mg BID RAMANA Administration Ascorbic Acid 500 mg 06/25/18 10:00 06/25/18 10:30 Vitamin C - PO 500 mg DAILY RAMANA Administration Atorvastatin Calcium 10 mg 06/24/18 22:00 06/25/18 22:24 Lipitor - PO 10 mg HS RAMANA Administration Carbamazepine 200 mg 06/24/18 22:00 06/25/18 22:24 Tegretol - PO 200 mg HS RAMANA Administration Digoxin 0.125 mg 06/25/18 10:00 06/25/18 10:30 Lanoxin - PO 0.125 mg DAILY RAMANA Administration Docusate Sodium 100 mg 06/24/18 14:00 06/26/18 06:07 Colace - PO 100 mg TID RAMANA Administration Donepezil HCl 10 mg 06/24/18 22:00 06/25/18 22:24 Aricept - PO 10 mg HS RAMANA Administration Levothyroxine Sodium 50 mcg 06/25/18 07:00 06/26/18 06:07 Synthroid - PO 50 mcg DAILY@0700 RAMANA Administration Methylprednisolone Sodium Succinate 40 mg 06/24/18 22:00 06/25/18 22:24 Solu-Medrol - IVPUSH 40 mg BID RAMANA Administration Miqvw-9-Rryx Ethyl Esters 1 gm 06/24/18 22:00 06/25/18 22:24 Lovaza - PO 1 gm BID RAMANA Administration Pantoprazole Sodium 40 mg 06/25/18 10:00 06/25/18 11:54 Protonix - PO Not Given DAILY RAMANA Polyethylene Glycol 17 gm 06/25/18 10:00 06/25/18 13:39 Miralax (For Daily Use) - PO 17 gm DAILY RAMANA Administration Senna 2 tab 06/24/18 13:13 Senna - PO HS PRN CONSTIPATION Torsemide 20 mg 06/25/18 10:00 06/25/18 10:30 Demadex - PO 20 mg DAILY RAMANA Administration ASSESSMENT/PLAN: 83 Y/O M W COPD, chronic hypoxic respiratory failure, pulmonary HTN, hyperlipidemia, right-sided heart failure, atrial fib/flutter, hypothyroidism, dementia, depression, MICHAEL who presented to the ED with SOB and leg swelling. los 14 1.AMS: this morning was altered and non responsive, X RAY TECHNICIAN called, VS are stableand FS 98, last night he has been agitated and had no t tolerated BIPAP. Pending HCT, ABG. did not get any sedatives, opioids last night , pending HCT( afib on AC), pending ABG, Ammonia, lactate levels 2. Acute exacerbation of COPD secondary to pneumonia with chronic hypoxic respiratory failure, MICHAEL, and severe pulm HTN- clinically improved. on medrol BID. completed abx course. on bipap overnight. Continue DuoNeb, albuterol as needed. Continue oxygen to maintain saturation >90%. pulm on board, crystal discuss need for continuation of IV steroids for him. 3. Right popliteal artery aneurysm(06/24)- s/p R stent placement. eliquis re- started. will need [facility] outpatient follow up 4. Acute on chronic right-sided heart failure. now euovolemic. on home dose of toresemine. cardio on board 5. Permanent atrial fib- Continue Digoxin and eliquis 6. Hyperlipidemia- Continue Lipitor, Lovaza 7. Hypothyroidism- Continue Synthroid 8. Depression- Continue Tegretol 9. Dementia- Continue Aricept 10. Stage 3 CKD- Stable 11: Dispo: was [facility] to go [facility],pending improvement of MS. Visit type - Emergency Visit Emergency Visit: Yes ED Registration Date: 06/12/18 Care time: The patient presented to the Emergency Department on the above date and was hospitalized for further evaluation of their emergent condition. - New Patient This patient is new to me today: Yes Date on this admission: 06/26/18 - Critical Care Critical Care patient: No - Discharge Referral Referred to [facility] Med P.C.: No
--- NOTE | 2018-06-26 10:26 | PN ---
Progress Note (short form) - Note Progress Note: ABG: Metabolic alkalosis, with compensated respiratory acidosis. Hypoxic respiratory failure pending HCT Visit type - Emergency Visit Emergency Visit: Yes ED Registration Date: 06/12/18 Care time: The patient presented to the Emergency Department on the above date and was hospitalized for further evaluation of their emergent condition. - New Patient This patient is new to me today: Yes Date on this admission: 06/26/18 - Critical Care Critical Care patient: No - Discharge Referral Referred to [facility] Med P.C.: No
[2018-06-26] MEDS: DIGOXIN 0.125 MG TABLET (FP) PO SCH (11:37)
[2018-06-26] MEDS: APIXABAN 2.5 MG TABLET PO SCH ×2 (11:37→22:01)
[2018-06-26] MEDS: TORSEMIDE 20 MG TABLET (FP) PO SCH (11:37)
[2018-06-26] MEDS: methylPREDNISolone NA SUCC 40 MG/1 ML VIAL IVPUSH SCH ×2 (11:38→22:01)
[2018-06-26] MEDS: POLYETHYLENE GLYCOL 3350 119 GM BTL PO SCH (11:38)
[2018-06-26] MEDS: OMEGA-3 ACID ETHYL ESTERS (FATTY-ACIDS) 1 GM CAPSULE (FP) PO SCH ×2 (11:38→22:01)
[2018-06-26] MEDS: ASCORBIC ACID 500 MG TABLET (FP) PO SCH (11:38)
[2018-06-26] MEDS: PANTOPRAZOLE 40 MG TABLET (FP) PO SCH (11:38)
[2018-06-26 12:03] LABS: BASO % 0.1 % (0-2.0); EOS % 0.3 % (0-4.5); HEMATOCRIT 49.5 % (35.4-49); HEMOGLOBIN 16.2 GM/dL (11.7-16.9); LYMPH % 9.2 % (8-40); MCH 34.2 pg (25.7-33.7); MCHC 32.8 g/dl (32.0-35.9); MEAN CELL VOLUME 104.3 fl (80-96); MEAN PLT VOLUME 8.1 fl (7.5-11.1); MONO % 6.2 % (3.8-10.2); NEUT % 84.2 % (42.8-82.8); PLATELET COUNT 136 K/MM3 (134-434); RBC 4.75 M/mm3 (4.00-5.60); RDW 14.4 % (11.9-15.9); WHITE BLOOD COUNT 7.5 K/mm3 (4.0-10.0)
[2018-06-26 12:14] LABS: ANION GAP 4 MMOL/L (8-16); BLOOD UREA NITROGEN 55 mg/dL (7-18); CALCIUM 8.6 mg/dL (8.5-10.1); CHLORIDE 95 mmol/L (98-107); CO2 41 mmol/L (21-32); CREATININE 1.4 mg/dL (0.55-1.3); GLUCOSE,RANDOM 91 mg/dL (74-106); POTASSIUM 4.5 mmol/L (3.5-5.1); SODIUM 139 mmol/L (136-145)
[2018-06-26] MEDS: DEXTROSE 5%-0.45% SALINE 1,000 ML IV SCH (12:57)
--- NOTE | 2018-06-26 13:12 | PN ---
Progress Note (short form) - Note Progress Note: PULMONARY Episode of altered mental status this AM, now close to baseline per nursing. Studies thus far unremarkable. No current complaints aside from feeling thirsty. Vital Signs Period Temp Pulse Resp BP Sys/Raya Pulse Ox Last 24 Hr 97.3 F-98.2 F 74-86 20-20 104-128/61-75 91-97 Gen: NAD at rest Heart: RRR Lung: decreased breath sounds at the bases Abd: soft, nontender Ext: no edema CBC, BMP 06/26/18 11:30 06/26/18 11:30 Active Medications Albuterol Sulfate (Ventolin 0.083% Nebulizer Soln -) 1 amp NEB Q4H PRN PRN Reason: SHORT OF BREATH/WHEEZING Albuterol/Ipratropium (Duoneb -) 1 amp NEB RQID [facility] Last Admin: 06/26/18 11:31 Dose: 1 amp Apixaban (Eliquis -) 2.5 mg PO BID [facility] Last Admin: 06/26/18 11:37 Dose: Not Given Ascorbic Acid (Vitamin C -) 500 mg PO DAILY [facility] Last Admin: 06/26/18 11:38 Dose: Not Given Atorvastatin Calcium (Lipitor -) 10 mg PO HS [facility] Last Admin: 06/25/18 22:24 Dose: 10 mg Carbamazepine (Tegretol -) 200 mg PO HS [facility] Last Admin: 06/25/18 22:24 Dose: 200 mg Digoxin (Lanoxin -) 0.125 mg PO DAILY [facility] Last Admin: 06/26/18 11:37 Dose: Not Given Docusate Sodium (Colace -) 100 mg PO TID [facility] Last Admin: 06/26/18 06:07 Dose: 100 mg Donepezil HCl (Aricept -) 10 mg PO HS [facility] Last Admin: 06/25/18 22:24 Dose: 10 mg Dextrose/Sodium Chloride (D5-1/2ns -) 1,000 mls @ 75 mls/hr IV ASDIR [facility] Last Admin: 06/26/18 12:57 Dose: 75 mls/hr Levothyroxine Sodium (Synthroid -) 50 mcg PO DAILY@0700 [facility] Last Admin: 06/26/18 06:07 Dose: 50 mcg Methylprednisolone Sodium Succinate (Solu-Medrol -) 40 mg IVPUSH BID [facility] Last Admin: 06/26/18 11:38 Dose: Not Given Uwfdu-3-Mmwj Ethyl Esters (Lovaza -) 1 gm PO BID [facility] Last Admin: 06/26/18 11:38 Dose: Not Given Pantoprazole Sodium (Protonix -) 40 mg PO DAILY [facility] Last Admin: 06/26/18 11:38 Dose: Not Given Polyethylene Glycol (Miralax (For Daily Use) -) 17 gm PO DAILY [facility] Last Admin: 06/26/18 11:38 Dose: Not Given Senna (Senna -) 2 tab PO HS PRN PRN Reason: CONSTIPATION Torsemide (Demadex -) 20 mg PO DAILY [facility] Last Admin: 06/26/18 11:37 Dose: Not Given A/P Altered Mental Status resolving Acute COPD Exacerbation Pneumonia Chronic Hypoxic Respiratory Failure Acute on Chronic Diastolic Heart Failure Pulmonary HTN Atrial Fibrillation MICHAEL CKD Hyperlipidemia Hypothyroidism Dementia - completed antibiotics - can change steroids to PO prednisone - O2 to keep SpO2 >90% - BiPAP at night and PRN during day - inhaled bronchodilators - DVT prophylaxis
[2018-06-26] MEDS: ATORVASTATIN CA 10 MG TABLET (FP) PO SCH (22:01)
[2018-06-26] MEDS: DONEPEZIL HCL 10 MG TABLET (FP) PO SCH (22:01)
[2018-06-26] MEDS: carBAMazepine 200 MG TABLET PO SCH (22:01)
[2018-06-27] MEDS: DEXTROSE 5%-0.45% SALINE 1,000 ML IV SCH ×2 (02:33→16:30)
[2018-06-27] MEDS: LEVOTHYROXINE NA 50 MCG TABLET (FP) PO SCH (06:12)
[2018-06-27] MEDS: DOCUSATE SODIUM 100 MG CAPSULE (FP) PO SCH ×3 (06:12→21:59)
[2018-06-27] MEDS: ALBUTEROL SO4 2.5/IPRATROPIUM 0.5 INH SOL 3 ML VIAL.NEB. NEB SCH ×4 (07:35→21:37)
[2018-06-27 08:01] LABS: HEMATOCRIT 47.1 % (35.4-49); HEMOGLOBIN 15.3 GM/dL (11.7-16.9); MCH 33.6 pg (25.7-33.7); MCHC 32.4 g/dl (32.0-35.9); MEAN CELL VOLUME 103.6 fl (80-96); PLATELET COUNT 138 K/MM3 (134-434); RBC 4.55 M/mm3 (4.00-5.60); RDW 14.6 % (11.9-15.9); WHITE BLOOD COUNT 7.2 K/mm3 (4.0-10.0)
[2018-06-27] MEDS: APIXABAN 2.5 MG TABLET PO SCH ×2 (10:25→21:59)
[2018-06-27] MEDS: DIGOXIN 0.125 MG TABLET (FP) PO SCH (10:25)
[2018-06-27] MEDS: ASCORBIC ACID 500 MG TABLET (FP) PO SCH (10:25)
[2018-06-27] MEDS: OMEGA-3 ACID ETHYL ESTERS (FATTY-ACIDS) 1 GM CAPSULE (FP) PO SCH ×2 (10:26→21:59)
[2018-06-27] MEDS: methylPREDNISolone NA SUCC 40 MG/1 ML VIAL IVPUSH SCH (10:26)
--- NOTE | 2018-06-27 11:45 | PN ---
Physical Exam: SUBJECTIVE: Patient seen and examined, he is back to his baseline of following commands and eating and moving all limbs. since yesterday evening. Tolerated BIPAP last night OBJECTIVE: Vital Signs Period Temp Pulse Resp BP Sys/Raya Pulse Ox Last 24 Hr 97.7 F-98.3 F 58-93 20-22 107-124/54-66 93-94 He is awake, alert to person (baseline) moves all 4 limbs MMM No ocular discharge No nasal discharge CVS:S1S2 CTAB Abd: BS+ nt/nd the groin dressing is clean with no bleeding at the site Laboratory Results - last 24 hr 06/26/18 06/26/18 06/26/18 11:30 11:30 11:30 WBC 7.5 RBC 4.75 Hgb 16.2 Hct 49.5 H MCV 104.3 H MCH 34.2 H MCHC 32.8 RDW 14.4 Plt Count 136 MPV 8.1 Absolute Neuts (auto) 6.3 Neutrophils % 84.2 H Lymphocytes % 9.2 D Monocytes % 6.2 Eosinophils % 0.3 D Basophils % 0.1 Nucleated RBC % 0 PTT (Actin FS) Sodium 139 Potassium 4.5 Chloride 95 L Carbon Dioxide 41 H Anion Gap 4 L BUN 55 H Creatinine 1.4 H Creat Clearance w eGFR 48.40 Random Glucose 91 Lactic Acid Calcium 8.6 Ammonia 19.70 06/26/18 06/27/18 06/27/18 11:30 06:30 06:30 WBC 7.2 RBC 4.55 Hgb 15.3 Hct 47.1 MCV 103.6 H MCH 33.6 MCHC 32.4 RDW 14.6 Plt Count 138 MPV 8.0 Absolute Neuts (auto) Neutrophils % Lymphocytes % Monocytes % Eosinophils % Basophils % Nucleated RBC % PTT (Actin FS) 27.8 Sodium Potassium Chloride Carbon Dioxide Anion Gap BUN Creatinine Creat Clearance w eGFR Random Glucose Lactic Acid 2.1 H Calcium Ammonia Active Medications Generic Name Dose Route Start Last Admin Trade Name Freq PRN Reason Stop Dose Admin Albuterol Sulfate 1 amp 06/24/18 13:13 Ventolin 0.083% Nebulizer Soln - NEB Q4H PRN SHORT OF BREATH/WHEEZING Albuterol/Ipratropium 1 amp 06/24/18 16:00 06/27/18 07:35 Duoneb - NEB 1 amp RQID RAMANA Administration Apixaban 2.5 mg 06/24/18 13:00 06/27/18 10:25 Eliquis - PO 2.5 mg BID RAMANA Administration Ascorbic Acid 500 mg 06/25/18 10:00 06/27/18 10:25 Vitamin C - PO 500 mg DAILY RAMANA Administration Atorvastatin Calcium 10 mg 06/24/18 22:00 06/26/18 22:01 Lipitor - PO 10 mg HS RAMANA Administration Carbamazepine 200 mg 06/24/18 22:00 06/26/18 22:01 Tegretol - PO 200 mg HS RAMANA Administration Digoxin 0.125 mg 06/25/18 10:00 06/27/18 10:25 Lanoxin - PO 0.125 mg DAILY RAMANA Administration Docusate Sodium 100 mg 06/24/18 14:00 06/27/18 06:12 Colace - PO 100 mg TID RAMANA Administration Donepezil HCl 10 mg 06/24/18 22:00 06/26/18 22:01 Aricept - PO 10 mg HS RAMANA Administration Dextrose/Sodium Chloride 1,000 mls @ 75 mls/hr 06/26/18 12:15 06/27/18 02:33 D5-1/2ns - IV 75 mls/hr ASDIR RAMANA Administration Levothyroxine Sodium 50 mcg 06/25/18 07:00 06/27/18 06:12 Synthroid - PO 50 mcg DAILY@0700 RAMANA Administration Hxqtt-7-Ltzt Ethyl Esters 1 gm 06/24/18 22:00 06/27/18 10:26 Lovaza - PO 1 gm BID RAMANA Administration Pantoprazole Sodium 40 mg 06/25/18 10:00 06/26/18 11:38 Protonix - PO Not Given DAILY [facility] Polyethylene Glycol 17 gm 06/25/18 10:00 06/26/18 11:38 Miralax (For Daily Use) - PO Not Given DAILY [facility] Prednisone 40 mg 06/28/18 10:00 Deltasone - PO DAILY RAMANA Senna 2 tab 06/24/18 13:13 Senna - PO HS PRN CONSTIPATION Torsemide 20 mg 06/25/18 10:00 06/26/18 11:37 Demadex - PO Not Given DAILY [facility] ASSESSMENT/PLAN: 83 Y/O M W COPD, chronic hypoxic respiratory failure, pulmonary HTN, hyperlipidemia, right-sided heart failure, atrial fib/flutter, hypothyroidism, dementia, depression, MICHAEL who presented to the ED with SOB and leg swelling. los 14 1.AMS: brief episode yesterday morning which resolved by the evening. HCT wnl, Not significantly abnormal ABG, will ask neurology to evaluate the patient. most likely metabolic causes but still cant R/U TIA. on aspirin and statin 2. Acute exacerbation of COPD secondary to pneumonia with chronic hypoxic respiratory failure, MICHAEL, and severe pulm HTN- clinically improved.completed abx course. on bipap overnight. Continue DuoNeb, albuterol as needed. Continue oxygen to maintain saturation >90%. pulm on board, Iv sterodis were changed to po from today. 3. Right popliteal artery aneurysm(06/24)- s/p R stent placement. eliquis re- started. will need [facility] outpatient follow up 4. Acute on chronic right-sided heart failure. now euovolemic. on home dose of toresemine. cardio on board 5. Permanent atrial fib- Continue Digoxin and eliquis 6. Hyperlipidemia- Continue Lipitor, Lovaza 7. Hypothyroidism- Continue Synthroid 8. Depression- Continue Tegretol 9. Dementia- Continue Aricept 10. Stage 3 CKD- Stable 11: Dispo: was supposed to go to [facility],. Visit type - Emergency Visit Emergency Visit: Yes ED Registration Date: 06/12/18 Care time: The patient presented to the Emergency Department on the above date and was hospitalized for further evaluation of their emergent condition. - New Patient This patient is new to me today: No - Critical Care Critical Care patient: No - Discharge Referral Referred to [facility] Med P.C.: No
--- NOTE | 2018-06-27 12:50 | PN ---
Progress Note (short form) - Note Progress Note: PULMONARY Mental status back to baseline. States breathing better. Minimal cough. No fevers recorded. Vital Signs Period Temp Pulse Resp BP Sys/Raya Pulse Ox Last 24 Hr 97.7 F-98.3 F 58-93 20-22 107-124/54-66 93-94 Gen: NAD at rest Heart: RRR Lung: decreased breath sounds at the bases Abd: soft, nontender Ext: no edema CBC, BMP 06/27/18 06:30 06/26/18 11:30 Active Medications Albuterol Sulfate (Ventolin 0.083% Nebulizer Soln -) 1 amp NEB Q4H PRN PRN Reason: SHORT OF BREATH/WHEEZING Albuterol/Ipratropium (Duoneb -) 1 amp NEB RQID [facility] Last Admin: 06/27/18 07:35 Dose: 1 amp Apixaban (Eliquis -) 2.5 mg PO BID [facility] Last Admin: 06/27/18 10:25 Dose: 2.5 mg Ascorbic Acid (Vitamin C -) 500 mg PO DAILY [facility] Last Admin: 06/27/18 10:25 Dose: 500 mg Atorvastatin Calcium (Lipitor -) 10 mg PO HS [facility] Last Admin: 06/26/18 22:01 Dose: 10 mg Carbamazepine (Tegretol -) 200 mg PO HS [facility] Last Admin: 06/26/18 22:01 Dose: 200 mg Digoxin (Lanoxin -) 0.125 mg PO DAILY [facility] Last Admin: 06/27/18 10:25 Dose: 0.125 mg Docusate Sodium (Colace -) 100 mg PO TID [facility] Last Admin: 06/27/18 06:12 Dose: 100 mg Donepezil HCl (Aricept -) 10 mg PO HS [facility] Last Admin: 06/26/18 22:01 Dose: 10 mg Dextrose/Sodium Chloride (D5-1/2ns -) 1,000 mls @ 75 mls/hr IV ASDIR [facility] Last Admin: 06/27/18 02:33 Dose: 75 mls/hr Levothyroxine Sodium (Synthroid -) 50 mcg PO DAILY@0700 [facility] Last Admin: 06/27/18 06:12 Dose: 50 mcg Klcoc-7-Hwzn Ethyl Esters (Lovaza -) 1 gm PO BID [facility] Last Admin: 06/27/18 10:26 Dose: 1 gm Pantoprazole Sodium (Protonix -) 40 mg PO DAILY [facility] Last Admin: 06/26/18 11:38 Dose: Not Given Polyethylene Glycol (Miralax (For Daily Use) -) 17 gm PO DAILY [facility] Last Admin: 06/26/18 11:38 Dose: Not Given Prednisone (Deltasone -) 40 mg PO DAILY [facility] Senna (Senna -) 2 tab PO HS PRN PRN Reason: CONSTIPATION Torsemide (Demadex -) 20 mg PO DAILY [facility] Last Admin: 06/26/18 11:37 Dose: Not Given A/P Altered Mental Status resolved Acute COPD Exacerbation Pneumonia Chronic Hypoxic Respiratory Failure Acute on Chronic Diastolic Heart Failure Pulmonary HTN Atrial Fibrillation MICHAEL CKD Hyperlipidemia Hypothyroidism Dementia - completed antibiotics - prednisone taper - O2 to keep SpO2 >90% - BiPAP at night and PRN during day - inhaled bronchodilators - DVT prophylaxis
[2018-06-27] MEDS: POLYETHYLENE GLYCOL 3350 119 GM BTL PO SCH (15:41)
[2018-06-27] MEDS: PANTOPRAZOLE 40 MG TABLET (FP) PO SCH (15:42)
--- NOTE | 2018-06-27 18:48 | CON.NEURO ---
Consult - Past Medical History REGISTERED NURSE FIRST ASSISTANT: Yes: Dementia Cardio/Vascular: Yes: AFIB, Aneurysm (thoracic), HTN, Hyperlipdemia, Pulmonary Hypertension Pulmonary: Yes: Bronchitis, COPD, O2 Dependent, Pneumonia, Sleep Apnea. No: Previously Intubated, Pulmonary Embolus, Pulmonary Fibrosis Psych: Yes: Depression Endocrine: Yes: Hypothyroidism - Past Surgical History Past Surgical History: Yes: Cataract Removal (bilateral) - Alcohol/Substance Use Hx Alcohol Use: Yes History of Substance Use: reports: None - Smoking History Smoking history: Current every day smoker Have you smoked in the past 12 months: Yes Aproximately how many cigarettes per day: 8 If you are a former smoker, when did you quit?: 5 DAYS AGO - Social History ADL: Independent History of Recent Travel: No Home Medications - Allergies Allergies/Adverse Reactions: Allergies Allergy/AdvReac Type Severity Reaction Status Date / Time No Known Drug Allergies Allergy Verified 06/12/18 12:19 - Home Medications Home Medications: Ambulatory Orders Ziprasidone [Geodon -] 80 mg PO HS 10/28/11 Levalbuterol HCl [Xopenex] 1.25 mg IH Q4H PRN 02/14/15 Metoprolol Succinate 25 mg PO 1 and 1/2 DAILY 11/30/15 Torsemide 20 mg PO DAILY tablet 02/29/16 Ascorbic Acid [Vitamin C] 500 mg PO DAILY capsule 06/05/16 Cholecalciferol (Vitamin D3) [Vitamin D3] 2,000 unit PO DAILY capsule 06/05/16 Carbamazepine 200 mg PO HS 06/12/18 Apixaban [Eliquis -] 2.5 mg PO BID tablet 06/25/18 [place]-3 Acid Ethyl Esters [Lovaza -] 1 gm PO BID cap 06/25/18 Pantoprazole Sodium [Protonix -] 40 mg PO DAILY tablet.ec 06/25/18 Sennosides [Senna -] 2 tab PO HS PRN tablet 06/25/18 Physical Exam-Neuro Vital Signs: Vital Signs Temperature 97.6 F 06/27/18 14:32 Pulse Rate 77 06/27/18 14:32 Respiratory Rate 20 06/27/18 14:32 Blood Pressure 117/65 06/27/18 14:32 O2 Sat by Pulse Oximetry (%) 94 L 06/27/18 09:00 Labs: CBC, BMP 06/27/18 06:30 06/26/18 11:30 INR, PTT INR 1.05 (0.83-1.09) 06/22/18 05:15 Assessment/Plan cc Transient confusion and history of dementia HPI 83 year old male with multiple medical problem, including Pulmonary hypertension, copd , atrial flutter ( on eliquis), hypothyroidism, dementia, depression ? seizure. Patient has been in hospital for a while, and he was about to be discharged. He is alert oriented x 2 as baseline. He did get confused and was not talking and not able follow command on june 26 morning. It lasted for 4-6 hours, he has ct head done and , blood test including nh3 level, and other electrolyte. He has work up normal. There was no headache, no fever or infection. There was no seizure like activity or motor weakness . He lives with his son and quit smoking 5 years ago. PMH as above SH,FH,ROS reviewed in chart NKDA Ambulatory Orders Levalbuterol HCl [Xopenex] 1.25 mg IH Q4H PRN 02/14/15 Potassium Chloride 20 meq PO DAILY tablet 08/30/15 Metoprolol Succinate 25 mg PO 1 and 1/2 DAILY 11/30/15 Torsemide 20 mg PO DAILY tablet 02/29/16 Ascorbic Acid [Vitamin C] 500 mg PO DAILY capsule 06/05/16 Cholecalciferol (Vitamin D3) [Vitamin D3] 2,000 unit PO DAILY capsule 06/05/16 Carbamazepine 200 mg PO HS 06/12/18 Aricept, Eliquis, Digoxin , levothyroxin and prednisone NEUROLOGICAL EXAMINATION Alert oriented x 2, speech is normal no evidence of neck stiffnes EOMI, pupil is reactive no face asymmetry motor 5/[address] head is normal Assessment/Plan 83 year old male multiple medical problem including Atrial fibrillation, Pulmonary hypertension, dementia and ? seizrue ( on cbz). Patient has transient confusion and now resolved back to normal. Clinically unlikley to be tia, possibility of seizure cant be rule out , other possibility is dehydration , which was corrected after IV fluid. Patient is back to baseline Plan : continue current level of care - he is on eliquis and statin, no need for stroke/tia work up as suspician is low - would do eeg as he has ? seizure is on cbz, continue current dose of cbz - watch clinically, supportive care Thanking you so much Rod Whitten MD
[2018-06-27] MEDS ORDERED: PT OWN MED DRAWER 7, Y5N ONE (21:20)
[2018-06-27] MEDS: DONEPEZIL HCL 10 MG TABLET (FP) PO SCH (22:00)
[2018-06-27] MEDS: ATORVASTATIN CA 10 MG TABLET (FP) PO SCH (22:00)
[2018-06-27] MEDS: carBAMazepine 200 MG TABLET PO SCH (23:15)
[2018-06-28] MEDS: DEXTROSE 5%-0.45% SALINE 1,000 ML IV SCH ×2 (05:38→12:35)
[2018-06-28] MEDS: DOCUSATE SODIUM 100 MG CAPSULE (FP) PO SCH ×3 (05:45→21:53)
[2018-06-28] MEDS: LEVOTHYROXINE NA 50 MCG TABLET (FP) PO SCH ×2 (05:46→06:23)
[2018-06-28 07:34] LABS: HEMATOCRIT 44.5 % (35.4-49); HEMOGLOBIN 14.6 GM/dL (11.7-16.9); MCH 33.6 pg (25.7-33.7); MCHC 32.9 g/dl (32.0-35.9); MEAN CELL VOLUME 102.3 fl (80-96); PLATELET COUNT 129 K/MM3 (134-434); RBC 4.35 M/mm3 (4.00-5.60); RDW 14.3 % (11.9-15.9); WHITE BLOOD COUNT 7.9 K/mm3 (4.0-10.0)
[2018-06-28] MEDS: ALBUTEROL SO4 2.5/IPRATROPIUM 0.5 INH SOL 3 ML VIAL.NEB. NEB SCH ×4 (07:35→19:45)
[2018-06-28] MEDS: APIXABAN 2.5 MG TABLET PO SCH ×2 (09:31→21:52)
[2018-06-28] MEDS: DIGOXIN 0.125 MG TABLET (FP) PO SCH (09:31)
[2018-06-28] MEDS: OMEGA-3 ACID ETHYL ESTERS (FATTY-ACIDS) 1 GM CAPSULE (FP) PO SCH ×2 (09:31→21:53)
[2018-06-28] MEDS: predniSONE 20 MG TABLET (UD) PO SCH (09:31)
[2018-06-28] MEDS: ASCORBIC ACID 500 MG TABLET (FP) PO SCH (09:31)
[2018-06-28] MEDS: POLYETHYLENE GLYCOL 3350 119 GM BTL PO SCH (09:31)
[2018-06-28] MEDS: PANTOPRAZOLE 40 MG TABLET (FP) PO SCH (09:31)
--- NOTE | 2018-06-28 10:24 | PN ---
Progress Note (short form) - Note Progress Note: Resting in NAD on NC O2. Awake and alert, but mildly confused. Reports breathing is better. Residual dry cough. No fevers recorded. Intake & Output 06/25/18 06/26/18 06/27/18 06/28/18 23:59 23:59 23:59 23:59 Intake Total 9789 760 1317 200 Balance 9922 950 9214 200 Weight 144 lb 3.2 oz Last Vital Signs Temp Pulse Resp BP Pulse Ox 98.2 F 68 20 138/79 95 06/28/18 04:00 06/28/18 09:31 06/28/18 04:00 06/28/18 04:00 06/27/18 21:00 Active Medications Albuterol Sulfate (Ventolin 0.083% Nebulizer Soln -) 1 amp NEB Q4H PRN PRN Reason: SHORT OF BREATH/WHEEZING Albuterol/Ipratropium (Duoneb -) 1 amp NEB RQID [facility] Last Admin: 06/28/18 07:35 Dose: 1 amp Apixaban (Eliquis -) 2.5 mg PO BID [facility] Last Admin: 06/28/18 09:31 Dose: 2.5 mg Ascorbic Acid (Vitamin C -) 500 mg PO DAILY [facility] Last Admin: 06/28/18 09:31 Dose: 500 mg Atorvastatin Calcium (Lipitor -) 10 mg PO HS [facility] Last Admin: 06/27/18 22:00 Dose: 10 mg Carbamazepine (Tegretol -) 200 mg PO HS [facility] Last Admin: 06/27/18 23:15 Dose: 200 mg Digoxin (Lanoxin -) 0.125 mg PO DAILY [facility] Last Admin: 06/28/18 09:31 Dose: 0.125 mg Docusate Sodium (Colace -) 100 mg PO TID [facility] Last Admin: 06/28/18 05:45 Dose: 100 mg Donepezil HCl (Aricept -) 10 mg PO HS [facility] Last Admin: 06/27/18 22:00 Dose: 10 mg Dextrose/Sodium Chloride (D5-1/2ns -) 1,000 mls @ 75 mls/hr IV ASDIR [facility] Last Admin: 06/28/18 05:38 Dose: 75 mls/hr Levothyroxine Sodium (Synthroid -) 50 mcg PO DAILY@0700 [facility] Last Admin: 06/28/18 06:23 Dose: Not Given Qwbat-0-Cghm Ethyl Esters (Lovaza -) 1 gm PO BID [facility] Last Admin: 06/28/18 09:31 Dose: 1 gm Pantoprazole Sodium (Protonix -) 40 mg PO DAILY [facility] Last Admin: 06/28/18 09:31 Dose: 40 mg Polyethylene Glycol (Miralax (For Daily Use) -) 17 gm PO DAILY [facility] Last Admin: 06/28/18 09:31 Dose: 17 gm Prednisone (Deltasone -) 40 mg PO DAILY [facility] Last Admin: 06/28/18 09:31 Dose: 40 mg Senna (Senna -) 2 tab PO HS PRN PRN Reason: CONSTIPATION Torsemide (Demadex -) 20 mg PO DAILY [facility] Last Admin: 06/26/18 11:37 Dose: Not Given Gen: NAD at rest Heart: RRR Lung: decreased breath sounds at the bases Abd: soft, nontender Ext: no edema Laboratory Results - last 24 hr 06/28/18 06/28/18 05:54 05:54 WBC 7.9 RBC 4.35 Hgb 14.6 Hct 44.5 MCV 102.3 H MCH 33.6 MCHC 32.9 RDW 14.3 Plt Count 129 L MPV 8.0 PTT (Actin FS) 28.1 A/P Altered Mental Status resolved Acute COPD Exacerbation Pneumonia Chronic Hypoxic Respiratory Failure Acute on Chronic Diastolic Heart Failure Pulmonary HTN Atrial Fibrillation MICHAEL CKD Hyperlipidemia Hypothyroidism Dementia - completed antibiotics - prednisone taper - O2 to keep SpO2 >90% - NIPPV QHS and PRN during day - inhaled bronchodilators - DVT prophylaxis - D/C planning Dr Cortes Problem List - Problems (1) Community acquired pneumonia Code(s): J18.9 - PNEUMONIA, UNSPECIFIED ORGANISM (2) Acute respiratory acidosis Code(s): E87.2 - ACIDOSIS (3) Acute respiratory failure with hypoxia and hypercarbia Code(s): J96.01 - ACUTE RESPIRATORY FAILURE WITH HYPOXIA; J96.02 - ACUTE RESPIRATORY FAILURE WITH HYPERCAPNIA (4) Aneurysm of right popliteal artery Code(s): I72.4 - ANEURYSM OF ARTERY OF LOWER EXTREMITY (5) COPD with acute exacerbation Code(s): J44.1 - CHRONIC OBSTRUCTIVE PULMONARY DISEASE W (ACUTE) EXACERBATION (6) Chronic respiratory acidosis Code(s): E87.2 - ACIDOSIS (7) Leg edema, right Code(s): R60.0 - LOCALIZED EDEMA (8) Right ventricular systolic dysfunction Code(s): I51.9 - HEART DISEASE, UNSPECIFIED (9) Atrial flutter Code(s): I48.92 - UNSPECIFIED ATRIAL FLUTTER Qualifiers: Atrial flutter type: unspecified Qualified Code(s): I48.92 - Unspecified atrial flutter (10) COPD (chronic obstructive pulmonary disease) Code(s): J44.9 - CHRONIC OBSTRUCTIVE PULMONARY DISEASE, UNSPECIFIED Qualifiers: COPD type: COPD with acute exacerbation Qualified Code(s): J44.1 - Chronic obstructive pulmonary disease with (acute) exacerbation (11) Chronic cor pulmonale Code(s): I27.81 - COR PULMONALE (CHRONIC) (12) Dementia Code(s): F03.90 - UNSPECIFIED DEMENTIA WITHOUT BEHAVIORAL DISTURBANCE Qualifiers: Dementia type: unspecified type Dementia behavioral disturbance: without behavioral disturbance Qualified Code(s): F03.90 - Unspecified dementia without behavioral disturbance (13) Hyperlipidemia Code(s): E78.5 - HYPERLIPIDEMIA, UNSPECIFIED Qualifiers: Hyperlipidemia type: unspecified Qualified Code(s): E78.5 - Hyperlipidemia , unspecified (14) Hypertension Code(s): I10 - ESSENTIAL (PRIMARY) HYPERTENSION Qualifiers: Hypertension type: essential hypertension Qualified Code(s): I10 - Essential (primary) hypertension (15) Hypothyroidism Code(s): E03.9 - HYPOTHYROIDISM, UNSPECIFIED Qualifiers: Hypothyroidism type: unspecified Qualified Code(s): E03.9 - Hypothyroidism , unspecified (16) Obstructive sleep apnea Code(s): G47.33 - OBSTRUCTIVE SLEEP APNEA (ADULT) (PEDIATRIC) (17) Pulmonary hypertension Code(s): I27.2 - OTHER SECONDARY PULMONARY HYPERTENSION * DO NOT USE *
--- NOTE | 2018-06-28 11:45 | PN ---
Progress Note, Physician Chief Complaint: C/O epigastric burning respiratory stasus is at base line - Current Medication List Current Medications: Active Medications Albuterol Sulfate (Ventolin 0.083% Nebulizer Soln -) 1 amp NEB Q4H PRN PRN Reason: SHORT OF BREATH/WHEEZING Albuterol/Ipratropium (Duoneb -) 1 amp NEB RQID [facility] Last Admin: 06/28/18 07:35 Dose: 1 amp Apixaban (Eliquis -) 2.5 mg PO BID [facility] Last Admin: 06/28/18 09:31 Dose: 2.5 mg Ascorbic Acid (Vitamin C -) 500 mg PO DAILY [facility] Last Admin: 06/28/18 09:31 Dose: 500 mg Atorvastatin Calcium (Lipitor -) 10 mg PO HS [facility] Last Admin: 06/27/18 22:00 Dose: 10 mg Carbamazepine (Tegretol -) 200 mg PO HS [facility] Last Admin: 06/27/18 23:15 Dose: 200 mg Digoxin (Lanoxin -) 0.125 mg PO DAILY [facility] Last Admin: 06/28/18 09:31 Dose: 0.125 mg Docusate Sodium (Colace -) 100 mg PO TID [facility] Last Admin: 06/28/18 05:45 Dose: 100 mg Donepezil HCl (Aricept -) 10 mg PO HS [facility] Last Admin: 06/27/18 22:00 Dose: 10 mg Dextrose/Sodium Chloride (D5-1/2ns -) 1,000 mls @ 75 mls/hr IV ASDIR [facility] Last Admin: 06/28/18 05:38 Dose: 75 mls/hr Levothyroxine Sodium (Synthroid -) 50 mcg PO DAILY@0700 [facility] Last Admin: 06/28/18 06:23 Dose: Not Given Fkmiq-1-Aihr Ethyl Esters (Lovaza -) 1 gm PO BID [facility] Last Admin: 06/28/18 09:31 Dose: 1 gm Pantoprazole Sodium (Protonix -) 40 mg PO DAILY [facility] Last Admin: 06/28/18 09:31 Dose: 40 mg Polyethylene Glycol (Miralax (For Daily Use) -) 17 gm PO DAILY [facility] Last Admin: 06/28/18 09:31 Dose: 17 gm Prednisone (Deltasone -) 40 mg PO DAILY [facility] Last Admin: 06/28/18 09:31 Dose: 40 mg Senna (Senna -) 2 tab PO HS PRN PRN Reason: CONSTIPATION Torsemide (Demadex -) 20 mg PO DAILY [facility] Last Admin: 06/26/18 11:37 Dose: Not Given - Objective Vital Signs: Vital Signs Temperature 98.1 F 06/28/18 08:00 Pulse Rate 68 06/28/18 09:31 Respiratory Rate 20 06/28/18 08:00 Blood Pressure 122/71 06/28/18 08:00 O2 Sat by Pulse Oximetry (%) 100 06/28/18 09:00 Elderly man not in acute distress HEENT: Mm moist, no anemia NECK: No JVD No Bruit CHEST: CTA B/L CVS: s1s@ R no m/g/r ABD: mild epigastric tenderness BS + EXT: Trace edema feet, no calf tenderness, Pulses + [employer]: Non focal Labs: CBC, BMP 06/28/18 05:54 06/26/18 11:30 INR, PTT INR 1.05 (0.83-1.09) 06/22/18 05:15 Problem List - Problems (1) COPD with acute exacerbation Assessment/Plan: on Nebulizers and ICS , respiratory evaluted the patient on Po prednisone PRN BIPAP cleared to Dc Home Code(s): J44.1 - CHRONIC OBSTRUCTIVE PULMONARY DISEASE W (ACUTE) EXACERBATION (2) Acute respiratory failure with hypoxia and hypercarbia Assessment/Plan: Due to COPd exacerbation now improving Code(s): J96.01 - ACUTE RESPIRATORY FAILURE WITH HYPOXIA; J96.02 - ACUTE RESPIRATORY FAILURE WITH HYPERCAPNIA (3) Atrial flutter Assessment/Plan: on rate control and AC with eliquis Code(s): I48.92 - UNSPECIFIED ATRIAL FLUTTER Qualifiers: Atrial flutter type: unspecified Qualified Code(s): I48.92 - Unspecified atrial flutter (4) Dementia Assessment/Plan: Chronic cont aricept Code(s): F03.90 - UNSPECIFIED DEMENTIA WITHOUT BEHAVIORAL DISTURBANCE Qualifiers: Dementia type: unspecified type Dementia behavioral disturbance: without behavioral disturbance Qualified Code(s): F03.90 - Unspecified dementia without behavioral disturbance (5) Hypertension Assessment/Plan: Well controlled Code(s): I10 - ESSENTIAL (PRIMARY) HYPERTENSION Qualifiers: Hypertension type: essential hypertension Qualified Code(s): I10 - Essential (primary) hypertension (6) Hypothyroidism Code(s): E03.9 - HYPOTHYROIDISM, UNSPECIFIED Qualifiers: Hypothyroidism type: unspecified Qualified Code(s): E03.9 - Hypothyroidism , unspecified (7) Hyperlipidemia Assessment/Plan: On Statin Code(s): E78.5 - HYPERLIPIDEMIA, UNSPECIFIED Qualifiers: Hyperlipidemia type: unspecified Qualified Code(s): E78.5 - Hyperlipidemia , unspecified (8) Transient confusion Assessment/Plan: H/O seizyures evaluted by Pulmonary consult recommonded EEG Code(s): R41.0 - DISORIENTATION, UNSPECIFIED
[2018-06-28] MEDS: MAG HYDROX/AL HYDROX/SIMETH 30 ML UNIT-DOSE CUP PO PRN (12:05)
--- NOTE | 2018-06-28 15:30 | PN ---
Progress Note (short form) - Note Progress Note: s: no cp, palps, dizziness, dyspnea Current Medications Al Hydroxide/Mg Hydroxide (Mylanta Oral Suspension -) 30 ml PO Q6H PRN PRN Reason: DYSPEPSIA Last Admin: 06/28/18 12:05 Dose: 30 ml Albuterol Sulfate (Ventolin 0.083% Nebulizer Soln -) 1 amp NEB Q4H PRN PRN Reason: SHORT OF BREATH/WHEEZING Albuterol/Ipratropium (Duoneb -) 1 amp NEB RQID [facility] Last Admin: 06/28/18 11:15 Dose: 1 amp Apixaban (Eliquis -) 2.5 mg PO BID [facility] Last Admin: 06/28/18 09:31 Dose: 2.5 mg Ascorbic Acid (Vitamin C -) 500 mg PO DAILY [facility] Last Admin: 06/28/18 09:31 Dose: 500 mg Atorvastatin Calcium (Lipitor -) 10 mg PO HS [facility] Last Admin: 06/27/18 22:00 Dose: 10 mg Carbamazepine (Tegretol -) 200 mg PO [facility] Last Admin: 06/27/18 23:15 Dose: 200 mg Digoxin (Lanoxin -) 0.125 mg PO DAILY [facility] Last Admin: 06/28/18 09:31 Dose: 0.125 mg Docusate Sodium (Colace -) 100 mg PO TID [facility] Last Admin: 06/28/18 14:10 Dose: 100 mg Donepezil HCl (Aricept -) 10 mg PO [facility] Last Admin: 06/27/18 22:00 Dose: 10 mg Dextrose/Sodium Chloride (D5-1/2ns -) 1,000 mls @ 75 mls/hr IV ASDIR [facility] Last Admin: 06/28/18 12:35 Dose: Not Given Levothyroxine Sodium (Synthroid -) 50 mcg PO DAILY@0700 [facility] Last Admin: 06/28/18 06:23 Dose: Not Given Krojy-9-Xsdg Ethyl Esters (Lovaza -) 1 gm PO BID [facility] Last Admin: 06/28/18 09:31 Dose: 1 gm Pantoprazole Sodium (Protonix -) 40 mg PO DAILY [facility] Last Admin: 06/28/18 09:31 Dose: 40 mg Polyethylene Glycol (Miralax (For Daily Use) -) 17 gm PO DAILY [facility] Last Admin: 06/28/18 09:31 Dose: 17 gm Prednisone (Deltasone -) 40 mg PO DAILY [facility] Last Admin: 06/28/18 09:31 Dose: 40 mg Senna (Senna -) 2 tab PO HS PRN PRN Reason: CONSTIPATION Torsemide (Demadex -) 20 mg PO DAILY [facility] Last Admin: 06/26/18 11:37 Dose: Not Given Vital Signs Period Temp Pulse Resp BP Sys/Raya Pulse Ox Last 24 Hr 97.2 F-98.2 F 56-74 20-20 109-138/60-79 95-100 Constitutional: Yes: No Distress, Calm Eyes: No: Sclera Icterus HENT: No: Nasal Congestion Cardiovascular: Yes: Pulse Irregular, S1, S2, Other (PMI non diplaced). No: JVD , Gallop, Murmur Respiratory: Yes: CTA Bilaterally (very decr diffusely). No: Accessory Muscle Use, Rales, Wheezes Gastrointestinal: Yes: Normal Bowel Sounds, Soft. No: Tenderness Musculoskeletal: Yes: Other (No kyphosis) Extremities: No: Cold, Cyanosis Edema: No Integumentary: No: Jaundice Neurological: Yes: Alert. No: Seizure Psychiatric: No: Agitated Assessment/Plan Pharm nuc stress 05/03/15: Afib with RVR. Asx. No ischemic changes. Nl perf. Nl EF. 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 06/20: cont torsemide 40 bid, monitor Cr, lytes, daily standing weights. -06/21: bun/creat trending up, weights very variable, neck veins flat--pt likely overdiuresed/hypovolemic. change torsemide 40 bid to 20 qd, observe for LE edema (reliably his HF sx). -06/22-, 06/25: BUN/Cr stable continue torsemide 20 mg daliy -06/28: torsemide held for dehydration, would resume when PO intake improves Atrial fibrillation. -rate ok, cont digoxin as doing (level good) -on metoprolol at home as well, which he has tolerated well--held here and HR good, observe. defer CCB to avoid exacerbating RV contractility issues -was on heparin gtt preop, eliquis restarted popliteal artery aneurysm - s/p covered stent placement HL: - cont statin
[2018-06-28] MEDS: ATORVASTATIN CA 10 MG TABLET (FP) PO SCH (21:52)
[2018-06-28] MEDS: DONEPEZIL HCL 10 MG TABLET (FP) PO SCH (21:53)
[2018-06-28] MEDS: carBAMazepine 200 MG TABLET PO SCH (22:19)
[2018-06-29 01:19] VITALS: TEMP 97.8
[2018-06-29] MEDS: MAG HYDROX/AL HYDROX/SIMETH 30 ML UNIT-DOSE CUP PO PRN ×2 (01:31→09:43)
[2018-06-29] MEDS: DOCUSATE SODIUM 100 MG CAPSULE (FP) PO SCH (05:37)
[2018-06-29] MEDS: LEVOTHYROXINE NA 50 MCG TABLET (FP) PO SCH (06:06)
[2018-06-29 07:27] LABS: BASO % 0.2 % (0-2.0); EOS % 1.1 % (0-4.5); HEMATOCRIT 42.6 % (35.4-49); HEMOGLOBIN 14.8 GM/dL (11.7-16.9); LYMPH % 11.2 % (8-40); MCHC 34.8 g/dl (32.0-35.9); MEAN CELL VOLUME 100.6 fl (80-96); MONO % 5.1 % (3.8-10.2); NEUT % 82.4 % (42.8-82.8); PLATELET COUNT 134 K/MM3 (134-434); RBC 4.24 M/mm3 (4.00-5.60); RDW 13.9 % (11.9-15.9); WHITE BLOOD COUNT 8.9 K/mm3 (4.0-10.0)
[2018-06-29 07:33] LABS: ANION GAP 4 MMOL/L (8-16); BLOOD UREA NITROGEN 32 mg/dL (7-18); CALCIUM 8.3 mg/dL (8.5-10.1); CHLORIDE 101 mmol/L (98-107); CO2 33 mmol/L (21-32); GLUCOSE,RANDOM 80 mg/dL (74-106); POTASSIUM 4.2 mmol/L (3.5-5.1); SODIUM 137 mmol/L (136-145)
[2018-06-29] MEDS: ALBUTEROL SO4 2.5/IPRATROPIUM 0.5 INH SOL 3 ML VIAL.NEB. NEB SCH (07:40)
[2018-06-29] MEDS: predniSONE 20 MG TABLET (UD) PO SCH (09:35)
[2018-06-29] MEDS: APIXABAN 2.5 MG TABLET PO SCH (09:35)
[2018-06-29] MEDS: PANTOPRAZOLE 40 MG TABLET (FP) PO SCH (09:35)
[2018-06-29] MEDS: TORSEMIDE 20 MG TABLET (FP) PO SCH (09:35)
[2018-06-29] MEDS: POLYETHYLENE GLYCOL 3350 119 GM BTL PO SCH (09:35)
[2018-06-29] MEDS: DIGOXIN 0.125 MG TABLET (FP) PO SCH (09:35)
[2018-06-29] MEDS: OMEGA-3 ACID ETHYL ESTERS (FATTY-ACIDS) 1 GM CAPSULE (FP) PO SCH (09:35)
[2018-06-29] MEDS: ASCORBIC ACID 500 MG TABLET (FP) PO SCH (09:35)
[2018-06-29 09:36] VITALS: PULSE 68
[2018-06-29 10:24] VITALS: BP 131/72
--- NOTE | 2018-06-29 10:26 | DS ---
Physical Exam: SUBJECTIVE: Patient seen and examined at the bedside. in no acute distress. needs his denture past to eat, but states he is hungry. no nausea. abdominal pain better after having a bowel movement. tells me he is having alot of gas. OBJECTIVE: eeg resulted as abnormal, neuro aware, OK to discharge to rehab. Vital Signs Period Temp Pulse Resp BP Sys/Raya Pulse Ox Last 24 Hr 97.2 F-98.4 F 49-81 20-20 120-147/67-84 97-99 PHYSICAL EXAM GENERAL: The patient is awake, alert and in no acute distress. episodes of confusion HEAD: small open area on anterior head. healedl EYES: PERRL, sclera anicteric, conjunctiva clear. ORAL: moist mucous membranes ENT: nares patent NECK: Trachea midline, no JVD LUNGS: lung sounds diminished at the bases. no wheezing or rhonchi. no accessory muscle use. HEART: Regular rate and rhythm ABDOMEN: Soft, mild tender on LLQ, but states improved since having a BM, nondistended, normoactive bowel sounds, no guarding EXTREMITIES: 2+ pulses, warm, well-perfused, RLE calf edema, venous stasis changes NEUROLOGICAL: AAOX2 Normal speech PSYCH: Normal mood, normal affect. SKIN: Warm, dry, normal turgor LABS Laboratory Results - last 24 hr 06/29/18 06/29/18 06/29/18 06:00 06:00 06:00 WBC 8.9 RBC 4.24 Hgb 14.8 Hct 42.6 MCV 100.6 H MCH 35.0 H MCHC 34.8 RDW 13.9 Plt Count 134 MPV 8.0 Absolute Neuts (auto) 7.3 Neutrophils % 82.4 Lymphocytes % 11.2 D Monocytes % 5.1 Eosinophils % 1.1 D Basophils % 0.2 Nucleated RBC % 0 PTT (Actin FS) 27.4 Sodium 137 Potassium 4.2 Chloride 101 Carbon Dioxide 33 H Anion Gap 4 L BUN 32 H Creatinine 1.0 Creat Clearance w eGFR 71.36 Random Glucose 80 Calcium 8.3 L HOSPITAL COURSE: Date of Admission:06/12/18 Date of Discharge: 06/29/18 Patient is a 83 year old male with a significant past medical history of COPD ( home oxygen dependent @ 2 liters), current daily smoker (quit 1 week ago) pulmonary hypertension, HLD, right sided CHF, atrial Flutter (on eliquis) hypothyroidism, dementia, depression, MICHAEL admitted with resp insufficiency and was found to have 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 Pulmonary COPD exacerbation, resolved. Now back on nasal cannula at 2-3 liters (his home baseline) with stable saturations between 88-92%. S/P solumedrol taper for shortness of breath. Now on Prednisone with outpatient taper. continue bipap. confirmed with SW that patient has bipap available at the rehab facility. Vascular: Aneurysm of right popliteal artery. Patient is s/p right stenting for right popliteal artery aneurysm on 06/24/18. Vascular follow up as an outpatient. Card: CHF. on demadex. Echo done 06/14: mod TR, EF 50-55%, no pericardial effusion Afib. On digoxin 0.125mg daily, eliquis 5mg bid HLD. On lipitor 10mg qhs, lovaza Renal: STEVAN, resolved. will need outpatient follow up. Psyche: Dementia On aricept Hypothyroidism On synthroid 50mcg daily Minutes to complete discharge: 60 Discharge Summary Reason For Visit: COPD EXACERBATION/CHF Current Active Problems Acute respiratory acidosis (Acute) Acute respiratory failure with hypoxia and hypercarbia (Acute) Aneurysm of right popliteal artery (Acute) CHF exacerbation (Acute) COPD with acute exacerbation (Acute) Chronic respiratory acidosis (Acute) Community acquired pneumonia (Acute) Leg edema, right (Acute) Right ventricular systolic dysfunction (Acute) Systolic heart failure (Acute) Transient confusion (Acute) Condition: Guarded - Instructions Diet, Activity, Other Instructions: Mr. Case/Facility staff: You were admitted due to exacerbation of your COPD and Right sided Pneumonia. You were treated with steroids and antibiotics and improved. You should have a repeat CXR in 4-6 weeks to ensure your pneumonia has cleared. Here are our recommendations: COPD acute exacerbation. resolved. Continue the Prednisone 40mg daily and taper down by 10mg every 3 days until tapered off. on bipap overnight. Continue DuoNeb, albuterol as needed. Continue oxygen to maintain saturation >90%. On baseline 2 liters of nasal cannula (home baseline) and Bipap at night. Atrial flutter On rate control and anticoagulate with eliquis. On digoxin. Vascular: Right popliteal artery aneurysm(4/11)- s/p R stent placement. eliquis re- started. will need [facility] outpatient follow up (Dr. Diaz) Dementia/transient confusion continue Aricept EEG completed, seen by neurologist and cleared for discharge Constipation Keep on daily bowel regimen Acute on chronic heart failaure On home dose of Toresemide, will need cardiology follow up as an outpatient. Follow up with Dr. Diaz as patient had a recent right stent placement for right popliteal artery aneurysm. Referrals: Sarkis Campos MD [Staff Physician] - Wyatt Abdi MD [Staff Physician] - Devon Diaz DO [Staff Physician] - Disposition: HALFWAY FACILITY - Home Medications Comprehensive Discharge Medication List: Ambulatory Orders Carbamazepine 200 mg PO HS 06/12/18 Apixaban [Eliquis -] 2.5 mg PO BID tablet 06/25/18 [place]-3 Acid Ethyl Esters [Lovaza -] 1 gm PO BID cap 06/25/18 Pantoprazole Sodium [Protonix -] 40 mg PO DAILY tablet.ec 06/25/18 Sennosides [Senna -] 2 tab PO HS PRN tablet 06/25/18 Albuterol 0.083% Nebulizer Carina [Ventolin 0.083% Nebulizer Soln -] 1 amp NEB Q4H PRN amp 06/29/18 Albuterol 2.5/Ipratropium 0.5 [Duoneb -] 1 amp NEB RQID amp 06/29/18 Docusate Sodium [Colace -] 100 mg PO TID capsule 06/29/18 Mag Hydrox/Al Hydrox/Simeth [Mylanta Oral Suspension -] 30 ml PO Q6H PRN cup Polyethylene Glycol 3350 [Miralax 119 gm Btl -] 17 gm PO DAILY bottle 06/29/18 Torsemide [Demadex -] 20 mg PO DAILY tablet 06/29/18 predniSONE [Deltasone -] 40 mg PO DAILY tablet 06/29/18 This patient is new to me today: No Emergency Visit: Yes ED Registration Date: 06/12/18 Care time: The patient presented to the Emergency Department on the above date and was hospitalized for further evaluation of their emergent condition. Critical Care patient: No - Discharge Referral Referred to [facility] Med P.C.: No
[2018-06-29] MEDS ORDERED: SIMETHICONE 80 MG TAB.CHEW (FP) PO PRN (10:30)
--- NOTE | 2018-06-29 10:45 | PN ---
Progress Note (short form) - Note Progress Note: Resting in NAD on 4 L NC O2. Awake and alert, but mildly confused. Reports breathing is better. Residual dry cough. No fevers recorded. Intake & Output 06/26/18 06/27/18 06/28/18 06/29/18 23:59 23:59 23:59 23:59 Intake Total 875 2629 1737 925 Output Total 350 Balance 875 2629 1387 925 Weight 144 lb 3.2 oz 144 lb 14.4 oz Last Vital Signs Temp Pulse Resp BP Pulse Ox 97.8 F 68 20 131/72 99 06/29/18 09:00 06/29/18 09:35 06/29/18 09:00 06/29/18 09:00 06/29/18 09:00 Active Medications Al Hydroxide/Mg Hydroxide (Mylanta Oral Suspension -) 30 ml PO Q6H PRN PRN Reason: DYSPEPSIA Last Admin: 06/29/18 09:43 Dose: 30 ml Albuterol Sulfate (Ventolin 0.083% Nebulizer Soln -) 1 amp NEB Q4H PRN PRN Reason: SHORT OF BREATH/WHEEZING Albuterol/Ipratropium (Duoneb -) 1 amp NEB RQID [facility] Last Admin: 06/29/18 07:40 Dose: 1 amp Apixaban (Eliquis -) 2.5 mg PO BID [facility] Last Admin: 06/29/18 09:35 Dose: 2.5 mg Ascorbic Acid (Vitamin C -) 500 mg PO DAILY [facility] Last Admin: 06/29/18 09:35 Dose: 500 mg Atorvastatin Calcium (Lipitor -) 10 mg PO [facility] Last Admin: 06/28/18 21:52 Dose: 10 mg Carbamazepine (Tegretol -) 200 mg PO [facility] Last Admin: 06/28/18 22:19 Dose: 200 mg Digoxin (Lanoxin -) 0.125 mg PO DAILY [facility] Last Admin: 06/29/18 09:35 Dose: 0.125 mg Docusate Sodium (Colace -) 100 mg PO TID [facility] Last Admin: 06/29/18 05:37 Dose: 100 mg Donepezil HCl (Aricept -) 10 mg PO [facility] Last Admin: 06/28/18 21:53 Dose: 10 mg Dextrose/Sodium Chloride (D5-1/2ns -) 1,000 mls @ 75 mls/hr IV ASDIR [facility] Last Admin: 06/28/18 12:35 Dose: Not Given Levothyroxine Sodium (Synthroid -) 50 mcg PO DAILY@0700 [facility] Last Admin: 06/29/18 06:06 Dose: 50 mcg [id number] Ethyl Esters (Lovaza -) 1 gm PO BID [facility] Last Admin: 06/29/18 09:35 Dose: 1 gm Pantoprazole Sodium (Protonix -) 40 mg PO DAILY [facility] Last Admin: 06/29/18 09:35 Dose: 40 mg Polyethylene Glycol (Miralax (For Daily Use) -) 17 gm PO DAILY [facility] Last Admin: 06/29/18 09:35 Dose: 17 gm Prednisone (Deltasone -) 40 mg PO DAILY [facility] Last Admin: 06/29/18 09:35 Dose: 40 mg Senna (Senna -) 2 tab PO HS PRN PRN Reason: CONSTIPATION Simethicone (Mylicon -) 80 mg PO Q4H PRN PRN Reason: CONSTIPATION Last Admin: 06/29/18 10:38 Dose: 80 mg Torsemide (Demadex -) 20 mg PO DAILY [facility] Last Admin: 06/29/18 09:35 Dose: 20 mg Gen: NAD at rest Heart: RRR Lung: decreased breath sounds at the bases Abd: soft, nontender Ext: no edema Laboratory Results - last 24 hr 06/29/18 06/29/18 06/29/18 06:00 06:00 06:00 WBC 8.9 RBC 4.24 Hgb 14.8 Hct 42.6 MCV 100.6 H MCH 35.0 H MCHC 34.8 RDW 13.9 Plt Count 134 MPV 8.0 Absolute Neuts (auto) 7.3 Neutrophils % 82.4 Lymphocytes % 11.2 D Monocytes % 5.1 Eosinophils % 1.1 D Basophils % 0.2 Nucleated RBC % 0 PTT (Actin FS) 27.4 Sodium 137 Potassium 4.2 Chloride 101 Carbon Dioxide 33 H Anion Gap 4 L BUN 32 H Creatinine 1.0 Creat Clearance w eGFR 71.36 Random Glucose 80 Calcium 8.3 L A/P Altered Mental Status resolved Acute COPD Exacerbation Pneumonia Chronic Hypoxic Respiratory Failure Acute on Chronic Diastolic Heart Failure Pulmonary HTN Atrial Fibrillation MICHAEL CKD Hyperlipidemia Hypothyroidism Dementia - completed antibiotics - prednisone taper - O2 to keep SpO2 >90% - NIPPV QHS and PRN during day - inhaled bronchodilators - DVT prophylaxis - D/C planning Dr Cortes Problem List - Problems (1) Community acquired pneumonia Code(s): J18.9 - PNEUMONIA, UNSPECIFIED ORGANISM (2) Acute respiratory acidosis Code(s): E87.2 - ACIDOSIS (3) Acute respiratory failure with hypoxia and hypercarbia Code(s): J96.01 - ACUTE RESPIRATORY FAILURE WITH HYPOXIA; J96.02 - ACUTE RESPIRATORY FAILURE WITH HYPERCAPNIA (4) Aneurysm of right popliteal artery Code(s): I72.4 - ANEURYSM OF ARTERY OF LOWER EXTREMITY (5) COPD with acute exacerbation Code(s): J44.1 - CHRONIC OBSTRUCTIVE PULMONARY DISEASE W (ACUTE) EXACERBATION (6) Chronic respiratory acidosis Code(s): E87.2 - ACIDOSIS (7) Leg edema, right Code(s): R60.0 - LOCALIZED EDEMA (8) Right ventricular systolic dysfunction Code(s): I51.9 - HEART DISEASE, UNSPECIFIED (9) Atrial flutter Code(s): I48.92 - UNSPECIFIED ATRIAL FLUTTER Qualifiers: Atrial flutter type: unspecified Qualified Code(s): I48.92 - Unspecified atrial flutter (10) COPD (chronic obstructive pulmonary disease) Code(s): J44.9 - CHRONIC OBSTRUCTIVE PULMONARY DISEASE, UNSPECIFIED Qualifiers: COPD type: COPD with acute exacerbation Qualified Code(s): J44.1 - Chronic obstructive pulmonary disease with (acute) exacerbation (11) Chronic cor pulmonale Code(s): I27.81 - COR PULMONALE (CHRONIC) (12) Dementia Code(s): F03.90 - UNSPECIFIED DEMENTIA WITHOUT BEHAVIORAL DISTURBANCE Qualifiers: Dementia type: unspecified type Dementia behavioral disturbance: without behavioral disturbance Qualified Code(s): F03.90 - Unspecified dementia without behavioral disturbance (13) Hyperlipidemia Code(s): E78.5 - HYPERLIPIDEMIA, UNSPECIFIED Qualifiers: Hyperlipidemia type: unspecified Qualified Code(s): E78.5 - Hyperlipidemia , unspecified (14) Hypertension Code(s): I10 - ESSENTIAL (PRIMARY) HYPERTENSION Qualifiers: Hypertension type: essential hypertension Qualified Code(s): I10 - Essential (primary) hypertension (15) Hypothyroidism Code(s): E03.9 - HYPOTHYROIDISM, UNSPECIFIED Qualifiers: Hypothyroidism type: unspecified Qualified Code(s): E03.9 - Hypothyroidism , unspecified (16) Obstructive sleep apnea Code(s): G47.33 - OBSTRUCTIVE SLEEP APNEA (ADULT) (PEDIATRIC) (17) Pulmonary hypertension Code(s): I27.2 - OTHER SECONDARY PULMONARY HYPERTENSION * DO NOT USE *
== END 2018-06-29 10:51 | DRG 252 ==
LOC: FER 12:19 → J4W 20:44 → J7W 06-24 11:39
PROVIDERS: ADMIT Internal Medicine; ATTEND Nurse Practitioner Family
PROC: B40FYZZ Plain Radiography of Right Lower Extremity Arteries using Other Contrast (ICD-10-PCS; 2018-06-24)
PROC: B40DYZZ Plain Radiography of Aorta and Bilateral Lower Extremity Arteries using Other Contrast (ICD-10-PCS; 2018-06-24)
PROC: 047M34Z Dilation of Right Popliteal Artery with Drug-eluting Intraluminal Device, Percutaneous Approach (ICD-10-PCS; principal; 2018-06-24 13:00)
PROC: 4A00X4Z Measurement of Central Nervous Electrical Activity, External Approach (ICD-10-PCS; 2018-06-28)
DX: I72.4 Aneurysm of artery of lower extremity (principal); J96.01 Acute respiratory failure with hypoxia; J96.02 Acute respiratory failure with hypercapnia; J18.9 Pneumonia, unspecified organism; I50.23 Acute on chronic systolic (congestive) heart failure; I48.92 Unspecified atrial flutter; J44.1 Chronic obstructive pulmonary disease with (acute) exacerbation; E87.2 Acidosis; N17.9 Acute kidney failure, unspecified; I13.0 Hypertensive heart and chronic kidney disease with heart failure and stage 1 through stage 4 chronic kidney disease, or unspecified chronic kidney disease; I48.2 Chronic atrial fibrillation; N18.3 Chronic kidney disease, stage 3 (moderate); I27.20 Pulmonary hypertension, unspecified; E03.9 Hypothyroidism, unspecified; F03.90 Unspecified dementia, unspecified severity, without behavioral disturbance, psychotic disturbance, mood disturbance, and anxiety; I27.81 Cor pulmonale (chronic); G47.33 Obstructive sleep apnea (adult) (pediatric); F32.9 Major depressive disorder, single episode, unspecified; E78.5 Hyperlipidemia, unspecified; R41.82 Altered mental status, unspecified; R60.0 Localized edema; J44.9 Chronic obstructive pulmonary disease, unspecified; Z99.81 Dependence on supplemental oxygen; Z86.718 Personal history of other venous thrombosis and embolism
CPT/HCPCS: 36415; 36600; 70450-TC; 71045-TC-FY; 71250-TC; 75635-TC; 76000-TC-FY; 80048; 80053; 80061; 80162; 81003; 81015; 82140; 82375; 82803; 82962; 83036; 83050; 83605; 83721; 83735; 83880; 84132; 84484; 85025; 85027; 85610; 85730; 87040; 87070; 87205; 87804; 87899; 93005; 93306-TC; 93971-TC; 94640; 94660; 94760; 95816; 97116-GP; 97161-GP; 99285-25; J0131; J1644